=== PATIENT | female | born 1950 | race Caucasian/White ===

== ENCOUNTER → 2016-10-29 | Outpatient (CLI) | payer BC ==
[~2016-10-29] MED LIST: AGG PO; ASPI81TA28 PEG; ATOR-22 PEG; ATOR-24 PEG; ATRINS INH; CALCTAB5 PO; CHOL100010 PO; CHOL20007 PEG; DFLUDL100 PEG; FSM70 PO; Fibersource 1.2 Cal PEG; IPRA0.037 NAE; LACTCHW5 PO; LACTTAB13 PEG; LPT20 PO; LSN20 PO; MAGN250T8 PO; MULT1TAB22 PO; PEDICHW50 PEG; POTA10SO10 PEG; SULF1TAB92 PO; VITA400C15 PO; VNCS125 PEG; XPNINS1255 INH; [UNRECOGNIZED DRUG - CODE] PEG
--- NOTE | 2016-10-29 13:39 | DIAGNOSTIC IMAGING REPORT ---
CT OF THE CHEST WITHOUT IV CONTRAST CLINICAL HISTORY: Solitary pulmonary nodule. COMPARISON STUDY: Chest CTs November 21, 2013 and March 25, 2015 and chest radiograph February 13, 2016. CT DOSE: 214.63 mGy.cm TECHNIQUE: Axial images of the chest were obtained without IV contrast. Images were reviewed in the axial, sagittal, and coronal planes. IV contrast was not administered for this examination. FINDINGS: No enlarged axillary, mediastinal or hilar lymph nodes are present. The size of the heart is normal. There is no pericardial effusion. Bilateral breast implants are noted. No pneumothorax or pleural effusion is present. The central airways are patent. The previously described 5 mm left upper lobe nodule shown image 26 of 77 is unchanged. This is benign given stability. There has been interval development of numerous subcentimeter ill-defined groundglass nodules throughout the lungs since CT of March 25, 2015. No consolidation is present. The bony thorax is unremarkable. A left renal cyst is noted. There are multiple subcentimeter hypodense renal lesions which are suboptimally assessed on this unenhanced exam but were present on study of January 04, 2013 and are probably benign. IMPRESSION: 1. Interval development of numerous small ill-defined nodules throughout the lungs since CT of March 25, 2015. The findings favor a mild infectious process. A follow-up chest CT in 3 months to ensure resolution is recommended. 2. Stable 5 mm left upper lobe nodule which is benign given stability. 3. No thoracic lymphadenopathy. Electronically signed by: Eliud Ramirez M.D. 10/29/2016 1:37 PM Dictated Date/Time: 10/29/2016 1:26 PM
== END | disposition home or self-care (01) ==
LOC: C.CTS 12:47
PROVIDERS: ATTEND Internal Medicine
DX: R91.1 Solitary pulmonary nodule (principal)

== ENCOUNTER → 2016-12-17 | Outpatient (CLI) | payer BC ==
[2016-12-17 12:19] LABS: BASO % 0.4 %; BASO ABS # 0.03 K/uL (0-0.2); COMPLETE YES; EOS % 2.9 %; HEMATOCRIT 36.9 % (37-47); IG% 0.1 %; LYMPH % 30.3 %; LYMPH ABS # 2.38 K/uL (1.2-3.4); MEAN CELL VOLUME 91.6 fL (80-100); MEAN CORPUSCULAR HEMOGLOBIN 31.5 pg (25-34); MEAN CORPUSCULAR HGB CONC 34.4 g/dl (32-36); MEAN PLATELET VOLUME 10.4 fL (7.4-10.4); MONO % 5.1 %; NEUT % 61.2 %; PLATELET COUNT 286 K/uL (130-400); RED BLOOD COUNT 4.03 M/uL (4.2-5.4); WHITE BLOOD COUNT 7.85 K/uL (4.8-10.8)
[2016-12-17 12:28] LABS: URINE APPEARANCE CLEAR (CLEAR); URINE BILIRUBIN NEG (NEG); URINE COLOR YELLOW; URINE NITRITE NEG (NEG); URINE PH 8.5 (4.5-7.5); URINE SPECIFIC GRAVITY 1.015 (1.000-1.030); UROBILINOGEN NEG (NEG)
[2016-12-17 12:30] LABS: MANUAL MICROSCOPIC REQUIRED? NO; REVIEW REQ? NO
[2016-12-17 12:46] LABS: ALT/SGPT 24 U/L (12-78); AST/SGOT 17 U/L (15-37); BLOOD UREA NITROGEN 19 mg/dl (7-18); BUN/CREATININE RATIO 24.2 (10-20); CARBON DIOXIDE 28 mmol/L (21-32); CHLORIDE 106 mmol/L (98-107); CREATININE 0.78 mg/dl (0.60-1.20); GLUCOSE 81 mg/dl (70-99); POTASSIUM 3.9 mmol/L (3.5-5.1); SODIUM 142 mmol/L (136-145)
[2016-12-17 12:59] LABS: ALB/GLOB RATIO 1.1 (0.9-2); ALKALINE PHOSPHATASE 42 U/L (45-117); CHOLESTEROL 172 mg/dl (0-200); CHOLESTEROL/HDL RATIO 2.9; HDL CHOLESTEROL 60 mg/dl; LDL CHOLESTEROL CALCULATED 85 mg/dl; TRIGLYCERIDES 133 mg/dl (0-150); VERY LOW DENSITY LIPOPROT CALC 27 mg/dl
== END | disposition home or self-care (01) ==
LOC: C.LABBFT 09:50
PROVIDERS: ATTEND Internal Medicine
DX: Z00.00 Encounter for general adult medical examination without abnormal findings (principal); Z11.59 Encounter for screening for other viral diseases; E78.00 Pure hypercholesterolemia, unspecified; M81.0 Age-related osteoporosis without current pathological fracture; J30.0 Vasomotor rhinitis; I10 Essential (primary) hypertension; I63.9 Cerebral infarction, unspecified; R53.83 Other fatigue; R39.9 Unspecified symptoms and signs involving the genitourinary system

== ENCOUNTER → 2017-01-08 | Outpatient (CLI) | payer BC ==
[2017-01-08 16:40] LABS: URINE APPEARANCE CLEAR (CLEAR); URINE BILIRUBIN NEG (NEG); URINE COLOR YELLOW; URINE NITRITE NEG (NEG); URINE PH 8.5 (4.5-7.5); URINE SPECIFIC GRAVITY 1.017 (1.000-1.030); UROBILINOGEN NEG (NEG); ZZUR CULT IF INDIC CLEAN CATCH NO
[2017-01-08 16:45] LABS: MANUAL MICROSCOPIC REQUIRED? NO; REVIEW REQ? NO
== END | disposition home or self-care (01) ==
LOC: C.LABBFT 12:00
PROVIDERS: ATTEND Physician Assistant Medical
DX: R39.9 Unspecified symptoms and signs involving the genitourinary system (principal)

== ENCOUNTER → 2017-01-14 | Outpatient (CLI) | payer BC, OTHER | END | disposition home or self-care (01) | LOC: C.LABBFT 15:25 | PROVIDERS: ATTEND Physician Assistant Medical | DX: R39.9 Unspecified symptoms and signs involving the genitourinary system (principal) ==

== ENCOUNTER → 2017-02-03 | Outpatient (CLI) | payer BC, OTHER ==
--- NOTE | 2017-02-03 11:20 | DIAGNOSTIC IMAGING REPORT ---
CT OF THE CHEST WITHOUT IV CONTRAST CLINICAL HISTORY: MULTIPLE PULMONARY NODULES COMPARISON STUDY: 10/29/2016 CT DOSE: 189.38 mGycm TECHNIQUE: CT of the thorax was performed from the thoracic inlet to the lung bases. Images are reviewed in the axial, sagittal, and coronal planes. IV contrast was not administered for this examination. FINDINGS: Thyroid: Imaged portions of the thyroid gland are normal in appearance. Thoracic aorta: The thoracic aorta is normal in course and caliber, noting standard 3 vessel arch anatomy. Heart: There are mild cardiac artery calcifications present. Lungs and pleural spaces: No pleural effusions are visualized. There is no focal pulmonary consolidation. There is a stable 5 mm left upper lobe pulmonary nodule. There is been resolution of the previously identified multifocal groundglass pulmonary nodules. This indicates resolution of an inflammatory/infectious process. Mediastinum: There are several mediastinal lymph nodes which are the upper limits of normal in size. Aisha: There is no evidence of pathologic hilar adenopathy given the limitations of a noncontrast study Axilla: There is no pathologic adenopathy Upper abdomen: There are postsurgical changes of bilateral breast implants. There is an upper pole left renal cyst measuring 24 mm. Skeletal structures: There are no lytic or blastic osseous lesions. IMPRESSION: 1. Stable 5 mm left upper lobe pulmonary nodule. No further follow-up is indicated 2. Interval resolution of the previous described ill-defined bilateral groundglass nodules. 3. No acute intrathoracic findings. Electronically signed by: Julien Conrad M.D. 02/03/2017 11:18 AM Dictated Date/Time: 02/03/2017 11:12 AM
== END | disposition home or self-care (01) ==
LOC: C.CTS 10:40
PROVIDERS: ATTEND Internal Medicine
DX: R91.8 Other nonspecific abnormal finding of lung field (principal); R91.1 Solitary pulmonary nodule

== ENCOUNTER → 2017-02-23 | Outpatient (CLI) | payer BC, OTHER | END | disposition home or self-care (01) | LOC: C.LABSPEC 17:10 | PROVIDERS: ATTEND Nurse Practitioner Family | DX: R39.9 Unspecified symptoms and signs involving the genitourinary system (principal); A49.8 Other bacterial infections of unspecified site ==

== ENCOUNTER 2017-03-26 12:07 | Emergency (ER) | payer BC, OTHER ==
[~2017-03-26] VITALS: Ht 162.6 cm; Wt 52.7 kg
[~2017-03-26 12:07] MED LIST changes: -ASPI81TA28 PEG; -ATOR-22 PEG; -ATOR-24 PEG; -ATRINS INH; -CHOL20007 PEG; -DFLUDL100 PEG; -Fibersource 1.2 Cal PEG; -LACTTAB13 PEG; -PEDICHW50 PEG; -POTA10SO10 PEG; -VNCS125 PEG; -XPNINS1255 INH; -[UNRECOGNIZED DRUG - CODE] PEG
[2017-03-26 12:10] VITALS: Ht 162.6 cm; Wt 52.7 kg
--- NOTE | 2017-03-26 13:41 | DIAGNOSTIC IMAGING REPORT ---
CT SCAN OF THE BRAIN WITHOUT IV CONTRAST CLINICAL HISTORY: Trauma. Fall. Headache. COMPARISON STUDY: CT of the brain dated 02/13/2016. TECHNIQUE: Unenhanced axial CT scan of the brain is performed from the vertex to the skull base. CT DOSE: 537.48 mGy.cm FINDINGS: Brain parenchyma: There is extensive subdural hemorrhage identified. Subdural blood along both sides of the midline falx measures up to 10 mm in thickness. There is subdural hemorrhage along the left convexity which measures up to 0.9 cm in thickness. This causes mild effacement of the subjacent cortical sulci. Trace subdural blood is seen along the right frontal convexity. There is subdural hemorrhage along the left tentorium cerebelli. Subdural blood is also seen within the posterior fossa on the left, and extends to the skull base anterior to the brainstem. This likely extends into the cervical region. There are age-related involutional changes noting moderate patchy subcortical and periventricular microangiopathic change. There is no parenchymal hematoma, midline shift, or evidence of acute territorial ischemia by CT criteria. Chronic lacunar infarcts are identified in the left nasal ganglia. [place]-white matter is preserved. Ventricles, sulci, cisterns: Prominent secondary to involutional change. Cavum septum pellucidum is incidentally noted. No intraventricular blood is identified. Intracranial vasculature: There is atherosclerotic calcification of the cavernous carotid and vertebral arteries. Calvarium: The skeletal structures are osteopenic. No depressed femoral fracture is seen. Soft tissues: There is a posterior scalp contusion. Sinuses and mastoids: The visualized paranasal sinuses are clear. The mastoid air cells are well pneumatized. Orbits: The bony orbits are grossly intact. IMPRESSION: 1. There is extensive subdural hemorrhage identified. Subdural blood is present along both sides of the midline falx, the left convexity, the right frontal convexity, the left tentorium cerebelli, the posterior fossa, and extending into the upper cervical region. 2. There is mild mass effect on the left-sided cortical sulci. No midline shift is seen. 3. There is no evidence of acute territorial ischemia by CT criteria. 4. Left posterior scalp contusion. No depressed calvarial fracture is identified. Findings were called to physician Asst. Covarrubias in the emergency department at the time of interpretation. Electronically signed by: Jean Paul Arriaga M.D. 03/26/2017 1:40 PM Dictated Date/Time: 03/26/2017 1:27 PM
[2017-03-26] MEDS ORDERED: ONDANSETRON INJ 2 MG/ML 2 ML VIAL IV STA (13:43)
[2017-03-26] MEDS ORDERED: DESMOPRESSIN ACETATE IV STA (13:44)
[2017-03-26] MEDS ORDERED: SODIUM CHLORIDE 0.9% IV STA (13:44)
[2017-03-26 14:05] LABS: ISTAT CREATININE 0.7 mg/dl (0.6-1.3); ISTAT HEMOGLOBIN 10.9 g/dl (12.0-16.0); ISTAT IONIZED CALCIUM 1.1 mmol/l (1.12-1.32)
[2017-03-26 14:11] LABS: BASO % 0.3 %; BASO ABS # 0.03 K/uL (0-0.2); COMPLETE YES; EOS % 0.9 %; HEMATOCRIT 34.9 % (37-47); IG% 0.7 %; LYMPH % 23.1 %; LYMPH ABS # 2.48 K/uL (1.2-3.4); MEAN CELL VOLUME 92.6 fL (80-100); MEAN CORPUSCULAR HEMOGLOBIN 30.8 pg (25-34); MEAN CORPUSCULAR HGB CONC 33.2 g/dl (32-36); MEAN PLATELET VOLUME 9.9 fL (7.4-10.4); MONO % 4.3 %; NEUT % 70.7 %; PLATELET COUNT 309 K/uL (130-400); RED BLOOD COUNT 3.77 M/uL (4.2-5.4); WHITE BLOOD COUNT 10.73 K/uL (4.8-10.8)
[2017-03-26 14:16] LABS: INR 0.9 (0.9-1.1); PARTIAL THROMBOPLASTIN RATIO 0.8; PROTHROMBIN TIME (PATIENT) 10.1 SECONDS (9.0-12.0)
[2017-03-26 14:18] VITALS: BP 127/71; PULSE 80; TEMP 36.6; O2SAT 100
[2017-03-26 14:26] LABS: CREATININE 0.78 mg/dl (0.60-1.20); POTASSIUM 3.4 mmol/L (3.5-5.1)
[2017-03-26 14:33] VITALS: BP 136/95; PULSE 89; O2SAT 100
[2017-03-26 14:35] VITALS: BP 138/94; PULSE 92; TEMP 36.6; O2SAT 99
[2017-03-26] MEDS ORDERED: FENTANYL CITRATE INJ 50 MCG/1 ML 2 ML VIAL ONE (14:45)
--- NOTE | 2017-03-26 14:52 | EMERGENCY ROOM VISIT NOTE ---
ED Visit Note First contact with patient: 12:55 I have personally evaluated this patient examined her and reviewed the pertinent labs and data. I have discussed the case with Mildred Covarrubias, the physician assistant professor of physics and agree with the plan. Please refer to the PA note. I called by the nurses/PA to see this patient and she had been placed in our fast track area and CAT scan had been ordered after she had significant falling. She was found have a subdural hematoma and light of this, she was brought from CAT scan or to room A1 and I saw her immediately. Her neurologic exam is unchanged from baseline and intact and she does have some mild thick each which she says is baseline from previous strokes. Of concern also is that she is on Aggrenox. We did soft and a cervical collar. Based on her I discussed this is [facility]. The patient does request [facility] and she's been seen before. She does need to go to a trauma/neurosurgical center as we do not have the services available here. We did call the the helicopter and IV in the meantime we did discuss the case with Dr. Wilson, and she recommended getting DDAVP which was given as well as platelets. We gave her 2 units of platelets given that she is on Aggrenox. She remained stable the helicopter crew arrived she was having some increasing pain but unchanged neurologic exam and was given IV fentanyl and IV Zofran. She will be sent emergently to [facility] for neurosurgical traumatic evaluation. Diagnosis 1. Subdural hematoma 2. Aggrenox/antiplatelet use Due to the patient's subdural hematoma need for multiple consultations as well as IV platelets and IV medications and emergency transfer helicopter, I have personally spent greater than 30 minutes of critical care time in the direct management of this patient. This includes bedside care, interpretation of diagnostic studies, and testing, discussion with consultants, patient, and family members, and other required patient management activities. This 30 minutes is in excess of all separately billable procedures.
[2017-03-26 15:14] VITALS: BP 138/94; PULSE 92; TEMP 36.6; O2SAT 100
--- NOTE | 2017-03-26 15:24 | EMERGENCY ROOM VISIT NOTE ---
ED Visit Note First contact with patient: 12:55 CHIEF COMPLAINT: Head injury HISTORY OF PRESENT ILLNESS: This 66-year-old female patient presented to the emergency department 3 hours after receiving a head injury when she slipped in her kitchen, and fell backwards, hitting her head on the oven door, breaking the glass on the door. There was no loss of consciousness. There has been no vomiting. The patient complains of "the worst headache of my life". The patient does report some nausea, slower speech than normal. The patient denies vomiting, dizziness, blurry vision, chest pain, dyspnea, confusion, altered mental status. The headache has been steady. The patient complains of no neck pain. The patient has taken nothing for the pain. The patient rates the pain as 10/10. The patient denies bowel or bladder dysfunction. The patient denies any other injuries. The patient is on Aggrenox. She does report a history of stroke approximately one year ago. REVIEW OF SYSTEMS: A 10 system review of systems was performed with positives and pertinent negatives listed in the history of present illness. All other systems were reviewed and are negative. ALLERGIES: Penicillin, pollen MEDICATIONS: Aggrenox, atorvastatin, lisinopril, alendronate sodium, vitamin D, vitamin E, multivitamin, Atrovent nasal spray, magnesium oxide PMH: Stroke, hypertension, hyperlipidemia SOCIAL HISTORY: Patient lives locally. She denies alcohol, drug, tobacco use. PHYSICAL EXAM: Vital Signs: Reviewed Nurse's notes, vital signs stable. GENERAL : 66-year-old female, in no acute distress, well-developed, well-nourished. NEURO: The patient is alert, oriented to person place and time, and coherent. Patient does have slightly slurred speech. Normal mini mental status exam. Negative Romberg and pronator drift. Cerebellar function intact. HEAD: Hematoma, approximately the size of a baseball on posterior aspect of patient's head. Patient states this has decreased in size since initial injury. No active bleeding, laceration. EYES: Pupils are equal round and reactive to light and accommodation. EOMs are full and optic discs and fundi are normal. There is no swelling or discoloration of the tissue surrounding the eyes. EARS : External auditory canals clear without blood. NOSE: Patent without tenderness. No septal hematoma. FACE: No facial bone tenderness. NECK: Supple. There is no cervical spine tenderness. The patient does not have tenderness with movement of the neck, however she states this does worsen her headache.CARDIOVASCULAR: RRR, No murmur, No S3, S4 on auscultation. All distal pulses 2+. LUNGS: Equal expansion bilaterally. Equal breath sounds bilaterally. No adventitious lung sounds such as wheezes, rhonchi, rales on auscultation. ED COURSE: I examined the patient. Patient was sent for head CT. I received a phone call from the radiologist as soon as the CT was performed, who indicated subdural hematoma, no midline shift, he does believe the bleeding extends to the brainstem/cerebellum. He states he will continue to finish reading the CT as soon as possible. CT Results: FINDINGS: Brain parenchyma: There is extensive subdural hemorrhage identified. Subdural blood along both sides of the midline falx measures up to 10 mm in thickness. There is subdural hemorrhage along the left convexity which measures up to 0.9 cm in thickness. This causes mild effacement of the subjacent cortical sulci. Trace subdural blood is seen along the right frontal convexity. There is subdural hemorrhage along the left tentorium cerebelli. Subdural blood is also seen within the posterior fossa on the left, and extends to the skull base anterior to the brainstem. This likely extends into the cervical region. There are age-related involutional changes noting moderate patchy subcortical and periventricular microangiopathic change. There is no parenchymal hematoma, midline shift, or evidence of acute territorial ischemia by CT criteria. Chronic lacunar infarcts are identified in the left nasal ganglia. De [place]a-white matter is preserved. Ventricles, sulci, cisterns: Prominent secondary to involutional change. Cavum septum pellucidum is incidentally noted. No intraventricular blood is identified. Intracranial vasculature: There is atherosclerotic calcification of the cavernous carotid and vertebral arteries. Calvarium: The skeletal structures are osteopenic. No depressed femoral fracture is seen. Soft tissues: There is a posterior scalp contusion. Sinuses and mastoids: The visualized paranasal sinuses are clear. The mastoid air cells are well pneumatized. Orbits: The bony orbits are grossly intact. IMPRESSION: 1. There is extensive subdural hemorrhage identified. Subdural blood is present along both sides of the midline falx, the left convexity, the right frontal convexity, the left tentorium cerebelli, the posterior fossa, and extending into the upper cervical region. 2. There is mild mass effect on the left-sided cortical sulci. No midline shift is seen. 3. There is no evidence of acute territorial ischemia by CT criteria. 4. Left posterior scalp contusion. No depressed calvarial fracture is identified. Patient was transferred to room A1 at this time, and I consulted with Dr. Roper. 2 IVs inserted, labs drawn, EKG performed. See Dr. Roper's dictation regarding further assessment and orders at this time. Patient transferred via [employer] and helicopter to [facility] for further evaluation and care. DIAGNOSIS: Subdural hematoma DIFFERENTIAL DIAGNOSIS: Contusion of skull, concussion, subarachnoid hemorrhage , epidural hematoma, hemorrhagic shock Problem List Medical Problems: (1) Breast cancer Status: Resolved (2) Hypertension Status: Chronic (3) Leukemia Status: Resolved Surgical Problems: (1) History of breast reconstruction Status: Resolved Current/Historical Medications Scheduled Alendronate Sodium (Alendronate Sodium), 70 MG PO WK Atorvastatin (Atorvastatin Calcium), 20 MG PO QAM Cholecalciferol (Vitamin D), 2,000 INTER.UNIT PO DAILY Dipyridamole/Aspirin (Aggrenox 25-200 mg), 1 CAP PO BID Ipratropium [place] (Nasal) (Atrovent Nasal Lithia), 2 SPRAYS TONY BID Lisinopril (Lisinopril), 20 MG PO DAILY Magnesium Oxide (Mg Supplement (Magnesium), Unknown Dose PO DAILY Multiple Vitamins W/ Minerals (One Daily For Women), 1 TAB PO DAILY Tocopheryl Acet,Dl-Alpha (Vitamin E), 400 INTER.UNIT PO DAILY Allergies Coded Allergies: POLLEN (Verified Allergy, Unknown, RUNNY NOSE/SNEEZING, 03/26/17) Penicillins (Verified Allergy, Unknown, RASH, 03/26/17) Vital Signs Date Time Temp Pulse Resp B/P (MAP) Pulse Ox O2 Delivery O2 Flow Rate FiO2 03/26/17 15:14 36.6 92 18 138/94 100 03/26/17 14:37 92 100 03/26/17 14:35 138/94 03/26/17 14:35 36.6 92 18 138/94 99 03/26/17 14:33 89 18 136/95 100 03/26/17 14:32 88 136/95 100 03/26/17 14:27 89 100 03/26/17 14:22 89 131/92 98 03/26/17 14:19 127/71 03/26/17 14:18 36.6 80 16 127/71 100 2.0 03/26/17 14:17 80 100 03/26/17 14:12 75 115/81 100 03/26/17 14:07 80 100 03/26/17 14:02 78 156/87 100 03/26/17 13:57 76 97 03/26/17 13:52 76 149/86 97 03/26/17 13:51 127/94 03/26/17 13:47 74 98 03/26/17 13:43 75 03/26/17 13:42 70 03/26/17 13:39 151/89 03/26/17 12:10 88 18 118/82 97 Room Air Laboratory Results 03/26/17 13:45 Red Blood Count 3.77, Mean Corpuscular Volume 92.6, Mean Corpuscular Hemoglobin 30.8, Mean Corpuscular Hemoglobin Concent 33.2, Mean Platelet Volume 9.9, Neutrophils (%) (Auto) 70.7, Lymphocytes (%) (Auto) 23.1, Monocytes (%) (Auto) 4.3, Eosinophils (%) (Auto) 0.9, Basophils (%) (Auto) 0.3, Neutrophils # (Auto) 7.59, Lymphocytes # (Auto) 2.48, Monocytes # (Auto) 0.46, Eosinophils # (Auto) 0.10, Basophils # (Auto) 0.03 03/26/17 13:45 Test 03/26/17 13:45 03/26/17 13:52 White Blood Count 10.73 K/uL (4.8-10.8) Red Blood Count 3.77 M/uL (4.2-5.4) Hemoglobin 11.6 g/dL (12.0-16.0) Hematocrit 34.9 % (37-47) Mean Corpuscular Volume 92.6 fL (80-100) Mean Corpuscular Hemoglobin 30.8 pg (25-34) Mean Corpuscular Hemoglobin Concent 33.2 g/dl (32-36) Platelet Count 309 K/uL (130-400) Mean Platelet Volume 9.9 fL (7.4-10.4) Neutrophils (%) (Auto) 70.7 % Lymphocytes (%) (Auto) 23.1 % Monocytes (%) (Auto) 4.3 % Eosinophils (%) (Auto) 0.9 % Basophils (%) (Auto) 0.3 % Neutrophils # (Auto) 7.59 K/uL (1.4-6.5) Lymphocytes # (Auto) 2.48 K/uL (1.2-3.4) Monocytes # (Auto) 0.46 K/uL (0.11-0.59) Eosinophils # (Auto) 0.10 K/uL (0-0.5) Basophils # (Auto) 0.03 K/uL (0-0.2) RDW Standard Deviation 42.0 fL (36.4-46.3) RDW Coefficient of Variation 12.3 % (11.5-14.5) Immature Granulocyte % (Auto) 0.7 % Immature Granulocyte # (Auto) 0.07 K/uL (0.00-0.02) Prothrombin Time 10.1 SECONDS (9.0-12.0) Prothromb Time International Ratio 0.9 (0.9-1.1) Activated Partial Thromboplast Time 21.7 SECONDS (21.0-31.0) Partial Thromboplastin Ratio 0.8 Est Creatinine Clear Calc Drug Dose 60.6 ml/min Estimated GFR () 93.1 Estimated GFR (Non- 80.3 BUN/Creatinine Ratio 25.0 (10-20) Calcium Level 9.0 mg/dl (8.5-10.1) Bedside Hemoglobin 10.9 g/dl (12.0-16.0) Bedside Hematocrit 32 % (37-47) Bedside Sodium 142 mEq/L (135-144) Bedside Potassium 3.7 mEq/L (3.3-5.0) Bedside Chloride 104 mEq/L (101-112) Bedside Total CO2 27 mEq/l (24-31) Anion Gap 16.0 mmol/L (16-25) Bedside Blood Urea Nitrogen 22 mg/dl (7-18) Bedside Creatinine 0.7 mg/dl (0.6-1.3) Bedside Glucose (other) 100 mg/dl (70-99) Bedside Ionized Calcium (Mirian) 1.10 mmol/l (1.12-1.32) Medications Administered Medications (Trade) Dose Ordered Sig/Kimberlyn Route Start Time Stop Time Status Last Admin Dose Admin Desmopressin Acetate 16 mcg/ Sodium Chloride 54 ml @ 100 mls/hr NOW STAT IV 03/26/17 13:44 03/26/17 14:16 DC 03/26/17 13:53 100 MLS/HR Ondansetron HCl (Zofran Inj) 4 mg NOW STAT IV 03/26/17 13:43 03/26/17 13:44 DC 03/26/17 13:43 4 MG Fentanyl Citrate (Fentanyl Inj) 100 mcg STK-MED ONCE .ROUTE 03/26/17 14:45 03/26/17 14:46 DC 03/26/17 14:45 25 MCG Departure Information Impression Primary Impression: Subdural hematoma, acute Dispostion Transfer Acute Care Facility Condition [facility]IR Referrals Caro Ramirez M.D. (PCP) Patient Instructions My [facility]
[2017-06-01] MEDS ORDERED: DFLUDL100 PEG (11:35)
[2017-06-01] MEDS ORDERED: XPNINS1255 INH (11:35)
[2017-06-01] MEDS ORDERED: POTA10SO10 PEG (11:35)
[2017-06-01] MEDS ORDERED: Fibersource 1.2 Cal PEG (11:35)
[2017-06-01] MEDS ORDERED: ATRINS INH (11:35)
[2017-06-01] MEDS ORDERED: VNCS125 PEG (11:35)
[2017-06-01] MEDS ORDERED: PEDICHW50 PEG (11:35)
== END 2017-03-26 14:55 | disposition short-term general hospital (02) ==
LOC: C.EDB 12:08 → C.ED 14:55
DX: S06.5X0A Traumatic subdural hemorrhage without loss of consciousness, initial encounter (principal); W01.198A Fall on same level from slipping, tripping and stumbling with subsequent striking against other object, initial encounter; Y92.000 Kitchen of unspecified non-institutional (private) residence as the place of occurrence of the external cause; I10 Essential (primary) hypertension; E78.5 Hyperlipidemia, unspecified; Z79.01 Long term (current) use of anticoagulants; Z86.73 Personal history of transient ischemic attack (TIA), and cerebral infarction without residual deficits; Z85.3 Personal history of malignant neoplasm of breast; Z85.6 Personal history of leukemia

== ENCOUNTER 2017-05-24 08:12 | Inpatient (IN) | payer OTHER, BC ==
[~2017-05-24] VITALS: Ht 167.6 cm; Wt 55.5 kg
[~2017-05-24 08:12] MED LIST changes: -CALCTAB5 PO; -LACTCHW5 PO; -SULF1TAB92 PO
[2017-05-24] MEDS ORDERED: LEVAQUIN 750MG / 150ML D5W IV STA (08:24)
[2017-05-24] MEDS ORDERED: CEFEPIME IV 1,000 MG in DEXTROSE 5% 100ML 100 ML IV STA (08:24)
[2017-05-24] MEDS ORDERED: SODIUM CHLORIDE 0.9% 1000ML 2,000 ML IV STA (08:24)
--- NOTE | 2017-05-24 08:47 | DIAGNOSTIC IMAGING REPORT ---
CHEST ONE VIEW PORTABLE CLINICAL HISTORY: Fever. COMPARISON STUDY: Chest CT February 03, 2017. FINDINGS: A tracheostomy tube is in place. There are bilateral breast implants. No pneumothorax or pleural effusion is identified. There is no evidence of pulmonary edema. Cardiac size is normal. Mediastinal contours are normal. Note is made of airspace opacity within the medial right lung base. There is also left basilar opacity. IMPRESSION: Bibasilar airspace opacities which could reflect pneumonia or atelectasis. Electronically signed by: Eliud Ramirez M.D. 05/24/2017 8:46 AM Dictated Date/Time: 05/24/2017 8:44 AM
[2017-05-24] MEDS ORDERED: VANCOMYCIN INJ 1,200 MG in SODIUM CHLORIDE 0.9% 500ML 500 ML IV SCH (09:00)
[2017-05-24 09:08] LABS: URINE APPEARANCE TURBID (CLEAR); URINE BILIRUBIN NEG (NEG); URINE COLOR YELLOW; URINE EPITHELIAL CELL AUTO >30 /lpf (0-5); URINE NITRITE POS (NEG); URINE SPECIFIC GRAVITY 1.022 (1.000-1.030); UROBILINOGEN NEG (NEG)
[2017-05-24 09:11] LABS: MANUAL MICROSCOPIC REQUIRED? NO; REVIEW REQ? YES
[2017-05-24 09:22] LABS: ALKALINE PHOSPHATASE 113 U/L (45-117); ALT/SGPT 495 U/L (12-78); AST/SGOT 637 U/L (15-37); BLOOD UREA NITROGEN 20 mg/dl (7-18); BUN/CREATININE RATIO 29.9 (10-20); CALCIUM 8.3 mg/dl (8.5-10.1); CARBON DIOXIDE 26 mmol/L (21-32); CHLORIDE 106 mmol/L (98-107); CREATININE 0.68 mg/dl (0.60-1.20); GLUCOSE 153 mg/dl (70-99); MAGNESIUM 1.9 mg/dl (1.8-2.4); SODIUM 142 mmol/L (136-145)
[2017-05-24 09:29] LABS: PROTHROMBIN TIME (PATIENT) 11.1 SECONDS (9.0-12.0)
[2017-05-24 09:35] LABS: ARTERIAL BLOOD GAS BASE EXCESS -0.4 mEq/L (-9-1.8); ARTERIAL BLOOD GAS HCO3 23 mmol/L (19-24); ARTERIAL BLOOD GAS PO2 77 mm/Hg (80-95); ARTERIAL BLOOD GAS pH 7.47 (7.35-7.45)
[2017-05-24 09:38] LABS: ALLEN TEST POS (POS); O2 ADMINISTRATION 12 L
[2017-05-24] MEDS ORDERED: VANCOMYCIN INJ 1,200 MG in SODIUM CHLORIDE 0.9% 500ML 500 ML IV ONE (10:00)
[2017-05-24] MEDS ORDERED: VANCOMYCIN INJ 1,200 MG in SODIUM CHLORIDE 0.9% 250ML 250 ML IV ONE (10:00)
[2017-05-24] MEDS ORDERED: ATOR-24 PEG (11:14)
[2017-05-24] MEDS ORDERED: ATOR-22 PEG (11:14)
[2017-05-24] MEDS ORDERED: LACTTAB13 PEG (11:14)
[2017-05-24] MEDS ORDERED: ASPI81TA28 PEG (11:14)
[2017-05-24] MEDS ORDERED: CHOL20007 PEG (11:14)
[2017-05-24] MEDS ORDERED: [UNRECOGNIZED DRUG - CODE] PEG (11:14)
--- NOTE | 2017-05-24 13:32 | History and Physical ---
History & Physical Date & Time of Service: May 24, 2017 at 12:39 Chief Complaint: Sepsis Alert Primary Care Physician: Caro Ramirez M.D. History of Present Illness Source: family (daughter - Mayen (POA)) 67yo female with history of SDH requiring life flight to [facility] on March 26, 2017, presents from [facility] with fever for 2-3 days, worsening lethargy, and increased purulent trach secretions over the last few days. She also had a fever about 1 week ago. Daughter has noted an intermittent cough for the past few days. Her daughter was present at bedside during my assessment and provided all historical information. She was hospitalized in intensive care for 3 weeks at [facility] and ultimately discharged to [facility] in [place] after her stay at [place] for the SDH. She never required neurosurgical intervention. The SDH was due to a fall in her kitchen. She was released to [facility] about 2.5 weeks ago. She has a trach and PEG both placed at [facility]. Her stay there was complicated by pneumonia and c. diff colitis. She has not recovered any strength in her right arm or right leg. She has a limited amount of mobility in her left arm. Very little movement in left leg. Daughter reports she has been lethargic for "some time" and really only talked on the day of transfer from [facility] to [facility] Since then she has not spoken even with use of her passy danial valve. Her dilantin was increased about 1 week ago by the medical assisting program director at [facility]. No recent seizures, however, per the daughter. The dilantin was started at [place] as a precautionary measure not because of actual witnessed seizures. She typically requires about 28% FiO2 via trach collar. Never need a vent while in the [facility]. Has not had a leung at [facility]. Receives jevity via PEG tube at night for 12 hours, 85cc/hr. No recent diarrhea per daughter. lastly, the patient was going to be followed by Dr. Epps from neurology and was scheduled to receive a CT head THIS WEDNESDAY. Past Medical/Surgical History PMH: 1. history of multiple strokes - largest stroke was February 2016 causing mild hemiparesis on right; she was able to return to independent living following this stroke 2. SDH - March 2017 3. h/o multiple TIAs 4. h/o breast cancer - b/l, s/p mastectomy b/l 5. h/o leukemia - 1988 - received brain radiation for such PSH: 1. h/o breast reconstruction 2. tracheostomy 3. 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) Allergies Coded Allergies: POLLEN (Verified Allergy, Unknown, RUNNY NOSE/SNEEZING, 05/24/17) Penicillins (Verified Allergy, Unknown, RASH, 05/24/17) Home Medications Scheduled Aspirin (Aspirin Ec), 81 MG PEG DAILY Atorvastatin (Lipitor), 20 MG PEG DAILY Cholecalciferol (Vitamin D3), 1 TAB PEG DAILY Phenytoin (Dilantin), 250 MG PEG BID Probiotic Product (Bacid), 1 TAB PEG QAM Review of Systems unable to obtain ROS due to altered mental status and noncommunicative status Physical Exam Vital Signs Date Time Temp Pulse Resp B/P (MAP) Pulse Ox O2 Delivery O2 Flow Rate FiO2 05/24/17 10:50 126 30 92 05/24/17 10:45 121/83 Trach Collar 05/24/17 10:35 126 27 93 05/24/17 10:30 113/72 Trach Collar 05/24/17 10:20 127 27 95 05/24/17 10:07 38.0 128 28 127/80 94 Trach Collar 05/24/17 09:35 129 28 92 05/24/17 09:30 125/99 05/24/17 09:20 127 30 95 05/24/17 09:16 05/24/17 09:05 127 33 93 05/24/17 09:00 138/94 05/24/17 08:57 142 24 90 05/24/17 08:45 129/78 05/24/17 08:42 121 29 94 05/24/17 08:41 126/90 05/24/17 08:27 125 19 93 05/24/17 08:19 132/84 05/24/17 08:15 39.4 133 28 132/84 91 6.0 General Appearance: no apparent distress, + pertinent finding (appears ill, chronically malnourished, thin; but nontoxic; occasionally looks at daughter and at one point tried to vocalize something but otherwise didn't follow commands) Head: normocephalic, atraumatic Eyes: PERRL, sclerae normal, + pertinent finding (no obvious nystagmus) ENT: + pertinent finding (TMs not seen due to excess cerumen; MM are pasty in the mouth; suspected thrush on tongue; no other lesions) Neck: supple, no adenopathy, thyroid normal, no JVD, + pertinent finding ( tracheostomy present, purulent yellow secretions seen) Respiratory/Chest: no respiratory distress, no accessory muscle use, + decreased breath sounds (both bases), + crackles (right base) Cardiovascular: no gallop, no murmur, normal peripheral pulses, + tachycardia Abdomen/GI: normal bowel sounds, non tender, soft, no organomegaly, + pertinent finding (PEG tube in place, clean, no erythema at stoma site) Extremities/Musculoskelatal: no pedal edema Neurologic/Psych: alert (awake, but does not follow commands), + aphasia, + facial droop (right), + motor weakness (0/5 strength RUE, RLE, and LLE; she has at least 4/5 strength in the LUE (was gripping daughter's hand and keeping arm raised in air)), + pertinent finding (reflexes 1+ b/l; +babinski's b/l ) Skin: no rash, + pallor Diagnostics Laboratory Results Results Past 24 Hours Test 05/24/17 08:23 05/24/17 08:30 05/24/17 08:51 05/24/17 09:08 Range/Units Bedside Glucose 158 70-90 mg/dl Sodium Level 142 136-145 mmol/L Potassium Level 4.0 3.5-5.1 mmol/L Chloride Level 106 98-107 mmol/L Carbon Dioxide Level 26 21-32 mmol/L Anion Gap 10.0 3-11 mmol/L Blood Urea Nitrogen 20 7-18 mg/dl Creatinine 0.68 0.60-1.20 mg/dl Est Creatinine Clear Calc Drug Dose 77.2 ml/min Estimated GFR () 106.4 Estimated GFR (Non- 91.8 BUN/Creatinine Ratio 29.9 10-20 Random Glucose 153 70-99 mg/dl Calcium Level 8.3 8.5-10.1 mg/dl Magnesium Level 1.9 1.8-2.4 mg/dl Total Bilirubin 0.2 0.2-1 mg/dl Direct Bilirubin 0-0.2 mg/dl Aspartate Amino Transf (AST/SGOT) 637 15-37 U/L Alanine Aminotransferase (ALT/SGPT) 495 12-78 U/L Alkaline Phosphatase 113 45-117 U/L Total Creatine Kinase 41 26-192 U/L Creatine Kinase MB < 0.5 0.5-3.6 ng/ml Creatine Kinase MB Ratio 0-3.0 Troponin I 0.117 0-0.045 ng/ml Total Protein 5.9 6.4-8.2 gm/dl Albumin 2.1 3.4-5.0 gm/dl Urine Color YELLOW Urine Appearance TURBID CLEAR Urine pH 7.0 4.5-7.5 Urine Specific [place] 1.022 1.000-1.030 Urine Protein 1+ NEG Urine Glucose (UA) NEG NEG Urine Ketones NEG NEG Urine Occult Blood 2+ NEG Urine Nitrite POS NEG Urine Bilirubin NEG NEG Urine Urobilinogen NEG NEG Urine Leukocyte Esterase LARGE NEG Urine WBC (Auto) >30 0-5 /hpf Urine RBC (Auto) 5-10 0-4 /hpf Urine Hyaline Casts (Auto) 1-5 0-5 /lpf Urine Epithelial Cells (Auto) >30 0-5 /lpf Urine Bacteria (Auto) 2+ NEG Urine Pathogenic Casts 0 /lpf Urine Yeast (Auto) NONE PRSENT Prothrombin Time 11.1 9.0-12.0 SECONDS Prothromb Time International Ratio 1.0 0.9-1.1 Test 05/24/17 09:20 05/24/17 09:30 05/24/17 09:35 05/24/17 11:50 Range/Units Arterial Blood pH 7.47 7.35-7.45 Arterial Blood Partial Pressure CO2 32 35-46 mmHg Arterial Blood Partial Pressure O2 77 80-95 mm/Hg Arterial Blood HCO3 23 19-24 mmol/L Arterial Blood Oxygen Saturation 96.0 90-95 % Arterial Blood Base Excess -0.4 -9-1.8 mEq/L Arterial Blood Gas Delivery 12 L [place] Test POS POS Bedside Lactic Acid Venous 2.52 0.90-1.70 mmol/L Acetaminophen Level < 2 10-30 ug/ml Microbiology Results 05/24/17 Blood Culture, Received Pending 05/24/17 Blood Culture, Received Pending Diagnostic Radiology cxr - portable - IMPRESSION: Bibasilar airspace opacities which could reflect pneumonia or atelectasis. EKG ekg - my reading - sinus tach, left axis deviation, possible left atrial enlargement, q's inferior leads; no ST changes Impression Assessment and Plan Unfortunate 67yo female with history of multiple prior strokes and a large SDH in March 2017 requiring prolonged intensive care stay at [facility], s/p trach and PEG, followed by L-TACH stay and then transfer to [facility] - presenting with metabolic encephalopathy, acute hypoxic respiratory failure 2nd to b/l basilar pneumonia, sepsis 2nd to pneumonia/UTI, and abnormal LFTs. She has had a very poor recovery from her SDH by her daughter's history. 1. acute hypoxic respiratory failure 2nd to b/l basilar pneumonia - concerning for aspiration pneumonia. Certainly at risk of gram negative etiology or MRSA. Supportive care - O2 via trach collar, expectorants, nebs, antibiotics, keep head of bed at 30 degrees at all times. Send MRSA swab. 2. sepsis 2nd to pneumonia/UTI - send urine cx; follow blood cx's. PCN- allergic; thus, cefepime, flagyl, vanco, levaquin. If MRSA swab is negative could consider d/c of vanco. 3. metabolic encephalopathy - baseline mental status, per daughter, has been poor "for weeks." Check TSH, ammonia to be complete. Reasonable to check head CT to exclude any new process (was scheduled to get head CT this Wednesday as outpatient). Awaiting dilantin level as toxicity could cause over-sedation. 4. h/o multiple prior strokes - on aspirin for secondary prevention. 5. SDH 03/2017 - as above. PT, OT, speech when able. 6. tracheostomy status - was to establish care with [facility] soon. Consider consultation while hospitalized. 7. PEG tube status - gang pusher consult for tube feeding recommendations. 8. recent lethargy/altered mental status at SNF - see above. 9. abnormal LFTs - 2nd to statin agent? dilantin? other? recheck in am. Hold statin. No GI/abdominal symptoms to suggest acute biliary issue. Consider u/s if the Ast/Alt do not improve. 10. moderate-severe protein calorie malnutrition - add MVI. Energy Broker consultation. 11. DVT proph - heparin BID if head CT is stable. 12. Dilantin use for seizure prophylaxis - corrected dilantin level is 6.6 ( accounting for low albumin). Will give the dilantin IV for now. Consider neurology consultation while here for additional assistance. 13. +troponin - no prior h/o CAD. EKG w/o acute ST changes. Repeat in am. Suspect type 2 [place] / myocardial demand ischemia in setting of sepsis/acute resp failure. 14. h/o c. diff colitis in March at [place] - lactinex prophylaxis. Narrow her antibiotics when able. Daughter updated at bedside extensively. Advanced Directives Existing Advance Directive: Yes Existing Living Will: Yes Existing Power of Beadworker: Yes Existing Health Care Proxy: Yes Resuscitation Status FULL RESUSCITATION VTE Prophylaxis Risk Level: High Given or contraindicated: Unfractionated heparin SQ Social Service Consult Lives in Shelter Note total visit time 75 minutes Additional Copies To Caro Ramirez M.D.; Canelo Rios; Margie Epps M.D.
[2017-05-24 13:45] VITALS: O2SAT 96; Ht 167.6 cm; Wt 55.5 kg
--- NOTE | 2017-05-24 14:33 | EMERGENCY ROOM VISIT NOTE ---
History Report prepared by Connor: Joe Wharton Under the Supervision of: Dr. Kj Wolf D.O. First contact with patient: 08:13 Stated Complaint: SEPSIS ALERT History of Present Illness The patient is a 67 year old female who presents to the Emergency Room via Emergency Medical Services from [facility] after being found unresponsive this morning. Per [facility] nursing staff the patient has been exhibiting worsening lethargy since last Wednesday, three days ago. She had a fever of 102 degrees this morning and was given Tylenol at 0720, one hour prior to arrival. The patient remained unresponsive for EMS staff en route to hospital. Per custodial staff the patient will respond at her baseline and is normally awake, alert, and oriented to person, place, and time. They are unsure of why she received the tracheotomy tube. The patient was diagnosed with a large subdural hematoma secondary to a falling episode in March, two months ago. Source of History: patient Onset: three days ago Position: other (Global) Quality: other (Lethargy ) Timing: worsening Review of Systems ROS limited due to unresponsiveness. Past Medical & Surgical Medical Problems: (1) Acute respiratory failure with hypoxia (2) Basal pneumonia of both lungs (3) Breast cancer (4) CVA (cerebral vascular accident) (5) CVA, s/p TPA (6) Hypertension (7) Leukemia (8) possible tia Surgical Problems: (1) History of breast reconstruction Family History noncontributory secondary to case specifics/pt age. Social History Drug Use: none Housing Status: other ([facility]) Occupation Status: other (Lives at [facility]) Current/Historical Medications Scheduled Aspirin (Aspirin Ec), 81 MG PEG DAILY Atorvastatin (Lipitor), 20 MG PEG DAILY Cholecalciferol (Vitamin D3), 1 TAB PEG DAILY Phenytoin (Dilantin), 250 MG PEG BID Probiotic Product (Bacid), 1 TAB PEG QAM Allergies Coded Allergies: POLLEN (Verified Allergy, Unknown, RUNNY NOSE/SNEEZING, 05/24/17) Penicillins (Verified Allergy, Unknown, RASH, 05/24/17) Physical Exam Vital Signs Date Time Temp Pulse Resp B/P (MAP) Pulse Ox O2 Delivery O2 Flow Rate FiO2 05/24/17 13:56 37.7 124 20 127/71 96 Trach Collar 05/24/17 13:45 96 Trach Collar 6.0 05/24/17 12:40 122 19 90 05/24/17 12:30 111/69 05/24/17 12:25 117 25 91 05/24/17 12:15 112/72 05/24/17 12:10 118 25 92 05/24/17 12:00 118/74 05/24/17 11:55 120 24 92 05/24/17 11:45 115/69 05/24/17 11:40 116 26 92 05/24/17 11:30 114/73 05/24/17 11:25 120 26 91 05/24/17 11:15 124/74 05/24/17 11:10 124 26 91 05/24/17 11:00 119/80 05/24/17 10:55 126 26 92 05/24/17 10:50 126 30 92 05/24/17 10:45 121/83 Trach Collar 05/24/17 10:35 126 27 93 05/24/17 10:30 113/72 Trach Collar 05/24/17 10:20 127 27 95 05/24/17 10:07 38.0 128 28 127/80 94 Trach Collar 05/24/17 09:35 129 28 92 05/24/17 09:30 125/99 05/24/17 09:20 127 30 95 05/24/17 09:16 05/24/17 09:05 127 33 93 05/24/17 09:00 138/94 05/24/17 08:57 142 24 90 05/24/17 08:45 129/78 05/24/17 08:42 121 29 94 05/24/17 08:41 126/90 05/24/17 08:27 125 19 93 05/24/17 08:19 132/84 05/24/17 08:15 39.4 133 28 132/84 91 6.0 Physical Exam GENERAL: Laying on bed on 6 liters of oxygen via tracheotomy tube. Intermittently moving. EYE EXAM: normal conjunctiva OROPHARYNX: no exudate, no erythema, lips, buccal mucosa, and tongue normal and mucous membranes are dry. NECK: Tracheotomy tube with green secretions. LUNGS: Diminished breath sounds at the bases, with referred upper airway noises. Normal chest wall mechanics HEART: Tachycardic no murmurs, S1 normal and S2 normal ABDOMEN: G-tube in place, leaking yellow gastric contents. There are bruises present across the left lower quadrant of the abdomen. abdomen soft, non-tender , normo-active bowel sounds, no masses, no rebound or guarding. SKIN: no rashes and no bruising UPPER EXTREMITIES: upper extremities are grossly normal. LOWER EXTREMITIES: No pitting edema. NEURO EXAM: Patient is awake. Not responding to commands. She is moving her head , upper and lower extremities intermittently. Localizes to pain. She is non- verbal. Patient moves left side more than right. Medical Decision & Procedures ER Provider Diagnostic Interpretation: Radiology results as stated below per my review and the radiologist's interpretation: CHEST ONE VIEW PORTABLE CLINICAL HISTORY: Fever. COMPARISON STUDY: Chest CT February 03, 2017. FINDINGS: A tracheostomy tube is in place. There are bilateral breast implants. No pneumothorax or pleural effusion is identified. There is no evidence of pulmonary edema. Cardiac size is normal. Mediastinal contours are normal. Note is made of airspace opacity within the medial right lung base. There is also left basilar opacity. IMPRESSION: Bibasilar airspace opacities which could reflect pneumonia or atelectasis. Electronically signed by: Eliud Ramirez M.D. 05/24/2017 8:46 AM Dictated Date/Time: 05/24/2017 8:44 AM Laboratory Results 05/24/17 08:30 Test 05/24/17 08:23 05/24/17 08:30 05/24/17 08:51 05/24/17 09:08 Bedside Glucose 158 mg/dl (70-90) Anion Gap 10.0 mmol/L (3-11) Est Creatinine Clear Calc Drug Dose 77.2 ml/min Estimated GFR () 106.4 Estimated GFR (Non- 91.8 BUN/Creatinine Ratio 29.9 (10-20) Calcium Level 8.3 mg/dl (8.5-10.1) Magnesium Level 1.9 mg/dl (1.8-2.4) Total Bilirubin 0.2 mg/dl (0.2-1) Direct Bilirubin mg/dl (0-0.2) Aspartate Amino Transf (AST/SGOT) 637 U/L (15-37) Alanine Aminotransferase (ALT/SGPT) 495 U/L (12-78) Alkaline Phosphatase 113 U/L (45-117) Total Creatine Kinase 41 U/L (26-192) Creatine Kinase MB < 0.5 ng/ml (0.5-3.6) Creatine Kinase MB Ratio (0-3.0) Troponin I 0.117 ng/ml (0-0.045) Total Protein 5.9 gm/dl (6.4-8.2) Albumin 2.1 gm/dl (3.4-5.0) Urine Color YELLOW Urine Appearance TURBID (CLEAR) Urine pH 7.0 (4.5-7.5) Urine Specific [place] 1.022 (1.000-1.030) Urine Protein 1+ (NEG) Urine Glucose (UA) NEG (NEG) Urine Ketones NEG (NEG) Urine Occult Blood 2+ (NEG) Urine Nitrite POS (NEG) Urine Bilirubin NEG (NEG) Urine Urobilinogen NEG (NEG) Urine Leukocyte Esterase LARGE (NEG) Urine WBC (Auto) >30 /hpf (0-5) Urine RBC (Auto) 5-10 /hpf (0-4) Urine Hyaline Casts (Auto) 1-5 /lpf (0-5) Urine Epithelial Cells (Auto) >30 /lpf (0-5) Urine Bacteria (Auto) 2+ (NEG) Urine Pathogenic Casts /lpf (0) Urine Yeast (Auto) (NONE PRSENT) Prothrombin Time 11.1 SECONDS (9.0-12.0) Prothromb Time International Ratio 1.0 (0.9-1.1) Test 05/24/17 09:20 05/24/17 09:30 05/24/17 09:35 05/24/17 11:50 Arterial Blood pH 7.47 (7.35-7.45) Arterial Blood Partial Pressure CO2 32 mmHg (35-46) Arterial Blood Partial Pressure O2 77 mm/Hg (80-95) Arterial Blood HCO3 23 mmol/L (19-24) Arterial Blood Oxygen Saturation 96.0 % (90-95) Arterial Blood Base Excess -0.4 mEq/L (-9-1.8) Arterial Blood Gas Delivery 12 L [place] Test POS (POS) Bedside Lactic Acid Venous 2.52 mmol/L (0.90-1.70) Acetaminophen Level < 2 ug/ml (10-30) Test 05/24/17 13:21 Laboratory results per my review. Medications Administered Medications (Trade) Dose Ordered Sig/Kimberlyn Route Start Time Stop Time Status Last Admin Dose Admin Sodium Chloride 2,000 ml @ 999 mls/hr Q2H1M STAT IV 05/24/17 08:24 05/24/17 10:24 DC 05/24/17 08:24 999 MLS/HR Cefepime HCl 1000 mg/Dextrose 111.3 ml @ 200 mls/hr NOW STAT IV 05/24/17 08:24 05/24/17 08:57 DC 05/24/17 08:43 200 MLS/HR Levofloxacin (Levaquin / D5W) 750 mg NOW STAT IV 05/24/17 08:24 05/24/17 08:25 DC 05/24/17 08:59 750 MG Vancomycin HCl 1200 mg/Sodium Chloride 274 ml @ 125 mls/hr TODAY@1000 ONCE IV 05/24/17 10:00 05/24/17 12:11 DC 05/24/17 10:06 125 MLS/HR ECG Indication: altered mental status (Sepsis), other Rate (beats per minute): 127 Rhythm: sinus tachycardia Findings: Q waves (Inferior), other (LAD) Comparison ECG Date: 03/26/2017 Change: Q-waves are new. ED Course ED COURSE: Vital signs were reviewed and showed Hypoxic and Tachycardic vitals The patients medical record was reviewed The above diagnostic studies were performed and reviewed. ED treatments and interventions as stated above. 0816: The patient was evaluated in room B9. A complete history and physical examination was performed. 0824: Ordered Levofloxacin 750 mg IV, Cefepime HCl 111.3 mL @ 200 mL/hr IV, Sodium Chloride 2000 mL @ 999 mL/hr IV. 0826: I discussed the case with the [facility] staff at this time. They notes that she is normally awake, alert, and oriented x3. The nurse was unsure why she received the Tracheotomy tube. In March the patient had a large subdural hematoma secondary to a fall. 0900: Ordered Vancomycin HCl 524 mL @ 200 mL/hr IV. 0923: I reevaluated the patient at this time. She remains unchanged. 1100: I checked on the patient at this time. 1136: I discussed the case with Dr. Dorothea Moeller [facility] Hospitalist. He will evaluate the patient for further treatment. 1140: Upon reevaluation, the patient is in bed.I discussed my findings with the patient and she understands and agrees with the treatment plan. Based on the patients age, coexisting illnesses, exam and lab findings the decision to treat as an inpatient was made. The patient remained stable while under my care. The patient will be evaluated for further management. Medical Decision Differential diagnosis includes etiologies such as sepsis, UTI, pneumonia, metabolic, electrolyte abnormalities, cardiac sources, intracerebral event, toxicologic, neurologic, as well as others were entertained. Patient is a 67-year-old female who presents the ER unresponsive intermittently moving extremities. Patient was found to be febrile and tachycardic. She does have a tracheostomy tube in place with increased yellow secretions which are new. Upon presentation patient still requiring 6 L via tracheostomy. Labs were obtained and CBC had to be redrawn. Troponin was elevated 0.1. She had a large transaminitis. Chest x-ray shows a bilateral pneumonia. UA shows a likely UTI. Patient was covered with vancomycin, cefepime and Levaquin. On reevaluation patient was much more alert and at baseline per family. Patient was noted to internal medicine with sepsis secondary to pneumonia and UTI. Consults Time Called: 1125 Consulting Physician: Dr. Dorothea QUINTEROS Hospitalist Returned Call: [phone] I discussed the case with Dr. Dorothea QUINTEROS Hospitalist. He will evaluate the patient for further treatment. Impression Primary Impression: Acute respiratory failure with hypoxia Additional Impressions: Sepsis Pneumonia Scribe Attestation The scribe's documentation has been prepared under my direction and personally reviewed by me in its entirety. I confirm that the note above accurately reflects all work, treatment, procedures, and medical decision making performed by me. Departure Information Dispostion Being Evaluated By Hospitalist Problem Qualifiers Additional Impressions: Sepsis Sepsis type: sepsis due to unspecified organism Qualified Codes: A41.9 - Sepsis, unspecified organism Pneumonia Pneumonia type: due to unspecified organism Laterality: bilateral Lung location: lower lobe of lung Qualified Codes: J18.9 - Pneumonia, unspecified organism
[2017-05-24] MEDS ORDERED: FLUCONAZOLE SUSP 100 MG/10 ML UDP PEG ONE (15:30)
[2017-05-24 15:43] LABS: MEAN CELL VOLUME 94.3 fL (80-100); MEAN CORPUSCULAR HEMOGLOBIN 29.9 pg (25-34); MEAN CORPUSCULAR HGB CONC 31.7 g/dl (32-36); MEAN PLATELET VOLUME 9.1 fL (7.4-10.4); PLATELET COUNT 328 K/uL (130-400); RED BLOOD COUNT 3.71 M/uL (4.2-5.4); WHITE BLOOD COUNT 12.28 K/uL (4.8-10.8)
--- NOTE | 2017-05-24 15:49 | Pharmacy Progress Note ---
Pharmacy Abx Initial Consult Date of Service May 24, 2017. Pharmacy Dosing Scope Date of Consult: 05/24/17 Consultation requested by: Dr. Piedra Pharmacy is consulted to initiate Vancomycin IV dosing therapy, order appropriate labs and adjust drug dose/frequency. Subjective The patient is a 67 year old female admitted on May 24, 2017 at 13:20 with increase secretions/fever. Objective Height (Feet): 5 Height (Inches): 6.00 Weight (Kilograms): 60.500 Vital Signs (Past 12Hrs) Vital Signs Past 12 Hours Date Time Temp Pulse Resp B/P (MAP) Pulse Ox O2 Delivery O2 Flow Rate FiO2 05/24/17 13:56 37.7 124 20 127/71 96 Trach Collar 05/24/17 13:45 96 Trach Collar 6.0 05/24/17 12:40 122 19 90 05/24/17 12:30 111/69 05/24/17 12:25 117 25 91 05/24/17 12:15 112/72 05/24/17 12:10 118 25 92 05/24/17 12:00 118/74 05/24/17 11:55 120 24 92 05/24/17 11:45 115/69 05/24/17 11:40 116 26 92 05/24/17 11:30 114/73 05/24/17 11:25 120 26 91 05/24/17 11:15 124/74 05/24/17 11:10 124 26 91 05/24/17 11:00 119/80 05/24/17 10:55 126 26 92 05/24/17 10:50 126 30 92 05/24/17 10:45 121/83 Trach Collar 05/24/17 10:35 126 27 93 05/24/17 10:30 113/72 Trach Collar 05/24/17 10:20 127 27 95 05/24/17 10:07 38.0 128 28 127/80 94 Trach Collar 05/24/17 09:35 129 28 92 05/24/17 09:30 125/99 05/24/17 09:20 127 30 95 05/24/17 09:16 05/24/17 09:05 127 33 93 05/24/17 09:00 138/94 05/24/17 08:57 142 24 90 05/24/17 08:45 129/78 05/24/17 08:42 121 29 94 05/24/17 08:41 126/90 05/24/17 08:27 125 19 93 05/24/17 08:19 132/84 05/24/17 08:15 39.4 133 28 132/84 91 6.0 Lab Results (24Hrs) Laboratory Tests (24 Hours) Test 05/24/17 08:30 05/24/17 15:24 Total Creatine Kinase 41 U/L (26-192) White Blood Count 12.28 K/uL (4.8-10.8) H Red Blood Count 3.71 M/uL (4.2-5.4) L Hemoglobin 11.1 g/dL (12.0-16.0) L Hematocrit 35.0 % (37-47) L Mean Corpuscular Volume 94.3 fL (80-100) Mean Corpuscular Hemoglobin 29.9 pg (25-34) Mean Corpuscular Hemoglobin Concent 31.7 g/dl (32-36) L Platelet Count 328 K/uL (130-400) Mean Platelet Volume 9.1 fL (7.4-10.4) Micro Results Date/Time Source Procedure Growth Status 05/24/17 08:30 Blood Blood Culture Pending Received 05/24/17 08:25 Blood Blood Culture Pending Received Risk Factors for Resistance * Resident in a [place] [facility] facility or extended-care facility * Hospitalization for 48 hours or more within the past 90 days Assessment & Plan Assessment 67 year old female with sepsis secondary to pneumonia/UTI initiated on broad spectrum antibiotics: Vancomycin/Cefepime/Levaquin/Flagyl IV notes 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 She arrives via EMS from [facility]. Blood cultures/Urine/Nasal swab pending. Plan Vancomycin IV * Loading dose: 1200 mg (20 mg/kg)--- given in the ED * Maintenance dose: 1000 mg IV (16.5 mg/kg) every 12 hours * Goal trough level for sepsis: 15 to 20 mcg/mL * Trough level ordered for 05/26/17 prior to the 0600 dose. Cefepime/Levaquin/Flagyl IV are not pharmacy consults and are dosed appropriately. Pharmacy will continue to follow and will adjust dose/frequency as necessary. Thank you.
[2017-05-24] MEDS ORDERED: VANCOMYCIN CONSULT ACTIVE PRN (16:00)
[2017-05-24] MEDS: NSS + 20MEQ KCL 1000ML 1,000 ML IV SCH (16:09)
[2017-05-24] MEDS: VANCOMYCIN INJ 1,000 MG in SODIUM CHLORIDE 0.9% 250ML 250 ML IV SCH (16:09)
[2017-05-24] MEDS: LACTOBACILLUS ACIDOPHILUS (FLORANEX) TAB PEG SCH (16:09)
[2017-05-24] MEDS: METRONIDAZOLE / NSS 500 MG in PREMIXED NSS 100 ML IV SCH (16:10)
[2017-05-24 16:31] LABS: BASO % 0.2 %; BASO ABS # 0.02 K/uL (0-0.2); COMPLETE YES; EOS % 0.6 %; IG% 0.6 %; LYMPH % 10.4 %; LYMPH ABS # 1.28 K/uL (1.2-3.4); MONO % 5.5 %; NEUT % 82.7 %
[2017-05-24] MEDS: FAMOTIDINE IV INJ 20 MG in DEXTROSE 5% 100ML 100 ML IV SCH (20:24)
[2017-05-24 20:31] VITALS: BP 137/91; PULSE 108; TEMP 36.8; O2SAT 91
[2017-05-24] MEDS ORDERED: LEVALBUTEROL/IPRATROPIUM NEB INH SCH (21:00)
[2017-05-24] MEDS: SODIUM CHLOR 0.9% 10ML FLUSH 20 ML in SYRINGE 0 ML IV SCH (21:00)
--- NOTE | 2017-05-24 21:38 | DIAGNOSTIC IMAGING REPORT ---
HEAD WITHOUT CONTRAST (CT) CT DOSE: 614.27 mGy.cm HISTORY: Mental status change H/O SDH AND PRIOR STROKES; LETHARGY TECHNIQUE: Multiaxial CT images of the head were performed without the use of intravenous contrast. A dose lowering technique was utilized adhering to the principles of ALARA. Comparison: 03/26/2017 Findings: The paranasal sinuses and mastoid air cells are clear. Findings of considerable chronic small vessel change and cerebral atrophy are noted. The bulk of the subdural bleed has resolved. There is minimal residual high density of the interhemispheric fissure. There is no acute intracranial hemorrhage. There is no midline shift. Impression: Considerable chronic and age-related change. No acute process. The above report was generated using voice recognition software. It may contain grammatical, syntax or spelling errors. Electronically signed by: Jan Kapoor M.D. 05/24/2017 9:37 PM Dictated Date/Time: 05/24/2017 9:36 PM
[2017-05-24] MEDS: CEFEPIME IV 1,000 MG in DEXTROSE 5% 100ML 100 ML IV SCH (22:24)
[2017-05-24] MEDS: PHENYTOIN IV SCH (22:25)
[2017-05-25] VITALS (14 sets, daily range): BP systolic 120–143; BP diastolic 81–94; PULSE 101–110; TEMP 36.6–37.2; O2SAT 92–98
[2017-05-25] MEDS: GUAIFENESIN SUGAR FREE 100 MG/5 ML UDC GT SCH ×5 (00:06→20:42)
[2017-05-25] MEDS: FIBERSOURCE HN 1000ML BAG PEG PRN ×2 (00:06)
[2017-05-25] MEDS: NSS + 20MEQ KCL 1000ML 1,000 ML IV SCH ×3 (00:07→23:53)
[2017-05-25] MEDS: METRONIDAZOLE / NSS 500 MG in PREMIXED NSS 100 ML IV SCH ×4 (00:07→23:53)
[2017-05-25] MEDS: LEVALBUTEROL 1.25MG/0.5ML NEB INH SCH ×4 (02:23→20:54)
[2017-05-25] MEDS: IPRATROPIUM BROMIDE NEB SOLN 0.02% 2.5 ML VIAL INH SCH ×4 (02:23→20:54)
[2017-05-25] MEDS: VANCOMYCIN INJ 1,000 MG in SODIUM CHLORIDE 0.9% 250ML 250 ML IV SCH ×2 (05:50→17:37)
[2017-05-25] MEDS: FAMOTIDINE IV INJ 20 MG in DEXTROSE 5% 100ML 100 ML IV SCH ×2 (05:50→17:37)
[2017-05-25] MEDS: MULTIVITAMINS W/MINERALS 15ML UDP PEG SCH (07:37)
[2017-05-25] MEDS: CHOLECALCIFEROL 1000 INTER.UNIT TAB PEG SCH (07:37)
[2017-05-25] MEDS: ASPIRIN 81 MG CHEW PEG SCH (07:37)
[2017-05-25] MEDS: FLUCONAZOLE SUSP 100 MG/10 ML UDP PEG SCH (07:38)
[2017-05-25] MEDS: LACTOBACILLUS ACIDOPHILUS (FLORANEX) TAB PEG SCH ×3 (07:38→16:22)
[2017-05-25] MEDS: HEPARIN SOD 5000 UNIT/0.5 ML CARP SQ SCH ×2 (07:44→20:47)
[2017-05-25 08:16] LABS: BASO % 0.2 %; BASO ABS # 0.02 K/uL (0-0.2); COMPLETE YES; EOS % 2.6 %; HEMATOCRIT 32.5 % (37-47); IG% 0.7 %; LYMPH % 9.6 %; LYMPH ABS # 1.06 K/uL (1.2-3.4); MEAN CELL VOLUME 94.8 fL (80-100); MEAN CORPUSCULAR HEMOGLOBIN 29.7 pg (25-34); MEAN CORPUSCULAR HGB CONC 31.4 g/dl (32-36); MEAN PLATELET VOLUME 9.1 fL (7.4-10.4); MONO % 4.5 %; NEUT % 82.4 %; PLATELET COUNT 330 K/uL (130-400); RED BLOOD COUNT 3.43 M/uL (4.2-5.4); WHITE BLOOD COUNT 11.08 K/uL (4.8-10.8)
[2017-05-25] MEDS: CEFEPIME IV 1,000 MG in DEXTROSE 5% 100ML 100 ML IV SCH ×2 (08:39→20:40)
[2017-05-25] MEDS: LEVOFLOXACIN / D5W 750 MG in PREMIXED IN D5W 150 ML IV SCH (08:39)
[2017-05-25] MEDS: SODIUM CHLOR 0.9% 10ML FLUSH 20 ML in SYRINGE 0 ML IV SCH ×2 (08:40→20:47)
[2017-05-25] MEDS: PHENYTOIN IV SCH ×2 (08:40→20:41)
[2017-05-25 08:45] LABS: BUN/CREATININE RATIO 17.6 (10-20); CALCIUM 8.5 mg/dl (8.5-10.1); CREATININE 0.41 mg/dl (0.60-1.20); POTASSIUM 3.2 mmol/L (3.5-5.1)
[2017-05-25 08:50] LABS: ALB/GLOB RATIO 0.5 (0.9-2)
--- NOTE | 2017-05-25 17:05 | Progress Note ---
Subjective Date of Service: May 25, 2017. Subjective Pt evaluation today including: conversation w/ patient, conversation w/ family (daughter), physical exam, lab review, review of studies, conversation w/ entry level sales consultant, review of inpatient medication list Pain: no pain PO Intake: NPO, PEG tube feeds Voiding: leung catheter in place patient more alert, talking, breathing better today per daughter it is the best she has looked in weeks, most alert still with secretions from trach afebrile, WBC down slightly, HR in 100's consented for PICC discussed issue with Richy with Dr. Gonzalez, will get EEG and see patient tomorrow Problem List Medical Problems: (1) Acute CVA (cerebrovascular accident) Status: Acute (2) Pneumonia Status: Acute (3) Sepsis Status: Acute (4) Slurred speech Status: Acute (5) Stroke Status: Acute Review of Systems Constitutional: + weakness, + fatigue Respiratory: + cough, + sputum, + shortness of breath Neurologic: + paralysis, + weakness All Other Systems: Reviewed and Negative Medications Current Inpatient Medications Medications (Trade) Dose Ordered Sig/Kimberlyn Route Start Time Stop Time Status Last Admin Dose Admin Potassium Chloride/Sodium Chloride 1,000 ml @ 125 mls/hr Q8H IV 05/24/17 15:30 06/23/17 15:29 05/25/17 16:21 125 MLS/HR Ondansetron HCl (Zofran Inj) 4 mg Q6H PRN IV 05/24/17 13:30 06/23/17 13:29 Cholecalciferol (Vitamin D Tab) 2,000 inter.unit QAM PEG 05/25/17 09:00 06/24/17 08:59 05/25/17 07:37 2,000 INTER.UNIT Lactobacillus Acidophilus (Floranex Tab) 4 tab TIDM PEG 05/24/17 16:45 06/23/17 17:59 05/25/17 16:22 4 TAB Aspirin (Aspirin Chew) 81 mg DAILY PEG 05/25/17 09:00 06/24/17 08:59 05/25/17 07:37 81 MG Multivitamins Therapeutic (Cerovite Liquid) 1 ml QAM PEG 05/25/17 09:00 06/24/17 08:59 05/25/17 07:37 1 ML Levofloxacin 750 mg/Prmx 150 ml @ 100 mls/hr Q24H IV 05/25/17 09:00 06/01/17 08:59 05/25/17 08:39 100 MLS/HR Vancomycin HCl 1000 mg/Sodium Chloride 270 ml @ 125 mls/hr Q12H IV 05/24/17 18:00 05/31/17 17:59 05/25/17 05:50 125 MLS/HR Cefepime HCl 1000 mg/Dextrose 111.3 ml @ 200 mls/hr Q12H IV 05/24/17 21:00 05/31/17 20:59 05/25/17 08:39 200 MLS/HR Metronidazole 500 mg/Prmx 100 ml @ 100 mls/hr Q8H IV 05/24/17 16:00 05/31/17 15:59 05/25/17 16:21 100 MLS/HR Famotidine 20 mg/ Dextrose 102 ml @ 200 mls/hr Q12H IV 05/24/17 18:00 06/23/17 17:59 05/25/17 05:50 200 MLS/HR Fluconazole (Diflucan Susp) 100 mg QAM PEG 05/25/17 09:00 06/04/17 08:59 05/25/17 07:38 100 MG Vancomycin HCl (Consult) 1 ea UD PRN N/A 05/24/17 16:00 06/23/17 15:59 Enteral Nutritional Formula (Fibersource HN) 1,000 ml UD PRN PEG 05/24/17 17:00 06/23/17 16:59 05/25/17 00:06 1,000 ML Phenytoin Sodium 250 mg/Syringe 5 ml @ 1 mls/min BID IV 05/24/17 21:00 06/23/17 20:59 05/25/17 08:40 1 MLS/MIN Sodium Chloride 20 ml/Syringe 20 ml @ 0 mls/min BID IV 05/24/17 21:00 06/23/17 20:59 05/25/17 08:40 10 MLS/MIN Guaifenesin (Robitussin Sugar Free Syrup) 100 mg Q6H GT 05/24/17 21:00 06/23/17 20:59 05/25/17 16:22 100 MG Ipratropium [place] (Atrovent 0.02% 0.5MG/2.5ML Neb) 0.5 mg Q6R INH 05/25/17 03:00 06/24/17 02:59 05/25/17 14:51 0.5 MG Levalbuterol (Xopenex 1.25MG/ 0.5ML Neb) 1.25 mg Q6R INH 05/25/17 03:00 06/24/17 02:59 05/25/17 14:51 1.25 MG Heparin Sodium (Porcine) (Heparin Sq 5000 Unit/0.5ml) 5,000 unit Q12 SQ 05/25/17 09:00 06/24/17 08:59 05/25/17 07:44 5,000 UNIT Miscellaneous Information (Nursing Heparin Flush Order) 1 ea PRN PRN N/A 05/25/17 16:45 06/24/17 16:44 UNV Objective Vital Signs Date Time Temp Pulse Resp B/P (MAP) Pulse Ox O2 Delivery O2 Flow Rate FiO2 05/25/17 16:00 Trach Collar 6.0 05/25/17 15:14 36.9 103 18 128/84 (99) 97 Trach Collar 9.0 05/25/17 14:51 101 12 97 Trach Collar 30 05/25/17 12:00 Trach Collar 6.0 05/25/17 11:09 37.1 101 20 131/81 (98) 94 Trach Collar 05/25/17 08:00 Trach Collar 6.0 05/25/17 07:57 110 18 97 Trach Collar 30 05/25/17 07:25 36.9 103 20 142/94 (110) 96 Trach Collar 05/25/17 04:35 37.1 103 18 132/91 (105) 93 Trach Collar 05/25/17 04:00 97 Trach Collar 6.0 05/25/17 02:23 102 18 95 Trach Collar 30 05/25/17 00:20 36.6 101 18 120/88 (99) 96 Trach Collar 05/25/17 00:00 95 Trach Collar 6.0 05/24/17 20:31 36.8 108 24 137/91 (106) 91 Trach Collar 10.0 05/24/17 20:00 Trach Collar 6.0 Physical Exam General Appearance: no apparent distress, + thin ENT: normal ENT inspection, hearing grossly normal, pharynx normal Neck: supple, no adenopathy, no JVD, trachea midline, + pertinent finding ( tracheostomy with copious secretions) Respiratory/Chest: chest non-tender, no respiratory distress, no accessory muscle use, + decreased breath sounds, + crackles, + rhonchi (bilaterally) Cardiovascular: no edema, no gallop, no JVD, no murmur, + tachycardia (100s) Abdomen: normal bowel sounds, non tender, soft, no organomegaly, + pertinent finding (PEG in place) Extremities: non-tender, normal inspection, no pedal edema, no calf tenderness , normal capillary refill, pelvis stable Neurologic/Psychiatric: respiratory care assistant II-XII nml as tested, alert, normal mood/affect, oriented x 3, + motor weakness (right arm and leg paralysis, left arm and leg weak) Skin: normal color, warm/dry, no rash Laboratory Results Last 24 Hours Test 05/25/17 07:51 05/25/17 16:22 White Blood Count 11.08 K/uL Red Blood Count 3.43 M/uL Hemoglobin 10.2 g/dL Hematocrit 32.5 % Mean Corpuscular Volume 94.8 fL Mean Corpuscular Hemoglobin 29.7 pg Mean Corpuscular Hemoglobin Concent 31.4 g/dl Platelet Count 330 K/uL Mean Platelet Volume 9.1 fL Neutrophils (%) (Auto) 82.4 % Lymphocytes (%) (Auto) 9.6 % Monocytes (%) (Auto) 4.5 % Eosinophils (%) (Auto) 2.6 % Basophils (%) (Auto) 0.2 % Neutrophils # (Auto) 9.13 K/uL Lymphocytes # (Auto) 1.06 K/uL Monocytes # (Auto) 0.50 K/uL Eosinophils # (Auto) 0.29 K/uL Basophils # (Auto) 0.02 K/uL RDW Standard Deviation 49.6 fL RDW Coefficient of Variation 14.5 % Immature Granulocyte % (Auto) 0.7 % Immature Granulocyte # (Auto) 0.08 K/uL Sodium Level 140 mmol/L Potassium Level 3.2 mmol/L Chloride Level 109 mmol/L Carbon Dioxide Level 24 mmol/L Anion Gap 7.0 mmol/L Blood Urea Nitrogen 7 mg/dl Creatinine 0.41 mg/dl Est Creatinine Clear Calc Drug Dose 127.0 ml/min Estimated GFR () 125.7 Estimated GFR (Non- 108.4 BUN/Creatinine Ratio 17.6 Random Glucose 124 mg/dl Calcium Level 8.5 mg/dl Total Bilirubin 0.2 mg/dl Aspartate Amino Transf (AST/SGOT) 139 U/L Alanine Aminotransferase (ALT/SGPT) 269 U/L Alkaline Phosphatase 96 U/L Troponin I 0.043 ng/ml Total Protein 5.7 gm/dl Albumin 2.0 gm/dl Globulin 3.7 gm/dl Albumin/Globulin Ratio 0.5 Bedside Glucose 108 mg/dl Assessment and Plan Unfortunate 67yo female with history of multiple prior strokes and a large SDH in March 2017 requiring prolonged intensive care stay at [facility], s/p trach and PEG, followed by L-TACH stay and then transfer to [facility] - presenting with metabolic encephalopathy, acute hypoxic respiratory failure 2nd to b/l basilar pneumonia, sepsis 2nd to pneumonia/UTI, and abnormal LFTs. She has had a very poor recovery from her SDH by her daughter's history. 1. acute hypoxic respiratory failure 2nd to b/l basilar pneumonia - concerning for aspiration pneumonia. continue broad spectrum antibiotics, good response thus far, only on 30% FiO2 currently, no distress, no accessory muscle use keep HOB > 30 degrees 2. sepsis 2nd to pneumonia/UTI - no growth on cultures. cefepime, flagyl, vanco, levaquin day 2, continue for now, likely taper in next 1-2 days afebrile, WBC going down, less tachycardic continue fluids today, likely stop tomorrow 3. metabolic encephalopathy - baseline mental status, per daughter, has been poor "for weeks." much improved today, seems to respond to antibiotics and fluids neurology to see tomorrow to discuss role of Dilantin, could it be causing altered status 4. h/o multiple prior strokes - on aspirin for secondary prevention. 5. SDH 03/2017 - as above. PT, OT, speech when able. CT head stable 6. tracheostomy status - will consult pulmonology tomorrow, was to establish care in near future should have them evaluate since she is here with aspiration pneumonia 7. PEG tube status - past due accounts clerk consult for tube feeding recommendations. 8. recent lethargy/altered mental status at SNF - see above. 9. abnormal LFTs - 2nd to statin agent? dilantin? other? recheck in am. Hold statin. No GI/abdominal symptoms to suggest acute biliary issue. Consider u/s if the Ast/Alt do not improve. 10. moderate-severe protein calorie malnutrition - add MVI. Rental Agent consultation. 11. DVT proph - heparin BID if head CT is stable. 12. Dilantin use for seizure prophylaxis - corrected dilantin level is 6.6 ( accounting for low albumin). neurology to evaluate tomorrow and give recommendations EEG ordered 13. +troponin - no prior h/o CAD. EKG w/o acute ST changes. repeat trop this AM is 0.043. doubt MO, just mild demand ischemia 14. h/o c. diff colitis in March at [facility] - lactinex prophylaxis. Narrow her antibiotics when able
[2017-05-26] VITALS (13 sets, daily range): BP systolic 115–140; BP diastolic 70–91; PULSE 93–104; TEMP 36.6–37.5; O2SAT 94–100
[2017-05-26] MEDS: FIBERSOURCE HN 1000ML BAG PEG PRN ×4 (00:47→18:37)
[2017-05-26] MEDS: LEVALBUTEROL 1.25MG/0.5ML NEB INH SCH ×5 (02:00→19:00)
[2017-05-26] MEDS: IPRATROPIUM BROMIDE NEB SOLN 0.02% 2.5 ML VIAL INH SCH ×5 (02:00→19:00)
[2017-05-26] MEDS: GUAIFENESIN SUGAR FREE 100 MG/5 ML UDC GT SCH ×4 (03:58→20:46)
[2017-05-26] MEDS ORDERED: VANCOMYCIN TROUGH SCH (05:30)
[2017-05-26] MEDS: VANCOMYCIN INJ 1,000 MG in SODIUM CHLORIDE 0.9% 250ML 250 ML IV SCH ×3 (06:08→22:00)
[2017-05-26] MEDS: FAMOTIDINE IV INJ 20 MG in DEXTROSE 5% 100ML 100 ML IV SCH ×2 (06:08→18:36)
[2017-05-26] MEDS: LACTOBACILLUS ACIDOPHILUS (FLORANEX) TAB PEG SCH ×3 (07:56→16:15)
[2017-05-26] MEDS: PHENYTOIN IV SCH (07:58)
[2017-05-26] MEDS: METRONIDAZOLE / NSS 500 MG in PREMIXED NSS 100 ML IV SCH ×2 (07:58→16:14)
[2017-05-26] MEDS: SODIUM CHLOR 0.9% 10ML FLUSH 20 ML in SYRINGE 0 ML IV SCH ×2 (07:59→21:12)
[2017-05-26] MEDS: ASPIRIN 81 MG CHEW PEG SCH (08:00)
[2017-05-26] MEDS: FLUCONAZOLE SUSP 100 MG/10 ML UDP PEG SCH (08:01)
[2017-05-26] MEDS: MULTIVITAMINS W/MINERALS 15ML UDP PEG SCH ×2 (08:01→08:17)
[2017-05-26] MEDS: CHOLECALCIFEROL 1000 INTER.UNIT TAB PEG SCH (08:02)
[2017-05-26 08:04] LABS: BASO % 0.2 %; BASO ABS # 0.02 K/uL (0-0.2); COMPLETE YES; EOS % 5.3 %; HEMATOCRIT 30.4 % (37-47); IG% 0.8 %; LYMPH % 15.6 %; LYMPH ABS # 1.41 K/uL (1.2-3.4); MEAN CELL VOLUME 93.5 fL (80-100); MEAN CORPUSCULAR HEMOGLOBIN 30.2 pg (25-34); MEAN CORPUSCULAR HGB CONC 32.2 g/dl (32-36); MEAN PLATELET VOLUME 9.3 fL (7.4-10.4); MONO % 5.8 %; NEUT % 72.3 %; PLATELET COUNT 311 K/uL (130-400); RED BLOOD COUNT 3.25 M/uL (4.2-5.4); WHITE BLOOD COUNT 9.04 K/uL (4.8-10.8)
[2017-05-26] MEDS: HEPARIN SOD 5000 UNIT/0.5 ML CARP SQ SCH ×2 (08:05→20:50)
[2017-05-26] MEDS: CEFEPIME IV 1,000 MG in DEXTROSE 5% 100ML 100 ML IV SCH (08:17)
[2017-05-26 08:36] LABS: BUN/CREATININE RATIO 17.9 (10-20); CALCIUM 8.3 mg/dl (8.5-10.1); CREATININE 0.38 mg/dl (0.60-1.20)
[2017-05-26] MEDS: LEVOFLOXACIN / D5W 750 MG in PREMIXED IN D5W 150 ML IV SCH (09:13)
--- NOTE | 2017-05-26 09:34 | Neurology Consultation ---
Neurology Consultation Date of Consultation: May 26, 2017. Attending Physician: Terry Parra D.O. Primary Care Physician: Caro Ramirez M.D. Reason for Consultation: Encephalopathy and question on whether Dilantin is still needed since it could be contributing to encephalopathy History of Present Illness Source: patient, hospital records This is a 67-year-old female who presented with acute encephalopathy found to have sepsis secondary to pneumonia and UTI. In addition add rehabilitation patient had recently had her Dilantin recently increased based off of drug levels about a week ago. Question of whether Dilantin could also be contributing to encephalopathy. Patient's mental status reportedly is improved on antibiotics. Patient has a significant history for having a subdural hematoma March 2017. Patient was transferred to her [facility] for [facility] ICU management. She had a trach and pain at that time. I do not have any evidence or reports of the patient is ever had a clinical seizure. It sounds like she may been put on Dilantin for seizure prophylaxis in the setting of hematoma. History taking is somewhat limited secondary to patient's trach and mental status. Past Medical/Surgical History Medical Problems: (1) Acute CVA (cerebrovascular accident) Status: Acute (2) Pneumonia Status: Acute (3) Sepsis Status: Acute (4) Slurred speech Status: Acute (5) Stroke Status: Acute Past medical history significant for multiple strokes with mild right hemiplegia , subdural hematoma and March 2017, breast cancer, history of leukemia, trach and paid Family History Family history significant for mother with bladder cancer. Social History Patient currently inpatient rehabilitation. Smoking Status: Never smoker Smokeless Tobacco Use: No Alcohol Use: none Drug Use: none Marital Status: Housing Status: other ([facility]) Occupation Status: other (Lives at [facility]) Allergies Coded Allergies: POLLEN (Verified Allergy, Unknown, RUNNY NOSE/SNEEZING, 05/24/17) Penicillins (Verified Allergy, Unknown, RASH, 05/24/17) Current Inpatient Medications Current Inpatient Medications Medications (Trade) Dose Ordered Sig/Kimberlyn Route Start Time Stop Time Status Last Admin Dose Admin Potassium Chloride/Sodium Chloride 1,000 ml @ 125 mls/hr Q8H IV 05/24/17 15:30 06/23/17 15:29 05/25/17 23:53 125 MLS/HR Ondansetron HCl (Zofran Inj) 4 mg Q6H PRN IV 05/24/17 13:30 06/23/17 13:29 Cholecalciferol (Vitamin D Tab) 2,000 inter.unit QAM PEG 05/25/17 09:00 06/24/17 08:59 05/26/17 08:02 2,000 INTER.UNIT Lactobacillus Acidophilus (Floranex Tab) 4 tab TIDM PEG 05/24/17 16:45 06/23/17 17:59 05/26/17 07:56 4 TAB Aspirin (Aspirin Chew) 81 mg DAILY PEG 05/25/17 09:00 06/24/17 08:59 05/26/17 08:00 81 MG Levofloxacin 750 mg/Prmx 150 ml @ 100 mls/hr Q24H IV 05/25/17 09:00 06/01/17 08:59 05/26/17 09:13 100 MLS/HR Vancomycin HCl 1000 mg/Sodium Chloride 270 ml @ 125 mls/hr Q12H IV 05/24/17 18:00 05/31/17 17:59 05/26/17 06:08 125 MLS/HR Cefepime HCl 1000 mg/Dextrose 111.3 ml @ 200 mls/hr Q12H IV 05/24/17 21:00 05/31/17 20:59 05/26/17 08:17 200 MLS/HR Metronidazole 500 mg/Prmx 100 ml @ 100 mls/hr Q8H IV 05/24/17 16:00 05/31/17 15:59 05/26/17 07:58 100 MLS/HR Famotidine 20 mg/ Dextrose 102 ml @ 200 mls/hr Q12H IV 05/24/17 18:00 06/23/17 17:59 05/26/17 06:08 200 MLS/HR Fluconazole (Diflucan Susp) 100 mg QAM PEG 05/25/17 09:00 06/04/17 08:59 05/26/17 08:01 100 MG Vancomycin HCl (Consult) 1 ea UD PRN N/A 05/24/17 16:00 06/23/17 15:59 Enteral Nutritional Formula (Fibersource HN) 1,000 ml UD PRN PEG 05/24/17 17:00 06/23/17 16:59 05/26/17 00:47 1,000 ML Phenytoin Sodium 250 mg/Syringe 5 ml @ 1 mls/min BID IV 05/24/17 21:00 06/23/17 20:59 05/26/17 07:58 1 MLS/MIN Sodium Chloride 20 ml/Syringe 20 ml @ 0 mls/min BID IV 05/24/17 21:00 06/23/17 20:59 05/26/17 07:59 10 MLS/MIN Guaifenesin (Robitussin Sugar Free Syrup) 100 mg Q6H GT 05/24/17 21:00 06/23/17 20:59 05/26/17 07:58 100 MG Ipratropium [place] (Atrovent 0.02% 0.5MG/2.5ML Neb) 0.5 mg Q6R INH 05/25/17 03:00 06/24/17 02:59 05/26/17 07:43 0.5 MG Levalbuterol (Xopenex 1.25MG/ 0.5ML Neb) 1.25 mg Q6R INH 05/25/17 03:00 06/24/17 02:59 05/26/17 07:42 1.25 MG Heparin Sodium (Porcine) (Heparin Sq 5000 Unit/0.5ml) 5,000 unit Q12 SQ 05/25/17 09:00 06/24/17 08:59 05/26/17 08:05 5,000 UNIT Heparin Sodium (Porcine) (Heparin 10 Unit/ ml 5 ml Flush) 5 ml PRN PRN FLUSH 05/25/17 18:15 06/24/17 18:14 Multivitamins Therapeutic (Cerovite Liquid) 15 ml QAM PEG 05/26/17 09:00 06/25/17 08:59 05/26/17 08:17 15 ML Review of Systems Review of systems Limited secondary to mental status and trach. Physical Exam Vital Signs (Past 24 Hrs): Date Time Temp Pulse Resp B/P (MAP) Pulse Ox O2 Delivery O2 Flow Rate FiO2 05/26/17 08:39 37.5 95 20 126/81 (96) 94 Trach Collar 05/26/17 07:43 100 18 97 Trach Collar 30 05/26/17 04:29 37.1 93 22 116/70 (85) 94 Humidified Oxygen 12.0 30 Trach Collar 05/26/17 04:05 94 Trach Collar 30 05/26/17 02:00 100 18 97 Trach Collar 30 05/26/17 00:15 96 Trach Collar 30 05/25/17 23:48 36.8 105 24 136/90 (105) 92 Humidified Oxygen 9.0 30 Trach Collar 05/25/17 20:30 98 Trach Collar 30 05/25/17 19:45 104 18 97 Trach Collar 30 05/25/17 18:37 37.2 101 26 143/86 (105) 98 Trach Collar 9.0 05/25/17 16:00 Trach Collar 6.0 05/25/17 15:14 36.9 103 18 128/84 (99) 97 Trach Collar 9.0 05/25/17 14:51 101 12 97 Trach Collar 30 05/25/17 12:00 Trach Collar 6.0 05/25/17 11:09 37.1 101 20 131/81 (98) 94 Trach Collar Gen.: Patient is alert and sitting in bed, in no acute distress. HEENT: Normocephalic /atraumatic, no scleral icterus Heart: Regular rate and rhythm Extremities: No gross deformities or rashes noted Neurological examination: Mental status: Patient is alert and oriented. Attention and concentration normal for the situation. G Speech No dysarthria noted but speech is low volume Cranial nerve: Funduscopic examination was unremarkable. No papilledema. Pupils equally round and reactive to light. Extraocular muscles intact without nystagmus. No facial asymmetry noted. Facial sensation intact. Tongue is midline. Good palatal elevation. Good shoulder shrug bilaterally. Hearing grossly intact to voice. Strength: No movement of right upper extremity. Patient was able to squeeze her hand on the left and have some extremity movements but did not participate in antigravity testing. In addition leg on the left was not lift antigravity but she was able to move and wiggle her toes. No Leg movement on the right. Sensation: Grossly intact to light touch in all extremities. Deep tendon reflexes: +1 in bilateral biceps, brachioradialis and patellar. Toes were equivocal to plantar stimulation Patient is bedbound at this time Laboratory Results Past 24 Hours: 05/26/17 05:15 Red Blood Count 3.25, Mean Corpuscular Volume 93.5, Mean Corpuscular Hemoglobin 30.2, Mean Corpuscular Hemoglobin Concent 32.2, Mean Platelet Volume 9.3, Neutrophils (%) (Auto) 72.3, Lymphocytes (%) (Auto) 15.6, Monocytes (%) (Auto) 5.8, Eosinophils (%) (Auto) 5.3, Basophils (%) (Auto) 0.2, Neutrophils # (Auto) 6.54, Lymphocytes # (Auto) 1.41, Monocytes # (Auto) 0.52, Eosinophils # (Auto) 0.48, Basophils # (Auto) 0.02 05/26/17 05:15 Test 05/25/17 16:22 05/26/17 05:15 Bedside Glucose 108 mg/dl (70-90) White Blood Count 9.04 K/uL (4.8-10.8) Red Blood Count 3.25 M/uL (4.2-5.4) Hemoglobin 9.8 g/dL (12.0-16.0) Hematocrit 30.4 % (37-47) Mean Corpuscular Volume 93.5 fL (80-100) Mean Corpuscular Hemoglobin 30.2 pg (25-34) Mean Corpuscular Hemoglobin Concent 32.2 g/dl (32-36) Platelet Count 311 K/uL (130-400) Mean Platelet Volume 9.3 fL (7.4-10.4) Neutrophils (%) (Auto) 72.3 % Lymphocytes (%) (Auto) 15.6 % Monocytes (%) (Auto) 5.8 % Eosinophils (%) (Auto) 5.3 % Basophils (%) (Auto) 0.2 % Neutrophils # (Auto) 6.54 K/uL (1.4-6.5) Lymphocytes # (Auto) 1.41 K/uL (1.2-3.4) Monocytes # (Auto) 0.52 K/uL (0.11-0.59) Eosinophils # (Auto) 0.48 K/uL (0-0.5) Basophils # (Auto) 0.02 K/uL (0-0.2) RDW Standard Deviation 48.1 fL (36.4-46.3) RDW Coefficient of Variation 13.9 % (11.5-14.5) Immature Granulocyte % (Auto) 0.8 % Immature Granulocyte # (Auto) 0.07 K/uL (0.00-0.02) Anion Gap 7.0 mmol/L (3-11) Est Creatinine Clear Calc Drug Dose 137.5 ml/min Estimated GFR () 128.8 Estimated GFR (Non- 111.2 BUN/Creatinine Ratio 17.9 (10-20) Calcium Level 8.3 mg/dl (8.5-10.1) Vancomycin Level Trough 9.9 mcg/ml (SEE COMMENT) Imaging CT of the head reported images reviewed by myself. No signs of acute stroke or bleed. Residual hematoma appears to be resolved. Impression This is a 67-year-old female who presented with acute encephalopathy mostly likely due to sepsis from pneumonia and UTI. Potentially Dilantin could be contributing in some small way. It appears that Dilantin was started for seizure prophylaxis in the setting of subdural hematoma in March. Patient has not had no clinical seizure. Subdural hematoma appears to have resolved on most recent neuro imaging. Plan Recommend decreasing Dilantin to 100 mg twice a day for the next week. After that can stop Dilantin. EEG was performed this morning based on my recommendations. EEG was technically limited, but there was no signs of epileptiform discharges. As such I feel that it is reasonable to take the patient off of Dilantin. Thank you for allowing me to participate in this patient's care. If there is any questions or concerns, feel free to call/page me.
--- NOTE | 2017-05-26 09:37 | EEG Procedure Note ---
EEG Procedure Note Date of Service May 26, 2017. Start / End Times Start Time: 7:13 AM End Time: 7:33 AM Referring Physician Jaja Anand History This is a 67-year-old female with a history of subdural hematoma on Dilantin prophylaxis without history of any clinical seizures. EEG for further medical management. Home Medication List Scheduled Aspirin (Aspirin Ec), 81 MG PEG DAILY Atorvastatin (Lipitor), 20 MG PEG DAILY Cholecalciferol (Vitamin D3), 1 TAB PEG DAILY Phenytoin (Dilantin), 250 MG PEG BID Probiotic Product (Bacid), 1 TAB PEG QAM Inpatient Medication List Current Inpatient Medications Medications (Trade) Dose Ordered Sig/Kimberlyn Route Start Time Stop Time Status Last Admin Dose Admin Potassium Chloride/Sodium Chloride 1,000 ml @ 125 mls/hr Q8H IV 05/24/17 15:30 06/23/17 15:29 05/25/17 23:53 125 MLS/HR Ondansetron HCl (Zofran Inj) 4 mg Q6H PRN IV 05/24/17 13:30 06/23/17 13:29 Cholecalciferol (Vitamin D Tab) 2,000 inter.unit QAM PEG 05/25/17 09:00 06/24/17 08:59 05/26/17 08:02 2,000 INTER.UNIT Lactobacillus Acidophilus (Floranex Tab) 4 tab TIDM PEG 05/24/17 16:45 06/23/17 17:59 05/26/17 07:56 4 TAB Aspirin (Aspirin Chew) 81 mg DAILY PEG 05/25/17 09:00 06/24/17 08:59 05/26/17 08:00 81 MG Levofloxacin 750 mg/Prmx 150 ml @ 100 mls/hr Q24H IV 05/25/17 09:00 06/01/17 08:59 05/26/17 09:13 100 MLS/HR Vancomycin HCl 1000 mg/Sodium Chloride 270 ml @ 125 mls/hr Q12H IV 05/24/17 18:00 05/31/17 17:59 05/26/17 06:08 125 MLS/HR Cefepime HCl 1000 mg/Dextrose 111.3 ml @ 200 mls/hr Q12H IV 05/24/17 21:00 05/31/17 20:59 05/26/17 08:17 200 MLS/HR Metronidazole 500 mg/Prmx 100 ml @ 100 mls/hr Q8H IV 05/24/17 16:00 05/31/17 15:59 05/26/17 07:58 100 MLS/HR Famotidine 20 mg/ Dextrose 102 ml @ 200 mls/hr Q12H IV 05/24/17 18:00 06/23/17 17:59 05/26/17 06:08 200 MLS/HR Fluconazole (Diflucan Susp) 100 mg QAM PEG 05/25/17 09:00 06/04/17 08:59 05/26/17 08:01 100 MG Vancomycin HCl (Consult) 1 ea UD PRN N/A 05/24/17 16:00 06/23/17 15:59 Enteral Nutritional Formula (Fibersource HN) 1,000 ml UD PRN PEG 05/24/17 17:00 06/23/17 16:59 05/26/17 00:47 1,000 ML Phenytoin Sodium 250 mg/Syringe 5 ml @ 1 mls/min BID IV 05/24/17 21:00 06/23/17 20:59 05/26/17 07:58 1 MLS/MIN Sodium Chloride 20 ml/Syringe 20 ml @ 0 mls/min BID IV 05/24/17 21:00 06/23/17 20:59 05/26/17 07:59 10 MLS/MIN Guaifenesin (Robitussin Sugar Free Syrup) 100 mg Q6H GT 05/24/17 21:00 06/23/17 20:59 05/26/17 07:58 100 MG Ipratropium [place] (Atrovent 0.02% 0.5MG/2.5ML Neb) 0.5 mg Q6R INH 05/25/17 03:00 06/24/17 02:59 05/26/17 07:43 0.5 MG Levalbuterol (Xopenex 1.25MG/ 0.5ML Neb) 1.25 mg Q6R INH 05/25/17 03:00 06/24/17 02:59 05/26/17 07:42 1.25 MG Heparin Sodium (Porcine) (Heparin Sq 5000 Unit/0.5ml) 5,000 unit Q12 SQ 05/25/17 09:00 06/24/17 08:59 8/9/17 08:05 5,000 UNIT Heparin Sodium (Porcine) (Heparin 10 Unit/ ml 5 ml Flush) 5 ml PRN PRN FLUSH 05/25/17 18:15 06/24/17 18:14 Multivitamins Therapeutic (Cerovite Liquid) 15 ml QAM PEG 05/26/17 09:00 06/25/17 08:59 05/26/17 08:17 15 ML Description This is a 21 electrode EEG with a single channel dedicated to limited EKG. The electrodes were placed in accordance with the International 10-20 system. Patient had a hair piece that was glued to her head causing moderate technical limitations with this EEG. At the start of this recording the patient was in an awake state. There did not appear to be any well-organized background. Background was composed of predominantly 6-7 Hz theta frequencies with intermixed alpha and delta frequencies. Due to technical limitations and was difficult to tell whether there was any significant focal slowing. Hyperventilation was not done. Photic stimulation at various frequencies produced no abnormalities. There was no state changes or sleep transients. Interpretation This is an abnormal technically limited EEG secondary to mild to moderate diffuse background disorganization and slowing. There was no epileptiform discharges or electrographic seizures seen. Clinical Correlation This EEG indicates a mild to moderate encephalopathy of nonspecific etiology.
--- NOTE | 2017-05-26 10:14 | PULMONARY CONSULTATION ---
DATE OF CONSULTATION: 05/26/2017 TIME: 09:10 a.m. REPORT OF CONSULTATION: The patient was seen in room 202. She is a 67-year-old female who has a tracheostomy. She was admitted with sepsis and bibasilar pneumonia. The admission was on May 24. Her significant history is that she suffered a fall on March 26. She was found to have a subdural hematoma. She was life-flighted to [facility]. She was in [place] in the intensive care unit for about 3 weeks. She had a tracheostomy done and a PEG done. I do not know what certainty if she was on the ventilator or for how long or if it was done for secretion clearance and protecting the airway. Her course there was complicated by pneumonia and C. diff colitis. Subsequently, she went to an LTAC in [place]. Following that, she was transferred to [facility] approximately 2-1/2 weeks prior to this admission. The patient does have significant motor function loss with almost no strength in her right side. There is a limited amount of movement in the left arm and almost none in the left leg. She was admitted at this time with some increased lethargy. She had had fever for 2-3 days. She had had increased purulent tracheal secretions for a few days. She did have a maximum temperature of 39.4 at the time of admission. Her fever pattern has improved significantly. Her max temperature in the past 24 hours is 37.1. Nursing reports that she has had good oxygen saturations on just 30% trach collar. She does require suctioning about every 2 hours. The mucous reportedly is yellow to green. The patient did have some neurologic problems even before the subdural. She had a history of multiple strokes with the largest in February of 2016, which had caused a mild right hemiparesis. However, she had been able to return to independent living. She also had a history of TIAs in the past. The patient herself is unable to give hardly any history. She will try and answer somewhat to questions, but she has a trach in place without the valve on for her to verbalize. She has been treated for potential seizures with prophylactic therapy. I could not find from the patient whether she had had any vomiting or not. The thought was that she may have some aspiration. PAST SURGICAL HISTORY: 1. Bilateral mastectomy with a history of breast cancer. 2. Breast reconstruction surgery. 3. Tracheostomy. 4. PEG placement. 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 Other history as noted above. SOCIAL HISTORY: The patient has never smoked. She does not drink alcohol. FAMILY HISTORY: Positive history of bladder cancer in her mother. Father from old age. 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 ALLERGIES: PENICILLINS. MEDICATIONS AT HOME: 1. Aspirin 81 mg daily via PEG. 2. Lipitor 20 mg daily via PEG. 3. Vitamin D3 daily via the PEG. 4. Dilantin 250 b.i.d. 5. Probiotic daily. REVIEW OF SYSTEMS: Unobtainable as patient could not verbalize to any substantial degree. PHYSICAL EXAMINATION: GENERAL: The patient is a 67-year-old female, who was awake. She seemed reasonably alert. She would try to answer my questions, but she could not verbalize. She did nod her head somewhat. I am not certain that she is oriented. VITAL SIGNS: Temperature is 37.1. Heart rate is 93 per minute. The rhythm was regular. The blood pressure is 116/70. The respiratory rate was 18 breaths per minute. HEENT: Pupils were reactive to light. Nasal passages were clear. Mouth exam was unremarkable. She has a tracheostomy in place. She did have some secretions that she coughed through the trach when I was examining her. CHEST: Normal development. She has had breast surgery. LUNGS: Breath sounds were well heard bilaterally. Just a few diffuse scattered rhonchi were heard. The patient did take deep breaths at my request and this resulted in her coughing and bringing up some phlegm. Oxygen saturation is 97% on 30% trach collar. ABDOMEN: Soft. There is a PEG tube in place. Good bowel sounds were heard. There was no apparent tenderness to palpation or mass. EXTREMITIES: Showed no cyanosis, clubbing or edema. The patient had some movement of the left arm and she could move her toes on the left foot. Otherwise, she did not have any significant movement. The patient's chest x-ray on admission showed the tracheostomy tube to be in place. There were relatively small bilateral airspace opacities in the bases, likely representing pneumonic infiltrates. CAT scan of her head reported no acute intracranial hemorrhage and no midline shift. LABORATORY DATA: White blood cell count today is 9.04. On admission, it had been 12.28. Hemoglobin today is 9.8 and on admission, it was 11.1. Platelets today are 311,000. INR on admission was 1. Urinalysis showed +1 protein, +2 blood, greater than 30 WBCs, and +2 bacteria. Urine culture is reported as pending. Blood gas on admission showed a pH of 7.47 with a pCO2 of 32 and a pO2 of 77 done on what is believed to be the 30% trach collar. Electrolytes today show sodium 143, potassium 3.0, chloride 109 and bicarb 27. The BUN was 7 with a creatinine of 0.38. Calcium was 8.3. Liver functions were abnormal with an AST elevated at 139 and ALT elevated at 269. Albumin was 2 with total protein 5.7. TSH was 2.96. Troponin was 0.117. It is noted that the liver functions done on May 24 showed an AST of 637 and ALT of 495. Thus, there has been considerable improvement in the past 2 days. EKG showed what appears to be an old inferior wall KS. The rhythm at that time was sinus tachycardia with a rate of 127. There was a left axis deviation. Low voltage was seen. IMPRESSIONS: 1. Bibasilar pneumonia -- suspect secondary to aspiration. 2. Status post tracheostomy. 3. Sepsis secondary to #1 with a urinary infection also be ruled out. 4. Status post subdural hematoma and multiple prior strokes. 5. Elevated liver function tests, uncertain etiology. COMMENTS AND RECOMMENDATIONS: The patient seems overall to have made good progress since admission. Her fever pattern has significantly improved. She is on numerous antibiotics including Levaquin, cefepime, vancomycin, and metronidazole. She also was on Diflucan. Obviously, we need to be concerned about the possibility of recurrent C. diff. She is still having a modest amount of secretions, which she is typically able to cough according to nursing staff. It may be of value to culture the tracheal secretions at least to rule out MRSA. She is getting nebulizer treatments every 6 hours and I certainly would continue that. I would hope that we could obtain the records from [facility] regarding her course there. I would like to know the circumstances after the tracheostomy insertion. Case discussed with Dr. Parra. Thank you very much for asking me to assist in her care. TIEN
--- NOTE | 2017-05-26 10:59 | Pharmacy Progress Note ---
Pharmacy Abx Dose Short Note Date of Service May 26, 2017. Assessment & Plan Assessment * 67 year old female receiving Vancomycin/Cefepime/LVQ/Flagyl/Diflucan as empiric therapy. * MRSA nasal swab negative; vancomycin is to be continued until trach secretions are obtained/reviewed. * Day # 3 of antimicrobial therapy. Plan Vancomycin * Trough level of 9.9 mcg/mL is subtherapeutic * Increase to Vancomycin 1000 mg IV every 8 hours * Goal trough level for ?pulmonary infx : 15 to 20 mcg/mL * Trough level ordered for: 05/27/17 prior to the 4th maintenance dose of new regimen. Cefepime 1gm IV q12h Levaquin 750mg IV q24h Flagyl 500mg IV q8h Diflucan 100mg PO QAM Pharmacy will continue to follow and will adjust dose/frequency as necessary. Thank you.
[2017-05-26] MEDS: POTASSIUM CHLORIDE 20 MEQ/15 ML UDC PEG SCH ×2 (13:53→21:12)
--- NOTE | 2017-05-26 14:06 | Progress Note ---
Subjective Date of Service: May 26, 2017. Subjective Pt evaluation today including: conversation w/ patient, physical exam, lab review, conversation w/ aws consultant, review of inpatient medication list Pain: denies pain PO Intake: NPO Voiding: leung catheter in place patient alert, no distress, coughing up sputum reviewed labs, WBC normal, K low at 3.[address] Cary, would like to get records from [facility] and tracheal sputum culture discussed case with Dr. Gonzalez, decrease Dilantin to 100mg BID and then taper off after a week Problem List Medical Problems: (1) Acute CVA (cerebrovascular accident) Status: Acute (2) Pneumonia Status: Acute (3) Sepsis Status: Acute (4) Slurred speech Status: Acute (5) Stroke Status: Acute Review of Systems Constitutional: + weakness, + fatigue Respiratory: + cough, + sputum, + shortness of breath Neurologic: + paralysis (right sided), + weakness (left side) All Other Systems: Reviewed and Negative Medications Current Inpatient Medications Medications (Trade) Dose Ordered Sig/Kimberlyn Route Start Time Stop Time Status Last Admin Dose Admin Ondansetron HCl (Zofran Inj) 4 mg Q6H PRN IV 05/24/17 13:30 06/23/17 13:29 Cholecalciferol (Vitamin D Tab) 2,000 inter.unit QAM PEG 05/25/17 09:00 06/24/17 08:59 05/26/17 08:02 2,000 INTER.UNIT Lactobacillus Acidophilus (Floranex Tab) 4 tab TIDM PEG 05/24/17 16:45 06/23/17 17:59 05/26/17 12:37 4 TAB Aspirin (Aspirin Chew) 81 mg DAILY PEG 05/25/17 09:00 06/24/17 08:59 05/26/17 08:00 81 MG Levofloxacin 750 mg/Prmx 150 ml @ 100 mls/hr Q24H IV 05/25/17 09:00 06/01/17 08:59 05/26/17 09:13 100 MLS/HR Cefepime HCl 1000 mg/Dextrose 111.3 ml @ 200 mls/hr Q12H IV 05/24/17 21:00 05/31/17 20:59 05/26/17 08:17 200 MLS/HR Metronidazole 500 mg/Prmx 100 ml @ 100 mls/hr Q8H IV 05/24/17 16:00 05/31/17 15:59 05/26/17 07:58 100 MLS/HR Famotidine 20 mg/ Dextrose 102 ml @ 200 mls/hr Q12H IV 05/24/17 18:00 06/23/17 17:59 05/26/17 06:08 200 MLS/HR Fluconazole (Diflucan Susp) 100 mg QAM PEG 05/25/17 09:00 06/04/17 08:59 05/26/17 08:01 100 MG Vancomycin HCl (Consult) 1 ea UD PRN N/A 05/24/17 16:00 06/23/17 15:59 Enteral Nutritional Formula (Fibersource HN) 1,000 ml UD PRN PEG 05/24/17 17:00 06/23/17 16:59 05/26/17 00:47 1,000 ML Sodium Chloride 20 ml/Syringe 20 ml @ 0 mls/min BID IV 05/24/17 21:00 06/23/17 20:59 05/26/17 07:59 10 MLS/MIN Guaifenesin (Robitussin Sugar Free Syrup) 100 mg Q6H GT 05/24/17 21:00 06/23/17 20:59 05/26/17 07:58 100 MG Ipratropium [place] (Atrovent 0.02% 0.5MG/2.5ML Neb) 0.5 mg Q6R INH 05/25/17 03:00 06/24/17 02:59 05/26/17 07:43 0.5 MG Levalbuterol (Xopenex 1.25MG/ 0.5ML Neb) 1.25 mg Q6R INH 05/25/17 03:00 06/24/17 02:59 05/26/17 07:42 1.25 MG Heparin Sodium (Porcine) (Heparin Sq 5000 Unit/0.5ml) 5,000 unit Q12 SQ 05/25/17 09:00 06/24/17 08:59 05/26/17 08:05 5,000 UNIT Heparin Sodium (Porcine) (Heparin 10 Unit/ ml 5 ml Flush) 5 ml PRN PRN FLUSH 05/25/17 18:15 06/24/17 18:14 Multivitamins Therapeutic (Cerovite Liquid) 15 ml QAM PEG 05/26/17 09:00 06/25/17 08:59 05/26/17 08:17 15 ML Phenytoin Sodium 100 mg/Syringe 2 ml @ 1 mls/min BID IV 05/26/17 21:00 06/23/17 20:59 Potassium Chloride (Dulce Ciel Elix) 20 meq TID PEG 05/26/17 14:00 06/25/17 13:59 05/26/17 13:53 20 MEQ Vancomycin HCl 1000 mg/Sodium Chloride 270 ml @ 125 mls/hr Q8H IV 05/26/17 14:00 05/31/17 21:59 05/26/17 13:53 125 MLS/HR Objective Vital Signs Date Time Temp Pulse Resp B/P (MAP) Pulse Ox O2 Delivery O2 Flow Rate FiO2 05/26/17 12:45 36.8 97 20 115/72 (86) 94 Trach Collar 30 05/26/17 08:39 37.5 95 20 126/81 (96) 94 Trach Collar 05/26/17 08:00 97 Trach Collar 30 05/26/17 07:43 100 18 97 Trach Collar 30 05/26/17 04:29 37.1 93 22 116/70 (85) 94 Humidified Oxygen 12.0 30 Trach Collar 05/26/17 04:05 94 Trach Collar 30 05/26/17 02:00 100 18 97 Trach Collar 30 05/26/17 00:15 96 Trach Collar 30 05/25/17 23:48 36.8 105 24 136/90 (105) 92 Humidified Oxygen 9.0 30 Trach Collar 05/25/17 20:30 98 Trach Collar 30 05/25/17 19:45 104 18 97 Trach Collar 30 05/25/17 18:37 37.2 101 26 143/86 (105) 98 Trach Collar 9.0 05/25/17 16:00 Trach Collar 6.0 05/25/17 15:14 36.9 103 18 128/84 (99) 97 Trach Collar 9.0 05/25/17 14:51 101 12 97 Trach Collar 30 Physical Exam General Appearance: no apparent distress, + thin ENT: normal ENT inspection, hearing grossly normal, pharynx normal Neck: supple, no adenopathy, no JVD, trachea midline, + pertinent finding ( tracheostomy in place) Respiratory/Chest: chest non-tender, no respiratory distress, no accessory muscle use, + crackles, + rhonchi Cardiovascular: regular rate, rhythm, no edema, no gallop, no JVD, no murmur Abdomen: normal bowel sounds, non tender, soft, no organomegaly, + pertinent finding (PEG intact) Extremities: non-tender, normal inspection, no pedal edema, no calf tenderness , normal capillary refill, pelvis stable 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/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, alert, + motor weakness ( right sided paralysis, left weakness), + depressed affect Skin: normal color, warm/dry, no rash Laboratory Results Last 24 Hours Test 05/25/17 16:22 05/26/17 05:15 Bedside Glucose 108 mg/dl White Blood Count 9.04 K/uL Red Blood Count 3.25 M/uL Hemoglobin 9.8 g/dL Hematocrit 30.4 % Mean Corpuscular Volume 93.5 fL Mean Corpuscular Hemoglobin 30.2 pg Mean Corpuscular Hemoglobin Concent 32.2 g/dl Platelet Count 311 K/uL Mean Platelet Volume 9.3 fL Neutrophils (%) (Auto) 72.3 % Lymphocytes (%) (Auto) 15.6 % Monocytes (%) (Auto) 5.8 % Eosinophils (%) (Auto) 5.3 % Basophils (%) (Auto) 0.2 % Neutrophils # (Auto) 6.54 K/uL Lymphocytes # (Auto) 1.41 K/uL Monocytes # (Auto) 0.52 K/uL Eosinophils # (Auto) 0.48 K/uL Basophils # (Auto) 0.02 K/uL RDW Standard Deviation 48.1 fL RDW Coefficient of Variation 13.9 % Immature Granulocyte % (Auto) 0.8 % Immature Granulocyte # (Auto) 0.07 K/uL Sodium Level 143 mmol/L Potassium Level 3.0 mmol/L Chloride Level 109 mmol/L Carbon Dioxide Level 27 mmol/L Anion Gap 7.0 mmol/L Blood Urea Nitrogen 7 mg/dl Creatinine 0.38 mg/dl Est Creatinine Clear Calc Drug Dose 137.5 ml/min Estimated GFR () 128.8 Estimated GFR (Non- 111.2 BUN/Creatinine Ratio 17.9 Random Glucose 145 mg/dl Calcium Level 8.3 mg/dl Vancomycin Level Trough 9.9 mcg/ml Assessment and Plan Unfortunate 67yo female with history of multiple prior strokes and a large SDH in March 2017 requiring prolonged intensive care stay at [facility], s/p trach and PEG, followed by L-TACH stay and then transfer to [facility] - presenting with metabolic encephalopathy, acute hypoxic respiratory failure 2nd to b/l basilar pneumonia, sepsis 2nd to pneumonia/UTI, and abnormal LFTs. She has had a very poor recovery from her SDH by her daughter's history. 1. acute hypoxic respiratory failure 2nd to b/l basilar pneumonia - concerning for aspiration pneumonia. continue broad spectrum antibiotics, good response thus far, only on 30% FiO2 currently, no distress, no accessory muscle use keep HOB > 30 degrees 2. sepsis 2nd to pneumonia/UTI - no growth on cultures. cefepime, flagyl, vanco, levaquin day 3, d/c Cefepime, check for MRSA in sputum, if negative then stop Vanco afebrile, WBC now normal, tachycardia resolved stop fluids today, no hypotension 3. metabolic encephalopathy - baseline mental status, per daughter, has been poor "for weeks." multifactorial with infection but also on Dilantin mental status back to normal per daughter after antibiotics appreciate neurology input, will taper off of Dilantin 4. h/o multiple prior strokes - on aspirin for secondary prevention. 5. SDH 03/2017 - as above. PT, OT, speech when able. CT head stable 6. tracheostomy status - pulmonary consulted requesting records to determine why tracheostomy placed at [place] obtain sputum culture from tracheostomy tube 7. PEG tube status - elevator mechanic consult for tube feeding recommendations. 8. recent lethargy/altered mental status at [facility] - see above. 9. abnormal LFTs - AST and ALT improving yesterday will repeat tomorrow no RUQ pain on exam 10. moderate-severe protein calorie malnutrition - add MVI. Oil Well Cable Tool Operator consultation. 11. DVT proph - heparin BID if head CT is stable. 12. Dilantin use for seizure prophylaxis - plan to taper off of Dilantin 13. h/o c. diff colitis in March at [place] - lactinex prophylaxis. Narrow her antibiotics when able Plan: continue antibiotics, obtain sputum culture, obtain [facility] records, back to [facility] once medically stable anticipate several more days in hospital likely transfer to medical floor tomorrow
[2017-05-26] MEDS: PHENYTOIN IV 100 MG in SYRINGE 0 ML IV SCH (20:46)
[2017-05-27] VITALS (14 sets, daily range): BP systolic 127–151; BP diastolic 76–99; PULSE 100–116; TEMP 36.7–37.2; O2SAT 93–97
[2017-05-27] MEDS: METRONIDAZOLE / NSS 500 MG in PREMIXED NSS 100 ML IV SCH ×3 (00:22→18:19)
[2017-05-27] MEDS: LEVALBUTEROL 1.25MG/0.5ML NEB INH SCH ×4 (01:44→18:45)
[2017-05-27] MEDS: IPRATROPIUM BROMIDE NEB SOLN 0.02% 2.5 ML VIAL INH SCH ×4 (01:44→18:45)
[2017-05-27] MEDS: GUAIFENESIN SUGAR FREE 100 MG/5 ML UDC GT SCH ×4 (04:10→21:08)
[2017-05-27] MEDS: FAMOTIDINE IV INJ 20 MG in DEXTROSE 5% 100ML 100 ML IV SCH ×2 (05:05→18:19)
[2017-05-27 05:30] LABS: BASO % 0.2 %; BASO ABS # 0.02 K/uL (0-0.2); COMPLETE YES; EOS % 3.1 %; HEMATOCRIT 29.6 % (37-47); IG% 1.3 %; LYMPH % 13.7 %; LYMPH ABS # 1.22 K/uL (1.2-3.4); MEAN CELL VOLUME 93.7 fL (80-100); MEAN CORPUSCULAR HEMOGLOBIN 30.7 pg (25-34); MEAN CORPUSCULAR HGB CONC 32.8 g/dl (32-36); MONO % 7.2 %; NEUT % 74.5 %; PLATELET COUNT 351 K/uL (130-400); RED BLOOD COUNT 3.16 M/uL (4.2-5.4); WHITE BLOOD COUNT 8.89 K/uL (4.8-10.8)
[2017-05-27] MEDS ORDERED: VANCOMYCIN TROUGH ONE (05:30)
[2017-05-27 05:59] LABS: ALT/SGPT 125 U/L (12-78); AST/SGOT 30 U/L (15-37); BLOOD UREA NITROGEN 9 mg/dl (7-18); BUN/CREATININE RATIO 24.1 (10-20); CALCIUM 8.3 mg/dl (8.5-10.1); CARBON DIOXIDE 29 mmol/L (21-32); CHLORIDE 109 mmol/L (98-107); CREATININE 0.37 mg/dl (0.60-1.20); GLUCOSE 122 mg/dl (70-99); MAGNESIUM 1.9 mg/dl (1.8-2.4); POTASSIUM 3.2 mmol/L (3.5-5.1); SODIUM 143 mmol/L (136-145)
[2017-05-27 06:02] LABS: ALKALINE PHOSPHATASE 86 U/L (45-117)
[2017-05-27] MEDS: VANCOMYCIN INJ 1,000 MG in SODIUM CHLORIDE 0.9% 250ML 250 ML IV SCH ×3 (06:15→22:06)
--- NOTE | 2017-05-27 08:32 | Pharmacy Progress Note ---
Pharmacy Abx Dose Progress Nt Date of Service May 27, 2017. Pharmacy Dosing Scope The patient is currently receiving the following antimicrobial agents per Pharmacy consult: Vancomycin 1,000 mg IV every 8 hours Also reveiving Levaquin, Flagyl, Fluconazole, and vancomycin PO {not per pharmacy consult} Objective Height (Feet): 5 Height (Inches): 6.00 Weight (Kilograms): 59.100 Vital Signs (Past 12Hrs) Vital Signs Past 12 Hours Date Time Temp Pulse Resp B/P (MAP) Pulse Ox O2 Delivery O2 Flow Rate FiO2 05/27/17 07:27 36.8 106 18 149/86 (107) 93 Trach Collar 30 05/27/17 07:12 101 16 95 Trach Collar 30 05/27/17 04:05 96 Trach Collar 30 05/27/17 03:52 37.2 106 20 127/76 (93) 97 Humidified Oxygen 8.0 Trach Collar 05/27/17 01:44 102 18 96 Trach Collar 30 05/27/17 00:05 96 Trach Collar 30 05/27/17 00:02 36.9 100 20 129/92 (104) 96 Humidified Oxygen 8.0 30 Trach Collar Lab Results (24Hrs) Laboratory Tests (24 Hours) Test 05/27/17 04:58 White Blood Count 8.89 K/uL (4.8-10.8) Red Blood Count 3.16 M/uL (4.2-5.4) L Hemoglobin 9.7 g/dL (12.0-16.0) L Hematocrit 29.6 % (37-47) L Mean Corpuscular Volume 93.7 fL (80-100) Mean Corpuscular Hemoglobin 30.7 pg (25-34) Mean Corpuscular Hemoglobin Concent 32.8 g/dl (32-36) Platelet Count 351 K/uL (130-400) Mean Platelet Volume 9.0 fL (7.4-10.4) Neutrophils (%) (Auto) 74.5 % Lymphocytes (%) (Auto) 13.7 % Monocytes (%) (Auto) 7.2 % Eosinophils (%) (Auto) 3.1 % Basophils (%) (Auto) 0.2 % Neutrophils # (Auto) 6.61 K/uL (1.4-6.5) H Lymphocytes # (Auto) 1.22 K/uL (1.2-3.4) Monocytes # (Auto) 0.64 K/uL (0.11-0.59) H Eosinophils # (Auto) 0.28 K/uL (0-0.5) Basophils # (Auto) 0.02 K/uL (0-0.2) Micro Results Date/Time Source Procedure Growth Status 05/24/17 08:30 Blood Blood Culture - Preliminary NO GROWTH TO DATE. Resulted 05/24/17 08:25 Blood Blood Culture - Preliminary NO GROWTH TO DATE. Resulted 05/24/17 21:55 Nasal MRSA DNA Surveillance Screen - Final Specimen Negative for MRSA by DNA Probe Complete 05/26/17 18:15 Stool C.difficile Toxin B Gene (PCR) - Final Positive for C. difficile toxin B gene Complete 05/26/17 15:15 Sputum Trach. Tube Suction Gram Stain - Final Resulted 05/26/17 15:15 Sputum Trach. Tube Suction Sputum Culture Pending Resulted 05/25/17 00:00 Urine,Catheterized Urine Culture - Preliminary Resulted Risk Factors for Resistance * Resident in a fpc or extended-care facility * Hospitalization for 48 hours or more within the past 90 days * Current hospitalization > 5 days * Antimicrobial use within the last 90 days Assessment & Plan Assessment * 67 year old female receiving Vancomycin/LVQ/Flagyl/Diflucan for sepsis 2nd to pneumonia/UTI * Now c. diff positive --> initiated on vancomycin PO. De-escalation of abx crucial as c/s &/or pt condition allow * MRSA nasal swab negative; vancomycin is to be continued until trach secretions are obtained/reviewed. * Day # 4 of antimicrobial therapy. Plan Vancomycin * Trough level of 18.2 mcg/mL is therapeutic * Continue Vancomycin 1000 mg IV every 8 hours * Goal trough level for pulmonary infx/sepsis : 15 to 20 mcg/mL * Trough level ordered for: 05/28/17 prior to the 7th maintenance dose of new regimen. Levaquin 750mg IV q24h Flagyl 500mg IV q8h Diflucan 100mg PO QA Pharmacy will continue to follow and will adjust dose/frequency as necessary. Thank you.
[2017-05-27] MEDS: LACTOBACILLUS ACIDOPHILUS (FLORANEX) TAB PEG SCH ×3 (08:45→18:19)
[2017-05-27] MEDS: VANCOMYCIN HCL 125 MG/2.5ML SOLN PEG SCH ×3 (08:46→21:08)
[2017-05-27] MEDS: RASPBERRY SYRUP 5 ML UDP PO SCH ×3 (08:46→21:08)
[2017-05-27] MEDS: LEVOFLOXACIN / D5W 750 MG in PREMIXED IN D5W 150 ML IV SCH (08:48)
[2017-05-27] MEDS: SODIUM CHLOR 0.9% 10ML FLUSH 20 ML in SYRINGE 0 ML IV SCH ×2 (08:49→21:09)
[2017-05-27] MEDS: PHENYTOIN IV 100 MG in SYRINGE 0 ML IV SCH ×2 (08:49→21:09)
[2017-05-27] MEDS: FLUCONAZOLE SUSP 100 MG/10 ML UDP PEG SCH (08:50)
[2017-05-27] MEDS: POTASSIUM CHLORIDE 20 MEQ/15 ML UDC PEG SCH ×3 (08:50→21:08)
[2017-05-27] MEDS: CHOLECALCIFEROL 1000 INTER.UNIT TAB PEG SCH (08:50)
[2017-05-27] MEDS: MULTIVITAMINS W/MINERALS 15ML UDP PEG SCH (08:50)
[2017-05-27] MEDS: ASPIRIN 81 MG CHEW PEG SCH (08:51)
[2017-05-27] MEDS: HEPARIN SOD 5000 UNIT/0.5 ML CARP SQ SCH ×2 (08:52→21:14)
[2017-05-27] MEDS ORDERED: VANCOMYCIN HCL 125 MG/2.5ML SOLN PEG SCH (09:00)
[2017-05-27] MEDS: ONDANSETRON INJ 2 MG/ML 2 ML VIAL IV PRN (10:40)
--- NOTE | 2017-05-27 10:52 | PULMONARY PROGRESS NOTE ---
DATE: 05/27/2017 DATE: 05/27/2017 TIME: 10:20 a.m. SUBJECTIVE: The patient does not complain of anything. Nursing staff reports increased secretions today. They feel it is getting a little thicker. The patient denies shortness of breath. Apparently her secretions have been able to be aspirated readily. Her oxygen saturations were a little lower today on the 30% trach collar. Nursing staff noticed for a period of time it was in the low 90s. The patient does have loose bowel movements. She did have a stool for C. diff done that is positive. The patient herself does not give much history, although she is speaking more clearly today. OBJECTIVE: GENERAL: The patient appeared comfortable. She was able to talk modestly without having the valve on. VITAL SIGNS: Temperature is 36.8. Temperature during the night time was 37.2. She has not had any spiking fevers since the date of her admission on the . Tracheostomy is in place. I did not see any secretions coming through at present. It is unknown how long ago it was when nursing suctioned her. HEART: Heart rate is 110. The rhythm is regular. Blood pressure is 149/86. LUNGS: Auscultation of the lung tavares reveals rhonchi primarily in the upper areas. Her respiratory rate is 18. Her oxygen saturation is 93% on the trach collar at 30%. The patient is difficult to auscultate because she cannot move. She does complain of pain simply trying to move slightly to auscultate behind her shoulder areas. This was noticeable on the right side. ABDOMEN: Soft. PEG tube is in place. Curiously, the patient denied having a PEG tube. The bowel sounds are active. There was no tenderness to palpation. Mello catheter is in place. EXTREMITIES: Revealed movement only in the area of the left toes and in the left arm. Intake yesterday was 4948 and output was 5100. LABORATORY DATA: White count today is 8.89. Hemoglobin 9.7. Platelets 351,000. His electrolytes show sodium 143, potassium 3.2, chloride 109, bicarb 29. It is notable the CO2 has been climbing. Initial CO2 was 26 on 05/24/2017 and today is 29. The liver function tests continue to improve. Today, the AST is 30 and the ALT is 125. These had been significantly higher on admission at 637 and 495 respectively. Blood sugar this morning is 122. The BUN is 9 with a creatinine of 0.37. Urine culture is reporting 4,000 colonies of gram positive cocci. Blood cultures continue to show no growth. IMPRESSIONS: 1. Bibasilar pneumonia -- suspect secondary to aspiration. 2. Status post tracheostomy. 3. Sepsis secondary to #1. 4. C. diff colitis. 5. Status post subdural hematoma and multiple prior strokes. 6. Elevated liver function tests -- improved. COMMENTS AND RECOMMENDATIONS: The patient seems to have a few more secretions. We will check a chest x-ray tomorrow morning to further evaluate the status of her infiltrates. She has not developed significant dyspnea and she has not had significant hypoxia. The vancomycin is now being given through her PEG tube because of the C. diff. We are awaiting results of the sputum aspirate via the tracheostomy. She is still on the IV vancomycin, fluconazole, metronidazole. The cefepime was discontinued. Levofloxacin was started. Would continue with the nebulizer treatments in hopes that this improves her secretion status.
[2017-05-27] MEDS: FIBERSOURCE HN 1000ML BAG PEG PRN ×2 (13:48)
--- NOTE | 2017-05-27 16:56 | Progress Note ---
Subjective Date of Service: May 27, 2017. Subjective Pt evaluation today including: conversation w/ patient, conversation w/ family (daughter over the phone), physical exam, lab review, conversation w/ sap basis consultant , review of inpatient medication list Pain: no pain PO Intake: NPO with PEG Voiding: leung catheter in place patient reports breathing better, but more secretions, alert and conversive today updated her on C diff + status and starting Vanco via PEG appreciate note from pulmonology per CM, daughter would like to look at LTACH, I agree labs reviewed, WBC normal, K low at 3.2 Problem List Medical Problems: (1) Acute CVA (cerebrovascular accident) Status: Acute (2) Pneumonia Status: Acute (3) Sepsis Status: Acute (4) Slurred speech Status: Acute (5) Stroke Status: Acute Review of Systems Constitutional: + weakness, + fatigue Respiratory: + cough, + sputum, + shortness of breath Abdomen: + diarrhea Neurologic: + paralysis, + weakness All Other Systems: Reviewed and Negative Medications Current Inpatient Medications Medications (Trade) Dose Ordered Sig/Kimberlyn Route Start Time Stop Time Status Last Admin Dose Admin Ondansetron HCl (Zofran Inj) 4 mg Q6H PRN IV 05/24/17 13:30 06/23/17 13:29 05/27/17 10:40 4 MG Cholecalciferol (Vitamin D Tab) 2,000 inter.unit QAM PEG 05/25/17 09:00 06/24/17 08:59 05/27/17 08:50 2,000 INTER.UNIT Lactobacillus Acidophilus (Floranex Tab) 4 tab TIDM PEG 05/24/17 16:45 06/23/17 17:59 05/27/17 11:56 4 TAB Aspirin (Aspirin Chew) 81 mg DAILY PEG 05/25/17 09:00 06/24/17 08:59 05/27/17 08:51 81 MG Levofloxacin 750 mg/Prmx 150 ml @ 100 mls/hr Q24H IV 05/25/17 09:00 06/01/17 08:59 05/27/17 08:48 100 MLS/HR Metronidazole 500 mg/Prmx 100 ml @ 100 mls/hr Q8H IV 05/24/17 16:00 05/31/17 15:59 05/27/17 08:45 100 MLS/HR Famotidine 20 mg/ Dextrose 102 ml @ 200 mls/hr Q12H IV 05/24/17 18:00 06/23/17 17:59 05/27/17 05:05 200 MLS/HR Fluconazole (Diflucan Susp) 100 mg QAM PEG 05/25/17 09:00 06/04/17 08:59 05/27/17 08:50 100 MG Vancomycin HCl (Consult) 1 ea UD PRN N/A 05/24/17 16:00 06/23/17 15:59 Enteral Nutritional Formula (Fibersource HN) 1,000 ml UD PRN PEG 05/24/17 17:00 06/23/17 16:59 05/27/17 13:48 1,000 ML Sodium Chloride 20 ml/Syringe 20 ml @ 0 mls/min BID IV 05/24/17 21:00 06/23/17 20:59 05/27/17 08:49 10 MLS/MIN Guaifenesin (Robitussin Sugar Free Syrup) 100 mg Q6H GT 05/24/17 21:00 06/23/17 20:59 05/27/17 08:48 100 MG Ipratropium Willits (Atrovent 0.02% 0.5MG/2.5ML Neb) 0.5 mg Q6R INH 05/25/17 03:00 06/24/17 02:59 05/27/17 14:17 0.5 MG Levalbuterol (Xopenex 1.25MG/ 0.5ML Neb) 1.25 mg Q6R INH 05/25/17 03:00 06/24/17 02:59 05/27/17 14:17 1.25 MG Heparin Sodium (Porcine) (Heparin Sq 5000 Unit/0.5ml) 5,000 unit Q12 SQ 05/25/17 09:00 06/24/17 08:59 05/27/17 08:52 5,000 UNIT Heparin Sodium (Porcine) (Heparin 10 Unit/ ml 5 ml Flush) 5 ml PRN PRN FLUSH 05/25/17 18:15 06/24/17 18:14 Multivitamins Therapeutic (Cerovite Liquid) 15 ml QAM PEG 05/26/17 09:00 06/25/17 08:59 05/27/17 08:50 15 ML Phenytoin Sodium 100 mg/Syringe 2 ml @ 1 mls/min BID IV 05/26/17 21:00 06/23/17 20:59 05/27/17 08:49 1 MLS/MIN Potassium Chloride (Dulce Ciel Elix) 20 meq TID PEG 05/26/17 14:00 06/25/17 13:59 05/27/17 13:47 20 MEQ Vancomycin HCl 1000 mg/Sodium Chloride 270 ml @ 125 mls/hr Q8H IV 05/26/17 14:00 05/31/17 21:59 05/27/17 13:47 125 MLS/HR Vancomycin HCl (Vancomycin Oral Soln) 125 mg Q6H PEG 05/27/17 08:00 06/10/17 07:59 05/27/17 13:48 125 MG Raspberry (Raspberry Syrup 5ml Cup) 5 ml Q6H PO 05/27/17 08:00 06/06/17 07:59 05/27/17 13:48 5 ML Objective Vital Signs Date Time Temp Pulse Resp B/P (MAP) Pulse Ox O2 Delivery O2 Flow Rate FiO2 05/27/17 15:05 36.7 116 18 147/96 (113) 93 Trach Collar 8.0 05/27/17 14:17 107 16 94 Trach Collar 30 05/27/17 12:00 Trach Collar 30 05/27/17 11:03 36.7 108 20 129/86 (100) 94 Trach Collar 05/27/17 08:00 Trach Collar 30 05/27/17 07:27 36.8 106 18 149/86 (107) 93 Trach Collar 30 05/27/17 07:12 101 16 95 Trach Collar 30 05/27/17 04:05 96 Trach Collar 30 05/27/17 03:52 37.2 106 20 127/76 (93) 97 Humidified Oxygen 8.0 Trach Collar 05/27/17 01:44 102 18 96 Trach Collar 30 05/27/17 00:05 96 Trach Collar 30 05/27/17 00:02 36.9 100 20 129/92 (104) 96 Humidified Oxygen 8.0 30 Trach Collar 05/26/17 20:20 99 Trach Collar 30 05/26/17 19:28 99 12 100 Trach Collar 30 05/26/17 19:19 36.9 104 22 140/91 (107) 99 Trach Collar 8.0 Physical Exam General Appearance: no apparent distress, + thin Neck: supple, no adenopathy, no JVD, trachea midline, + pertinent finding ( tracheostomy in place, copious secretions) Respiratory/Chest: chest non-tender, no respiratory distress, no accessory muscle use, + decreased breath sounds, + rhonchi Cardiovascular: no edema, no gallop, no JVD, no murmur, + tachycardia Abdomen: normal bowel sounds, non tender, soft, no organomegaly Extremities: no pedal edema, no calf tenderness, pelvis stable Neurologic/Psychiatric: engineering drafter II-XII nml as tested, alert, normal mood/affect, oriented x 3, + motor weakness (right paralysis, left profound weakness) Skin: normal color, warm/dry, no rash Laboratory Results Last 24 Hours Test 05/27/17 04:58 White Blood Count 8.89 K/uL Red Blood Count 3.16 M/uL Hemoglobin 9.7 g/dL Hematocrit 29.6 % Mean Corpuscular Volume 93.7 fL Mean Corpuscular Hemoglobin 30.7 pg Mean Corpuscular Hemoglobin Concent 32.8 g/dl Platelet Count 351 K/uL Mean Platelet Volume 9.0 fL Neutrophils (%) (Auto) 74.5 % Lymphocytes (%) (Auto) 13.7 % Monocytes (%) (Auto) 7.2 % Eosinophils (%) (Auto) 3.1 % Basophils (%) (Auto) 0.2 % Neutrophils # (Auto) 6.61 K/uL Lymphocytes # (Auto) 1.22 K/uL Monocytes # (Auto) 0.64 K/uL Eosinophils # (Auto) 0.28 K/uL Basophils # (Auto) 0.02 K/uL RDW Standard Deviation 48.1 fL RDW Coefficient of Variation 14.0 % Immature Granulocyte % (Auto) 1.3 % Immature Granulocyte # (Auto) 0.12 K/uL Sodium Level 143 mmol/L Potassium Level 3.2 mmol/L Chloride Level 109 mmol/L Carbon Dioxide Level 29 mmol/L Anion Gap 5.0 mmol/L Blood Urea Nitrogen 9 mg/dl Creatinine 0.37 mg/dl Est Creatinine Clear Calc Drug Dose 141.2 ml/min Estimated GFR () 130.0 Estimated GFR (Non- 112.1 BUN/Creatinine Ratio 24.1 Random Glucose 122 mg/dl Calcium Level 8.3 mg/dl Magnesium Level 1.9 mg/dl Total Bilirubin 0.2 mg/dl Direct Bilirubin < 0.1 mg/dl Aspartate Amino Transf (AST/SGOT) 30 U/L Alanine Aminotransferase (ALT/SGPT) 125 U/L Alkaline Phosphatase 86 U/L Total Protein 5.7 gm/dl Albumin 2.0 gm/dl Vancomycin Level Trough 18.2 mcg/ml Assessment and Plan Unfortunate 67yo female with history of multiple prior strokes and a large SDH in March 2017 requiring prolonged intensive care stay at [facility], s/p trach and PEG, followed by L-TACH stay and then transfer to [facility] - presenting with metabolic encephalopathy, acute hypoxic respiratory failure 2nd to b/l basilar pneumonia, sepsis 2nd to pneumonia/UTI, and abnormal LFTs. She has had a very poor recovery from her SDH by her daughter's history. 1. acute hypoxic respiratory failure 2nd to b/l basilar pneumonia - concerning for aspiration pneumonia. less distress, no accessory muscles, able to talk today, still only on 30% FiO2 keep HOB > 30 degrees 2. sepsis 2nd to pneumonia/UTI - no growth on cultures. flagyl, vanco, levaquin day 4 diflucan started for Melanie in sputum from trach afebrile, WBC normal again today, tachycardia continues today check CXR tomorrow appreciate pulmonary note 3. metabolic encephalopathy - baseline mental status, per daughter, has been poor "for weeks." multifactorial with infection but also on Dilantin mental status back to normal per daughter after antibiotics appreciate neurology input, will taper off of Dilantin 4. C diff colitis: Vanco QID via PEG, watch for improvement in diarrhea 5. SDH 03/2017 - as above. PT, OT, speech when able. CT head stable 6. tracheostomy status - pulmonary consulted requesting records to determine why tracheostomy placed at [facility] 7. PEG tube status - fast food crew member consult for tube feeding recommendations. 8. Hypokalemia: start 20mEq elixir TID 9. abnormal LFTs - AST and ALT improving yesterday will repeat tomorrow no RUQ pain on exam 10. moderate-severe protein calorie malnutrition - add MVI. Radial Arm Saw Operator consultation. 11. DVT proph - heparin BID if head CT is stable. 12. Dilantin use for seizure prophylaxis - plan to taper off of Dilantin 13. h/o c. diff colitis in March at [facility] - lactinex prophylaxis. Narrow her antibiotics when able Plan: continue antibiotics, supportive care daughter interested in going back to LTACH, agree with this plan likely here over the weekend
--- NOTE | 2017-05-27 21:14 | DIAGNOSTIC IMAGING REPORT ---
CHEST ONE VIEW PORTABLE CLINICAL HISTORY: trach replaced tube position COMPARISON STUDY: 05/24/2017 FINDINGS: Tracheostomy tube in good position. Basilar infiltrative and/or atelectatic changes stable to slightly improved. Upper lungs are clear. No evidence pneumothorax. Central catheter place in the superior vena cava. IMPRESSION: 1. Tracheostomy tube in good position. 2. Central catheter positioned in the superior vena cava. 3. No evidence pneumothorax. 4. Improving basilar atelectatic and/or infiltrative changes The above report was generated using voice recognition software. It may contain grammatical, syntax or spelling errors. Electronically signed by: Jan Kapoor M.D. 05/27/2017 9:12 PM Dictated Date/Time: 05/27/2017 9:11 PM
[2017-05-28] VITALS (12 sets, daily range): BP systolic 119–149; BP diastolic 88–100; PULSE 101–112; TEMP 36.7–37.2; O2SAT 92–98
[2017-05-28] MEDS: METRONIDAZOLE / NSS 500 MG in PREMIXED NSS 100 ML IV SCH ×4 (00:31→23:41)
[2017-05-28] MEDS: IPRATROPIUM BROMIDE NEB SOLN 0.02% 2.5 ML VIAL INH SCH ×4 (01:45→18:57)
[2017-05-28] MEDS: LEVALBUTEROL 1.25MG/0.5ML NEB INH SCH ×4 (01:45→18:57)
[2017-05-28] MEDS: VANCOMYCIN HCL 125 MG/2.5ML SOLN PEG SCH ×4 (02:15→20:40)
[2017-05-28] MEDS: RASPBERRY SYRUP 5 ML UDP PO SCH ×2 (02:16→08:50)
[2017-05-28] MEDS: GUAIFENESIN SUGAR FREE 100 MG/5 ML UDC GT SCH ×4 (03:20→20:40)
[2017-05-28] MEDS: FAMOTIDINE IV INJ 20 MG in DEXTROSE 5% 100ML 100 ML IV SCH ×2 (06:16→17:47)
[2017-05-28] MEDS: VANCOMYCIN INJ 1,000 MG in SODIUM CHLORIDE 0.9% 250ML 250 ML IV SCH (06:16)
--- NOTE | 2017-05-28 07:11 | DIAGNOSTIC IMAGING REPORT ---
CHEST ONE VIEW PORTABLE CLINICAL HISTORY: f/u infiltrates pneumonia COMPARISON STUDY: 05/27/2017 FINDINGS: Tracheostomy tube remains in good position. Unchanging left basilar infiltrate. Right lung is considered clear. Diaphragms are smooth. IMPRESSION: Stable parenchymal infiltrate left base. The right lung is now considered clear. Tracheostomy tube in good position. The above report was generated using voice recognition software. It may contain grammatical, syntax or spelling errors. Electronically signed by: Jan Kapoor M.D. 05/28/2017 7:10 AM Dictated Date/Time: 05/28/2017 7:09 AM
[2017-05-28] MEDS: FIBERSOURCE HN 1000ML BAG PEG PRN ×2 (08:48)
[2017-05-28] MEDS: ASPIRIN 81 MG CHEW PEG SCH (08:49)
[2017-05-28] MEDS: LACTOBACILLUS ACIDOPHILUS (FLORANEX) TAB PEG SCH ×3 (08:50→15:54)
[2017-05-28] MEDS: PHENYTOIN IV 100 MG in SYRINGE 0 ML IV SCH ×2 (08:51→20:40)
[2017-05-28] MEDS: SODIUM CHLOR 0.9% 10ML FLUSH 20 ML in SYRINGE 0 ML IV SCH ×2 (08:52→20:41)
[2017-05-28] MEDS: LEVOFLOXACIN / D5W 750 MG in PREMIXED IN D5W 150 ML IV SCH (08:52)
[2017-05-28] MEDS: FLUCONAZOLE SUSP 100 MG/10 ML UDP PEG SCH (08:53)
[2017-05-28] MEDS: MULTIVITAMINS W/MINERALS 15ML UDP PEG SCH (08:53)
[2017-05-28] MEDS: CHOLECALCIFEROL 1000 INTER.UNIT TAB PEG SCH (08:54)
[2017-05-28] MEDS: POTASSIUM CHLORIDE 20 MEQ/15 ML UDC PEG SCH ×3 (08:54→20:40)
[2017-05-28] MEDS: HEPARIN SOD 5000 UNIT/0.5 ML CARP SQ SCH ×2 (08:56→20:39)
[2017-05-28 08:58] LABS: BUN/CREATININE RATIO 20.7 (10-20); CALCIUM 8.7 mg/dl (8.5-10.1); CREATININE 0.42 mg/dl (0.60-1.20); POTASSIUM 3.5 mmol/L (3.5-5.1)
--- NOTE | 2017-05-28 11:19 | PROGRESS NOTE ---
DATE: 05/28/2017 DATE: 05/28/2017 The patient was seen 05/28/2017 in room 202. PROBLEM LIST: Includes: 1. Bibasilar pneumonia, most likely secondary to aspiration. 2. Status post tracheostomy. 3. Sepsis secondary to #1. 4. Clostridium difficile colitis. 5. Status post subdural hematoma and multiple prior strokes. SUBJECTIVE: The patient is a 67-year-old female with the above-mentioned problems since we have been following her. She reports today that she is not really having any complaints. Unfortunately, apparently the patient got agitated overnight last evening and overnight and did pull her tracheostomy out. Respiratory therapy was called. Her SpO2 was 92% with tracheostomy out. She does have uncuffed cortex size 6 with no inner cannula. Respiratory was called and did get the trach reinserted through the stoma. Per the nursing notes, the patient then subsequently pulled her trach out again later on in the evening and it was reinserted. Unfortunately did have a little bit of blood around the trachea after the second reinsertion and a sponge was placed. The patient was then placed on 1:1 and had no further difficulties overnight. This morning when questioned the patient does not indicate that she recalls pulling the trachea out or having difficulty. The patient really gives no indication or response that she is having any difficulties today. She denies any significant cough. She denies any difficulty breathing. She denies any shortness of breath. She denied any abdominal pain. She denies any diarrhea although she does have loose stools and did test positive for C. diff. The patient is actually not conversing as much today as she did yesterday. OBJECTIVE: GENERAL: The patient is a 67-year-old female lying in bed. Trach in place. No acute distress. No acute respiratory distress. She is mildly interactive today. VITAL SIGNS: Temp 37, pulse is 102, respirations 19, blood pressure 144/100, O2 is 95% with a trach collar on at approximately 8 liters. HEAD, EYES, EARS, NOSE, AND THROAT: Normocephalic, atraumatic. Pupils equal, round and reactive. NECK: Tracheostomy is in place. The patient does have a gauze pad around a scant amount of blood noted. Very very small amount of some clear to white secretions from the trach site. CHEST: Lungs are improved today. The patient has few scattered rhonchi, but nothing significant. CARDIOVASCULAR: Slightly tachycardic, but she has regular rate and rhythm. There are no appreciated murmurs, gallops or rubs. ABDOMEN: PEG tube is in place, soft. No apparent tenderness to palpation. The patient does have a Mello catheter in place as well. EXTREMITIES: No erythema, no edema, no cyanosis noted. The patient has very little movement, just in the toe region. I&O intake 4118, out 3,000. LABORATORY DATA: Sputum culture is coming back showing a little bit of mercy. The patient is on fluconazole. The patient is showing just scant normal joanne in the mucus. A chest x-ray showing improvement in the right lung. IMPRESSION: 1. This is a 67-year-old female with history of a subdural hematoma and multiple prior strokes having had a tracheostomy placed who came in with a bilateral pneumonia which is suspected to be secondary to aspiration and also became septic. At this time the patient actually is looking well. Lung sounds are improved. Sputum culture is showing scant normal joanne. No other agents at this time. The case was discussed with Dr. Cary. It is our recommendation to eventually discontinue the IV vancomycin and IV Flagyl in light of the patient having C. diff and if she continues to do well recommend to discontinue the Levaquin in the next 24-48 hours as well. 2. Status post tracheostomy. The patient did pull it out last night. Denies any recollection of doing this. We did advise her that she needed to leave it in. 3. Clostridium difficile colitis. The patient is being treated for this. In light of the fact that her clinical picture is significantly improved recommendations were made above as far as stopping antibiotics. At this point, will continue to follow the patient through hospitalization.
[2017-05-28] MEDS ORDERED: VANCOMYCIN TROUGH SCH (13:30)
--- NOTE | 2017-05-28 13:54 | Progress Note ---
Subjective Date of Service: May 28, 2017. Subjective Pt evaluation today including: conversation w/ patient, conversation w/ family (daughter), physical exam, lab review, review of studies, conversation w/ government operations consultant, review of inpatient medication list Pain: back and buttocks from being in bed PO Intake: NPO, PEG Voiding: leung catheter in place patient pulled out tracheostomy twice last night by accident, easily placed back patient says it was by accident now with one on one still with a lot of diarrhea, talked with daughter, she asked about low fiber TF 's and I passed message along to nutrition will add patrick talked with daughter about LTACH, she feels this is best daughter tearful, patient keeps saying she wants to go home patient appears comfortable, cannot really answer questions Problem List Medical Problems: (1) Acute CVA (cerebrovascular accident) Status: Acute (2) Pneumonia Status: Acute (3) Sepsis Status: Acute (4) Slurred speech Status: Acute (5) Stroke Status: Acute Review of Systems Constitutional: + weakness Respiratory: + cough, + sputum, + shortness of breath Abdomen: + diarrhea Neurologic: + paralysis (right side), + weakness (left side) All Other Systems: Reviewed and Negative Medications Current Inpatient Medications Medications (Trade) Dose Ordered Sig/Kimberlyn Route Start Time Stop Time Status Last Admin Dose Admin Ondansetron HCl (Zofran Inj) 4 mg Q6H PRN IV 05/24/17 13:30 06/23/17 13:29 05/27/17 10:40 4 MG Cholecalciferol (Vitamin D Tab) 2,000 inter.unit QAM PEG 05/25/17 09:00 06/24/17 08:59 05/28/17 08:54 2,000 INTER.UNIT Lactobacillus Acidophilus (Floranex Tab) 4 tab TIDM PEG 05/24/17 16:45 06/23/17 17:59 05/28/17 11:30 4 TAB Aspirin (Aspirin Chew) 81 mg DAILY PEG 05/25/17 09:00 06/24/17 08:59 05/28/17 08:49 81 MG Levofloxacin 750 mg/Prmx 150 ml @ 100 mls/hr Q24H IV 05/25/17 09:00 06/01/17 08:59 05/28/17 08:52 100 MLS/HR Metronidazole 500 mg/Prmx 100 ml @ 100 mls/hr Q8H IV 05/24/17 16:00 05/31/17 15:59 05/28/17 08:50 100 MLS/HR Famotidine 20 mg/ Dextrose 102 ml @ 200 mls/hr Q12H IV 05/24/17 18:00 06/23/17 17:59 05/28/17 06:16 200 MLS/HR Fluconazole (Diflucan Susp) 100 mg QAM PEG 05/25/17 09:00 06/04/17 08:59 05/28/17 08:53 100 MG Enteral Nutritional Formula (Fibersource HN) 1,000 ml UD PRN PEG 05/24/17 17:00 06/23/17 16:59 05/28/17 08:48 1,000 ML Sodium Chloride 20 ml/Syringe 20 ml @ 0 mls/min BID IV 05/24/17 21:00 06/23/17 20:59 05/28/17 08:52 20 MLS/MIN Guaifenesin (Robitussin Sugar Free Syrup) 100 mg Q6H GT 05/24/17 21:00 06/23/17 20:59 05/28/17 08:51 100 MG Ipratropium [place] (Atrovent 0.02% 0.5MG/2.5ML Neb) 0.5 mg Q6R INH 05/25/17 03:00 06/24/17 02:59 05/28/17 07:00 0.5 MG Levalbuterol (Xopenex 1.25MG/ 0.5ML Neb) 1.25 mg Q6R INH 05/25/17 03:00 06/24/17 02:59 05/28/17 07:00 1.25 MG Heparin Sodium (Porcine) (Heparin Sq 5000 Unit/0.5ml) 5,000 unit Q12 SQ 05/25/17 09:00 06/24/17 08:59 05/28/17 08:56 5,000 UNIT Heparin Sodium (Porcine) (Heparin 10 Unit/ ml 5 ml Flush) 5 ml PRN PRN FLUSH 05/25/17 18:15 06/24/17 18:14 Multivitamins Therapeutic (Cerovite Liquid) 15 ml QAM PEG 05/26/17 09:00 06/25/17 08:59 05/28/17 08:53 15 ML Phenytoin Sodium 100 mg/Syringe 2 ml @ 1 mls/min BID IV 05/26/17 21:00 06/23/17 20:59 05/28/17 08:51 1 MLS/MIN Potassium Chloride (Dulce Ciel Elix) 20 meq TID PEG 05/26/17 14:00 06/25/17 13:59 05/28/17 08:54 20 MEQ Vancomycin HCl (Vancomycin Oral Soln) 125 mg Q6H PEG 05/27/17 08:00 06/10/17 07:59 05/28/17 08:50 125 MG Objective Vital Signs Date Time Temp Pulse Resp B/P (MAP) Pulse Ox O2 Delivery O2 Flow Rate FiO2 05/28/17 12:00 94 Trach Collar 8.0 30 05/28/17 11:01 36.7 105 20 134/88 (103) 95 Room Air 8.0 05/28/17 08:00 94 Trach Collar 8.0 30 05/28/17 07:01 37.0 105 19 144/100 (115) 94 Trach Collar 8.0 05/28/17 07:00 104 14 96 Trach Collar 30 05/28/17 04:00 93 Humidified Oxygen 8.0 30 Trach Collar 05/28/17 03:59 37.2 105 16 149/96 (113) 92 Nasal Cannula 8.0 Humidified Oxygen Trach Collar 05/28/17 01:45 103 14 96 Trach Collar 30 05/27/17 23:59 93 Humidified Oxygen 8.0 30 Trach Collar 05/27/17 22:54 36.9 108 16 147/99 (115) 94 Humidified Oxygen 8.0 Trach Collar 05/27/17 20:14 Trach Collar 30 05/27/17 18:46 36.9 105 20 151/96 (114) 95 Trach Collar 9.0 05/27/17 18:45 105 16 95 Trach Collar 30 05/27/17 16:00 Trach Collar 30 05/27/17 15:05 36.7 116 18 147/96 (113) 93 Trach Collar 8.0 05/27/17 14:17 107 16 94 Trach Collar 30 Physical Exam General Appearance: no apparent distress, + thin Neck: supple, no adenopathy, no JVD, trachea midline Respiratory/Chest: chest non-tender, no respiratory distress, no accessory muscle use, + decreased breath sounds, + rhonchi (clear with cough) Cardiovascular: no edema, no gallop, no JVD, no murmur, + tachycardia Abdomen: normal bowel sounds, non tender, soft, no organomegaly Extremities: normal inspection, no pedal edema, no calf tenderness, normal capillary refill, pelvis stable Neurologic/Psychiatric: 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 nml as tested, alert, oriented x 3, + motor weakness (right paralysis, left weakness), + depressed affect Skin: normal color, warm/dry, no rash Laboratory Results Last 24 Hours Test 05/28/17 08:13 Sodium Level 140 mmol/L Potassium Level 3.5 mmol/L Chloride Level 105 mmol/L Carbon Dioxide Level 27 mmol/L Anion Gap 8.0 mmol/L Blood Urea Nitrogen 9 mg/dl Creatinine 0.42 mg/dl Est Creatinine Clear Calc Drug Dose 124.8 ml/min Estimated GFR () 124.7 Estimated GFR (Non- 107.6 BUN/Creatinine Ratio 20.7 Random Glucose 123 mg/dl Calcium Level 8.7 mg/dl Assessment and Plan Unfortunate 67yo female with history of multiple prior strokes and a large SDH in March 2017 requiring prolonged intensive care stay at [facility], s/p trach and PEG, followed by L-TACH stay and then transfer to [facility] - presenting with metabolic encephalopathy, acute hypoxic respiratory failure 2nd to b/l basilar pneumonia, sepsis 2nd to pneumonia/UTI, and abnormal LFTs. She has had a very poor recovery from her SDH by her daughter's history. 1. acute hypoxic respiratory failure 2nd to b/l basilar pneumonia - concerning for aspiration pneumonia. less distress, no accessory muscles, able to talk today, still only on 30% FiO2 keep HOB > 30 degrees 2. sepsis 2nd to pneumonia/UTI - no growth on cultures. flagyl, vanco, levaquin day 4 diflucan started for Melanie in sputum from trach afebrile, WBC normal, tachycardia continues today, will give some IV fluids since she is losing fluid with diarrhea CXR today shows left basilar infiltrate, right lung has cleared appreciate pulmonary note 3. metabolic encephalopathy - resolved multifactorial with infection but also on Dilantin mental status back to normal per daughter after antibiotics appreciate neurology input, will taper off of Dilantin after one week 4. C diff colitis: Vanco QID via PEG, still with copious diarrhea will give NSS to cover volume loss add Questran to slow down stools 5. SDH 03/2017 - as above. PT, OT, speech when able. CT head stable 6. tracheostomy status - pulmonary consulted requesting records to determine why tracheostomy placed at [place] 7. 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 8. Hypokalemia: 3.5 today, continue 20mEq elixir TID 9. abnormal LFTs - AST and ALT improving yesterday will repeat tomorrow no RUQ pain on exam 10. moderate-severe protein calorie malnutrition - vitamin off for now due to recall 11. DVT proph - heparin BID 12. Dilantin use for seizure prophylaxis - plan to taper off of Dilantin Plan: continue antibiotics, supportive care, add fluids daughter interested in going back to LTACH, agree with this plan likely here over the weekend
[2017-05-28] MEDS ORDERED: SODIUM CHLORIDE 0.9% 1000ML 1,000 ML IV SCH (14:00)
[2017-05-28] MEDS: SODIUM CHLORIDE 0.9% 1000ML 1,000 ML IV SCH ×2 (16:31→22:09)
[2017-05-28] MEDS ORDERED: NURSING VERBAL MED ORDER ONE (16:45)
[2017-05-28] MEDS ORDERED: ALTEPLASE, RECOMBINANT 1 MG/ML 2 ML VIAL IV ONE (17:00)
[2017-05-28] MEDS: CHOLESTYRAMINE LIGHT 4 GM PKT PEG SCH (20:41)
[2017-05-29] VITALS (10 sets, daily range): BP systolic 106–159; BP diastolic 46–109; PULSE 58–112; TEMP 36.5–36.9; O2SAT 96–100
[2017-05-29] MEDS: LEVALBUTEROL 1.25MG/0.5ML NEB INH SCH ×4 (01:45→19:01)
[2017-05-29] MEDS: IPRATROPIUM BROMIDE NEB SOLN 0.02% 2.5 ML VIAL INH SCH ×4 (01:45→19:01)
[2017-05-29] MEDS: VANCOMYCIN HCL 125 MG/2.5ML SOLN PEG SCH ×4 (02:27→19:48)
[2017-05-29] MEDS: GUAIFENESIN SUGAR FREE 100 MG/5 ML UDC GT SCH ×4 (03:10→21:07)
[2017-05-29 04:58] LABS: BASO % 0.4 %; BASO ABS # 0.05 K/uL (0-0.2); COMPLETE YES; EOS % 1.2 %; HEMATOCRIT 32.5 % (37-47); IG% 3.1 %; LYMPH % 14.2 %; LYMPH ABS # 1.76 K/uL (1.2-3.4); MEAN CELL VOLUME 94.2 fL (80-100); MEAN CORPUSCULAR HGB CONC 32.9 g/dl (32-36); MEAN PLATELET VOLUME 9.1 fL (7.4-10.4); MONO % 5.6 %; NEUT % 75.5 %; PLATELET COUNT 381 K/uL (130-400); RED BLOOD COUNT 3.45 M/uL (4.2-5.4); WHITE BLOOD COUNT 12.43 K/uL (4.8-10.8)
[2017-05-29 05:27] LABS: BUN/CREATININE RATIO 29.1 (10-20); CALCIUM 8.8 mg/dl (8.5-10.1); CREATININE 0.32 mg/dl (0.60-1.20); POTASSIUM 3.6 mmol/L (3.5-5.1)
[2017-05-29] MEDS: FAMOTIDINE IV INJ 20 MG in DEXTROSE 5% 100ML 100 ML IV SCH ×2 (05:55→17:51)
[2017-05-29] MEDS: METRONIDAZOLE / NSS 500 MG in PREMIXED NSS 100 ML IV SCH ×3 (07:52→23:58)
[2017-05-29] MEDS: LACTOBACILLUS ACIDOPHILUS (FLORANEX) TAB PEG SCH ×3 (07:52→16:25)
[2017-05-29] MEDS: PHENYTOIN IV 100 MG in SYRINGE 0 ML IV SCH ×2 (07:54→21:08)
[2017-05-29] MEDS: LEVOFLOXACIN / D5W 750 MG in PREMIXED IN D5W 150 ML IV SCH (07:54)
[2017-05-29] MEDS: SODIUM CHLOR 0.9% 10ML FLUSH 20 ML in SYRINGE 0 ML IV SCH ×2 (07:54→21:08)
[2017-05-29] MEDS: ASPIRIN 81 MG CHEW PEG SCH (07:55)
[2017-05-29] MEDS: POTASSIUM CHLORIDE 20 MEQ/15 ML UDC PEG SCH ×3 (07:55→21:07)
[2017-05-29] MEDS: FLUCONAZOLE SUSP 100 MG/10 ML UDP PEG SCH (07:55)
[2017-05-29] MEDS: CHOLECALCIFEROL 1000 INTER.UNIT TAB PEG SCH (07:56)
[2017-05-29] MEDS: HEPARIN SOD 5000 UNIT/0.5 ML CARP SQ SCH ×2 (07:58→21:13)
--- NOTE | 2017-05-29 08:09 | PULMONARY PROGRESS NOTE ---
DATE: 05/29/2017 TIME: 7:35 a.m. SUBJECTIVE: The patient reportedly had a fairly good night. She only had 1 bowel movement during the night. Nursing reports there may be an increase in her secretions somewhat. The patient indicates she is a little bit short of breath, although she is not always the best historian. She has not had any more episodes of pulling her trach tube out. She is still on an 1 and 1 situation with an aide. OBJECTIVE: GENERAL: The patient looked comfortable. She was smiling. VITAL SIGNS: Temperature is 36.9. ENT: Unremarkable. HEART: Heart rate is 98 beats per minute. The rhythm is regular and is normal sinus. The blood pressure is 159/99. CHEST: The respiratory rate is 16 breaths per minute. There are minimal rhonchi today. The breath sounds at the left base are slightly diminished. Her oxygen saturation on 30% trach collar is 99%. ABDOMEN: Inspection of the abdomen reveals the presence of a PEG tube. The abdomen is not distended. Bowel sounds sounded fairly normal. There was no tenderness to palpation. Mello catheter is in place. EXTREMITIES: Showed no cyanosis, clubbing or edema. The patient's only significant mobility is in the left upper extremity. LABORATORY DATA: White blood cell count today is 12.43. Two days ago, it had been 8.89. Hemoglobin today is 10.7. Electrolytes show sodium 141, potassium 3.6, chloride 106, bicarbonate 28. The BUN is 9 with a creatinine of 0.32. IMPRESSION: 1. Bibasilar pneumonia -- cleared on the right with residual infiltrate on the left as per x-ray findings from 05/28/2017. 2. Sepsis secondary to #1. 3. Status post tracheostomy. 4. Clostridium difficile colitis. 5. Status post subdural hematoma and multiple prior strokes. COMMENTS AND RECOMMENDATIONS: The patient has had an increase in her white count. This needs watching. Clinically, she does not seem worse to me. She actually seems a little better. Her x-ray as of the showed some persistence of the left lower lobe opacification. It is unknown if it had been clear prior to coming to the hospital. She had been treated for aspiration pneumonia when she was at [place]. I could not find a definite chest x-ray report in the records. She remains on vancomycin suspension for the C. diff. The IV vancomycin was discontinued. She remains on levofloxacin and fluconazole and metronidazole. Would probably not make any adjustment today in light of the increase in white count until we see what direction that is going.
[2017-05-29] MEDS: FLINTSTONES COMPLETE CHEWABLE TAB PEG SCH (09:22)
[2017-05-29] MEDS: CHOLESTYRAMINE LIGHT 4 GM PKT PEG SCH ×2 (09:23→21:07)
[2017-05-29] MEDS: ONDANSETRON INJ 2 MG/ML 2 ML VIAL IV PRN (10:54)
--- NOTE | 2017-05-29 14:36 | Progress Note ---
Subjective Date of Service: May 29, 2017. Subjective Pt evaluation today including: conversation w/ patient, physical exam, lab review, conversation w/ procurement consultant, review of inpatient medication list Pain: no pain PO Intake: NPO Voiding: leung catheter in place patient had a good night, no pulling at tracheostomy tube, breathing stable, slept well vitals improving, HR low 100's, no fever reviewed labs, stable appreciate note from Dr. Cary, continue current treatment, follow leukocytosis this AM when being turned the patient vomited 100-150cc, no aspiration event noted instructed to decrease TF rate to 30cc/hr for 4 hours then resume 60cc/hr, there have not been residuals with tube feeds Problem List Medical Problems: (1) Acute CVA (cerebrovascular accident) Status: Acute (2) Pneumonia Status: Acute (3) Sepsis Status: Acute (4) Slurred speech Status: Acute (5) Stroke Status: Acute Review of Systems Constitutional: + weakness, + fatigue Respiratory: + cough, + sputum Abdomen: + vomiting (once this AM), + diarrhea (none this AM, certainly less frequent) All Other Systems: Reviewed and Negative Medications Current Inpatient Medications Medications (Trade) Dose Ordered Sig/Kimberlyn Route Start Time Stop Time Status Last Admin Dose Admin Ondansetron HCl (Zofran Inj) 4 mg Q6H PRN IV 05/24/17 13:30 06/23/17 13:29 05/29/17 10:54 4 MG Cholecalciferol (Vitamin D Tab) 2,000 inter.unit QAM PEG 05/25/17 09:00 06/24/17 08:59 05/29/17 07:56 2,000 INTER.UNIT Lactobacillus Acidophilus (Floranex Tab) 4 tab TIDM PEG 05/24/17 16:45 06/23/17 17:59 05/29/17 07:52 4 TAB Aspirin (Aspirin Chew) 81 mg DAILY PEG 05/25/17 09:00 06/24/17 08:59 05/29/17 07:55 81 MG Levofloxacin 750 mg/Prmx 150 ml @ 100 mls/hr Q24H IV 05/25/17 09:00 06/01/17 08:59 05/29/17 07:54 100 MLS/HR Metronidazole 500 mg/Prmx 100 ml @ 100 mls/hr Q8H IV 05/24/17 16:00 05/31/17 15:59 05/29/17 07:52 100 MLS/HR Famotidine 20 mg/ Dextrose 102 ml @ 200 mls/hr Q12H IV 05/24/17 18:00 06/23/17 17:59 05/29/17 05:55 200 MLS/HR Fluconazole (Diflucan Susp) 100 mg QAM PEG 05/25/17 09:00 06/04/17 08:59 05/29/17 07:55 100 MG Enteral Nutritional Formula (Fibersource HN) 1,000 ml UD PRN PEG 05/24/17 17:00 06/23/17 16:59 05/28/17 08:48 1,000 ML Sodium Chloride 20 ml/Syringe 20 ml @ 0 mls/min BID IV 05/24/17 21:00 06/23/17 20:59 05/29/17 07:54 20 MLS/MIN Guaifenesin (Robitussin Sugar Free Syrup) 100 mg Q6H GT 05/24/17 21:00 06/23/17 20:59 05/29/17 07:53 100 MG Ipratropium [place] (Atrovent 0.02% 0.5MG/2.5ML Neb) 0.5 mg Q6R INH 05/25/17 03:00 06/24/17 02:59 05/29/17 14:00 0.5 MG Levalbuterol (Xopenex 1.25MG/ 0.5ML Neb) 1.25 mg Q6R INH 05/25/17 03:00 06/24/17 02:59 05/29/17 14:00 1.25 MG Heparin Sodium (Porcine) (Heparin Sq 5000 Unit/0.5ml) 5,000 unit Q12 SQ 05/25/17 09:00 06/24/17 08:59 05/29/17 07:58 5,000 UNIT Heparin Sodium (Porcine) (Heparin 10 Unit/ ml 5 ml Flush) 5 ml PRN PRN FLUSH 05/25/17 18:15 06/24/17 18:14 Phenytoin Sodium 100 mg/Syringe 2 ml @ 1 mls/min BID IV 05/26/17 21:00 06/23/17 20:59 05/29/17 07:54 1 MLS/MIN Potassium Chloride (Dulce Ciel Elix) 20 meq TID PEG 05/26/17 14:00 06/25/17 13:59 05/29/17 13:51 20 MEQ Vancomycin HCl (Vancomycin Oral Soln) 125 mg Q6H PEG 05/27/17 08:00 06/10/17 07:59 05/29/17 13:53 125 MG Cholestyramine Resin (Questran Powder Light) 4 gm BID@10,22 PEG 05/28/17 22:00 06/27/17 21:59 05/29/17 09:23 4 GM Sodium Chloride 1,000 ml @ 100 mls/hr Q10H IV 05/28/17 16:00 06/27/17 15:59 05/28/17 22:09 100 MLS/HR Heparin Sodium (Porcine) (Heparin 10 Unit/ ml 5 ml Flush) 5 ml PRN PRN FLUSH 05/28/17 20:00 06/27/17 19:59 Multivitamins (Flintstones Complete Tab) 1 tab QAM PEG 05/29/17 09:00 06/28/17 08:59 05/29/17 09:22 1 TAB Objective Vital Signs Date Time Temp Pulse Resp B/P (MAP) Pulse Ox O2 Delivery O2 Flow Rate FiO2 05/29/17 14:03 102 16 99 Trach Collar 30 05/29/17 12:00 Trach Collar 8.0 30 05/29/17 11:07 36.7 97 20 139/98 (112) 99 Trach Collar 05/29/17 08:00 Trach Collar 8.0 30 05/29/17 07:13 112 16 99 Trach Collar 30 05/29/17 06:49 36.9 96 18 159/99 (119) 100 Trach Collar 05/29/17 04:00 Trach Collar 30 05/29/17 01:45 105 16 97 Trach Collar 30 05/29/17 00:00 Trach Collar 30 05/28/17 20:00 Trach Collar 30 05/28/17 18:57 112 16 98 Trach Collar 30 05/28/17 16:00 94 Trach Collar 8.0 30 05/28/17 14:53 37.0 104 20 119/95 (103) 95 Room Air Physical Exam General Appearance: no apparent distress, + thin Eyes: normal inspection, EOMI, sclerae normal ENT: normal ENT inspection, hearing grossly normal, pharynx normal Neck: + pertinent finding (tracheostomy in place, copious secretions) Respiratory/Chest: chest non-tender, no respiratory distress, no accessory muscle use, + decreased breath sounds, + rhonchi (clear with cough) Cardiovascular: no edema, no gallop, no JVD, no murmur, + tachycardia Abdomen: normal bowel sounds, non tender, soft, no organomegaly Extremities: normal inspection, no pedal edema, no calf tenderness, normal capillary refill, pelvis stable Neurologic/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: 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 tested, alert, normal mood/affect, oriented x 3, + motor weakness (paralysis right side, weak left side, chronic) Skin: normal color, warm/dry, no rash Laboratory Results Last 24 Hours Test 05/29/17 04:20 White Blood Count 12.43 K/uL Red Blood Count 3.45 M/uL Hemoglobin 10.7 g/dL Hematocrit 32.5 % Mean Corpuscular Volume 94.2 fL Mean Corpuscular Hemoglobin 31.0 pg Mean Corpuscular Hemoglobin Concent 32.9 g/dl Platelet Count 381 K/uL Mean Platelet Volume 9.1 fL Neutrophils (%) (Auto) 75.5 % Lymphocytes (%) (Auto) 14.2 % Monocytes (%) (Auto) 5.6 % Eosinophils (%) (Auto) 1.2 % Basophils (%) (Auto) 0.4 % Neutrophils # (Auto) 9.39 K/uL Lymphocytes # (Auto) 1.76 K/uL Monocytes # (Auto) 0.69 K/uL Eosinophils # (Auto) 0.15 K/uL Basophils # (Auto) 0.05 K/uL RDW Standard Deviation 49.0 fL RDW Coefficient of Variation 14.4 % Immature Granulocyte % (Auto) 3.1 % Immature Granulocyte # (Auto) 0.39 K/uL Nucleated RBC Absolute Count (auto) 0.02 K/uL Nucleated Red Blood Cells % 0.1 % Sodium Level 141 mmol/L Potassium Level 3.6 mmol/L Chloride Level 106 mmol/L Carbon Dioxide Level 28 mmol/L Anion Gap 7.0 mmol/L Blood Urea Nitrogen 9 mg/dl Creatinine 0.32 mg/dl Est Creatinine Clear Calc Drug Dose 163.8 ml/min Estimated GFR () 136.3 Estimated GFR (Non- 117.6 BUN/Creatinine Ratio 29.1 Random Glucose 126 mg/dl Calcium Level 8.8 mg/dl Magnesium Level 2.0 mg/dl Assessment and Plan Unfortunate 67yo female with history of multiple prior strokes and a large SDH in March 2017 requiring prolonged intensive care stay at [facility], s/p trach and PEG, followed by L-TACH stay and then transfer to [facility] - presenting with metabolic encephalopathy, acute hypoxic respiratory failure 2nd to b/l basilar pneumonia, sepsis 2nd to pneumonia/UTI, and abnormal LFTs. She has had a very poor recovery from her SDH by her daughter's history. 1. acute hypoxic respiratory failure 2nd to b/l basilar pneumonia - concerning for aspiration pneumonia. less distress, no accessory muscles, able to talk today, still only on 30% FiO2 keep HOB > 30 degrees 2. sepsis 2nd to pneumonia/UTI - no growth on cultures. flagyl, levaquin day 5 diflucan started for Melanie in sputum from trach, day 3 afebrile, WBC normal, tachycardia improved with IV fluids, HR below 100 at times CXR 05/28 showed left basilar infiltrate, right lung has cleared appreciate pulmonary note, keep on current treatment and follow WBC tomorrow 3. metabolic encephalopathy - resolved multifactorial with infection but also on Dilantin mental status back to normal per daughter after antibiotics appreciate neurology input, will taper off of Dilantin after one week 4. C diff colitis: Vanco QID via PEG, still with copious diarrhea will give NSS to cover volume loss, cut rates to 75cc/hr, less diarrhea today , stop fluids tomorrow add Questran to slow down stools, working thus far 5. SDH 03/2017 - as above. PT, OT, speech when able. CT head stable 6. tracheostomy status - pulmonary consulted 7. PEG tube status - acute dialysis nurse consult for tube feeding recommendations. 8. Hypokalemia: 3.6 today, continue 20mEq elixir TID 9. Dilantin use for seizure prophylaxis - plan to taper off of Dilantin 10. moderate-severe protein calorie malnutrition - vitamin off for now due to recall 11. DVT proph - heparin BID Plan: continue antibiotics, supportive care, add fluids daughter interested in going back to LTACH, agree with this plan likely not going to happen until Wednesday or Wednesday at the earliest
[2017-05-29] MEDS: SODIUM CHLORIDE 0.9% 1000ML 1,000 ML IV SCH (21:25)
[2017-05-30] VITALS (10 sets, daily range): BP systolic 113–143; BP diastolic 88–98; PULSE 96–117; TEMP 36.5–37; O2SAT 93–98
[2017-05-30] MEDS: LEVALBUTEROL 1.25MG/0.5ML NEB INH SCH ×4 (01:30→19:04)
[2017-05-30] MEDS: IPRATROPIUM BROMIDE NEB SOLN 0.02% 2.5 ML VIAL INH SCH ×4 (01:30→19:04)
[2017-05-30] MEDS: VANCOMYCIN HCL 125 MG/2.5ML SOLN PEG SCH ×4 (02:22→20:53)
[2017-05-30] MEDS: GUAIFENESIN SUGAR FREE 100 MG/5 ML UDC GT SCH ×4 (03:15→20:53)
[2017-05-30] MEDS: FAMOTIDINE IV INJ 20 MG in DEXTROSE 5% 100ML 100 ML IV SCH ×2 (05:35→18:16)
[2017-05-30 06:37] LABS: BASO % 0.4 %; BASO ABS # 0.05 K/uL (0-0.2); COMPLETE YES; EOS % 1.5 %; HEMATOCRIT 33.9 % (37-47); IG% 4.8 %; LYMPH % 16.9 %; LYMPH ABS # 2.02 K/uL (1.2-3.4); MEAN CELL VOLUME 94.2 fL (80-100); MEAN CORPUSCULAR HEMOGLOBIN 30.6 pg (25-34); MEAN CORPUSCULAR HGB CONC 32.4 g/dl (32-36); MEAN PLATELET VOLUME 8.7 fL (7.4-10.4); MONO % 6.7 %; NEUT % 69.7 %; PLATELET COUNT 398 K/uL (130-400); WHITE BLOOD COUNT 11.97 K/uL (4.8-10.8)
[2017-05-30 07:05] LABS: BUN/CREATININE RATIO 25.2 (10-20); CALCIUM 9.4 mg/dl (8.5-10.1); CREATININE 0.4 mg/dl (0.60-1.20); PHOSPHORUS 4.7 mg/dl (2.5-4.9); POTASSIUM 3.8 mmol/L (3.5-5.1)
[2017-05-30] MEDS: METRONIDAZOLE / NSS 500 MG in PREMIXED NSS 100 ML IV SCH ×3 (07:42→23:53)
[2017-05-30] MEDS: LACTOBACILLUS ACIDOPHILUS (FLORANEX) TAB PEG SCH ×3 (07:42→17:00)
[2017-05-30] MEDS: PHENYTOIN IV 100 MG in SYRINGE 0 ML IV SCH (07:43)
[2017-05-30] MEDS: SODIUM CHLOR 0.9% 10ML FLUSH 20 ML in SYRINGE 0 ML IV SCH (07:43)
[2017-05-30] MEDS: LEVOFLOXACIN / D5W 750 MG in PREMIXED IN D5W 150 ML IV SCH (07:43)
[2017-05-30] MEDS: FLINTSTONES COMPLETE CHEWABLE TAB PEG SCH (07:44)
[2017-05-30] MEDS: ASPIRIN 81 MG CHEW PEG SCH (07:44)
[2017-05-30] MEDS: FLUCONAZOLE SUSP 100 MG/10 ML UDP PEG SCH (07:44)
[2017-05-30] MEDS: CHOLECALCIFEROL 1000 INTER.UNIT TAB PEG SCH (07:45)
[2017-05-30] MEDS: POTASSIUM CHLORIDE 20 MEQ/15 ML UDC PEG SCH (07:45)
[2017-05-30] MEDS: HEPARIN SOD 5000 UNIT/0.5 ML CARP SQ SCH ×2 (07:47→20:54)
[2017-05-30] MEDS: CHOLESTYRAMINE LIGHT 4 GM PKT PEG SCH ×2 (10:26→22:17)
--- NOTE | 2017-05-30 10:42 | PULMONARY PROGRESS NOTE ---
DATE: 05/30/2017 TIME: 9:50 a.m. SUBJECTIVE: The patient has been very restless overnight. According to nursing staff, she was very confused. She was demanding to leave. She is frequently pulling at either her PEG tube or the trach. She is requiring significant amount of nursing care. She continues to have modest amount of secretions. OBJECTIVE: GENERAL: The patient is confused. When I ask her where she was, she told me [place]. VITAL SIGNS: Temperature is 36.7. She has not had any fevers. ENT: Unremarkable. She does have a trach tube in place with modest amount of whitish secretions. Typically, she does cough when taking deep breaths and the mucus seems to come out readily. HEART: Heart rate is 98 per minute. The rhythm is regular. Blood pressure 133/88. LUNGS: The breath sounds on the left are diminished compared with the right. She does have mild rhonchi bilaterally. Her respiratory rate is 22 breaths per minute. Saturation is 94% on a 30% trach collar. ABDOMEN: Inspection of the abdomen reveals PEG to be in place. Bowel sounds are normal. There is no apparent tenderness to palpation. EXTREMITIES: Show no cyanosis, clubbing or edema. She has minimal movement except for the left upper extremity. LABORATORY DATA: White count today was 11.97 which is slightly less than yesterday at 12.43. Hemoglobin is 11. Platelets are 398,000. Electrolytes show sodium 140, potassium 3.8, chloride 104, bicarb 30. BUN is 10 with a creatinine of 0.40. IMPRESSIONS: 1. Bibasilar pneumonia -- cleared on the right with residual infiltrate on the left as per x-ray 05/28/2017. 2. Sepsis secondary to #1. 3. Status post tracheostomy. 4. Clostridium difficile colitis. 5. Status post subdural hematoma and multiple prior strokes. COMMENTS AND RECOMMENDATIONS: The patient's tracheal aspirates have only shown Melanie. In light of the C. diff colitis, would at this time consider discontinuing the levofloxacin and metronidazole. Would repeat a chest x-ray tomorrow which I will order. Dr. Mello will be seeing the patient as of tomorrow from the pulmonary division.
[2017-05-30] MEDS: SODIUM CHLORIDE 0.9% 1000ML 1,000 ML IV SCH (12:47)
--- NOTE | 2017-05-30 12:59 | Progress Note ---
Subjective Date of Service: May 30, 2017. Subjective Pt evaluation today including: conversation w/ patient, physical exam, lab review, review of inpatient medication list Pain: denies pain PO Intake: PEG feedings Voiding: leung catheter in place patient much more alert today, the most alert and conversive she has been during admission breathing comfortably, productive cough she had another episode of emesis this AM, d/w RN, said that it was after morning medications we have been checking residuals, always normal going to try to hold tube feeds for an hour prior to meds to see if it helps discussed plan of going to LTACH, she agreed daughter will visit later today, will talk with her at that time Problem List Medical Problems: (1) Acute CVA (cerebrovascular accident) Status: Acute (2) Pneumonia Status: Acute (3) Sepsis Status: Acute (4) Slurred speech Status: Acute (5) Stroke Status: Acute Review of Systems Constitutional: + weakness, + fatigue Respiratory: + cough, + sputum Abdomen: + vomiting (one episode, 100cc) Neurologic: + paralysis, + weakness All Other Systems: Reviewed and Negative Medications Current Inpatient Medications Medications (Trade) Dose Ordered Sig/Kimberlyn Route Start Time Stop Time Status Last Admin Dose Admin Ondansetron HCl (Zofran Inj) 4 mg Q6H PRN IV 05/24/17 13:30 06/23/17 13:29 05/29/17 10:54 4 MG Cholecalciferol (Vitamin D Tab) 2,000 inter.unit QAM PEG 05/25/17 09:00 06/24/17 08:59 05/30/17 07:45 2,000 INTER.UNIT Lactobacillus Acidophilus (Floranex Tab) 4 tab TIDM PEG 05/24/17 16:45 06/23/17 17:59 05/30/17 12:20 4 TAB Aspirin (Aspirin Chew) 81 mg DAILY PEG 05/25/17 09:00 06/24/17 08:59 05/30/17 07:44 81 MG Levofloxacin 750 mg/Prmx 150 ml @ 100 mls/hr Q24H IV 05/25/17 09:00 06/01/17 08:59 05/30/17 07:43 100 MLS/HR Metronidazole 500 mg/Prmx 100 ml @ 100 mls/hr Q8H IV 05/24/17 16:00 05/31/17 15:59 05/30/17 07:42 100 MLS/HR Famotidine 20 mg/ Dextrose 102 ml @ 200 mls/hr Q12H IV 05/24/17 18:00 06/23/17 17:59 05/30/17 05:35 200 MLS/HR Fluconazole (Diflucan Susp) 100 mg QAM PEG 05/25/17 09:00 06/04/17 08:59 05/30/17 07:44 100 MG Enteral Nutritional Formula (Fibersource HN) 1,000 ml UD PRN PEG 05/24/17 17:00 06/23/17 16:59 05/28/17 08:48 1,000 ML Sodium Chloride 20 ml/Syringe 20 ml @ 0 mls/min BID IV 05/24/17 21:00 06/23/17 20:59 05/30/17 07:43 20 MLS/MIN Guaifenesin (Robitussin Sugar Free Syrup) 100 mg Q6H GT 05/24/17 21:00 06/23/17 20:59 05/30/17 07:42 100 MG Ipratropium [place] (Atrovent 0.02% 0.5MG/2.5ML Neb) 0.5 mg Q6R INH 05/25/17 03:00 06/24/17 02:59 05/30/17 07:02 0.5 MG Levalbuterol (Xopenex 1.25MG/ 0.5ML Neb) 1.25 mg Q6R INH 05/25/17 03:00 06/24/17 02:59 05/30/17 07:02 1.25 MG Heparin Sodium (Porcine) (Heparin Sq 5000 Unit/0.5ml) 5,000 unit Q12 SQ 05/25/17 09:00 06/24/17 08:59 05/30/17 07:47 5,000 UNIT Heparin Sodium (Porcine) (Heparin 10 Unit/ ml 5 ml Flush) 5 ml PRN PRN FLUSH 05/25/17 18:15 06/24/17 18:14 Phenytoin Sodium 100 mg/Syringe 2 ml @ 1 mls/min BID IV 05/26/17 21:00 06/23/17 20:59 05/30/17 07:43 1 MLS/MIN Potassium Chloride (Dulce Ciel Elix) 20 meq TID PEG 05/26/17 14:00 06/25/17 13:59 05/30/17 07:45 20 MEQ Vancomycin HCl (Vancomycin Oral Soln) 125 mg Q6H PEG 05/27/17 08:00 06/10/17 07:59 05/30/17 07:42 125 MG Cholestyramine Resin (Questran Powder Light) 4 gm BID@10,22 PEG 05/28/17 22:00 06/27/17 21:59 05/30/17 10:26 4 GM Heparin Sodium (Porcine) (Heparin 10 Unit/ ml 5 ml Flush) 5 ml PRN PRN FLUSH 05/28/17 20:00 06/27/17 19:59 Multivitamins (Flintstones Complete Tab) 1 tab QAM PEG 05/29/17 09:00 06/28/17 08:59 05/30/17 07:44 1 TAB Objective Vital Signs Date Time Temp Pulse Resp B/P (MAP) Pulse Ox O2 Delivery O2 Flow Rate FiO2 05/30/17 11:38 36.5 99 20 113/94 (100) 93 Trach Collar 8.0 05/30/17 08:00 Trach Collar 8.0 30 05/30/17 07:05 36.7 98 22 137/88 (104) 94 Trach Collar 05/30/17 07:02 96 20 95 Trach Collar 30 05/30/17 04:00 Trach Collar 30 05/30/17 03:58 36.7 98 22 142/98 (113) 97 Trach Collar 05/30/17 01:30 102 16 98 Trach Collar 30 05/30/17 00:00 Trach Collar 30 05/29/17 22:57 36.8 100 22 148/99 (115) 99 Trach Collar 05/29/17 20:04 Trach Collar 30 05/29/17 19:04 106 16 96 Trach Collar 30 05/29/17 18:50 36.9 110 18 141/109 (120) 97 Trach Collar 05/29/17 16:00 Trach Collar 8.0 30 05/29/17 15:00 36.6 104 20 136/97 (110) 100 Trach Collar 05/29/17 14:03 102 16 99 Trach Collar 30 Physical Exam General Appearance: WD/WN, no apparent distress Eyes: normal inspection, EOMI, sclerae normal ENT: normal ENT inspection, hearing grossly normal, pharynx normal Neck: supple, no adenopathy, no JVD, trachea midline, + pertinent finding ( trachestomy in place, copious secretions) Respiratory/Chest: chest non-tender, no respiratory distress, no accessory muscle use, + rhonchi (improve with cough) Cardiovascular: no edema, no gallop, no JVD, no murmur, + tachycardia (90-100's ) Abdomen: normal bowel sounds, non tender, soft, no organomegaly, + pertinent finding (PEG intact) Extremities: non-tender, normal inspection, no pedal edema, no calf tenderness , normal capillary refill, pelvis stable Neurologic/Psychiatric: 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 nml as tested, alert, normal mood/affect, oriented x 3, + motor weakness (right paralysis, left weak, bedbound) Skin: normal color, warm/dry, no rash Lymphatic: no adenopathy Laboratory Results Last 24 Hours Test 05/29/17 18:37 05/29/17 23:55 05/30/17 06:14 05/30/17 11:57 Bedside Glucose 103 mg/dl 83 mg/dl 101 mg/dl White Blood Count 11.97 K/uL Red Blood Count 3.60 M/uL Hemoglobin 11.0 g/dL Hematocrit 33.9 % Mean Corpuscular Volume 94.2 fL Mean Corpuscular Hemoglobin 30.6 pg Mean Corpuscular Hemoglobin Concent 32.4 g/dl Platelet Count 398 K/uL Mean Platelet Volume 8.7 fL Neutrophils (%) (Auto) 69.7 % Lymphocytes (%) (Auto) 16.9 % Monocytes (%) (Auto) 6.7 % Eosinophils (%) (Auto) 1.5 % Basophils (%) (Auto) 0.4 % Neutrophils # (Auto) 8.35 K/uL Lymphocytes # (Auto) 2.02 K/uL Monocytes # (Auto) 0.80 K/uL Eosinophils # (Auto) 0.18 K/uL Basophils # (Auto) 0.05 K/uL RDW Standard Deviation 49.4 fL RDW Coefficient of Variation 14.4 % Immature Granulocyte % (Auto) 4.8 % Immature Granulocyte # (Auto) 0.57 K/uL Sodium Level 140 mmol/L Potassium Level 3.8 mmol/L Chloride Level 104 mmol/L Carbon Dioxide Level 30 mmol/L Anion Gap 6.0 mmol/L Blood Urea Nitrogen 10 mg/dl Creatinine 0.40 mg/dl Est Creatinine Clear Calc Drug Dose 126.6 ml/min Estimated GFR () 126.7 Estimated GFR (Non- 109.3 BUN/Creatinine Ratio 25.2 Random Glucose 118 mg/dl Calcium Level 9.4 mg/dl Phosphorus Level 4.7 mg/dl Magnesium Level 2.0 mg/dl Assessment and Plan Unfortunate 67yo female with history of multiple prior strokes and a large SDH in March 2017 requiring prolonged intensive care stay at [facility], s/p trach and PEG, followed by L-TACH stay and then transfer to [facility] - presenting with metabolic encephalopathy, acute hypoxic respiratory failure 2nd to b/l basilar pneumonia, sepsis 2nd to pneumonia/UTI, and abnormal LFTs. She has had a very poor recovery from her SDH by her daughter's history. 1. acute hypoxic respiratory failure 2nd to b/l basilar pneumonia - concerning for aspiration pneumonia. no signs of failure for a few days, breathing comfortably on blow by oxygen, 30% keep HOB > 30 degrees 2. sepsis 2nd to pneumonia/UTI - no growth on cultures. flagyl, levaquin day 6 diflucan started for Melanie in sputum from trach, day 4 afebrile, WBC 11 today from 12 yesterday CXR 05/28 showed left basilar infiltrate, right lung has cleared pulmonary following would complete 7 days of antibiotics, complete tomorrow 7 days of diflucan, 3 more days needed 3. metabolic encephalopathy - resolved multifactorial with infection but also on Dilantin mental status back to normal per daughter after antibiotics appreciate neurology input, will taper off of Dilantin after one week last dose on 06/02 4. C diff colitis: Vanco QID via PEG, still with copious diarrhea no diarrhea today, stop IV fluids add Questran to slow down stools, working thus far 5. SDH 03/2017 - as above. PT, OT, speech when able. CT head stable 6. Vomiting: in the morning, after large quantity of medications given, perhaps too much volume? abdomen soft, NT, ND, and good bowel sounds so doubt obstruction or ileus check KUB today will hold TF an hour prior to medications to allow stomach to empty 7. 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 8. Hypokalemia: 3.8 today, reduce KCl from TID to daily starting tomorrow 9. Dilantin use for seizure prophylaxis - plan to taper off of Dilantin, last dose 06/02 10. moderate-severe protein calorie malnutrition - vitamin off for now due to recall continue tube feeds at 60cc/hr normal residuals, vomiting episodes after medications in the AM 11. DVT proph - heparin BID Plan: continue antibiotics, supportive care, check KUB daughter interested in going back to LTACH, agree with this plan CM aware of plan, will make referral to [facility] in [place]
--- NOTE | 2017-05-30 14:54 | DIAGNOSTIC IMAGING REPORT ---
KUB HISTORY: Vomiting COMPARISON: Abdomen and pelvis CT 01/04/2013. FINDINGS: A gastrostomy tube is identified within the left upper quadrant. No renal or ureteral calculi. No dilated loops of bowel to suggest an obstruction. No definite pneumoperitoneum or pneumatosis. Of note, the entire hemidiaphragm was not included on this study. IMPRESSION: No evidence for bowel obstruction. Electronically signed by: Eyad Preston M.D. 05/30/2017 2:53 PM Dictated Date/Time: 05/30/2017 2:51 PM
[2017-05-30] MEDS ORDERED: METOCLOPRAMIDE HCL INJ 5 MG/ML 2 ML VIAL ONE (18:10)
[2017-05-30] MEDS ORDERED: NURSING VERBAL MED ORDER ONE (18:15)
[2017-05-30] MEDS: ONDANSETRON INJ 2 MG/ML 2 ML VIAL IV PRN (18:15)
[2017-05-30] MEDS: PHENYTOIN SUSP 125 MG/5 ML PO SCH (20:53)
[2017-05-31] VITALS (8 sets, daily range): BP systolic 96–128; BP diastolic 59–86; PULSE 90–112; TEMP 36.5–36.9; O2SAT 93–99
[2017-05-31] MEDS: IPRATROPIUM BROMIDE NEB SOLN 0.02% 2.5 ML VIAL INH SCH ×4 (01:32→19:23)
[2017-05-31] MEDS: LEVALBUTEROL 1.25MG/0.5ML NEB INH SCH ×4 (01:32→19:23)
[2017-05-31] MEDS: VANCOMYCIN HCL 125 MG/2.5ML SOLN PEG SCH ×4 (01:35→20:00)
[2017-05-31] MEDS: GUAIFENESIN SUGAR FREE 100 MG/5 ML UDC GT SCH ×4 (02:52→21:16)
[2017-05-31] MEDS: FAMOTIDINE IV INJ 20 MG in DEXTROSE 5% 100ML 100 ML IV SCH ×2 (05:41→17:46)
[2017-05-31 05:59] LABS: BASO % 0.4 %; BASO ABS # 0.04 K/uL (0-0.2); COMPLETE YES; EOS % 1.3 %; HEMATOCRIT 32.9 % (37-47); IG% 3.7 %; LYMPH % 20.2 %; LYMPH ABS # 2.05 K/uL (1.2-3.4); MEAN CELL VOLUME 92.4 fL (80-100); MEAN CORPUSCULAR HEMOGLOBIN 30.3 pg (25-34); MEAN CORPUSCULAR HGB CONC 32.8 g/dl (32-36); MEAN PLATELET VOLUME 8.9 fL (7.4-10.4); MONO % 7.2 %; NEUT % 67.2 %; PLATELET COUNT 410 K/uL (130-400); RED BLOOD COUNT 3.56 M/uL (4.2-5.4); WHITE BLOOD COUNT 10.13 K/uL (4.8-10.8)
[2017-05-31 06:33] LABS: BUN/CREATININE RATIO 26.6 (10-20); CALCIUM 9.1 mg/dl (8.5-10.1); CREATININE 0.4 mg/dl (0.60-1.20); PHOSPHORUS 4.6 mg/dl (2.5-4.9); POTASSIUM 3.6 mmol/L (3.5-5.1)
--- NOTE | 2017-05-31 07:22 | DIAGNOSTIC IMAGING REPORT ---
CHEST ONE VIEW PORTABLE CLINICAL HISTORY: f/u on infiltrates pneumonia COMPARISON STUDY: 2016 FINDINGS: Tracheostomy tube in good position. Improved aeration left base. Mild residual atelectatic change. Right lung remains clear. IMPRESSION: Improving parenchymal infiltrate left base with minimal residual. Lungs otherwise are clear. The above report was generated using voice recognition software. It may contain grammatical, syntax or spelling errors. Electronically signed by: Jan Kapoor M.D. 05/31/2017 7:21 AM Dictated Date/Time: 05/31/2017 7:20 AM
[2017-05-31] MEDS: METRONIDAZOLE / NSS 500 MG in PREMIXED NSS 100 ML IV SCH (08:34)
[2017-05-31] MEDS: FIBERSOURCE HN 1000ML BAG PEG PRN ×4 (08:44→22:19)
[2017-05-31] MEDS: POTASSIUM CHLORIDE 20 MEQ/15 ML UDC PEG SCH (08:46)
[2017-05-31] MEDS: FLUCONAZOLE SUSP 100 MG/10 ML UDP PEG SCH (08:47)
[2017-05-31] MEDS: LACTOBACILLUS ACIDOPHILUS (FLORANEX) TAB PEG SCH ×3 (08:48→17:46)
[2017-05-31] MEDS: ASPIRIN 81 MG CHEW PEG SCH (08:49)
[2017-05-31] MEDS: FLINTSTONES COMPLETE CHEWABLE TAB PEG SCH (08:49)
[2017-05-31] MEDS: CHOLECALCIFEROL 1000 INTER.UNIT TAB PEG SCH (08:49)
[2017-05-31] MEDS: PHENYTOIN SUSP 125 MG/5 ML PO SCH ×2 (08:59→21:16)
[2017-05-31] MEDS: LEVOFLOXACIN / D5W 750 MG in PREMIXED IN D5W 150 ML IV SCH (09:44)
[2017-05-31] MEDS: HEPARIN SOD 5000 UNIT/0.5 ML CARP SQ SCH ×2 (09:46→21:16)
--- NOTE | 2017-05-31 10:34 | Pulmonology Progress Note ---
Pulmonary Progress Note Date of Service May 31, 2017. Attending Dr. Mello Subjective Patient seen and examined. She states that she feeling better. She is still having productive cough coming from trach collar. She denies any chest pain, palpitations or shortness of breath. Continues to have diarrhea. Objective O/E: Vitals signs reviewed. She is currently on 30% tent on trach collar. Saturating well. 93-96% Gen: AAOx3, NAD, speaking in full sentences, no respiratory distress or use of accessory muscles of respiration. HEENT: AT/NC, PERRL, EOMI, Ear--normal, nose--normal nasal turbinates, throat-- no exudates Neck: Trach collar in place with oxygen in tent in place CVS: S1, S2, RRR Lungs: Decreased breath sounds b/l, intermittent rhonchi, no wheezes appreciated Abd: soft/NT, ND, BS+ peg+ Ext: no edema bilaterally, no cyanosis, no clubbing. Labs: reviewed Imaging: CXR from 05/31/2017--shows improving parenchymal infiltrates in left base. Medications from a respiratory standpoint include: guaifenesin, ipratropium and levalbuterol nebulizer q6h. Assessment & Plan 1. Bibasilar pneumonia -- cleared on the right with residual infiltrate on the left as per x-ray 05/28/2017. Improving on left as per CXR done 05/31/2017 2. Sepsis secondary to #1. 3. Status post tracheostomy. 4. Clostridium difficile colitis. 5. Status post subdural hematoma and multiple prior strokes Patient appears to be improving clinically. From a respiratory standpoint I would keep her on 30% FIO2 for trach collar. She is saturating well. She still continue to have secretions from trach collar. Will continue levoquin to complete total of 7 days. Will add chest PT today. Cultures from trach growing only Melanie at this time. WBC is improving, patient still having diarrhea--on flagyl for C.diff. At this time, I will sign off case a patient appears to be back at baseline. Continue care per medicine team. Please feel free to reconsult me if you have any other questions or concerns. Data Medications: Current Inpatient Medications Medications (Trade) Dose Ordered Sig/Kimberlyn Route Start Time Stop Time Status Last Admin Dose Admin Ondansetron HCl (Zofran Inj) 4 mg Q6H PRN IV 05/24/17 13:30 06/23/17 13:29 05/30/17 18:15 4 MG Cholecalciferol (Vitamin D Tab) 2,000 inter.unit QAM PEG 05/25/17 09:00 06/24/17 08:59 05/31/17 08:49 2,000 INTER.UNIT Lactobacillus Acidophilus (Floranex Tab) 4 tab TIDM PEG 05/24/17 16:45 06/23/17 17:59 05/31/17 08:48 4 TAB Aspirin (Aspirin Chew) 81 mg DAILY PEG 05/25/17 09:00 06/24/17 08:59 05/31/17 08:49 81 MG Levofloxacin 750 mg/Prmx 150 ml @ 100 mls/hr Q24H IV 05/25/17 09:00 06/01/17 08:59 05/31/17 09:44 100 MLS/HR Metronidazole 500 mg/Prmx 100 ml @ 100 mls/hr Q8H IV 05/24/17 16:00 05/31/17 15:59 05/31/17 08:34 100 MLS/HR Famotidine 20 mg/ Dextrose 102 ml @ 200 mls/hr Q12H IV 05/24/17 18:00 06/23/17 17:59 05/31/17 05:41 200 MLS/HR Fluconazole (Diflucan Susp) 100 mg QAM PEG 05/25/17 09:00 06/04/17 08:59 05/31/17 08:47 100 MG Enteral Nutritional Formula (Fibersource HN) 1,000 ml UD PRN PEG 05/24/17 17:00 06/23/17 16:59 Future hold 05/31/17 08:44 1,000 ML Guaifenesin (Robitussin Sugar Free Syrup) 100 mg Q6H GT 05/24/17 21:00 06/23/17 20:59 05/31/17 09:00 100 MG Ipratropium [place] (Atrovent 0.02% 0.5MG/2.5ML Neb) 0.5 mg Q6R INH 05/25/17 03:00 06/24/17 02:59 05/31/17 07:25 0.5 MG Levalbuterol (Xopenex 1.25MG/ 0.5ML Neb) 1.25 mg Q6R INH 05/25/17 03:00 06/24/17 02:59 05/31/17 07:25 1.25 MG Heparin Sodium (Porcine) (Heparin Sq 5000 Unit/0.5ml) 5,000 unit Q12 SQ 05/25/17 09:00 06/24/17 08:59 05/31/17 09:46 5,000 UNIT Heparin Sodium (Porcine) (Heparin 10 Unit/ ml 5 ml Flush) 5 ml PRN PRN FLUSH 05/25/17 18:15 06/24/17 18:14 Vancomycin HCl (Vancomycin Oral Soln) 125 mg Q6H PEG 05/27/17 08:00 06/10/17 07:59 05/31/17 09:31 125 MG Cholestyramine Resin (Questran Powder Light) 4 gm BID@10,22 PEG 05/28/17 22:00 06/27/17 21:59 05/30/17 22:17 4 GM Heparin Sodium (Porcine) (Heparin 10 Unit/ ml 5 ml Flush) 5 ml PRN PRN FLUSH 05/28/17 20:00 06/27/17 19:59 05/31/17 05:15 5 ML Multivitamins (Flintstones Complete Tab) 1 tab QAM PEG 05/29/17 09:00 06/28/17 08:59 05/31/17 08:49 1 TAB Phenytoin (Dilantin Susp) 100 mg BID PO 05/30/17 21:00 06/29/17 20:59 05/31/17 08:59 100 MG Potassium Chloride (Dulce Ciel Elix) 20 meq DAILY PEG 05/31/17 09:00 06/25/17 13:59 05/31/17 08:46 20 MEQ Vital Signs: Date Time Temp Pulse Resp B/P (MAP) Pulse Ox O2 Delivery O2 Flow Rate FiO2 05/31/17 07:25 90 20 93 Trach Collar 30 05/31/17 07:17 36.8 96 18 104/59 (74) 93 Trach Collar 05/31/17 01:32 95 20 96 Trach Collar 30 05/31/17 00:00 Trach Collar 8.0 30 05/30/17 22:11 37.0 117 16 138/97 (111) 96 Trach Collar 05/30/17 19:04 99 20 96 Trach Collar 30 05/30/17 16:00 Trach Collar 8.0 30 05/30/17 14:52 36.7 108 20 143/91 (108) 94 Trach Collar 05/30/17 14:34 36.5 99 20 93 8.0 05/30/17 14:15 109 20 96 Trach Collar 30 05/30/17 12:00 Trach Collar 8.0 30 05/30/17 11:38 36.5 99 20 113/94 (100) 93 Trach Collar 8.0 Laboratory Results: Last 24 Hours Test 05/30/17 11:57 05/30/17 17:54 05/31/17 00:01 05/31/17 05:14 Bedside Glucose 101 mg/dl 107 mg/dl 86 mg/dl White Blood Count 10.13 K/uL Red Blood Count 3.56 M/uL Hemoglobin 10.8 g/dL Hematocrit 32.9 % Mean Corpuscular Volume 92.4 fL Mean Corpuscular Hemoglobin 30.3 pg Mean Corpuscular Hemoglobin Concent 32.8 g/dl Platelet Count 410 K/uL Mean Platelet Volume 8.9 fL Neutrophils (%) (Auto) 67.2 % Lymphocytes (%) (Auto) 20.2 % Monocytes (%) (Auto) 7.2 % Eosinophils (%) (Auto) 1.3 % Basophils (%) (Auto) 0.4 % Neutrophils # (Auto) 6.81 K/uL Lymphocytes # (Auto) 2.05 K/uL Monocytes # (Auto) 0.73 K/uL Eosinophils # (Auto) 0.13 K/uL Basophils # (Auto) 0.04 K/uL RDW Standard Deviation 49.2 fL RDW Coefficient of Variation 14.5 % Immature Granulocyte % (Auto) 3.7 % Immature Granulocyte # (Auto) 0.37 K/uL Sodium Level 140 mmol/L Potassium Level 3.6 mmol/L Chloride Level 105 mmol/L Carbon Dioxide Level 28 mmol/L Anion Gap 7.0 mmol/L Blood Urea Nitrogen 11 mg/dl Creatinine 0.40 mg/dl Est Creatinine Clear Calc Drug Dose 126.6 ml/min Estimated GFR () 126.7 Estimated GFR (Non- 109.3 BUN/Creatinine Ratio 26.6 Random Glucose 83 mg/dl Calcium Level 9.1 mg/dl Phosphorus Level 4.6 mg/dl Magnesium Level 2.0 mg/dl
[2017-05-31] MEDS: CHOLESTYRAMINE LIGHT 4 GM PKT PEG SCH ×2 (13:45→16:47)
--- NOTE | 2017-05-31 16:10 | Progress Note ---
Subjective Date of Service: May 31, 2017. Subjective Pt evaluation today including: conversation w/ patient When I saw pt this AM, she was doing quite well. She had been tolerating her TF without issue. No abd pain, n/v. She had loose stools, but frequency was improving. No chest pain or SOB. Nursing called later this afternoon and said pt had had a large emesis around 230p. No new concerns and pt was feeling improved s/p emesis. Pt denies fever, LE pain or swelling. Problem List Medical Problems: (1) Acute CVA (cerebrovascular accident) Status: Acute (2) Pneumonia Status: Acute (3) Sepsis Status: Acute (4) Slurred speech Status: Acute (5) Stroke Status: Acute Review of Systems All Other Systems: Reviewed and Negative Objective Vital Signs Date Time Temp Pulse Resp B/P (MAP) Pulse Ox O2 Delivery O2 Flow Rate FiO2 05/31/17 14:15 102 20 93 Trach Collar 30 05/31/17 10:35 Trach Collar 8.0 30 05/31/17 07:25 90 20 93 Trach Collar 30 05/31/17 07:17 36.8 96 18 104/59 (74) 93 Trach Collar 05/31/17 01:32 95 20 96 Trach Collar 30 05/31/17 00:00 Trach Collar 8.0 30 05/30/17 22:11 37.0 117 16 138/97 (111) 96 Trach Collar 05/30/17 19:04 99 20 96 Trach Collar 30 Physical Exam General Appearance: WD/WN, no apparent distress Eyes: normal inspection, EOMI ENT: hearing grossly normal Neck: supple Respiratory/Chest: no respiratory distress, + pertinent finding (coarse lung sounds on vent) Cardiovascular: regular rate, rhythm, no edema Abdomen: non tender, soft Extremities: non-tender, no pedal edema Neurologic/Psychiatric: alert, oriented x 3, + pertinent finding (R UE with minimal movement, R LE with minimal movement) Skin: normal color, warm/dry Laboratory Results Last 24 Hours Test 05/30/17 17:54 05/31/17 00:01 05/31/17 05:14 05/31/17 11:58 Bedside Glucose 107 mg/dl 86 mg/dl 98 mg/dl White Blood Count 10.13 K/uL Red Blood Count 3.56 M/uL Hemoglobin 10.8 g/dL Hematocrit 32.9 % Mean Corpuscular Volume 92.4 fL Mean Corpuscular Hemoglobin 30.3 pg Mean Corpuscular Hemoglobin Concent 32.8 g/dl Platelet Count 410 K/uL Mean Platelet Volume 8.9 fL Neutrophils (%) (Auto) 67.2 % Lymphocytes (%) (Auto) 20.2 % Monocytes (%) (Auto) 7.2 % Eosinophils (%) (Auto) 1.3 % Basophils (%) (Auto) 0.4 % Neutrophils # (Auto) 6.81 K/uL Lymphocytes # (Auto) 2.05 K/uL Monocytes # (Auto) 0.73 K/uL Eosinophils # (Auto) 0.13 K/uL Basophils # (Auto) 0.04 K/uL RDW Standard Deviation 49.2 fL RDW Coefficient of Variation 14.5 % Immature Granulocyte % (Auto) 3.7 % Immature Granulocyte # (Auto) 0.37 K/uL Sodium Level 140 mmol/L Potassium Level 3.6 mmol/L Chloride Level 105 mmol/L Carbon Dioxide Level 28 mmol/L Anion Gap 7.0 mmol/L Blood Urea Nitrogen 11 mg/dl Creatinine 0.40 mg/dl Est Creatinine Clear Calc Drug Dose 126.6 ml/min Estimated GFR () 126.7 Estimated GFR (Non- 109.3 BUN/Creatinine Ratio 26.6 Random Glucose 83 mg/dl Calcium Level 9.1 mg/dl Phosphorus Level 4.6 mg/dl Magnesium Level 2.0 mg/dl Assessment and Plan Unfortunate 67yo female with history of multiple prior strokes and a large SDH in March 2017 requiring prolonged intensive care stay at [facility], s/p trach and PEG, followed by L-TACH stay and then transfer to [facility] - presenting with metabolic encephalopathy, acute hypoxic respiratory failure 2nd to b/l basilar pneumonia, sepsis 2nd to pneumonia/UTI, and abnormal LFTs. She has had a very poor recovery from her SDH by her daughter's history. 1. acute hypoxic respiratory failure 2nd to b/l basilar pneumonia - concerning for aspiration pneumonia. no signs of failure for the last few days keep HOB > 30 degrees 2. sepsis 2nd to pneumonia/UTI - no growth on cultures. flagyl stopped, levaquin day 7 and will be the last dose diflucan started for Melanie in sputum from [facility], will need 2 more days afebrile, WBC WNL now CXR 8/11 showed left basilar infiltrate, right lung has cleared pulmonary following 3. metabolic encephalopathy - resolved multifactorial with infection but also on Dilantin mental status back to normal per daughter after antibiotics appreciate neurology input, will taper off of Dilantin after one week last dose on 06/02 4. C diff colitis: Vanco QID via PEG, still with copious diarrhea no diarrhea today, stop IV fluids Questran added to slow down stools, ?? slowed too much and now with emesis?? Will hold HS dose and monitor 5. SDH 03/2017 - as above. PT, OT, speech when able. CT head stable 6. Vomiting: in the morning, after large quantity of medications given, perhaps too much volume? abdomen soft, NT, ND, and good bowel sounds so doubt obstruction or ileus check KUB today will hold TF an hour prior to medications to allow stomach to empty Holding TF this afternoon given large emesis today 7. 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 8. Hypokalemia: 3.8 today, reduce KCl from TID to daily starting tomorrow 9. Dilantin use for seizure prophylaxis - plan to taper off of Dilantin, last dose 06/02 10. moderate-severe protein calorie malnutrition - vitamin off for now due to recall continue tube feeds at 60cc/hr normal residuals, vomiting episodes after medications in the AM 11. DVT proph - heparin BID Plan: continue antibiotics, supportive care, check KUB daughter interested in going back to LTACH, agree with this plan CM aware of plan, will make referral to [facility] in [place]
[2017-06-01 02:07] VITALS: PULSE 107; O2SAT 97
[2017-06-01] MEDS: LEVALBUTEROL 1.25MG/0.5ML NEB INH SCH ×2 (02:07→07:04)
[2017-06-01] MEDS: IPRATROPIUM BROMIDE NEB SOLN 0.02% 2.5 ML VIAL INH SCH ×2 (02:07→07:04)
[2017-06-01] MEDS: VANCOMYCIN HCL 125 MG/2.5ML SOLN PEG SCH ×3 (03:07→14:00)
[2017-06-01] MEDS: GUAIFENESIN SUGAR FREE 100 MG/5 ML UDC GT SCH ×2 (03:08→08:29)
[2017-06-01] MEDS: FAMOTIDINE IV INJ 20 MG in DEXTROSE 5% 100ML 100 ML IV SCH (06:17)
[2017-06-01 07:20] VITALS: BP 135/84; PULSE 96; TEMP 37; O2SAT 95
[2017-06-01 08:00] VITALS: O2SAT 95
[2017-06-01] MEDS: LACTOBACILLUS ACIDOPHILUS (FLORANEX) TAB PEG SCH ×2 (08:28→14:03)
[2017-06-01] MEDS: CHOLECALCIFEROL 1000 INTER.UNIT TAB PEG SCH (08:29)
[2017-06-01] MEDS: PHENYTOIN SUSP 125 MG/5 ML PO SCH (08:30)
[2017-06-01] MEDS: POTASSIUM CHLORIDE 20 MEQ/15 ML UDC PEG SCH (08:30)
[2017-06-01] MEDS: FLUCONAZOLE SUSP 100 MG/10 ML UDP PEG SCH (08:31)
[2017-06-01] MEDS: FLINTSTONES COMPLETE CHEWABLE TAB PEG SCH (08:32)
[2017-06-01] MEDS: HEPARIN SOD 5000 UNIT/0.5 ML CARP SQ SCH (08:33)
[2017-06-01] MEDS: CHOLESTYRAMINE LIGHT 4 GM PKT PEG SCH (08:43)
[2017-06-01] MEDS ORDERED: NURSING VERBAL MED ORDER ONE (08:45)
[2017-06-01] MEDS ORDERED: VNCS125 PEG (11:35)
[2017-06-01] MEDS ORDERED: Fibersource 1.2 Cal PEG (11:35)
[2017-06-01] MEDS ORDERED: DFLUDL100 PEG (11:35)
[2017-06-01] MEDS ORDERED: XPNINS1255 INH (11:35)
[2017-06-01] MEDS ORDERED: PEDICHW50 PEG (11:35)
[2017-06-01] MEDS ORDERED: POTA10SO10 PEG (11:35)
[2017-06-01] MEDS ORDERED: ATRINS INH (11:35)
--- NOTE | 2017-06-01 11:38 | Discharge Instructions ---
Discharge Instructions Date of Service Jun 01, 2017. Admission Reason for Admission: Acute Respiratory Failure With Hypoxia,Basal Pneum Discharge Discharge Diagnosis / Problem: Acute Respiratory Failure With Hypoxia,Basal Pneum Discharge Goals Goal(s): Decrease discomfort, Improve function, Increase independence Activity Recommendations Activity Level: Assistance Required Therapies: Physical Therapy, Occupational Therapy . Additional Information Patient informed of condition: Yes Advance Directives: No DNR: No Level of Care: Other Communicable Disease: Yes Prognosis: Improving Mello Catheter: Yes Current Hospital Diet Patient's current hospital diet: Discharge Diet Recommended Diet: N/A (Tube feeds, titrate as needed) Pending Studies Studies pending at discharge: no Physician Orders On Transfer Additional Orders: If pt has worsening diarrhea that is problematic, can discuss restarting questran. This may have also lead to intolerance of tube feeds and should only be resumed if diarrhea is problematic. Medical Emergencies . Who to Call and When: Medical Emergencies: If at any time you feel your situation is an emergency, please call 911 immediately. . Non-Emergent Contact Non-Emergency issues call your: Primary Care Provider . . "Provider Documentation" section prepared by Radha Vargas. . Core Measure Problem Core Measures: None
[2017-06-01 12:15] VITALS: BP 135/84; PULSE 96; TEMP 37; O2SAT 95
[2017-06-01] MEDS: ASPIRIN 81 MG CHEW PEG SCH (14:03)
--- NOTE | 2017-06-01 14:16 | Discharge Summary ---
Discharge Summary Date of Service Jun 01, 2017. Discharge Summary Admission Date: May 24, 2017 at 13:20 Discharge Date: Jun 01, 2017 Discharge Disposition: Acute care facility Principal Diagnosis: Sepsis Problems/Secondary Diagnoses: Recent CVA--SDH in March 2017 with L sided UE/LE deficits s/p trach and PEG Cdiff Melanie--pulmonary source Consultations: Pulmonology Neurology Medication Reconciliation New Medications: Fluconazole (Fluconazole) 100 Mg/10 Ml Susp 100 MG PEG QAM for 3 Days Ipratropium Wentworth (Ipratropium Wentworth) 0.5 Mg/2.5 Ml Nebu 0.5 MG INH Q6R for 30 Days Levalbuterol (Levalbuterol) 1.25 Mg/0.5 Ml Nebu 1.25 MG INH Q6R for 30 Days Pediatric Multiple Vitamin W/ (Flintstones Chewable) 1 Chw Chw 1 TAB PEG QAM for 30 Days Potassium Chloride (Potassium Chloride) 10 % Liq 20 MEQ PEG DAILY for 30 Days Vancomycin HCl (Vancomycin HCl) 125 Mg/2.5 Ml Susp 125 MG PEG Q6H for 10 Days [Fibersource 1.2 Fadi] () 1000 ML LIQD 1000 ML PEG UD PRN for Tube Feeding for 30 Days Continued Medications: Aspirin (Aspirin Ec) 81 Mg Tab 81 MG PEG DAILY Atorvastatin (Lipitor) 20 Mg Tab 20 MG PEG DAILY, TAB Cholecalciferol (Vitamin D3) 2,000 Unit Tab 1 TAB PEG DAILY for 90 Days, #90 TAB 3 Refills Phenytoin (Dilantin) 125 Mg/5 Ml Susp 250 MG PEG BID Probiotic Product (Bacid) 1 Tab Tab 1 TAB PEG QAM Discharge Exam Pt has been tolerating TF at 10ml/hr since restarting last night. No further emesis. Pt denies fever, SOB, chest pain, abd pain, n/v/c/d, LE pain or swelling. She had not had a bowel movement as of this morning despite being off of questran. Physical Exam: General Appearance: WD/WN, no apparent distress Respiratory/Chest: normal breath sounds, no respiratory distress Cardiovascular: regular rate, rhythm, no edema Abdomen / GI: non tender, soft Extremities: no calf tenderness, no pedal edema Neurologic/Psychiatric: alert, + pertinent finding (answers all questions appropriately, unable to use R UE and minimal use of R LE) Skin: normal color, warm/dry Hospital Course Unfortunate 67yo female with history of multiple prior strokes and a large SDH in March 2017 requiring prolonged intensive care stay at [facility], s/p trach and PEG, followed by L-TACH stay and then transfer to [facility] - presenting with metabolic encephalopathy, acute hypoxic respiratory failure 2nd to b/l basilar pneumonia, sepsis 2nd to pneumonia/UTI, and abnormal LFTs. She has had a very poor recovery from her SDH by her daughter's history. Acute hypoxic respiratory failure 2nd to b/l basilar pneumonia - concerning for aspiration pneumonia. no signs of failure for the last few days keep HOB > 30 degrees Sepsis 2nd to pneumonia/UTI - no growth on cultures. Pt was on flagyl initially , but this was stopped due to no growth Pulm did request pt finish 7 day course of levaquin, last dose was 05/31 diflucan started for Melanie in sputum from trach, and will finish course as outpt afebrile, WBC WNL now CXR 05/28 showed left basilar infiltrate, right lung has cleared Metabolic encephalopathy - resolved multifactorial with infection but also on Dilantin mental status back to normal per daughter after antibiotics appreciate neurology input, Pt to complete 1 week taper off of Dilantin last dose of dilantin will be on 06/02 C diff colitis: Vanco QID via PEG, diarrhea is much improved Questran added to slow down stools however this may have slowed too much and caused emesis yesterday. HS dose on 05/31 held and still without recurrence of problematic diarrhea. Can readd if needed, buy may need to adjust TF rate to accommodate SDH 03/2017 - as above. PT, OT, speech CT head stable Tube feeds: will hold TF an hour prior to medications to allow stomach to empty Nutrition recs: - Continue with Fibersource HN with a goal rate of 60 mL/hr - Fibersource HN @ 60 mL/hr will be providing Pt with ~ 1725 Kcals, ~ 75-80 g protein, ~ 115% RDI, and ~ 1175 mL of free water, each day - Without IVFs, Pt will need ~ 225 mL each shift to meet remainder of fluid needs, however Pt's intakes over the past few days have averaged ~ 4900 mL each day PEG tube status - stockfeed miller consult for tube feeding recommendations. Hypokalemia: WNL, monitor on supplementation Dilantin use for seizure prophylaxis - plan to taper off of Dilantin, last dose 06/02 Moderate-severe protein calorie malnutrition - vitamin off for now due to recall continue tube feeds with goal of 60cc/hr and as above DVT proph - heparin BID Total Time Spent: Greater than 30 minutes This includes examination of the patient, discharge planning, medication reconciliation, and communication with other providers. Discharge Instructions Please refer to the electronic Patient Visit Report (Discharge Instructions) for additional information. Follow-Up as per LTAC recs
--- NOTE | 2017-06-01 18:28 | Progress Note ---
Progress Note Date of Service Jun 01, 2017. Progress Note Discussed case with Dr. Fried, physician at [facility]. He will call if further questions. D/C summary faxed to [facility] per my request
== END 2017-06-01 13:50 | DRG 871 ==
LOC: EDBD 08:12 → C.EDB 08:13 → C.2E 13:20 → ENRESERV 13:37 → EDBEDREQ 13:37 → C.MS2W 05-30 13:00 → EDBEDREQ 05-30 13:15 → ENRESERV 05-30 13:26
PROVIDERS: ADMIT Internal Medicine; ATTEND Family Medicine
DX: A41.9 Sepsis, unspecified organism (principal); J18.9 Pneumonia, unspecified organism; G93.40 Encephalopathy, unspecified; J96.01 Acute respiratory failure with hypoxia; E44.0 Moderate protein-calorie malnutrition; N39.0 Urinary tract infection, site not specified; A04.7 Enterocolitis due to Clostridium difficile; B96.89 Other specified bacterial agents as the cause of diseases classified elsewhere; E87.6 Hypokalemia; I10 Essential (primary) hypertension; Z85.3 Personal history of malignant neoplasm of breast; Z86.73 Personal history of transient ischemic attack (TIA), and cerebral infarction without residual deficits; Z85.6 Personal history of leukemia; Z87.01 Personal history of pneumonia (recurrent); Z79.82 Long term (current) use of aspirin; Z93.0 Tracheostomy status

== ENCOUNTER 2017-10-31 14:53 | Emergency (ER) | payer OTHER, BC, MEDICARE ==
[~2017-10-31] VITALS: Ht 170.2 cm; Wt 53.5 kg
[~2017-10-31 14:53] MED LIST changes: -AGG PO; +ASPI81TA28 PEG; +ATOR-22 PEG; +ATRINS INH; -CHOL100010 PO; +CHOL20007 PEG; +DFLUDL100 PEG; -FSM70 PO; +Fibersource 1.2 Cal PEG; -IPRA0.037 NAE; +LACTTAB13 PEG; -LPT20 PO; -LSN20 PO; -MAGN250T8 PO; -MULT1TAB22 PO; +PEDICHW50 PEG; +POTA10SO10 PEG; -VITA400C15 PO; +VNCS125 PEG; +XPNINS1255 INH; +[UNRECOGNIZED DRUG - CODE] PEG
[2017-10-31 15:00] VITALS: TEMP 37; Ht 170.2 cm; Wt 53.5 kg
[2017-10-31] MEDS ORDERED: CHOL100010 PO (15:11)
[2017-10-31] MEDS ORDERED: SACC250C PO (15:11)
[2017-10-31] MEDS ORDERED: POTA20TA16 PO (15:11)
[2017-10-31] MEDS ORDERED: ASPCH81X PO (15:11)
[2017-10-31] MEDS ORDERED: ATOR-22 PO (15:11)
[2017-10-31] MEDS ORDERED: MOMLX PO (15:11)
[2017-10-31] MEDS ORDERED: MULT-1019 PO (15:11)
[2017-10-31] MEDS ORDERED: BISA10SU3 PR (15:11)
[2017-10-31] MEDS ORDERED: METO25TA56 PO (15:11)
[2017-10-31] MEDS ORDERED: ACET325T96 PO (15:11)
[2017-10-31] MEDS ORDERED: OXGN (15:13)
--- NOTE | 2017-10-31 16:41 | DIAGNOSTIC IMAGING REPORT ---
R WRIST MIN 3 VIEWS ROUTINE, R FOREARM 2 VIEWS ROUTINE CLINICAL HISTORY: fall COMPARISON STUDY: Right arm and right wrist pain. FINDINGS: Soft tissue swelling within the right wrist and distal forearm. The bones are osteopenic. No fracture or dislocation. IMPRESSION: No fracture or dislocation within the right forearm or right wrist. Electronically signed by: Eyad Preston M.D. 10/31/2017 4:40 PM Dictated Date/Time: 10/31/2017 4:38 PM
--- NOTE | 2017-10-31 16:42 | DIAGNOSTIC IMAGING REPORT ---
CHEST 2 VIEWS ROUTINE HISTORY: fall COMPARISON: Chest 05/31/2017. FINDINGS: The lungs are clear. Cardiac silhouette is normal in size. No pleural effusions. No pneumothorax. A gastrostomy tube is noted. IMPRESSION: No acute process. Electronically signed by: Eyad Preston M.D. 10/31/2017 4:41 PM Dictated Date/Time: 10/31/2017 4:40 PM
--- NOTE | 2017-10-31 16:44 | DIAGNOSTIC IMAGING REPORT ---
PELVIS ONE VIEW HISTORY: fall COMPARISON: None. FINDINGS: No definite fracture or dislocation. Questionable lucency at the left greater trochanter is likely due to overlapping soft tissue. Soft tissues are unremarkable. No radiopaque foreign bodies. IMPRESSION: No fracture or dislocation within the pelvis or hips. Questionable lucency within the left greater trochanter is likely due to overlapping soft tissue. However, this the patient is complaining of left hip pain then dedicated left hip views are recommended for further evaluation. Electronically signed by: Eyad Preston M.D. 10/31/2017 4:43 PM Dictated Date/Time: 10/31/2017 4:41 PM
--- NOTE | 2017-10-31 17:05 | DIAGNOSTIC IMAGING REPORT ---
HEAD CT NONCONTRAST CT DOSE: HISTORY: fall hx of ICH and CVA TECHNIQUE: Multiaxial CT images of the head were performed without the use of intravenous contrast. Automated exposure control was utilized for this study. A dose lowering technique was utilized adhering to the principles of ALARA. Comparison: Head CT 05/24/2017. Findings: Mild mucosal thickening within the sphenoid sinuses. The mastoid air cells are clear. Right frontal scalp swelling. The calvarium and skull base are intact. There is no mass, hematoma, midline shift, acute infarct. White matter hypodensity is nonspecific but suggestive of microvascular ischemic change. The ventricles and sulci demonstrate mild age-related involutional changes. Old lacunar infarct seen within the bilateral basal ganglia. Impression: Chronic changes as described above. No acute intracranial abnormality. Mild right frontal scalp swelling. Electronically signed by: Eyad Preston M.D. 10/31/2017 5:04 PM Dictated Date/Time: 10/31/2017 4:58 PM
--- NOTE | 2017-10-31 17:21 | DIAGNOSTIC IMAGING REPORT ---
CERVICAL SPINE CT CT DOSE: 877.03 mGy.cm HISTORY: fall TECHNIQUE: Multiaxial CT images of the cervical spine were performed and reformatted in the sagittal and coronal plane without the use of contrast. A dose lowering technique was utilized adhering to the principles of ALARA. COMPARISON: None. FINDINGS: No fractures. No subluxation. Prevertebral soft tissues and the C1-C2 interval are intact. No pneumothorax. Moderate disc space narrowing at C5-C6 and mild disc space narrowing at C6-C7. IMPRESSION: No fractures within the cervical spine. Electronically signed by: Eyad Preston M.D. 10/31/2017 5:20 PM Dictated Date/Time: 10/31/2017 5:17 PM
--- NOTE | 2017-10-31 17:54 | DIAGNOSTIC IMAGING REPORT ---
LEFT HIP 2 VIEWS HISTORY: Left hip pain. fall COMPARISON: Pelvis 10/31/2018. FINDINGS: There is no fracture or dislocation. Soft tissues are unremarkable. No radiopaque foreign bodies. IMPRESSION: No fracture or dislocation within the left hip. Electronically signed by: Eyad Preston M.D. 10/31/2017 5:53 PM Dictated Date/Time: 10/31/2017 5:51 PM
--- NOTE | 2017-10-31 19:37 | EMERGENCY ROOM VISIT NOTE ---
History Report prepared by Connor: Americo Aleman Under the Supervision of: Dr. Angel Ragland M.D. First contact with patient: 15:13 Chief Complaint: FALL Stated Complaint: FALL, HEAD INJURY History of Present Illness The patient is a 67 year old female who presents to the Emergency Room with complaints of a sudden fall occurring around 4 hours ago. The patient's daughter states that the patient was trying to put on her boots and fell out of her wheel chair and hit her head. The patient currently has some back pain. The patient is not currently on any blood thinners except an aspirin daily. The patient had a stroke in 2016, and she additionally had a fall and a brain bleed last year and was in a coma. The daughter additionally states that she has some right sided weakness at her baseline after the stroke. Source of History: family Onset: four hours ago Position: other (global) Quality: other (fall) Timing: other (sudden) Associated Symptoms: + back pain Review of Systems See HPI for pertinent positives and negatives. A total of ten systems were reviewed and were otherwise negative. Past Medical & Surgical Medical Problems: (1) Acute respiratory failure with hypoxia (2) Basal pneumonia of both lungs (3) Breast cancer (4) CVA (cerebral vascular accident) (5) CVA, s/p TPA (6) Hypertension (7) Leukemia (8) possible tia Surgical Problems: (1) History of breast reconstruction Family History Cancer Social History Smoking Status: Never Smoker Alcohol Use: none Drug Use: none Marital Status: Housing Status: other Occupation Status: other Current/Historical Medications Scheduled Aspirin (Aspirin Chewable), 81 MG PO DAILY Atorvastatin (Lipitor), 20 MG PO HS Cholecalciferol (Vitamin D), 2,000 UNITS PO DAILY Home O2 Therapy (Oxygen), 2 LITERS NA PRN Metoprolol Tartrate (Lopressor) (Lopressor), 12.5 MG PO Q12 Multiple Vitamins W/ Minerals (Multivitamin Women), 1 TAB PO QD Potassium Ext Rel (Klor-Con), 20 MEQ PO DAILY Saccharomyces Boulardii (Florastor), 250 MG PO AMHS Scheduled PRN Acetaminophen Tab (Tylenol), 650 MG PO Q6 PRN for Pain or Fever Bisacodyl (Dulcolax), 1 SUPP CO QAM PRN for Constipation Magnesium Hydroxide (Milk of Magnesia), 30 ML PO QAM PRN for Constipation Allergies Coded Allergies: POLLEN (Verified Allergy, Unknown, RUNNY NOSE/SNEEZING, 05/24/17) Penicillins (Verified Allergy, Unknown, RASH, 10/31/17) Physical Exam Vital Signs Date Time Temp Pulse Resp B/P (MAP) Pulse Ox O2 Delivery O2 Flow Rate FiO2 10/31/17 20:21 76 18 160/96 97 10/31/17 18:53 76 18 160/96 97 Room Air 10/31/17 16:48 72 18 119/80 97 Room Air 10/31/17 15:00 37.0 77 18 133/97 98 Room Air Physical Exam GENERAL: Awake, alert, well-appearing, in no distress HENT: There is an abrasion over the forehead. Normocephalic. no hemotympanum bilaterally, archer sign negative bilaterally. Oropharynx unremarkable. EYES: Normal conjunctiva. Sclera non-icteric. PERRL bilaterally. EOMI bilaterally. NECK: Supple. No nuchal rigidity. FROM. No JVD. No C-spine tenderness. RESPIRATORY: Clear to auscultation. No wheezes, rhonchi or rales bilaterally. CARDIAC: Regular rate, normal rhythm. Extremities warm and well perfused. Equal palpable radial pulses to the bilateral upper extremities. Equal palpable DP pulses to the bilateral lower extremities. ABDOMEN: There is a PEG tube in place. The abdomen is soft. RECTAL: Deferred. MUSCULOSKELETAL: There is no C or T spine tenderness on palpation. There is some lumbar pain on palpation. Chest examination reveals no tenderness. The back is symmetrical on inspection without obvious abnormality. There is no CVA tenderness to palpation. No joint edema. LOWER EXTREMITIES: Calves are equal size bilaterally and non-tender. No edema. No discoloration. NEURO: There is weakness on the right at baseline. Sensation intact bilateral lower and upper extremities GCS 15 SKIN: No rash or jaundice noted. Medical Decision & Procedures ER Provider Diagnostic Interpretation: Radiology results as stated below per my review and radiologist interpretation: R WRIST MIN 3 VIEWS ROUTINE, R FOREARM 2 VIEWS ROUTINE CLINICAL HISTORY: fall COMPARISON STUDY: Right arm and right wrist pain. FINDINGS: Soft tissue swelling within the right wrist and distal forearm. The bones are osteopenic. No fracture or dislocation. IMPRESSION: No fracture or dislocation within the right forearm or right wrist. Electronically signed by: Eyad Preston M.D. 10/31/2017 4:40 PM Dictated Date/Time: 10/31/2017 4:38 PM PELVIS ONE VIEW HISTORY: fall COMPARISON: None. FINDINGS: No definite fracture or dislocation. Questionable lucency at the left greater trochanter is likely due to overlapping soft tissue. Soft tissues are unremarkable. No radiopaque foreign bodies. IMPRESSION: No fracture or dislocation within the pelvis or hips. Questionable lucency within the left greater trochanter is likely due to overlapping soft tissue. However, this the patient is complaining of left hip pain then dedicated left hip views are recommended for further evaluation. Electronically signed by: Eyad Preston M.D. 10/31/2017 4:43 PM Dictated Date/Time: 10/31/2017 4:[address] DOSE: HISTORY: fall hx of ICH and CVA TECHNIQUE: Multiaxial CT images of the head were performed without the use of intravenous contrast. Automated exposure control was utilized for this study. A dose lowering technique was utilized adhering to the principles of ALARA. Comparison: Head CT 05/24/2017. Findings: Mild mucosal thickening within the sphenoid sinuses. The mastoid air cells are clear. Right frontal scalp swelling. The calvarium and skull base are intact. There is no mass, hematoma, midline shift, acute infarct. White matter hypodensity is nonspecific but suggestive of microvascular ischemic change. The ventricles and sulci demonstrate mild age-related involutional changes. Old lacunar infarct seen within the bilateral basal ganglia. Impression: Chronic changes as described above. No acute intracranial abnormality. Mild right frontal scalp swelling. Electronically signed by: Eyad Preston M.D. 10/31/2017 5:04 PM Dictated Date/Time: 10/31/2017 4:58 PM R WRIST MIN 3 VIEWS ROUTINE, R FOREARM 2 VIEWS ROUTINE CLINICAL HISTORY: fall COMPARISON STUDY: Right arm and right wrist pain. FINDINGS: Soft tissue swelling within the right wrist and distal forearm. The bones are osteopenic. No fracture or dislocation. IMPRESSION: No fracture or dislocation within the right forearm or right wrist. Electronically signed by: Eyad Preston M.D. 10/31/2017 4:40 PM Dictated Date/Time: 10/31/2017 4:38 PM CHEST 2 VIEWS ROUTINE HISTORY: fall COMPARISON: Chest 05/31/2017. FINDINGS: The lungs are clear. Cardiac silhouette is normal in size. No pleural effusions. No pneumothorax. A gastrostomy tube is noted. IMPRESSION: No acute process. Electronically signed by: Eyad Preston M.D. 10/31/2017 4:41 PM Dictated Date/Time: 10/31/2017 4:[address] DOSE: 877.03 mGy.cm HISTORY: fall TECHNIQUE: Multiaxial CT images of the cervical spine were performed and reformatted in the sagittal and coronal plane without the use of contrast. A dose lowering technique was utilized adhering to the principles of ALARA. COMPARISON: None. FINDINGS: No fractures. No subluxation. Prevertebral soft tissues and the C1-C2 interval are intact. No pneumothorax. Moderate disc space narrowing at C5-C6 and mild disc space narrowing at C6-C7. IMPRESSION: No fractures within the cervical spine. Electronically signed by: Eyad Preston M.D. 10/31/2017 5:20 PM Dictated Date/Time: 10/31/2017 5:17 PM LEFT HIP 2 VIEWS HISTORY: Left hip pain. fall COMPARISON: Pelvis 10/31/2018. FINDINGS: There is no fracture or dislocation. Soft tissues are unremarkable. No radiopaque foreign bodies. IMPRESSION: No fracture or dislocation within the left hip. Electronically signed by: Eyda Preston M.D. 10/31/2017 5:53 PM Dictated Date/Time: 10/31/2017 5:51 PM ED Course 1513: The patient was evaluated in room A12. A complete history and physical exam was performed 1841: Vital signs are stable. The patient is up to date with her tetanus shot. FAST exam was completed and revealed no free fluid in Cabrera's Pouch, splenorenal area, or suprapubic view. In subxyphoid view No pericardial effusion. The patient will be discharged back to her long-term. Return precautions were discussed with the patient and family and they were agreeable. All questions were answered, and written and verbal discharge instructions were given to the patient. Medical Decision Vital signs are stable. The patient is up to date with her tetanus shot. FAST exam was completed and revealed no free fluid in Cabrera's Pouch, splenorenal area, or suprapubic view. In subxyphoid view No pericardial effusion. The patient will be discharged back to her long-term. Return precautions were discussed with the patient and family and they were agreeable. All questions were answered, and written and verbal discharge instructions were given to the patient. Medication Reconcilliation Current Medication List: was personally reviewed by me Blood Pressure Screening Patient's blood pressure: Normal blood pressure Impression Primary Impression: Fall Scribe Attestation The scribe's documentation has been prepared under my direction and personally reviewed by me in its entirety. I confirm that the note above accurately reflects all work, treatment, procedures, and medical decision making performed by me. The chart was completed utilizing [employer] Speech voice recognition software. Grammatical errors, random word insertions, pronoun errors, and incomplete sentences are an occasional consequence of this system due to software limitations, ambient noise, and hardware issues. Any formal questions or concerns about the content, text, or information contained within the body of this dictation should be directly addressed to the physician for clarification. Departure Information Dispostion Home / Self-Care Referrals Caro Ramirez M.D. (PCP) Forms HOME CARE DOCUMENTATION FORM, IMPORTANT VISIT INFORMATION Patient Instructions ED Prevention Fall, My [facility] Problem Qualifiers Primary Impression: Fall Encounter type: initial encounter Qualified Codes: W19.XXXA - Unspecified fall, initial encounter
[2017-10-31 20:21] VITALS: BP 160/96; PULSE 76; O2SAT 97
== END 2017-10-31 20:21 | disposition home or self-care (01) ==
LOC: EDBD 14:53 → C.EDA 14:54
DX: S09.90XA Unspecified injury of head, initial encounter (principal); M54.9 Dorsalgia, unspecified; W05.0XXA Fall from non-moving wheelchair, initial encounter; Y92.129 Unspecified place in nursing home as the place of occurrence of the external cause; Z86.73 Personal history of transient ischemic attack (TIA), and cerebral infarction without residual deficits; Z85.3 Personal history of malignant neoplasm of breast; I10 Essential (primary) hypertension; Z85.6 Personal history of leukemia; Z87.01 Personal history of pneumonia (recurrent); Z80.9 Family history of malignant neoplasm, unspecified; Z79.82 Long term (current) use of aspirin; Z79.899 Other long term (current) drug therapy

== ENCOUNTER 2017-12-06 10:56 | Emergency (ER) | payer OTHER, MEDICARE, BC ==
[~2017-12-06 10:56] MED LIST changes: +ACET-1693 PO; +ASPCH81X PO; -ASPI81TA28 PEG; -ATOR-22 PEG; +ATOR-22 PO; -ATRINS INH; +BISA10SU3 PR; +CHOL100010 PO; -CHOL20007 PEG; -DFLUDL100 PEG; -Fibersource 1.2 Cal PEG; -LACTTAB13 PEG; +METO25TA56 PO; +MOMLX PO; +MULT-1019 PO; +OXGN; -PEDICHW50 PEG; -POTA10SO10 PEG; +POTA20TA16 PO; +SACC250C PO; -VNCS125 PEG; -XPNINS1255 INH; -[UNRECOGNIZED DRUG - CODE] PEG
[2017-12-06 11:02] VITALS: TEMP 36.4
[2017-12-06 11:28] LABS: BASO % 0.3 %; BASO ABS # 0.03 K/uL (0-0.2); EOS % 2.1 %; EOS ABS # 0.19 K/uL (0-0.5); HEMATOCRIT 37.2 % (37-47); HEMOGLOBIN 12.9 g/dL (12.0-16.0); IG# 0.03 K/uL (0.00-0.02); LYMPH % 22.3 %; LYMPH ABS # 1.98 K/uL (1.2-3.4); MEAN CELL VOLUME 87.9 fL (80-100); MEAN CORPUSCULAR HEMOGLOBIN 30.5 pg (25-34); MEAN CORPUSCULAR HGB CONC 34.7 g/dl (32-36); MEAN PLATELET VOLUME 9.8 fL (7.4-10.4); MONO % 8.1 %; MONO ABS # 0.72 K/uL (0.11-0.59); NEUT % 66.9 %; NEUT ABS # 5.94 K/uL (1.4-6.5); PLATELET COUNT 308 K/uL (130-400); RED CELL DISTRIBUTION WIDTH CV 13.8 % (11.5-14.5); RED CELL DISTRIBUTION WIDTH SD 44.3 fL (36.4-46.3); WHITE BLOOD COUNT 8.89 K/uL (4.8-10.8)
[2017-12-06 11:39] LABS: PTT PATIENT 25.3 SECONDS (21.0-31.0)
[2017-12-06 11:47] LABS: ALBUMIN 3.2 gm/dl (3.4-5.0); ALT/SGPT 16 U/L (12-78); BLOOD UREA NITROGEN 15 mg/dl (7-18); CALCIUM 9.3 mg/dl (8.5-10.1); CARBON DIOXIDE 26 mmol/L (21-32); CREATININE 0.74 mg/dl (0.60-1.20); GLUCOSE 85 mg/dl (70-99); POTASSIUM 4.3 mmol/L (3.5-5.1); SODIUM 137 mmol/L (136-145)
--- NOTE | 2017-12-06 11:50 | DIAGNOSTIC IMAGING REPORT ---
CT HEAD WITHOUT CONTRAST (CT) CLINICAL HISTORY: Acute change in mental status. Lethargy. COMPARISON STUDY: October 2017 TECHNIQUE: Axial CT of the brain is performed from the vertex to the skull base. IV contrast was not administered for this examination. A dose lowering technique was utilized adhering to the principles of ALARA. CT DOSE: 1842.80 mGy.cm FINDINGS: No intra or extra-axial mass lesions are visualized. There is no CT evidence of acute cortical infarction. There is no evidence of midline shift. There is no acute hemorrhage. No calvarial fractures are visualized. There are extensive white matter hypodensities likely on a small vessel basis. Bilateral lacunar infarcts remain stable There is no evidence of pathologic ventricular dilatation. There is no evidence of acute sinusitis IMPRESSION: No acute intracranial findings Electronically signed by: Julien Conrad M.D. 12/06/2017 11:49 AM Dictated Date/Time: 12/06/2017 11:48 AM
[2017-12-06 11:52] LABS: ALKALINE PHOSPHATASE 61 U/L (45-117); AST/SGOT 16 U/L (15-37); TOTAL PROTEIN 7.2 gm/dl (6.4-8.2)
[2017-12-06] MEDS ORDERED: METO-157 PO (12:04)
--- NOTE | 2017-12-06 12:06 | DIAGNOSTIC IMAGING REPORT ---
CHEST ONE VIEW PORTABLE CLINICAL HISTORY: Acute change in mental status. Lethargy. COMPARISON STUDY: 10/31/2017 FINDINGS: The cardiac and mediastinal contours are normal. There is no evidence of focal pulmonary consolidation. There is no evidence of failure. No pleural effusions are visualized.[ IMPRESSION: No active disease in the chest. Electronically signed by: Julien Conrad M.D. 12/06/2017 12:04 PM Dictated Date/Time: 12/06/2017 12:04 PM
[2017-12-06] MEDS ORDERED: CEFTRIAXONE SOD INJ 1 GM ADDVIAL IV STA (13:12)
[2017-12-06] MEDS ORDERED: SULF800T23 PO (13:47)
--- NOTE | 2017-12-06 15:13 | EMERGENCY ROOM VISIT NOTE ---
History Report prepared by Connor: Michael Fitzgerald Under the Supervision of: Dr. Kj Wolf D.O. First contact with patient: 10:58 Stated Complaint: LETHARGIC History of Present Illness The patient is a 67 year old female who presents to the Emergency Room with complaints of moderate lethargy that began today. This HPI is also provided by the patient's detention and EMS. 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 Earlier today, the patient became more lethargic that usual. Her detention called her doctor who referred the patient to the ER for further work up. Per detention and family patient became very weak this past Wednesday. This has been stable since then. Patient was evaluated by Dr. Pressley and was referred in for a further evaluation. Daughter notes that she is normally able to sit up in a wheelchair and move herself with her left side. She also is normally able to talk more. The patient was able to answer yes/no questions denied headache, change in vision, fevers, chest pain, shortness of breath, nausea, vomiting, diarrhea, and pain with urination. Source of History: patient, detention notes, EMS Onset: this morning Position: other (global) Symptom Intensity: moderate Quality: other (Lethargy) Timing: constant Note: She denies any abnormal symptoms. Review of Systems See HPI for pertinent positives & negatives. A total of 10 systems reviewed and were otherwise negative. Past Medical & Surgical Medical Problems: (1) Acute respiratory failure with hypoxia (2) Basal pneumonia of both lungs (3) Breast cancer (4) CVA (cerebral vascular accident) (5) CVA, s/p TPA (6) Hypertension (7) Leukemia (8) possible tia Surgical Problems: (1) History of breast reconstruction Family History Cancer Social History Smoking Status: Never Smoker Alcohol Use: none Drug Use: none Marital Status: Housing Status: other Occupation Status: other Current/Historical Medications Scheduled Aspirin (Aspirin Chewable), 81 MG PO DAILY Atorvastatin (Lipitor), 20 MG PO HS Cholecalciferol (Vitamin D), 2,000 UNITS PO DAILY Home O2 Therapy (Oxygen), 2 LITERS NA PRN Metoclopramide (Reglan), 25 MG PO TID Metoprolol Tartrate (Lopressor) (Lopressor), 12.5 MG PO Q12 Multiple Vitamins W/ Minerals (Multivitamin Women), 1 TAB PO QD Potassium Ext Rel (Klor-Con), 20 MEQ PO DAILY Saccharomyces Boulardii (Florastor), 250 MG PO AMHS Sulfamethoxazole-Trimethoprim (Bactrim Ds 800MG/160MG), 1 TAB PO BID Scheduled PRN Acetaminophen Tab (Tylenol), 650 MG PO Q6 PRN for Pain or Fever Allergies Coded Allergies: POLLEN (Verified Allergy, Unknown, RUNNY NOSE/SNEEZING, 12/06/17) Penicillins (Verified Allergy, Unknown, RASH, 12/06/17) Physical Exam Vital Signs Date Time Temp Pulse Resp B/P (MAP) Pulse Ox O2 Delivery O2 Flow Rate FiO2 12/06/17 13:30 75 15 116/76 96 Room Air 12/06/17 13:09 78 12/06/17 12:52 83 19 126/88 94 Room Air 12/06/17 11:05 87 12/06/17 11:02 36.4 88 121/85 94 Room Air Physical Exam GENERAL: Sitting up in bed, nonverbal, alert, disheveled appearing, well nourished, no distress, non-toxic EYE EXAM: normal conjunctiva. PERRL and EOM's grossly intact. OROPHARYNX: no exudate, no erythema, lips, buccal mucosa, and tongue normal and mucous membranes are moist NECK: supple, no nuchal rigidity, no adenopathy, non-tender LUNGS: Clear to auscultation. Normal chest wall mechanics HEART: no murmurs, S1 normal and S2 normal ABDOMEN: abdomen soft, non-tender, normo-active bowel sounds, no masses, no rebound or guarding. PEG tube in place without surrounding erythema. BACK: Back is symmetrical on inspection and there is no deformity, no midline tenderness, no CVA tenderness. SKIN: no rashes and no bruising UPPER EXTREMITIES: upper extremities are grossly normal. LOWER EXTREMITIES: No pitting edema. NEURO EXAM: Awake, follows commands. Slurred speech, able to say no and her daughter's name. Contracture with minimal movement to the right upper extremity. Minimal movement to the right lower extremity. Other extremities are neurologically intact. Medical Decision & Procedures ER Provider Diagnostic Interpretation: Radiology results as stated below per my review and the radiologist's interpretation: CHEST ONE VIEW PORTABLE CLINICAL HISTORY: Acute change in mental status. Lethargy. COMPARISON STUDY: 10/31/2017 FINDINGS: The cardiac and mediastinal contours are normal. There is no evidence of focal pulmonary consolidation. There is no evidence of failure. No pleural effusions are visualized.[ IMPRESSION: No active disease in the chest. Electronically signed by: Julien Conrad M.D. 12/06/2017 12:04 PM Dictated Date/Time: 12/06/2017 12:[address] HEAD WITHOUT CONTRAST (CT) CLINICAL HISTORY: Acute change in mental status. Lethargy. COMPARISON STUDY: October 2017 TECHNIQUE: Axial CT of the brain is performed from the vertex to the skull base. IV contrast was not administered for this examination. A dose lowering technique was utilized adhering to the principles of ALARA. CT DOSE: 1842.80 mGy.cm FINDINGS: No intra or extra-axial mass lesions are visualized. There is no CT evidence of acute cortical infarction. There is no evidence of midline shift. There is no acute hemorrhage. No calvarial fractures are visualized. There are extensive white matter hypodensities likely on a small vessel basis. Bilateral lacunar infarcts remain stable There is no evidence of pathologic ventricular dilatation. There is no evidence of acute sinusitis IMPRESSION: No acute intracranial findings Electronically signed by: Julien Conrad M.D. 12/06/2017 11:49 AM Dictated Date/Time: 12/06/2017 11:48 AM Laboratory Results 12/06/17 10:10 Red Blood Count 4.23, Mean Corpuscular Volume 87.9, Mean Corpuscular Hemoglobin 30.5, Mean Corpuscular Hemoglobin Concent 34.7, Mean Platelet Volume 9.8, Neutrophils (%) (Auto) 66.9, Lymphocytes (%) (Auto) 22.3, Monocytes (%) (Auto) 8.1, Eosinophils (%) (Auto) 2.1, Basophils (%) (Auto) 0.3, Neutrophils # (Auto) 5.94, Lymphocytes # (Auto) 1.98, Monocytes # (Auto) 0.72, Eosinophils # (Auto) 0.19, Basophils # (Auto) 0.03 12/06/17 10:10 Test 12/06/17 10:10 12/06/17 12:13 White Blood Count 8.89 K/uL (4.8-10.8) Red Blood Count 4.23 M/uL (4.2-5.4) Hemoglobin 12.9 g/dL (12.0-16.0) Hematocrit 37.2 % (37-47) Mean Corpuscular Volume 87.9 fL (80-100) Mean Corpuscular Hemoglobin 30.5 pg (25-34) Mean Corpuscular Hemoglobin Concent 34.7 g/dl (32-36) Platelet Count 308 K/uL (130-400) Mean Platelet Volume 9.8 fL (7.4-10.4) Neutrophils (%) (Auto) 66.9 % Lymphocytes (%) (Auto) 22.3 % Monocytes (%) (Auto) 8.1 % Eosinophils (%) (Auto) 2.1 % Basophils (%) (Auto) 0.3 % Neutrophils # (Auto) 5.94 K/uL (1.4-6.5) Lymphocytes # (Auto) 1.98 K/uL (1.2-3.4) Monocytes # (Auto) 0.72 K/uL (0.11-0.59) Eosinophils # (Auto) 0.19 K/uL (0-0.5) Basophils # (Auto) 0.03 K/uL (0-0.2) RDW Standard Deviation 44.3 fL (36.4-46.3) RDW Coefficient of Variation 13.8 % (11.5-14.5) Immature Granulocyte % (Auto) 0.3 % Immature Granulocyte # (Auto) 0.03 K/uL (0.00-0.02) Prothrombin Time 10.5 SECONDS (9.0-12.0) Prothromb Time International Ratio 1.0 (0.9-1.1) Activated Partial Thromboplast Time 25.3 SECONDS (21.0-31.0) Partial Thromboplastin Ratio 1.0 Anion Gap 11.0 mmol/L (3-11) Estimated GFR () 98.5 Estimated GFR (Non- 85.0 BUN/Creatinine Ratio 19.8 (10-20) Calcium Level 9.3 mg/dl (8.5-10.1) Total Bilirubin 1.3 mg/dl (0.2-1) Direct Bilirubin 0.2 mg/dl (0-0.2) Aspartate Amino Transf (AST/SGOT) 16 U/L (15-37) Alanine Aminotransferase (ALT/SGPT) 16 U/L (12-78) Alkaline Phosphatase 61 U/L (45-117) Troponin I < 0.015 ng/ml (0-0.045) Total Protein 7.2 gm/dl (6.4-8.2) Albumin 3.2 gm/dl (3.4-5.0) Urine Color YELLOW Urine Appearance CLEAR (CLEAR) Urine pH 7.0 (4.5-7.5) Urine Specific Ken[place] 1.010 (1.000-1.030) Urine Protein NEG (NEG) Urine Glucose (UA) NEG (NEG) Urine Ketones NEG (NEG) Urine Occult Blood 1+ (NEG) Urine Nitrite NEG (NEG) Urine Bilirubin NEG (NEG) Urine Urobilinogen NEG (NEG) Urine Leukocyte Esterase LARGE (NEG) Urine WBC (Auto) 10-30 /hpf (0-5) Urine RBC (Auto) 5-10 /hpf (0-4) Urine Hyaline Casts (Auto) 0 /lpf (0-5) Urine Epithelial Cells (Auto) 10-20 /lpf (0-5) Urine Bacteria (Auto) 2+ (NEG) Laboratory results per my review. Medications Administered Medications (Trade) Dose Ordered Sig/Kimberlyn Route Start Time Stop Time Status Last Admin Dose Admin Ceftriaxone Sodium (Rocephin Inj) 1 gm NOW STAT IV 12/06/17 13:12 12/06/17 13:13 DC 12/06/17 13:12 1 GM ECG Per My Interpretation Indication: altered mental status Rate (beats per minute): 84 Rhythm: sinus rhythm Findings: left axis deviation, other (Poor baseline) Comparison ECG Date: 24 May 2017 Change: no significant change ED Course ED COURSE: Vital signs were reviewed and showed normal vitals The patients medical record was reviewed The above diagnostic studies were performed and reviewed. ED treatments and interventions as stated above. 1059: The patient was evaluated in room C3. A complete history and physical examination was performed. 1310: I updated the patient's family at bedside. They note that the patient is currently at her baseline, but does seem tired. 1312: Ordered Rocephin Inj 1 gm IV 1339: I discussed the patient's case with Dr. Pressley of [facility]. They are agreeable and will take her back to the facility to treat her UTI. 1355: Upon reevaluation, the patient is resting.I discussed my findings with the patient and she understands and agrees with the treatment plan. Based on the patients age, coexisting illnesses, exam and lab findings the decision to treat as an outpatient was made. The patient remained stable while under my care. The patient appeared well at the time of discharge. Medical Decision Differential diagnoses includes but is not limited to toxic, metabolic, infectious, traumatic, cardiac, neurologic, hematologic, psychiatric and inflammatory etiologies. Patient is a 67-year-old female who presents to ER for confusion and lethargy which has been present since this past Wednesday. Patient is a resident at [facility]. History of a previous stroke. CBC along with BMP, LFTs, bilirubin and troponin was negative. UA suggests UTI. 1 g of IV Rocephin was given. She had no complaints of my evaluation. She was lethargic but was able to follow commands and move her extremities appropriately. CT head was negative. Discussed the patient with her provider Mabel Lemos and she was agreeable to having the patient come back and treat her for UTI there. Discussed with family and they would prefer to have her go back at this time. Anything worsens they will return her to the ER. Did discuss the limitations of CT to rule out stroke. Discussed the risks and benefits with family and patient was discharged follow-up with her provider at the detention. Discharge with Bactrim. Medication Reconcilliation Current Medication List: was personally reviewed by me Blood Pressure Screening Patient's blood pressure: Normal blood pressure Blood pressure disposition: Did not require urgent referral Consults Time Called: 1335 Consulting Physician: [facility]. [facility] - [facility] Returned Call: [phone] We discussed the patient's case. They are agreeable with treatment of her UTI at their facility. Impression Primary Impression: UTI (urinary tract infection) Additional Impression: Altered mental state Scribe Attestation The scribe's documentation has been prepared under my direction and personally reviewed by me in its entirety. I confirm that the note above accurately reflects all work, treatment, procedures, and medical decision making performed by me. Departure Information Dispostion Home / Self-Care Prescriptions Sulfamethoxazole-Trimethoprim (Bactrim Ds 800MG/160MG) 1 Tab Tab 1 TAB PO BID, #20 TAB Prov: Kj Wolf, 12/06/17 Referrals Caro Ramirez M.D. (PCP) Forms HOME CARE DOCUMENTATION FORM, IMPORTANT VISIT INFORMATION, WORK / SCHOOL INSTRUCTIONS Patient Instructions ED Confusion, ED UTI Cystitis Female, My [facility] Additional Instructions Please follow up with your primary care doctor with in the next 24 hours. Any worsening of your symptoms, please return to the ED immediately. This includes any fevers greater than 100.4, worsening pain, chest pain, shortness breath, persistent nausea, vomiting, unable to eat or drink, or any other concerning signs or symptoms from your standpoint. Please take antibiotics as prescribed. Please return to the ER if any worsening of her symptoms. Problem Qualifiers Primary Impression: UTI (urinary tract infection) Urinary tract infection type: acute cystitis Hematuria presence: with hematuria Qualified Codes: N30.01 - Acute cystitis with hematuria Additional Impression: Altered mental state Altered mental status type: unspecified Qualified Codes: R41.82 - Altered mental status, unspecified
[2017-12-06 15:22] VITALS: BP 109/78; PULSE 82; O2SAT 95
== END 2017-12-06 15:24 ==
LOC: EDBD 10:56 → C.EDC 10:57
DX: N30.01 Acute cystitis with hematuria (principal); R41.82 Altered mental status, unspecified; I69.320 Aphasia following cerebral infarction; I69.359 Hemiplegia and hemiparesis following cerebral infarction affecting unspecified side; Z85.3 Personal history of malignant neoplasm of breast; I10 Essential (primary) hypertension; Z85.6 Personal history of leukemia; Z88.0 Allergy status to penicillin; Z79.82 Long term (current) use of aspirin; Z93.1 Gastrostomy status

== ENCOUNTER 2017-12-12 01:00 | Inpatient (IN) | payer OTHER, MEDICARE, BC ==
[~2017-12-12] VITALS: Ht 170.2 cm; Wt 52.0 kg
[~2017-12-12 01:00] MED LIST changes: -BISA10SU3 PR; +METO-157 PO; -MOMLX PO; +OSEL75CA23 PO; +SULF800T23 PO
--- NOTE | 2017-12-12 01:43 | EMERGENCY ROOM VISIT NOTE ---
History Report prepared by Connor: Jinny Mustafa Under the Supervision of: Dr. Melanie Hammond D.O. 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 She is accompanied by her daughter. She states her mother was at the ED 5 days ago for a UTI and she was "doing ok. " Was originally started on Bactrim, however then when the urine culture came back she was changed to Macrobid. 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 She also states she has had increased lethargy, decreased appetite and has been sleeping more. States that at [facility] they were starting her on IV fluids to keep her hydrated. Her daughter notes that 1 day ago, she tested positive for the flu. She was started on oxygen and Tamiflu. States she was told that the patient began to have lower oxygen levels this evening which attributed to her being sent to the emergency room. She notes her mother had a stroke in 2015 that affected her mobility on the right side. In 2017, she fell and hit her head and had a bleed that affected her mentally. She has had UTIs in the past and has had pneumonia and sepsis. HPI limited due to AMS. Her daughter also notes her mother has incontinence. 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 ROS limited due to AMS. Past Medical & Surgical Medical Problems: (1) Acute respiratory failure with hypoxia (2) Basal pneumonia of both lungs (3) Breast cancer (4) CVA (cerebral vascular accident) (5) CVA, s/p TPA (6) Hypertension (7) Leukemia (8) possible tia Surgical Problems: (1) History of breast reconstruction Family History Cancer Social History Smoking Status: Unknown if Ever Smoked Alcohol Use: none Drug Use: none Marital Status: Housing Status: other Occupation Status: other Current/Historical Medications Scheduled Aspirin (Aspirin EC Low Dose), 1 TABS PO DAILY Atorvastatin (Lipitor), 20 MG PO DAILY Cholecalciferol (Vitamin D), 2,000 UNITS PO DAILY Cholestyramine (Questran), 4 GM PO BID Dextrose 5%/0.45% Ns (Dextrose 5%/0.45% Ns), IV CONTINOUS Home O2 Therapy (Oxygen), 2 LITERS NA PRN Metoclopramide (Reglan), 2.5 MG PO TID Metoprolol Tartrate (Lopressor), 12.5 MG PO BID Multiple Vitamins W/ Minerals (Multivitamin Women), 1 TAB PO QD Oseltamivir Phosphate (Tamiflu), 75 MG PO AMHS Potassium Ext Rel (Klor-Con), 20 MEQ PO DAILY Allergies Coded Allergies: POLLEN (Verified Allergy, Unknown, RUNNY NOSE/SNEEZING, 12/12/17) Penicillins (Verified Allergy, Unknown, RASH, 12/12/17) Physical Exam Vital Signs Date Time Temp Pulse Resp B/P (MAP) Pulse Ox O2 Delivery O2 Flow Rate FiO2 12/12/17 04:42 88 20 127/85 92 Nasal Cannula 2.0 12/12/17 03:34 87 18 113/76 95 12/12/17 03:00 85 18 117/78 96 Nasal Cannula 2.0 12/12/17 02:31 91/66 12/12/17 02:30 100 21 94 Nasal Cannula 5.0 12/12/17 02:20 136/86 12/12/17 02:01 152/91 12/12/17 02:00 102 20 97 Nasal Cannula 4.0 12/12/17 01:31 126/85 12/12/17 01:31 38.1 109 18 126/85 93 Room Air 12/12/17 01:30 105 21 93 Nasal Cannula 4.0 12/12/17 01:12 112 Physical Exam GENERAL: lethargic, ill appearing, no distress, non-toxic EYE EXAM: normal conjunctiva, PERRL and EOM's grossly intact OROPHARYNX: no exudate, no erythema, lips, buccal mucosa, and tongue normal and mucous membranes are moist NECK: supple, no nuchal rigidity, no adenopathy, non-tender LUNGS: decreased breath sounds, coarse bilateral bases HEART: no murmurs, S1 normal and S2 normal ABDOMEN: abdomen soft, non-tender, normo-active bowel sounds, no masses, no rebound or guarding. BACK: Back is symmetrical on inspection and there is no deformity, no midline tenderness, no CVA tenderness. SKIN: no rashes and no bruising UPPER EXTREMITIES: atrophy in both upper extremities, slight contractures in bilateral lower extremities, LOWER EXTREMITIES: No pitting edema. Atrophy in both lower extremities. NEURO EXAM: Normal sensorium, cranial nerves II-XII grossly intact, normal speech, no gross weakness of arms, no gross weakness of legs. No drift. Finger to nose intact. Gross sensation intact. Medical Decision & Procedures ER Provider Diagnostic Interpretation: Radiology results have been interpreted by the radiologist and reviewed by me. CT HEAD Chronic microvascular ischemic changes. Moderate cerebral volume loss. No hemorrhage or hydrocephalus. Radiologist: Karoline Meade MD Study ready at 0225 and initial results transmitted at 0228. SINGLE VIEW CHEST Poor patient positioning, rotated No cardiomegaly, no effusions, no wide mediastinum, possible bilateral infiltrates Laboratory Results 12/12/17 01:18 Red Blood Count 4.47, Mean Corpuscular Volume 88.6, Mean Corpuscular Hemoglobin 30.4, Mean Corpuscular Hemoglobin Concent 34.3, Mean Platelet Volume 9.6, Neutrophils (%) (Auto) 90.5, Lymphocytes (%) (Auto) 6.2, Monocytes (%) (Auto) 3.0, Eosinophils (%) (Auto) 0.0, Basophils (%) (Auto) 0.1, Neutrophils # (Auto) 15.90, Lymphocytes # (Auto) 1.09, Monocytes # (Auto) 0.52, Eosinophils # (Auto) 0.00, Basophils # (Auto) 0.01 Test 12/12/17 01:10 12/12/17 01:18 12/12/17 01:21 Urine Color YELLOW Urine Appearance CLEAR (CLEAR) Urine pH 5.5 (4.5-7.5) Urine Specific [place] 1.022 (1.000-1.030) Urine Protein 2+ (NEG) Urine Glucose (UA) NEG (NEG) Urine Ketones 1+ (NEG) Urine Occult Blood 3+ (NEG) Urine Nitrite NEG (NEG) Urine Bilirubin NEG (NEG) Urine Urobilinogen NEG (NEG) Urine Leukocyte Esterase TRACE (NEG) Urine WBC (Auto) 5-10 /hpf (0-5) Urine RBC (Auto) 10-30 /hpf (0-4) Urine Hyaline Casts (Auto) 1-5 /lpf (0-5) Urine Epithelial Cells (Auto) 20-30 /lpf (0-5) Urine Bacteria (Auto) 1+ (NEG) White Blood Count 17.56 K/uL (4.8-10.8) Red Blood Count 4.47 M/uL (4.2-5.4) Hemoglobin 13.6 g/dL (12.0-16.0) Hematocrit 39.6 % (37-47) Mean Corpuscular Volume 88.6 fL (80-100) Mean Corpuscular Hemoglobin 30.4 pg (25-34) Mean Corpuscular Hemoglobin Concent 34.3 g/dl (32-36) Platelet Count 330 K/uL (130-400) Mean Platelet Volume 9.6 fL (7.4-10.4) Neutrophils (%) (Auto) 90.5 % Lymphocytes (%) (Auto) 6.2 % Monocytes (%) (Auto) 3.0 % Eosinophils (%) (Auto) 0.0 % Basophils (%) (Auto) 0.1 % Neutrophils # (Auto) 15.90 K/uL (1.4-6.5) Lymphocytes # (Auto) 1.09 K/uL (1.2-3.4) Monocytes # (Auto) 0.52 K/uL (0.11-0.59) Eosinophils # (Auto) 0.00 K/uL (0-0.5) Basophils # (Auto) 0.01 K/uL (0-0.2) RDW Standard Deviation 44.9 fL (36.4-46.3) RDW Coefficient of Variation 13.8 % (11.5-14.5) Immature Granulocyte % (Auto) 0.2 % Immature Granulocyte # (Auto) 0.04 K/uL (0.00-0.02) Prothrombin Time 10.5 SECONDS (9.0-12.0) Prothromb Time International Ratio 1.0 (0.9-1.1) Magnesium Level 2.3 mg/dl (1.8-2.4) Total Bilirubin 1.0 mg/dl (0.2-1) Aspartate Amino Transf (AST/SGOT) 66 U/L (15-37) Alanine Aminotransferase (ALT/SGPT) 34 U/L (12-78) Alkaline Phosphatase 87 U/L (45-117) Troponin I < 0.015 ng/ml (0-0.045) Pro-B-Type Natriuretic Peptide 294 pg/ml (0-900) Total Protein 8.5 gm/dl (6.4-8.2) Albumin 3.4 gm/dl (3.4-5.0) Globulin 5.1 gm/dl (2.5-4.0) Albumin/Globulin Ratio 0.7 (0.9-2) Lipase 153 U/L (73-393) Bedside Lactic Acid Venous 1.89 mmol/L (0.90-1.70) Laboratory results per my review. Medications Administered Medications (Trade) Dose Ordered Sig/Kimberlyn Route Start Time Stop Time Status Last Admin Dose Admin Sodium Chloride 1,000 ml @ 999 mls/hr Q1H1M STAT IV 12/12/17 01:45 12/12/17 02:45 DC 12/12/17 01:45 999 MLS/HR Acetaminophen (Tylenol Supp) 975 mg NOW STAT WA 12/12/17 01:45 12/12/17 01:47 DC 12/12/17 01:45 975 MG Vancomycin HCl (Vancomycin 1gm/ 270ml Nss) 1 gm NOW STAT IV 12/12/17 02:31 12/12/17 02:32 DC 12/12/17 02:31 1 GM Cefepime HCl 1000 mg/Dextrose 111 ml @ 200 mls/hr NOW STAT IV 12/12/17 02:31 12/12/17 03:04 DC 12/12/17 03:46 200 MLS/HR Sodium Chloride 1,000 ml @ 999 mls/hr Q1H1M STAT IV 12/12/17 03:15 12/12/17 04:15 DC 12/12/17 03:15 999 MLS/HR ECG Per My Interpretation Indication: SOB/dyspnea Rate (beats per minute): 105 Rhythm: sinus tachycardia Findings: no acute ischemic change, left axis deviation, other (normal intervals; Q waves in 2, 3, and AVF; baseline artifact noted) Comparison ECG Date: Did not have to compare to prior EKG ED Course 0135: The patient was evaluated in room C3. A complete history and physical exam was performed. 0145: Tylenol Supp 975 mg WA Sodium Chloride 0231: Cefepime HCl 1,000 mg/Dextrose 111 ml @ 200 mls/hr IV 0231: Vancomycin 1 gm IV 0233: Review of EMR, urine culture grew out enterococcus, this was resistant to fluoroquinolones. 0315: Sodium Chloride 1,000 ml @ 999 mls/hr IV 0319: Does not feel any better but seems more alert .Her daughter was updated on all results. 0326: I reviewed the patient's [facility] He will evaluate the patient for further management. Medical Decision Differential diagnosis: Etiologies such as viral syndrome, otitis, pharyngitis, pneumonia, influenza, meningitis, urinary tract infection, sepsis, bacteremia, as well as others were entertained. Patient well-appearing here lethargic on arrival. Tachycardic with fever, however blood pressure normal. IV fluids started and labs drawn. No abnormalities noted on head CT given decreased mental status. Leukocytosis noted on labs, however lactic acid reassuring. Patient responded well to IV fluids, was not hypotensive, cultures were sent and patient started on IV antibiotics. Urine culture reviewed from the beginning of the week, and this was taken into account when choosing antibiotics. Patient given broad-spectrum coverage initially due to known urinary tract infection, as well as what appeared to be pneumonia on chest x-ray. The patient initially diagnosed with influenza this week and possible viral pneumonia, given usp status, and comorbidities, broad-spectrum antibiotic coverage was initiated. Heart rate improved here with additional temperature control and IV fluids. Patient improved on repeat clinical exam. Patient not hypoxic here but maintained on 1- 2 L via nasal cannula. Concern for evolving sepsis, case discussed with hospitalist for additional evaluation and treatment. Medication Reconcilliation Current Medication List: was personally reviewed by me Blood Pressure Screening Patient's blood pressure: Normal blood pressure Blood pressure disposition: Did not require urgent referral Consults Time Called: 032 Consulting Physician: [facility] Returned Call: 0330 I discussed the patient's case with him. He will further evaluate the patient. Impression Primary Impression: Sepsis Additional Impressions: Pneumonia UTI (urinary tract infection) Influenza Critical Care I have personally spent 35 minutes of critical care time in the direct management of this patient. This includes bedside care, interpretation of diagnostic studies, and testing, discussion with consultants, patient, and family members, and other required patient management activities. This 35 minutes is in excess of all separately billable procedures. Scribe Attestation The scribe's documentation has been prepared under my direction and personally reviewed by me in its entirety. I confirm that the note above accurately reflects all work, treatment, procedures, and medical decision making performed by me. Departure Information Dispostion Being Evaluated By Hospitalist (Dr. Armstrong, [facility] Hospitalist) Referrals Caro Ramirez M.D. (PCP) Patient Instructions My [facility] Problem Qualifiers Primary Impression: Sepsis Sepsis type: sepsis due to unspecified organism Qualified Codes: A41.9 - Sepsis, unspecified organism Additional Impressions: Pneumonia Pneumonia type: due to unspecified organism Laterality: bilateral Lung location: lower lobe of lung Qualified Codes: J18.9 - Pneumonia, unspecified organism UTI (urinary tract infection) Urinary tract infection type: acute cystitis Hematuria presence: with hematuria Qualified Codes: N30.01 - Acute cystitis with hematuria
[2017-12-12] MEDS ORDERED: SODIUM CHLORIDE 0.9% 1000ML 1,000 ML IV STA ×2 (01:45→03:15)
[2017-12-12] MEDS ORDERED: ACETAMINOPHEN 325 MG SUPP PR STA (01:45)
[2017-12-12 01:58] LABS: BASO % 0.1 %; BASO ABS # 0.01 K/uL (0-0.2); HEMATOCRIT 39.6 % (37-47); HEMOGLOBIN 13.6 g/dL (12.0-16.0); IG# 0.04 K/uL (0.00-0.02); LYMPH % 6.2 %; LYMPH ABS # 1.09 K/uL (1.2-3.4); MEAN CELL VOLUME 88.6 fL (80-100); MEAN CORPUSCULAR HEMOGLOBIN 30.4 pg (25-34); MEAN CORPUSCULAR HGB CONC 34.3 g/dl (32-36); MEAN PLATELET VOLUME 9.6 fL (7.4-10.4); MONO ABS # 0.52 K/uL (0.11-0.59); NEUT % 90.5 %; PLATELET COUNT 330 K/uL (130-400); RED CELL DISTRIBUTION WIDTH CV 13.8 % (11.5-14.5); RED CELL DISTRIBUTION WIDTH SD 44.9 fL (36.4-46.3); WHITE BLOOD COUNT 17.56 K/uL (4.8-10.8)
[2017-12-12 02:15] LABS: ALBUMIN 3.4 gm/dl (3.4-5.0); ALT/SGPT 34 U/L (12-78); AST/SGOT 66 U/L (15-37); BLOOD UREA NITROGEN 13 mg/dl (7-18); CALCIUM 9.3 mg/dl (8.5-10.1); CARBON DIOXIDE 25 mmol/L (21-32); CREATININE 0.88 mg/dl (0.60-1.20); GLUCOSE 115 mg/dl (70-99); LIPASE 153 U/L (73-393); POTASSIUM 3.9 mmol/L (3.5-5.1); SODIUM 132 mmol/L (136-145)
[2017-12-12 02:20] LABS: ALKALINE PHOSPHATASE 87 U/L (45-117); TOTAL PROTEIN 8.5 gm/dl (6.4-8.2)
[2017-12-12] MEDS ORDERED: CEFEPIME IV 1,000 MG in DEXTROSE 5% 100ML 100 ML IV STA (02:31)
[2017-12-12] MEDS ORDERED: VANCOMYCIN 1GM/270ML NSS IV STA (02:31)
[2017-12-12] MEDS ORDERED: [UNRECOGNIZED DRUG - CODE] IV (03:26)
[2017-12-12] MEDS ORDERED: VANCOMYCIN INJ 1,000 MG in SODIUM CHLORIDE 0.9% 250ML 250 ML IV STA (04:40)
[2017-12-12] MEDS ORDERED: VANCOMYCIN CONSULT ACTIVE PRN (04:45)
[2017-12-12] MEDS ORDERED: ONDANSETRON INJ 2 MG/ML 2 ML VIAL IV PRN (04:45)
[2017-12-12] MEDS ORDERED: POLYETHYLENE (MIRALAX) 17 GM PACK PO PRN (04:45)
[2017-12-12] MEDS ORDERED: ACETAMINOPHEN 325 MG TAB PO PRN (04:45)
[2017-12-12] MEDS ORDERED: AZTREONAM CONSULT ACTIVE PRN (04:57)
[2017-12-12] MEDS ORDERED: LPR25 PO (05:10)
[2017-12-12] MEDS ORDERED: ASPEC81 PO (05:10)
[2017-12-12] MEDS ORDERED: LPT40 PO (05:10)
[2017-12-12] MEDS ORDERED: CHOL4POW11 PO (05:10)
[2017-12-12] MEDS ORDERED: PATIENT'S HEIGHT AND/OR WEIGHT NEEDED SCH (05:15)
[2017-12-12 05:30] VITALS: BP 108/68; PULSE 84; TEMP 36.9; O2SAT 93; BMI 18.7
[2017-12-12 05:31] LABS: BLOOD UREA NITROGEN 11 mg/dl (7-18); CARBON DIOXIDE 20 mmol/L (21-32); CREATININE 0.59 mg/dl (0.60-1.20); GLUCOSE 122 mg/dl (70-99); POTASSIUM 3.1 mmol/L (3.5-5.1); SODIUM 138 mmol/L (136-145)
--- NOTE | 2017-12-12 06:14 | DIAGNOSTIC IMAGING REPORT ---
CT HEAD WITHOUT CONTRAST (CT) CLINICAL HISTORY: Altered mental status. Flulike symptoms. COMPARISON STUDY: December 06, 2007 TECHNIQUE: Axial CT of the brain is performed from the vertex to the skull base. IV contrast was not administered for this examination. A dose lowering technique was utilized adhering to the principles of ALARA. CT DOSE: 614.27 mGy.cm FINDINGS: No intra or extra-axial mass lesions are visualized. There is no CT evidence of acute cortical infarction. There is no evidence of midline shift. There is no acute hemorrhage. No calvarial fractures are visualized. There are extensive white matter hypodensities likely on a small vessel basis. There are old basal ganglia lacunar infarcts. There is no evidence of pathologic ventricular dilatation. There is a right maxillary sinus air-fluid level. IMPRESSION: 1. Right maxillary sinus air-fluid level 2. No acute intracranial findings. Extensive white matter disease, likely on a small vessel basis. Old lacunar infarcts. Electronically signed by: Julien Conrad M.D. 12/12/2017 6:13 AM Dictated Date/Time: 12/12/2017 6:12 AM
[2017-12-12] MEDS ORDERED: INFLUENZA ADMINISTRATION CHARGE ONE (06:30)
[2017-12-12] MEDS ORDERED: INFLUENZA VACCINE HIGH DOSE 65+ 0.5 ML SYR IM. ONE (06:30)
[2017-12-12 06:46] LABS: CALCIUM 7.6 mg/dl (8.5-10.1)
--- NOTE | 2017-12-12 06:57 | History and Physical ---
History & Physical Date & Time of Service: Dec 12, 2017 at 06:34 Chief Complaint: Pneumonia, Sepsis, Uti Primary Care Physician: Caro Ramirez M.D. History of Present Illness Source: clinic records, hospital records Patient is a 67 yo female resident of [facility] who was brought to the hospital today for complaints of fever, dehydration, and AMS. The patient was being treated for a UTI diagnosed 5 days ago, and is also on tamiflu for influenza A which was diagnosed on 12/10. The patient was initially on bactrim but this was switched to macrobid due to C&S. Patient was also said to have 2 episodes of vomiting, and reportedly coughed some after swallowing some food at some point in the past 2 days. She has a known history of aspiration pneumonia per records. 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 She does require assistance with ADLs. She has had a few instances of lethargy over the past few days as well which has been concerning to the patient's daughter. All information was obtained from the medical records as the daughter was not at the bedside at time of admission and the patient is unable to provide any meaningful history. Past Medical/Surgical History Medical Problems: (1) Subdural Hematoma (2) Breast cancer (3) CVA (cerebral vascular accident) (4) CVA, s/p TPA (5) Hypertension (6) Leukemia Surgical Problems: (1) History of breast reconstruction Family History Cancer Social History Smoking Status: Never Smoker Alcohol Use: none Drug Use: none Marital Status: Housing status: fpc Occupational Status: other Allergies Coded Allergies: POLLEN (Verified Allergy, Unknown, RUNNY NOSE/SNEEZING, 12/12/17) Penicillins (Verified Allergy, Unknown, RASH, 12/12/17) Home Medications Scheduled Aspirin (Aspirin EC Low Dose), 1 TABS PO DAILY Atorvastatin (Lipitor), 20 MG PO DAILY Cholecalciferol (Vitamin D), 2,000 UNITS PO DAILY Cholestyramine (Questran), 4 GM PO BID Dextrose 5%/0.45% Ns (Dextrose 5%/0.45% Ns), IV CONTINOUS Home O2 Therapy (Oxygen), 2 LITERS NA PRN Metoclopramide (Reglan), 2.5 MG PO TID Metoprolol Tartrate (Lopressor), 12.5 MG PO BID Multiple Vitamins W/ Minerals (Multivitamin Women), 1 TAB PO QD Oseltamivir Phosphate (Tamiflu), 75 MG PO AMHS Potassium Ext Rel (Klor-Con), 20 MEQ PO DAILY Review of Systems Patient is unable to provide an accurate ROS due to mentation. Physical Exam Vital Signs Date Time Temp Pulse Resp B/P (MAP) Pulse Ox O2 Delivery O2 Flow Rate FiO2 12/12/17 05:30 36.9 84 20 108/68 93 Nasal Cannula 4.0 12/12/17 05:07 84 12/12/17 05:00 36.8 12/12/17 04:42 88 20 127/85 92 Nasal Cannula 2.0 12/12/17 03:34 87 18 113/76 95 12/12/17 03:00 85 18 117/78 96 Nasal Cannula 2.0 12/12/17 02:31 91/66 12/12/17 02:30 100 21 94 Nasal Cannula 5.0 12/12/17 02:20 136/86 12/12/17 02:01 152/91 12/12/17 02:00 102 20 97 Nasal Cannula 4.0 12/12/17 01:31 126/85 12/12/17 01:31 38.1 109 18 126/85 93 Room Air 12/12/17 01:30 105 21 93 Nasal Cannula 4.0 12/12/17 01:12 112 General Appearance: WD/WN, no apparent distress, + thin Head: normocephalic, atraumatic Eyes: PERRL, EOMI, sclerae normal ENT: hearing grossly normal Neck: supple, no adenopathy, no JVD, no carotid bruits, trachea midline Respiratory/Chest: chest non-tender, no respiratory distress, no accessory muscle use, + rhonchi, + pertinent finding (frequent non-productive cough noted) Cardiovascular: regular rate, rhythm, no edema, no gallop, no JVD, no murmur Abdomen/GI: normal bowel sounds, non tender, soft, no organomegaly Extremities/Musculoskelatal: no calf tenderness, normal capillary refill, no pedal edema Neurologic/Psych: alert, + aphasia, + motor weakness (chronic hemiparesis RUE and RLE), + pertinent finding (sluggish to respond to verbal, has difficulty with communicating) Skin: normal color, warm/dry, no rash Diagnostics Laboratory Results Results Past 24 Hours Test 12/12/17 01:10 12/12/17 01:18 12/12/17 01:21 12/12/17 05:02 Range/Units Urine Color YELLOW Urine Appearance CLEAR CLEAR Urine pH 5.5 4.5-7.5 Urine Specific [place] 1.022 1.000-1.030 Urine Protein 2+ NEG Urine Glucose (UA) NEG NEG Urine Ketones 1+ NEG Urine Occult Blood 3+ NEG Urine Nitrite NEG NEG Urine Bilirubin NEG NEG Urine Urobilinogen NEG NEG Urine Leukocyte Esterase TRACE NEG Urine WBC (Auto) 5-10 0-5 /hpf Urine RBC (Auto) 10-30 0-4 /hpf Urine Hyaline Casts (Auto) 1-5 0-5 /lpf Urine Epithelial Cells (Auto) 20-30 0-5 /lpf Urine Bacteria (Auto) 1+ NEG White Blood Count 17.56 4.8-10.8 K/uL Red Blood Count 4.47 4.2-5.4 M/uL Hemoglobin 13.6 12.0-16.0 g/dL Hematocrit 39.6 37-47 % Mean Corpuscular Volume 88.6 80-100 fL Mean Corpuscular Hemoglobin 30.4 25-34 pg Mean Corpuscular Hemoglobin Concent 34.3 32-36 g/dl Platelet Count 330 130-400 K/uL Mean Platelet Volume 9.6 7.4-10.4 fL Neutrophils (%) (Auto) 90.5 % Lymphocytes (%) (Auto) 6.2 % Monocytes (%) (Auto) 3.0 % Eosinophils (%) (Auto) 0.0 % Basophils (%) (Auto) 0.1 % Neutrophils # (Auto) 15.90 1.4-6.5 K/uL Lymphocytes # (Auto) 1.09 1.2-3.4 K/uL Monocytes # (Auto) 0.52 0.11-0.59 K/uL Eosinophils # (Auto) 0.00 0-0.5 K/uL Basophils # (Auto) 0.01 0-0.2 K/uL RDW Standard Deviation 44.9 36.4-46.3 fL RDW Coefficient of Variation 13.8 11.5-14.5 % Immature Granulocyte % (Auto) 0.2 % Immature Granulocyte # (Auto) 0.04 0.00-0.02 K/uL Prothrombin Time 10.5 9.0-12.0 SECONDS Prothromb Time International Ratio 1.0 0.9-1.1 Sodium Level 132 138 136-145 mmol/L Potassium Level 3.9 3.1 3.5-5.1 mmol/L Chloride Level 96 109 98-107 mmol/L Carbon Dioxide Level 25 20 21-32 mmol/L Anion Gap 11.0 9.0 3-11 mmol/L Blood Urea Nitrogen 13 11 7-18 mg/dl Creatinine 0.88 0.59 0.60-1.20 mg/dl Estimated GFR () 79.9 111.5 Estimated GFR (Non- 68.9 96.2 BUN/Creatinine Ratio 14.7 18.9 10-20 Random Glucose 115 122 70-99 mg/dl Calcium Level 9.3 8.5-10.1 mg/dl Magnesium Level 2.3 1.8-2.4 mg/dl Total Bilirubin 1.0 0.2-1 mg/dl Aspartate Amino Transf (AST/SGOT) 66 15-37 U/L Alanine Aminotransferase (ALT/SGPT) 34 12-78 U/L Alkaline Phosphatase 87 45-117 U/L Troponin I < 0.015 0-0.045 ng/ml Pro-B-Type Natriuretic Peptide 294 0-900 pg/ml Total Protein 8.5 6.4-8.2 gm/dl Albumin 3.4 3.4-5.0 gm/dl Globulin 5.1 2.5-4.0 gm/dl Albumin/Globulin Ratio 0.7 0.9-2 Lipase 153 73-393 U/L Bedside Lactic Acid Venous 1.89 0.90-1.70 mmol/L Lactic Acid Level 0.9 0.4-2.0 mmol/L Microbiology Results 12/12/17 Blood Culture, Received Pending 12/12/17 Blood Culture, Received Pending 12/12/17 Urine Culture, Received Pending Impression Assessment and Plan PROBABLE SEPSIS: -secondary to influenza A, possible UTI, and pneumonia which might be aspiration pneumonia vs HCAP -on vanco and aztreonam, may need cefepime instead of aztreonam, and possibly clinda if aspiration -continued on tamiflu (started 12/10) -was tachycardic, with leukocytosis, and low grade temp -lactic acid 0.9 -continue IV fluids -urine, sputum, blood cultures ordered -was recently on bactrim for UTI, then switched to macrobid -follow up cultures -Speech eval regarding possibility of aspiration PREVIOUS HX OF SDH AND MULTIPLE TIA/CVAs: -no recent change in neuro status except with acute illness -CT head negative for any acute changes, note old lacunar infarcts -stable right hemiparesis and dysarthria -PT/OT -continue ASA, statin, and BB as per outpatient med list PREVIOUS HX OF BREAST CANCER AND LEUKEMIA: -s/p B/L mastectomy previously -leukemia was in 1988 - and treated with brain radiation -no related symptoms noted at this time Advanced Directives Existing Living Will: Yes Existing Power of Educational Paraprofessional: Yes VTE Prophylaxis VTE Risk Assessment Done? Y/N: Yes Risk Level: Moderate
[2017-12-12] MEDS ORDERED: AZTREONAM IV 2,000 MG in DEXTROSE 5% 100ML 100 ML IV SCH (07:00)
--- NOTE | 2017-12-12 07:00 | DIAGNOSTIC IMAGING REPORT ---
CHEST ONE VIEW PORTABLE CLINICAL HISTORY: fever, hypoxia COMPARISON STUDY: December 06, 2017 FINDINGS: The patient is rotated. The heart is normal in size. There are bilateral infrahilar airspace opacities. There are no pleural effusions.[ IMPRESSION: Technically limited study. Bilateral infrahilar airspace opacities which could represent a pneumonia given the clinical history. A PA and lateral study is recommended when the patient is clinically able. Electronically signed by: Julien Conrad M.D. 12/12/2017 6:58 AM Dictated Date/Time: 12/12/2017 6:57 AM
[2017-12-12] MEDS: SODIUM CHLORIDE 0.9% 1000ML 1,000 ML IV SCH ×2 (07:09→20:13)
[2017-12-12] MEDS: POTASSIUM CHLR 10 MEQ / WTR 10 MEQ in PREMIXED WATER 100 ML IV SCH ×4 (07:10→10:11)
[2017-12-12 07:42] VITALS: BP 123/76; PULSE 75; TEMP 37; O2SAT 99
[2017-12-12] MEDS: ATORVASTATIN 20 MG TAB PO SCH (08:34)
[2017-12-12] MEDS: ASPIRIN 81 MG ECTAB PO SCH (08:34)
[2017-12-12] MEDS: METOPROLOL TARTRATE 25 MG TAB PO SCH ×2 (08:35→20:16)
[2017-12-12] MEDS: OSELTAMIVIR PHOSPHATE 75 MG CAP PO SCH ×2 (08:36→20:15)
[2017-12-12] MEDS: METOCLOPRAMIDE HCL 10 MG TAB PO SCH ×3 (08:36→20:15)
[2017-12-12] MEDS: CHOLECALCIFEROL 1000 INTER.UNIT TAB PO SCH (08:37)
[2017-12-12] MEDS: CEROVITE ADV FORMULA TAB PO SCH (08:45)
[2017-12-12] MEDS ORDERED: HEPARIN SOD 5000 UNIT/0.5 ML CARP SQ SCH (09:00)
[2017-12-12] MEDS: CHOLESTYRAMINE LIGHT 4 GM PKT PO SCH ×2 (09:13→20:15)
--- NOTE | 2017-12-12 10:09 | Progress Note ---
Medicine Progress Note Date & Time of Visit: Dec 12, 2017 at 10:09. Subjective seen resting in bed, sitting up, appears comfortable pleasantly confused, does answer a few questions appropriately states she feels improved denies shortness of breath, cough, chest pain, dizziness, palpitations no other symptoms Objective Last 8 Hrs Date Time Temp Pulse Resp B/P (MAP) Pulse Ox O2 Delivery O2 Flow Rate FiO2 12/12/17 07:42 37.0 75 18 123/76 (92) 99 12/12/17 05:30 36.9 84 20 108/68 93 Nasal Cannula 4.0 12/12/17 05:07 84 12/12/17 05:00 36.8 12/12/17 04:42 88 20 127/85 92 Nasal Cannula 2.0 12/12/17 03:34 87 18 113/76 95 12/12/17 03:00 85 18 117/78 96 Nasal Cannula 2.0 12/12/17 02:31 91/66 12/12/17 02:30 100 21 94 Nasal Cannula 5.0 12/12/17 02:20 136/86 Physical Exam: General- oriented x 3, not in distress, speaks in sentences with no effort Head- atraumatic Eyes- anicteric ENT- oropharynx clear Neck- supple, no JVD, no adenopathy, no thyromegaly; carotids +2/2 Lungs- clear breath sounds bilaterally, no rales/wheezes Heart- regular rhythm; no murmur, normal rate Abdomen- normal bowel sounds, soft, nontender Extremities- no pretibial edema, no calf tenderness; peripheral pulses intact Neuro- alert, oriented x 1; right sided weakness, no other gross focal deficits Skin- warm & dry Laboratory Results: Last 24 Hours Test 12/12/17 01:10 12/12/17 01:18 12/12/17 01:21 12/12/17 05:02 Urine Color YELLOW Urine Appearance CLEAR Urine pH 5.5 Urine Specific [place] 1.022 Urine Protein 2+ Urine Glucose (UA) NEG Urine Ketones 1+ Urine Occult Blood 3+ Urine Nitrite NEG Urine Bilirubin NEG Urine Urobilinogen NEG Urine Leukocyte Esterase TRACE Urine WBC (Auto) 5-10 /hpf Urine RBC (Auto) 10-30 /hpf Urine Hyaline Casts (Auto) 1-5 /lpf Urine Epithelial Cells (Auto) 20-30 /lpf Urine Bacteria (Auto) 1+ White Blood Count 17.56 K/uL Red Blood Count 4.47 M/uL Hemoglobin 13.6 g/dL Hematocrit 39.6 % Mean Corpuscular Volume 88.6 fL Mean Corpuscular Hemoglobin 30.4 pg Mean Corpuscular Hemoglobin Concent 34.3 g/dl Platelet Count 330 K/uL Mean Platelet Volume 9.6 fL Neutrophils (%) (Auto) 90.5 % Lymphocytes (%) (Auto) 6.2 % Monocytes (%) (Auto) 3.0 % Eosinophils (%) (Auto) 0.0 % Basophils (%) (Auto) 0.1 % Neutrophils # (Auto) 15.90 K/uL Lymphocytes # (Auto) 1.09 K/uL Monocytes # (Auto) 0.52 K/uL Eosinophils # (Auto) 0.00 K/uL Basophils # (Auto) 0.01 K/uL RDW Standard Deviation 44.9 fL RDW Coefficient of Variation 13.8 % Immature Granulocyte % (Auto) 0.2 % Immature Granulocyte # (Auto) 0.04 K/uL Prothrombin Time 10.5 SECONDS Prothromb Time International Ratio 1.0 Sodium Level 132 mmol/L 138 mmol/L Potassium Level 3.9 mmol/L 3.1 mmol/L Chloride Level 96 mmol/L 109 mmol/L Carbon Dioxide Level 25 mmol/L 20 mmol/L Anion Gap 11.0 mmol/L 9.0 mmol/L Blood Urea Nitrogen 13 mg/dl 11 mg/dl Creatinine 0.88 mg/dl 0.59 mg/dl Estimated GFR () 79.9 111.5 Estimated GFR (Non- 68.9 96.2 BUN/Creatinine Ratio 14.7 18.9 Random Glucose 115 mg/dl 122 mg/dl Calcium Level 9.3 mg/dl 7.6 mg/dl Magnesium Level 2.3 mg/dl Total Bilirubin 1.0 mg/dl Aspartate Amino Transf (AST/SGOT) 66 U/L Alanine Aminotransferase (ALT/SGPT) 34 U/L Alkaline Phosphatase 87 U/L Troponin I < 0.015 ng/ml Pro-B-Type Natriuretic Peptide 294 pg/ml Total Protein 8.5 gm/dl Albumin 3.4 gm/dl Globulin 5.1 gm/dl Albumin/Globulin Ratio 0.7 Lipase 153 U/L Bedside Lactic Acid Venous 1.89 mmol/L Lactic Acid Level 0.9 mmol/L Date/Time Source Procedure Growth Status 12/12/17 02:04 Blood Blood Culture Pending Received 12/12/17 01:18 Blood Blood Culture Pending Received 12/12/17 01:10 Urine,Catheterized Urine Culture Pending Received Assessment & Plan 67 year old female with history of Subdural Hematoma, CVA, Hypertension, Leukemia presenting with fever, altered mental status. SEPSIS SECONDARY TO: Possible Staph bacteremia positive 1/2 bottles UTI, Enterococcus Flu Possible Aspiration Pneumonia -- last fever this AM leukocytosis improving clinically improving -- ff up final C & S -- empiric Vanco and Aztreonam IV -- continue Tamiflu Dr. Renner consulted HYPOKALEMIA - replace and monitor HISTORY OF SUBDURAL HEMATOMA CVA - avoid heparin - already on ASA HYPERTENSION - monitor DVT prophylaxis avoid heparin, has history of subdural hematoma Full Code Disposition pending resides in a [facility] Current Inpatient Medications: Current Inpatient Medications Medications (Trade) Dose Ordered Sig/Kimberlyn Route Start Time Stop Time Status Last Admin Dose Admin Aztreonam (Consult) 1 ea DAILY PRN N/A 12/12/17 04:57 01/11/18 04:56 Acetaminophen (Tylenol Tab) 650 mg Q4H PRN PO 12/12/17 04:45 01/11/18 04:44 Ondansetron HCl (Zofran Inj) 4 mg Q6H PRN IV 12/12/17 04:45 01/11/18 04:44 Polyethylene (Miralax Powder Packet) 17 gm DAILY PRN PO 12/12/17 04:45 01/11/18 04:44 Miscellaneous Information (Consult) 1 ea UD PRN N/A 12/12/17 04:45 01/11/18 04:44 Aspirin (Ecotrin Tab) 81 mg DAILY PO 12/12/17 09:00 01/11/18 08:59 12/12/17 08:34 81 MG Atorvastatin Calcium (Lipitor Tab) 20 mg DAILY PO 12/12/17 09:00 01/11/18 08:59 12/12/17 08:34 20 MG Cholecalciferol (Vitamin D Tab) 2,000 inter.unit DAILY PO 12/12/17 09:00 01/11/18 08:59 12/12/17 08:37 2,000 INTER.UNIT Metoclopramide HCl (Reglan Tab) 2.5 mg TID PO 12/12/17 09:00 01/11/18 08:59 12/12/17 08:36 2.5 MG Metoprolol Tartrate (Lopressor Tab) 12.5 mg BID PO 12/12/17 09:00 01/11/18 08:59 12/12/17 08:35 12.5 MG Multivitamins/ Minerals (Multivitamin W/ Minerals Tab) 1 tab QD PO 12/12/17 05:15 01/11/18 05:14 12/12/17 08:45 1 TAB Oseltamivir Phosphate (Tamiflu Cap) 75 mg AMHS PO 12/12/17 09:00 12/17/17 08:59 12/12/17 08:36 75 MG Cholestyramine Resin (Questran Powder Light) 4 gm BID@1000,2200 PO 12/12/17 10:00 01/11/18 09:59 12/12/17 09:13 4 GM Sodium Chloride 1,000 ml @ 80 mls/hr [id number] IV 12/12/17 06:30 12/13/17 06:29 12/12/17 07:09 80 MLS/HR Potassium Chloride 10 meq/ Prmx 100 ml @ 100 mls/hr Q1H IV 12/12/17 06:45 12/12/17 10:44 12/12/17 09:13 100 MLS/HR
[2017-12-12 11:36] VITALS: BP 118/76; PULSE 72; TEMP 36.4; O2SAT 94
[2017-12-12] MEDS: VANCOMYCIN INJ 1,000 MG in SODIUM CHLORIDE 0.9% 250ML 250 ML IV SCH ×2 (11:50→23:39)
--- NOTE | 2017-12-12 15:26 | Pharmacy Progress Note ---
Pharmacy Antibiotic Consult Date of Service: Dec 12, 2017. Pharmacy Dosing Scope Pharmacy is consulted to initiate Vancomycin and Azactam IV dosing therapy, order appropriate labs and adjust drug dose/frequency. Subjective The patient is a 67 year old female admitted on Dec 12, 2017 at 04:47. Objective Height (Feet): 5 Height (Inches): 7.00 Weight (Kilograms): 63.200 Lab Results (24hrs): Test 12/12/17 01:10 12/12/17 01:18 12/12/17 01:21 12/12/17 05:02 Urine Color YELLOW Urine Appearance CLEAR (CLEAR) Urine pH 5.5 (4.5-7.5) Urine Specific [place] 1.022 (1.000-1.030) Urine Protein 2+ (NEG) Urine Glucose (UA) NEG (NEG) Urine Ketones 1+ (NEG) Urine Occult Blood 3+ (NEG) Urine Nitrite NEG (NEG) Urine Bilirubin NEG (NEG) Urine Urobilinogen NEG (NEG) Urine Leukocyte Esterase TRACE (NEG) Urine WBC (Auto) 5-10 /hpf (0-5) Urine RBC (Auto) 10-30 /hpf (0-4) Urine Hyaline Casts (Auto) 1-5 /lpf (0-5) Urine Epithelial Cells (Auto) 20-30 /lpf (0-5) Urine Bacteria (Auto) 1+ (NEG) White Blood Count 17.56 K/uL (4.8-10.8) Red Blood Count 4.47 M/uL (4.2-5.4) Hemoglobin 13.6 g/dL (12.0-16.0) Hematocrit 39.6 % (37-47) Mean Corpuscular Volume 88.6 fL (80-100) Mean Corpuscular Hemoglobin 30.4 pg (25-34) Mean Corpuscular Hemoglobin Concent 34.3 g/dl (32-36) Platelet Count 330 K/uL (130-400) Mean Platelet Volume 9.6 fL (7.4-10.4) Neutrophils (%) (Auto) 90.5 % Lymphocytes (%) (Auto) 6.2 % Monocytes (%) (Auto) 3.0 % Eosinophils (%) (Auto) 0.0 % Basophils (%) (Auto) 0.1 % Neutrophils # (Auto) 15.90 K/uL (1.4-6.5) Lymphocytes # (Auto) 1.09 K/uL (1.2-3.4) Monocytes # (Auto) 0.52 K/uL (0.11-0.59) Eosinophils # (Auto) 0.00 K/uL (0-0.5) Basophils # (Auto) 0.01 K/uL (0-0.2) RDW Standard Deviation 44.9 fL (36.4-46.3) RDW Coefficient of Variation 13.8 % (11.5-14.5) Immature Granulocyte % (Auto) 0.2 % Immature Granulocyte # (Auto) 0.04 K/uL (0.00-0.02) Prothrombin Time 10.5 SECONDS (9.0-12.0) Prothromb Time International Ratio 1.0 (0.9-1.1) Sodium Level 132 mmol/L (136-145) 138 mmol/L (136-145) Chloride Level 96 mmol/L (98-107) 109 mmol/L (98-107) Carbon Dioxide Level 25 mmol/L (21-32) 20 mmol/L (21-32) Anion Gap 11.0 mmol/L (3-11) 9.0 mmol/L (3-11) Blood Urea Nitrogen 13 mg/dl (7-18) 11 mg/dl (7-18) Creatinine 0.88 mg/dl (0.60-1.20) 0.59 mg/dl (0.60-1.20) Estimated GFR () 79.9 111.5 Estimated GFR (Non- 68.9 96.2 BUN/Creatinine Ratio 14.7 (10-20) 18.9 (10-20) Random Glucose 115 mg/dl (70-99) 122 mg/dl (70-99) Calcium Level 9.3 mg/dl (8.5-10.1) 7.6 mg/dl (8.5-10.1) Magnesium Level 2.3 mg/dl (1.8-2.4) Total Bilirubin 1.0 mg/dl (0.2-1) Aspartate Amino Transf (AST/SGOT) 66 U/L (15-37) Alanine Aminotransferase (ALT/SGPT) 34 U/L (12-78) Alkaline Phosphatase 87 U/L (45-117) Troponin I < 0.015 ng/ml (0-0.045) Pro-B-Type Natriuretic Peptide 294 pg/ml (0-900) Total Protein 8.5 gm/dl (6.4-8.2) Albumin 3.4 gm/dl (3.4-5.0) Globulin 5.1 gm/dl (2.5-4.0) Albumin/Globulin Ratio 0.7 (0.9-2) Lipase 153 U/L (73-393) Bedside Lactic Acid Venous 1.89 mmol/L (0.90-1.70) Potassium Level 3.1 mmol/L (3.5-5.1) Lactic Acid Level 0.9 mmol/L (0.4-2.0) Test 12/12/17 12:53 12/12/17 13:10 Lactic Acid Level 1.4 mmol/L (0.4-2.0) Potassium Level 3.6 mmol/L (3.5-5.1) Assessment & Plan Assessment 67 year old female with recent UTI, cultures from 12/06 positive for E faecalis. Pt has PCN allergy and was treated with Nitrofurantoin. Vancomycin and Aztreonam initiated today for UTI/ possible pneumonia. * Blood and urine cultures pending. * MRSA nasal swab ordered * Renal function at baseline. Plan Vancomycin * Loading dose: 1000 mg (18mg/kg) in ER * Maintenance dose of 1000mg IV q 12 hours * Trough level ordered 12/13 @1130. * This is prior to steady state. * Goal trough for pneumonia/UTI: 15-20 mcg/mL Aztreonam * 2 gm x 1 * then 1 gm q 12 hours. Pharmacy will continue to follow and will adjust dose/frequency as necessary. Thank you
[2017-12-12 16:00] VITALS: BP 138/88; PULSE 86; TEMP 36.9; O2SAT 92
--- NOTE | 2017-12-12 16:30 | Medical Consult ---
Consultation Date of Consultation: Dec 12, 2017. Attending Physician: Douglas Duran MD Reason for Consultation: Sepsis, urinary tract infection, pneumonia History of Present Illness History obtained from medical records and medical staff as patient unable to provide adequate medical history. 67-year-old female with history of hypertension, prior CVA, resident of a assisted facility, who was in usual state of health until approximately 1 week prior to admission when she developed fever, cough, and weakness, diagnosed with acute influenza a, treated with Tamiflu. Patient apparently was found to have evidence of urinary tract infection with positive urine culture for Enterococcus. Initially treated with Bactrim, recently changed to Macrodantin. Over the last 1-2 days, patient has had worsening mental status with confusion and increasing weakness, no report of fever. Symptoms worsened and patient was brought to the hospital where found to have evidence of possible sepsis with abnormal urinalysis, chest x-ray showing possibility of pneumonia. Patient has been started on IV vancomycin and aztreonam. Cultures are pending so far. Has been afebrile in the hospital. Past Medical/Surgical History Medical Problems: (1) Acute CVA (cerebrovascular accident) Status: Acute (2) Altered mental state Status: Acute (3) Fall Status: Acute (4) Pneumonia Status: Acute (5) Pneumonia Status: Acute (6) Sepsis Status: Acute (7) Sepsis Status: Acute (8) Slurred speech Status: Acute (9) Stroke Status: Acute (10) UTI (urinary tract infection) Status: Acute (11) UTI (urinary tract infection) Status: Acute Medical Problems: (1) Acute respiratory failure with hypoxia (2) Basal pneumonia of both lungs (3) Breast cancer (4) CVA (cerebral vascular accident) (5) CVA, s/p TPA (6) Hypertension (7) Leukemia (8) possible tia Surgical Problems: (1) History of breast reconstruction Family History Cancer Social History Smoking Status: Never Smoker Alcohol Use: none Drug Use: none Marital Status: Housing Status: other Occupation Status: other Allergies Coded Allergies: POLLEN (Verified Allergy, Unknown, RUNNY NOSE/SNEEZING, 12/12/17) Penicillins (Verified Allergy, Unknown, RASH, 12/12/17) Current Inpatient Medications Current Inpatient Medications Medications (Trade) Dose Ordered Sig/Kimberlyn Route Start Time Stop Time Status Last Admin Dose Admin Aztreonam (Consult) 1 ea DAILY PRN N/A 12/12/17 04:57 01/11/18 04:56 Acetaminophen (Tylenol Tab) 650 mg Q4H PRN PO 12/12/17 04:45 01/11/18 04:44 Ondansetron HCl (Zofran Inj) 4 mg Q6H PRN IV 12/12/17 04:45 01/11/18 04:44 Polyethylene (Miralax Powder Packet) 17 gm DAILY PRN PO 12/12/17 04:45 01/11/18 04:44 Miscellaneous Information (Consult) 1 ea UD PRN N/A 12/12/17 04:45 01/11/18 04:44 Aspirin (Ecotrin Tab) 81 mg DAILY PO 12/12/17 09:00 01/11/18 08:59 12/12/17 08:34 81 MG Atorvastatin Calcium (Lipitor Tab) 20 mg DAILY PO 12/12/17 09:00 01/11/18 08:59 12/12/17 08:34 20 MG Cholecalciferol (Vitamin D Tab) 2,000 inter.unit DAILY PO 12/12/17 09:00 01/11/18 08:59 12/12/17 08:37 2,000 INTER.UNIT Metoclopramide HCl (Reglan Tab) 2.5 mg TID PO 12/12/17 09:00 01/11/18 08:59 12/12/17 15:18 2.5 MG Metoprolol Tartrate (Lopressor Tab) 12.5 mg BID PO 12/12/17 09:00 01/11/18 08:59 12/12/17 08:35 12.5 MG Multivitamins/ Minerals (Multivitamin W/ Minerals Tab) 1 tab QD PO 12/12/17 05:15 01/11/18 05:14 12/12/17 08:45 1 TAB Oseltamivir Phosphate (Tamiflu Cap) 75 mg AMHS PO 12/12/17 09:00 12/17/17 08:59 12/12/17 08:36 75 MG Cholestyramine Resin (Questran Powder Light) 4 gm BID@1000,2200 PO 12/12/17 10:00 01/11/18 09:59 12/12/17 09:13 4 GM Sodium Chloride 1,000 ml @ 80 mls/hr [id number] IV 12/12/17 06:30 12/13/17 06:29 12/12/17 07:09 80 MLS/HR Vancomycin HCl 1000 mg/Sodium Chloride 270 ml @ 125 mls/hr Q12H IV 12/12/17 12:00 12/22/17 11:59 12/12/17 11:50 125 MLS/HR Aztreonam 1000 mg/ Dextrose 110 ml @ 110 mls/hr Q12H IV 12/12/17 18:00 12/26/17 06:59 Review of Systems Not obtainable because of patient's mental status Physical Exam Date Time Temp Pulse Resp B/P (MAP) Pulse Ox O2 Delivery O2 Flow Rate FiO2 12/12/17 16:00 36.9 86 16 138/88 (105) 92 Room Air 12/12/17 12:00 Room Air 12/12/17 11:36 36.4 72 18 118/76 (90) 94 12/12/17 08:00 Room Air 12/12/17 07:42 37.0 75 18 123/76 (92) 99 12/12/17 05:30 36.9 84 20 108/68 93 Nasal Cannula 4.0 12/12/17 05:07 84 12/12/17 05:00 36.8 12/12/17 04:42 88 20 127/85 92 Nasal Cannula 2.0 12/12/17 03:34 87 18 113/76 95 12/12/17 03:00 85 18 117/78 96 Nasal Cannula 2.0 12/12/17 02:31 91/66 12/12/17 02:30 100 21 94 Nasal Cannula 5.0 12/12/17 02:20 136/86 12/12/17 02:01 152/91 12/12/17 02:00 102 20 97 Nasal Cannula 4.0 12/12/17 01:31 126/85 12/12/17 01:31 38.1 109 18 126/85 93 Room Air 12/12/17 01:30 105 21 93 Nasal Cannula 4.0 12/12/17 01:12 112 General Appearance: WD/WN, no apparent distress, + thin Head: normocephalic, atraumatic Eyes: normal inspection, EOMI, sclerae normal ENT: normal ENT inspection, pharynx normal Neck: supple, no adenopathy, thyroid normal, trachea midline Respiratory/Chest: chest non-tender, no respiratory distress, no accessory muscle use, + rhonchi Cardiovascular: regular rate, rhythm, no gallop, no murmur Abdomen/GI: normal bowel sounds, non tender, soft, no organomegaly Back: normal inspection, no CVA tenderness Extremities/Musculoskelatal: no calf tenderness, no pedal edema, non-tender Neurologic/Psych: alert, + aphasia, + disoriented, + pertinent finding (Right luiz paresis) Skin: normal color, warm/dry, no rash Lymphatic: no adenopathy Laboratory Results Date/Time Source Procedure Growth Status 12/12/17 02:04 Blood Blood Culture Pending Received 12/12/17 01:18 Blood Blood Culture Pending Received 12/12/17 01:10 Urine,Catheterized Urine Culture Pending Received Last 24 Hours Test 12/12/17 01:10 12/12/17 01:18 12/12/17 01:21 12/12/17 05:02 Urine Color YELLOW Urine Appearance CLEAR Urine pH 5.5 Urine Specific [place] 1.022 Urine Protein 2+ Urine Glucose (UA) NEG Urine Ketones 1+ Urine Occult Blood 3+ Urine Nitrite NEG Urine Bilirubin NEG Urine Urobilinogen NEG Urine Leukocyte Esterase TRACE Urine WBC (Auto) 5-10 /hpf Urine RBC (Auto) 10-30 /hpf Urine Hyaline Casts (Auto) 1-5 /lpf Urine Epithelial Cells (Auto) 20-30 /lpf Urine Bacteria (Auto) 1+ White Blood Count 17.56 K/uL Red Blood Count 4.47 M/uL Hemoglobin 13.6 g/dL Hematocrit 39.6 % Mean Corpuscular Volume 88.6 fL Mean Corpuscular Hemoglobin 30.4 pg Mean Corpuscular Hemoglobin Concent 34.3 g/dl Platelet Count 330 K/uL Mean Platelet Volume 9.6 fL Neutrophils (%) (Auto) 90.5 % Lymphocytes (%) (Auto) 6.2 % Monocytes (%) (Auto) 3.0 % Eosinophils (%) (Auto) 0.0 % Basophils (%) (Auto) 0.1 % Neutrophils # (Auto) 15.90 K/uL Lymphocytes # (Auto) 1.09 K/uL Monocytes # (Auto) 0.52 K/uL Eosinophils # (Auto) 0.00 K/uL Basophils # (Auto) 0.01 K/uL RDW Standard Deviation 44.9 fL RDW Coefficient of Variation 13.8 % Immature Granulocyte % (Auto) 0.2 % Immature Granulocyte # (Auto) 0.04 K/uL Prothrombin Time 10.5 SECONDS Prothromb Time International Ratio 1.0 Sodium Level 132 mmol/L 138 mmol/L Potassium Level 3.9 mmol/L 3.1 mmol/L Chloride Level 96 mmol/L 109 mmol/L Carbon Dioxide Level 25 mmol/L 20 mmol/L Anion Gap 11.0 mmol/L 9.0 mmol/L Blood Urea Nitrogen 13 mg/dl 11 mg/dl Creatinine 0.88 mg/dl 0.59 mg/dl Estimated GFR () 79.9 111.5 Estimated GFR (Non- 68.9 96.2 BUN/Creatinine Ratio 14.7 18.9 Random Glucose 115 mg/dl 122 mg/dl Calcium Level 9.3 mg/dl 7.6 mg/dl Magnesium Level 2.3 mg/dl Total Bilirubin 1.0 mg/dl Aspartate Amino Transf (AST/SGOT) 66 U/L Alanine Aminotransferase (ALT/SGPT) 34 U/L Alkaline Phosphatase 87 U/L Troponin I < 0.015 ng/ml Pro-B-Type Natriuretic Peptide 294 pg/ml Total Protein 8.5 gm/dl Albumin 3.4 gm/dl Globulin 5.1 gm/dl Albumin/Globulin Ratio 0.7 Lipase 153 U/L Bedside Lactic Acid Venous 1.89 mmol/L Lactic Acid Level 0.9 mmol/L Test 12/12/17 12:53 12/12/17 13:10 Lactic Acid Level 1.4 mmol/L Potassium Level 3.6 mmol/L Patient Name: MANI RINALDI Unit Number: [id number] Dictated: 12/12/17656 Transcribed: 12/12/17656 ARG Printed Date/Time: [~ rep prt dt]/[~ rep prt tm] [~ rep ct labl] - [~ rep ct ivnm] [facility] [place] [address] Dictated: 12/12/17656 Transcribed: 12/12/17656 ARG Printed Date/Time: [~ rep prt dt]/[~ rep prt tm] [~ rep ct labl] - [~ rep ct ivnm] [facility] PORT[facility] CLINICAL HISTORY: fever, hypoxia COMPARISON STUDY: December 06, 2017 FINDINGS: The patient is rotated. The heart is normal in size. There are bilateral infrahilar airspace opacities. There are no pleural effusions.[ IMPRESSION: Technically limited study. Bilateral infrahilar airspace opacities which could represent a pneumonia given the clinical history. A PA and lateral study is recommended when the patient is clinically able. Electronically signed by: Julien Conrad M.D. 12/12/2017 6:58 AM Dictated Date/Time: 12/12/2017 6:57 AM The status of this report is Signed. Draft = Not yet reviewed or approved by Radiologist. Signed = Reviewed and approved by Radiologist. <AttendingPhy>Douglas Duran MD</AttendingPhy> <FamilyPhy>Chanel Pressley D.O.</FamilyPhy> <PrimaryPhy>Caro Ramirez M.D.</PrimaryPhy> < UnitNumber>[id number]</UnitNumber> <VisitNumber>[id number]</VisitNumber> < PatientName>GABRIELE RINALDIJAVID Burkett</PatientName> <DateOfBirth>1950</DateOfBirth > <Location>C[facility]</Location> <ServiceDate>12/12/17</ServiceDate> <MNE>ESINDI</MNE > <OrderingPhy>Melanie Hammond DO</OrderingPhy> <OrderingPhyMNE>f rep ord dr guillaume</OrderingPhyMNE> <DictatingPhyMNE>f rep dict dr guillaume</DictatingPhyMNE> < CCListMNE>f rep ct mne</CCListMNE> <AdmittingPhyMNE>f pt admit dr guillaume</ AdmittingPhyMNE> <AttendingPhyMNE>f pt attend dr guillaume</AttendingPhyMNE> <ConsultingPhyMNE>f pt consult dr guillaume</ConsultingPhyMNE> <FamilyPhyMNE>f pt fam dr guillaume</FamilyPhyMNE> <OtherPhyMNE>f pt other dr guillaume</OtherPhyMNE> < PrimaryPhyMNE>f pt prim care dr guillaume</PrimaryPhyMNE> <ReferringPhyMNE>f pt referring dr guillaume</ReferringPhyMNE> Assessment & Plan 67-year-old skilled nursing resident with evidence of clinical sepsis, with recently diagnosed influenza a infection treated with Tamiflu, with Enterococcus urinary tract infection as well as possible pneumonia. Current antibiotic regimen of vancomycin and aztreonam should provide adequate coverage pending further culture results. Will check procalcitonin level to help with diagnosis of pneumonia. Will follow.
[2017-12-12 16:52] VITALS: Ht 170.2 cm; Wt 52.0 kg
[2017-12-12] MEDS: AZTREONAM IV 1,000 MG in DEXTROSE 5% 100ML IV SCH (16:55)
[2017-12-12 19:36] VITALS: BP 121/78; PULSE 86; TEMP 37.3; O2SAT 91
[2017-12-12 23:32] VITALS: BP 149/92; PULSE 84; TEMP 37.5; O2SAT 91
[2017-12-13 03:51] VITALS: BP 135/83; PULSE 81; TEMP 37.8; O2SAT 92
[2017-12-13] MEDS: CEROVITE ADV FORMULA TAB PO SCH (05:28)
[2017-12-13] MEDS: AZTREONAM IV 1,000 MG in DEXTROSE 5% 100ML IV SCH ×2 (05:59→18:10)
[2017-12-13 07:02] LABS: HEMATOCRIT 33.6 % (37-47); MEAN CELL VOLUME 88.9 fL (80-100); MEAN CORPUSCULAR HEMOGLOBIN 29.1 pg (25-34); MEAN CORPUSCULAR HGB CONC 32.7 g/dl (32-36); MEAN PLATELET VOLUME 9.7 fL (7.4-10.4); PLATELET COUNT 325 K/uL (130-400); RED CELL DISTRIBUTION WIDTH CV 13.5 % (11.5-14.5); RED CELL DISTRIBUTION WIDTH SD 43.9 fL (36.4-46.3); WHITE BLOOD COUNT 12.35 K/uL (4.8-10.8)
[2017-12-13 07:38] LABS: ALBUMIN 2.6 gm/dl (3.4-5.0); CALCIUM 8.4 mg/dl (8.5-10.1); CREATININE 0.57 mg/dl (0.60-1.20); POTASSIUM 2.9 mmol/L (3.5-5.1)
[2017-12-13 07:42] LABS: TOTAL PROTEIN 6.9 gm/dl (6.4-8.2)
[2017-12-13 07:47] VITALS: BP 135/85; PULSE 101; TEMP 38.5; O2SAT 94
[2017-12-13] MEDS: OSELTAMIVIR PHOSPHATE 75 MG CAP PO SCH ×2 (08:01→21:40)
[2017-12-13] MEDS: ASPIRIN 81 MG ECTAB PO SCH (08:01)
[2017-12-13] MEDS: ATORVASTATIN 20 MG TAB PO SCH (08:01)
[2017-12-13] MEDS: METOCLOPRAMIDE HCL 10 MG TAB PO SCH ×3 (08:01→21:39)
[2017-12-13] MEDS: CHOLECALCIFEROL 1000 INTER.UNIT TAB PO SCH (08:01)
[2017-12-13] MEDS: METOPROLOL TARTRATE 25 MG TAB PO SCH ×2 (08:01→21:40)
[2017-12-13] MEDS: CHOLESTYRAMINE LIGHT 4 GM PKT PO SCH ×2 (09:26→21:40)
[2017-12-13] MEDS ORDERED: VANCOMYCIN TROUGH ONE (11:30)
[2017-12-13] MEDS ORDERED: POTASSIUM CHLORIDE 10 MEQ TABCR PO ONE (12:00)
[2017-12-13 12:02] VITALS: BP 117/77; PULSE 76; TEMP 36.5; O2SAT 95
[2017-12-13] MEDS: VANCOMYCIN INJ 1,000 MG in SODIUM CHLORIDE 0.9% 250ML 250 ML IV SCH ×2 (12:19→21:40)
--- NOTE | 2017-12-13 14:18 | Pharmacy Progress Note ---
Pharmacy Abx Dose Short Note Date of Service Dec 13, 2017. Assessment & Plan Assessment 67 year old female receiving vancomycin for treatment of sepsis/aspiration pnx/ UTI. Day # 11/27 of antimicrobial therapy. Plan Vancomycin * Trough level of 14.3 mcg/mL is subtherapeutic for lung penetration. * Change to 1000 mg IV every 10 hours * Goal trough level for pnx: 15 to 20 mcg/mL * Trough or random level ordered for: 12/14 prior to 1800 dose. Pharmacy will continue to follow and will adjust dose/frequency as necessary. Thank you.
[2017-12-13 20:00] VITALS: BP 150/84; PULSE 78; TEMP 37.2; O2SAT 93
--- NOTE | 2017-12-13 20:22 | Progress Note ---
Progress Note Date of Service Dec 13, 2017. Progress Note delayed entry date of service 12/12/17 seen at bedside, awake, alert but not oriented unable to do complete ROS as patient somewhat confused states breathing is not ok, but was not in distress at all denies chest pain, abdominal pain, nausea vomiting VS noted and reviewed oriented x 1, not in distress, speaks in sentences with no effort nor accessory muscle use normal rate, regular rhythm, no murmurs clear breath sounds bilaterally non distended, soft, nontender no bipedal edema, erythema, warmth (+) right sided weakness labs noted ASSESSMENT/PLAN> SEPSIS, FROM INFLUENZA, ASPIRATION PNA, UTI - ff up cultures - Flagyl ordered - ID consulted called patient's daughter, given her an update she is agreeable and comfortable with plan of care Douglas Duran MD
--- NOTE | 2017-12-13 20:53 | Infectious Disease Progress Nt ---
Progress Note Date of Service Dec 13, 2017. Subjective Pt evaluation today including: conversation w/ patient, physical exam, chart review, lab review, review of studies, conversation w/ networks software consultant, review of inpatient medication list Patient appears comfortable, had fever earlier this morning common currently afebrile. Hemodynamically stable. Blood culture growing Staph species, urine with Enterococcus. All Other Systems: Reviewed and Negative Medications Current Inpatient Medications Medications (Trade) Dose Ordered Sig/Kimberlyn Route Start Time Stop Time Status Last Admin Dose Admin Aztreonam (Consult) 1 ea DAILY PRN N/A 12/12/17 04:57 01/11/18 04:56 Acetaminophen (Tylenol Tab) 650 mg Q4H PRN PO 12/12/17 04:45 01/11/18 04:44 Ondansetron HCl (Zofran Inj) 4 mg Q6H PRN IV 12/12/17 04:45 01/11/18 04:44 Polyethylene (Miralax Powder Packet) 17 gm DAILY PRN PO 12/12/17 04:45 01/11/18 04:44 Miscellaneous Information (Consult) 1 ea UD PRN N/A 12/12/17 04:45 01/11/18 04:44 Aspirin (Ecotrin Tab) 81 mg DAILY PO 12/12/17 09:00 01/11/18 08:59 12/13/17 08:01 81 MG Atorvastatin Calcium (Lipitor Tab) 20 mg DAILY PO 12/12/17 09:00 01/11/18 08:59 12/13/17 08:01 20 MG Cholecalciferol (Vitamin D Tab) 2,000 inter.unit DAILY PO 12/12/17 09:00 01/11/18 08:59 12/13/17 08:01 2,000 INTER.UNIT Metoclopramide HCl (Reglan Tab) 2.5 mg TID PO 12/12/17 09:00 01/11/18 08:59 12/13/17 14:00 2.5 MG Metoprolol Tartrate (Lopressor Tab) 12.5 mg BID PO 12/12/17 09:00 01/11/18 08:59 12/13/17 08:01 12.5 MG Multivitamins/ Minerals (Multivitamin W/ Minerals Tab) 1 tab QD PO 12/12/17 05:15 01/11/18 05:14 12/13/17 05:28 1 TAB Oseltamivir Phosphate (Tamiflu Cap) 75 mg AMHS PO 12/12/17 09:00 12/17/17 08:59 12/13/17 08:01 75 MG Cholestyramine Resin (Questran Powder Light) 4 gm BID@1000,2200 PO 12/12/17 10:00 01/11/18 09:59 12/13/17 09:26 4 GM Aztreonam 1000 mg/ Dextrose 110 ml @ 110 mls/hr Q12H IV 12/12/17 18:00 12/26/17 06:59 12/13/17 18:10 110 MLS/HR Vancomycin HCl 1000 mg/Sodium Chloride 270 ml @ 125 mls/hr Q10H IV 12/13/17 22:00 12/22/17 11:59 Objective Vital Signs Date Time Temp Pulse Resp B/P (MAP) Pulse Ox O2 Delivery O2 Flow Rate FiO2 12/13/17 20:00 37.2 78 16 150/84 (106) 93 Room Air 12/13/17 16:00 Room Air 12/13/17 12:02 36.5 76 16 117/77 (90) 95 Nasal Cannula 2.0 12/13/17 12:00 Room Air 12/13/17 08:00 Room Air 12/13/17 07:47 38.5 101 16 135/85 (102) 94 Nasal Cannula 2.0 12/13/17 04:00 Room Air 12/13/17 03:51 37.8 81 16 135/83 (100) 92 Nasal Cannula 2.0 12/13/17 00:00 Room Air 12/12/17 23:32 37.5 84 14 149/92 (111) 91 Nasal Cannula 2.0 Physical Exam General Appearance: WD/WN, no apparent distress Eyes: normal inspection, EOMI, sclerae normal ENT: normal ENT inspection, pharynx normal Neck: supple, no adenopathy, thyroid normal, trachea midline Respiratory/Chest: chest non-tender, no respiratory distress, no accessory muscle use, + rhonchi Cardiovascular: regular rate, rhythm, no gallop, no murmur Abdomen: normal bowel sounds, non tender, soft, no organomegaly Extremities: non-tender, no calf tenderness Neurologic/Psychiatric: alert, + disoriented Skin: normal color, warm/dry, no rash Lymphatic: no adenopathy Laboratory Results RUN DATE: 12/13/17 [facility] LAB PAGE 1 RUN TIME: 1551 Specimen Inquiry PATIENT: MANI RINALDI Madelaine LOC: Bob U # : [id number] AGE/SX: 67/F ROOM: [place] REG : 12/12/[address]: Douglas Duran MD : 1950 BED: 1 DIS : STATUS: ADM IN TLOC: SPEC #: [id number] ANDI: 12/12/17 STATUS: RES REQ #: [id number] RECD: 12/12/17-[address]: Melanie Hammond DO SOURCE: BLOOD ENTR: 12/12/17-[address] [facility] DR: Caro Ramirez M.D. [facility]: ORDERED: BLOOD CULTURE Procedure Result Verified Site BLD CULT Preliminary 12/13/17-1558 Organism 1 STAPH SPECIES SENS SENSITIVITIES DEPENDENT ON FURTHER IDENTIFICATION Phoned Positive Blood Culture Gram Stain Report to MAREN POLLACK on 12/12/17 At 2239 By VANDANA. Results were verbalized back to VANDANA. Last 24 Hours Test 12/13/17 06:16 12/13/17 11:47 12/13/17 20:34 White Blood Count 12.35 K/uL Red Blood Count 3.78 M/uL Hemoglobin 11.0 g/dL Hematocrit 33.6 % Mean Corpuscular Volume 88.9 fL Mean Corpuscular Hemoglobin 29.1 pg Mean Corpuscular Hemoglobin Concent 32.7 g/dl RDW Standard Deviation 43.9 fL RDW Coefficient of Variation 13.5 % Platelet Count 325 K/uL Mean Platelet Volume 9.7 fL Sodium Level 137 mmol/L Potassium Level 2.9 mmol/L Chloride Level 103 mmol/L Carbon Dioxide Level 24 mmol/L Anion Gap 10.0 mmol/L Blood Urea Nitrogen 7 mg/dl Creatinine 0.57 mg/dl Est Creatinine Clear Calc Drug Dose 82.0 ml/min Estimated GFR () 112.7 Estimated GFR (Non- 97.3 BUN/Creatinine Ratio 11.8 Random Glucose 81 mg/dl Calcium Level 8.4 mg/dl Magnesium Level 1.8 mg/dl Total Bilirubin 0.8 mg/dl Aspartate Amino Transf (AST/SGOT) 40 U/L Alanine Aminotransferase (ALT/SGPT) 24 U/L Alkaline Phosphatase 69 U/L Total Protein 6.9 gm/dl Albumin 2.6 gm/dl Globulin 4.3 gm/dl Albumin/Globulin Ratio 0.6 Vancomycin Level Trough 14.3 mcg/ml Assessment and Plan 67-year-old [facility] resident with evidence of clinical sepsis, with recently diagnosed influenza a infection treated with Tamiflu, with Enterococcus urinary tract infection as well as possible pneumonia. Now with positive blood culture for Staph, significance unclear. Would continue on current treatment with vancomycin for now, and would suggest obtaining additional blood cultures to ensure clearance of potential bacteremia. Will follow.
[2017-12-13] MEDS ORDERED: POTASSIUM CHLORIDE 10 MEQ TABCR PO STA (23:26)
[2017-12-13] MEDS ORDERED: POTASSIUM CHLORIDE 20MEQ/15ML 473ML PO STA (23:51)
[2017-12-13 23:52] VITALS: BP 139/83; PULSE 81; TEMP 36.9; O2SAT 93
[2017-12-14 03:19] VITALS: BP 150/90; PULSE 92; TEMP 37.1; O2SAT 92
[2017-12-14] MEDS: CEROVITE ADV FORMULA TAB PO SCH ×2 (05:30→08:06)
[2017-12-14] MEDS: AZTREONAM IV 1,000 MG in DEXTROSE 5% 100ML IV SCH (05:30)
[2017-12-14 06:43] LABS: HEMATOCRIT 29.3 % (37-47); HEMOGLOBIN 10.2 g/dL (12.0-16.0); MEAN CELL VOLUME 86.4 fL (80-100); MEAN CORPUSCULAR HEMOGLOBIN 30.1 pg (25-34); MEAN CORPUSCULAR HGB CONC 34.8 g/dl (32-36); MEAN PLATELET VOLUME 9.2 fL (7.4-10.4); PLATELET COUNT 297 K/uL (130-400); RED CELL DISTRIBUTION WIDTH CV 13.3 % (11.5-14.5); RED CELL DISTRIBUTION WIDTH SD 42.5 fL (36.4-46.3); WHITE BLOOD COUNT 8.84 K/uL (4.8-10.8)
[2017-12-14 07:20] LABS: ALBUMIN 2.3 gm/dl (3.4-5.0); CALCIUM 8.4 mg/dl (8.5-10.1); CREATININE 0.49 mg/dl (0.60-1.20); POTASSIUM 3.2 mmol/L (3.5-5.1)
[2017-12-14 07:23] LABS: TOTAL PROTEIN 6.4 gm/dl (6.4-8.2)
[2017-12-14 07:38] VITALS: BP 155/92; PULSE 75; TEMP 37; O2SAT 91
[2017-12-14] MEDS: VANCOMYCIN INJ 1,000 MG in SODIUM CHLORIDE 0.9% 250ML 250 ML IV SCH ×2 (07:58→18:07)
[2017-12-14] MEDS: ASPIRIN 81 MG ECTAB PO SCH (08:06)
[2017-12-14] MEDS: CHOLECALCIFEROL 1000 INTER.UNIT TAB PO SCH (08:06)
[2017-12-14] MEDS: METOCLOPRAMIDE HCL 10 MG TAB PO SCH ×3 (08:06→20:56)
[2017-12-14] MEDS: ATORVASTATIN 20 MG TAB PO SCH (08:06)
[2017-12-14] MEDS: OSELTAMIVIR PHOSPHATE 75 MG CAP PO SCH ×2 (08:06→20:54)
[2017-12-14] MEDS: METOPROLOL TARTRATE 25 MG TAB PO SCH ×2 (08:07→20:57)
[2017-12-14] MEDS: CHOLESTYRAMINE LIGHT 4 GM PKT PO SCH ×2 (10:26→20:59)
[2017-12-14 11:37] VITALS: BP 148/69; PULSE 76; TEMP 36.8; O2SAT 96
[2017-12-14] MEDS ORDERED: MAGNESIUM SULFATE 1GM / D5W 1 GM in PREMIXED IN D5W 100 ML IV ONE (12:30)
--- NOTE | 2017-12-14 12:30 | Progress Note ---
Subjective Date of Service: Dec 14, 2017. Subjective Pt evaluation today including: conversation w/ patient, physical exam, lab review, review of studies, review of inpatient medication list Saw/examined the patient in room 234 Denies any symptoms Somewhat altered, unsure if this is a chronic issue; hx. of CVA and subdural hematoma noted only eating a portion of her food Problem List Medical Problems: (1) Acute CVA (cerebrovascular accident) Status: Acute (2) Altered mental state Status: Acute (3) Fall Status: Acute (4) Pneumonia Status: Acute (5) Pneumonia Status: Acute (6) Sepsis Status: Acute (7) Sepsis Status: Acute (8) Slurred speech Status: Acute (9) Stroke Status: Acute (10) UTI (urinary tract infection) Status: Acute (11) UTI (urinary tract infection) Status: Acute Medications Current Inpatient Medications Medications (Trade) Dose Ordered Sig/Kimberlyn Route Start Time Stop Time Status Last Admin Dose Admin Aztreonam (Consult) 1 ea DAILY PRN N/A 12/12/17 04:57 01/11/18 04:56 Acetaminophen (Tylenol Tab) 650 mg Q4H PRN PO 12/12/17 04:45 01/11/18 04:44 Ondansetron HCl (Zofran Inj) 4 mg Q6H PRN IV 12/12/17 04:45 01/11/18 04:44 Polyethylene (Miralax Powder Packet) 17 gm DAILY PRN PO 12/12/17 04:45 01/11/18 04:44 Miscellaneous Information (Consult) 1 ea UD PRN N/A 12/12/17 04:45 01/11/18 04:44 Aspirin (Ecotrin Tab) 81 mg DAILY PO 12/12/17 09:00 01/11/18 08:59 12/14/17 08:06 81 MG Atorvastatin Calcium (Lipitor Tab) 20 mg DAILY PO 12/12/17 09:00 01/11/18 08:59 12/14/17 08:06 20 MG Cholecalciferol (Vitamin D Tab) 2,000 inter.unit DAILY PO 12/12/17 09:00 01/11/18 08:59 12/14/17 08:06 2,000 INTER.UNIT Metoclopramide HCl (Reglan Tab) 2.5 mg TID PO 12/12/17 09:00 01/11/18 08:59 12/14/17 08:06 2.5 MG Metoprolol Tartrate (Lopressor Tab) 12.5 mg BID PO 12/12/17 09:00 01/11/18 08:59 12/14/17 08:07 12.5 MG Multivitamins/ Minerals (Multivitamin W/ Minerals Tab) 1 tab QD PO 12/12/17 05:15 01/11/18 05:14 12/14/17 08:06 1 TAB Oseltamivir Phosphate (Tamiflu Cap) 75 mg AMHS PO 12/12/17 09:00 12/17/17 08:59 12/14/17 08:06 75 MG Cholestyramine Resin (Questran Powder Light) 4 gm BID@1000,2200 PO 12/12/17 10:00 01/11/18 09:59 12/14/17 10:26 4 GM Aztreonam 1000 mg/ Dextrose 110 ml @ 110 mls/hr Q12H IV 12/12/17 18:00 12/26/17 06:59 12/14/17 05:30 110 MLS/HR Vancomycin HCl 1000 mg/Sodium Chloride 270 ml @ 125 mls/hr Q10H IV 12/13/17 22:00 12/22/17 11:59 12/14/17 07:58 125 MLS/HR Potassium Chloride (Klor-Con Tab) 20 meq NOW ONCE PO 12/14/17 12:45 12/14/17 12:46 Magnesium Sulfate 1 gm/Prmx 100 ml @ 100 mls/hr NOW STAT IV 12/14/17 11:53 12/14/17 12:52 UNV Objective Vital Signs Date Time Temp Pulse Resp B/P (MAP) Pulse Ox O2 Delivery O2 Flow Rate FiO2 12/14/17 11:37 36.8 76 18 148/69 (95) 96 12/14/17 08:00 Room Air 12/14/17 07:38 37.0 75 18 155/92 (113) 91 12/14/17 04:00 Room Air 12/14/17 03:19 37.1 92 16 150/90 (110) 92 Room Air 12/14/17 00:00 Room Air 12/13/17 23:52 36.9 81 17 139/83 (101) 93 Room Air 12/13/17 20:00 37.2 78 16 150/84 (106) 93 Room Air 12/13/17 20:00 Room Air 12/13/17 16:00 Room Air Physical Exam General Appearance: + cachetic, + thin, + pertinent finding (confused, only answers "yes" or "no" at times) Respiratory/Chest: no respiratory distress, no accessory muscle use Cardiovascular: regular rate, rhythm, no edema, no murmur Extremities: non-tender, normal inspection, no pedal edema Laboratory Results Last 24 Hours Test 12/13/17 20:34 12/14/17 06:08 Potassium Level 2.9 mmol/L 3.2 mmol/L White Blood Count 8.84 K/uL Red Blood Count 3.39 M/uL Hemoglobin 10.2 g/dL Hematocrit 29.3 % Mean Corpuscular Volume 86.4 fL Mean Corpuscular Hemoglobin 30.1 pg Mean Corpuscular Hemoglobin Concent 34.8 g/dl RDW Standard Deviation 42.5 fL RDW Coefficient of Variation 13.3 % Platelet Count 297 K/uL Mean Platelet Volume 9.2 fL Sodium Level 139 mmol/L Chloride Level 106 mmol/L Carbon Dioxide Level 26 mmol/L Anion Gap 7.0 mmol/L Blood Urea Nitrogen 7 mg/dl Creatinine 0.49 mg/dl Est Creatinine Clear Calc Drug Dose 94.9 ml/min Estimated GFR () 118.5 Estimated GFR (Non- 102.2 BUN/Creatinine Ratio 14.8 Random Glucose 80 mg/dl Calcium Level 8.4 mg/dl Magnesium Level 1.7 mg/dl Total Bilirubin 0.7 mg/dl Aspartate Amino Transf (AST/SGOT) 28 U/L Alanine Aminotransferase (ALT/SGPT) 21 U/L Alkaline Phosphatase 59 U/L Total Protein 6.4 gm/dl Albumin 2.3 gm/dl Globulin 4.1 gm/dl Albumin/Globulin Ratio 0.6 Assessment and Plan This is a 67 year old female resident of [facility] with a PMH of subdural hematoma and multiple CVAs, hx. of ALL s/p radiation - presents with +influenza A, leukocytosis Influenza A patient is appropriately being treated for the flu will complete a five day course of Tamiflu d/c back to [facility] when feeling better Sepsis secondary to possible Aspiration Pneumonia patient with a history of dysphagia and problems swallowing post-CVA possibly related to aspiration CXR - Bilateral infrahilar airspace opacities which could represent a pneumonia given the clinical history currently on a combination of Vancomycin and Aztreonam; will continue for now as per ID, appreciate input Enterococcal UTI continue vancomycin as per ID urine culture growing enterococcal organism, sensitive to Vanc; resistant to quinolones Bacteremia not likely to be significant blood culture x1, possible contamination second blood culture negative await ID input regarding repeat blood cultures Hypokalemia continue potassium supplementation monitor K and Mg in AM DVT ppx SCDs FULL CODE plan to d/c back to [facility] when stable
[2017-12-14] MEDS ORDERED: POTASSIUM CHLORIDE 20 MEQ TABCR PO ONE (12:45)
[2017-12-14 15:16] VITALS: BP 134/84; PULSE 75; TEMP 36.8; O2SAT 91
[2017-12-14] MEDS ORDERED: VANCOMYCIN TROUGH ONE (17:30)
[2017-12-14 19:50] VITALS: BP 132/82; PULSE 81; TEMP 37.1; O2SAT 93
--- NOTE | 2017-12-14 21:06 | Infectious Disease Progress Nt ---
Progress Note Date of Service Dec 14, 2017. Subjective Pt evaluation today including: conversation w/ patient, physical exam, chart review, lab review, review of studies, conversation w/ interventional sale consultant, review of inpatient medication list Patient offers no new complaints today. Remains afebrile. Hemodynamically stable. Blood cultures growing coagulase negative Staph. All Other Systems: Reviewed and Negative Medications Current Inpatient Medications Medications (Trade) Dose Ordered Sig/Kimberlyn Route Start Time Stop Time Status Last Admin Dose Admin Acetaminophen (Tylenol Tab) 650 mg Q4H PRN PO 12/12/17 04:45 01/11/18 04:44 Ondansetron HCl (Zofran Inj) 4 mg Q6H PRN IV 12/12/17 04:45 01/11/18 04:44 Polyethylene (Miralax Powder Packet) 17 gm DAILY PRN PO 12/12/17 04:45 01/11/18 04:44 Miscellaneous Information (Consult) 1 ea UD PRN N/A 12/12/17 04:45 01/11/18 04:44 Aspirin (Ecotrin Tab) 81 mg DAILY PO 12/12/17 09:00 01/11/18 08:59 12/14/17 08:06 81 MG Atorvastatin Calcium (Lipitor Tab) 20 mg DAILY PO 12/12/17 09:00 01/11/18 08:59 12/14/17 08:06 20 MG Cholecalciferol (Vitamin D Tab) 2,000 inter.unit DAILY PO 12/12/17 09:00 01/11/18 08:59 12/14/17 08:06 2,000 INTER.UNIT Metoclopramide HCl (Reglan Tab) 2.5 mg TID PO 12/12/17 09:00 01/11/18 08:59 12/14/17 13:24 2.5 MG Metoprolol Tartrate (Lopressor Tab) 12.5 mg BID PO 12/12/17 09:00 01/11/18 08:59 12/14/17 08:07 12.5 MG Multivitamins/ Minerals (Multivitamin W/ Minerals Tab) 1 tab QD PO 12/12/17 05:15 01/11/18 05:14 12/14/17 08:06 1 TAB Oseltamivir Phosphate (Tamiflu Cap) 75 mg AMHS PO 12/12/17 09:00 12/17/17 08:59 12/14/17 08:06 75 MG Cholestyramine Resin (Questran Powder Light) 4 gm BID@1000,2200 PO 12/12/17 10:00 01/11/18 09:59 12/14/17 10:26 4 GM Vancomycin HCl 1000 mg/Sodium Chloride 270 ml @ 125 mls/hr Q10H IV 12/13/17 22:00 12/22/17 11:59 12/14/17 18:07 125 MLS/HR Objective Vital Signs Date Time Temp Pulse Resp B/P (MAP) Pulse Ox O2 Delivery O2 Flow Rate FiO2 12/14/17 19:50 37.1 81 22 132/82 (99) 93 Room Air 12/14/17 16:00 Room Air 12/14/17 15:16 36.8 75 19 134/84 (101) 91 Room Air 12/14/17 12:00 Room Air 12/14/17 11:37 36.8 76 18 148/69 (95) 96 12/14/17 08:00 Room Air 12/14/17 07:38 37.0 75 18 155/92 (113) 91 12/14/17 04:00 Room Air 12/14/17 03:19 37.1 92 16 150/90 (110) 92 Room Air 12/14/17 00:00 Room Air 12/13/17 23:52 36.9 81 17 139/83 (101) 93 Room Air Physical Exam General Appearance: WD/WN, no apparent distress, + thin Eyes: normal inspection, sclerae normal ENT: normal ENT inspection, pharynx normal Neck: supple, no adenopathy, thyroid normal, trachea midline Respiratory/Chest: chest non-tender, lungs clear, normal breath sounds, no respiratory distress Cardiovascular: regular rate, rhythm, no gallop, no murmur Abdomen: normal bowel sounds, non tender, soft, no organomegaly Extremities: non-tender, + inflammation, + swelling Neurologic/Psychiatric: alert, + disoriented Skin: normal color, no rash, + pertinent finding (Slightly improved lower extremity erythema) Lymphatic: no adenopathy Laboratory Results RUN DATE: 12/14/17 [facility] LAB PAGE 1 RUN TIME: 1106 Specimen Inquiry PATIENT: MANI RINALDI LOC: Bob U # : [id number] AGE/SX: 67/F ROOM: [facility] REG : 12/12/[address]: Douglas Duran MD : 1950 BED: 1 DIS : STATUS: ADM IN TLOC: SPEC #: [id number] ANDI: 12/12/17 STATUS: RES REQ #: [id number] RECD: 12/12/[address]: Melanie Hammond DO SOURCE: BLOOD ENTR: 12/12/17-[address] [facility] [address]: Caro Ramirez M.D. [facility]: ORDERED: BLOOD CULTURE Procedure Result Verified Site BLD CULT Preliminary 12/14/17-1106 Organism 1 COAG NEG STAPH NOT LUGDUNENSIS SENS NO SENSITIVITY TO FOLLOW One set of two positive. Isolation does not necessarily mean infection. No susceptibility tests performed. Contact microbiology laboratory [phone]) if further studies are indicated. Phoned Positive Blood Culture Gram Stain Report to MAREN POLLACK on 12/12/17 At 0219 By VANDANA. Results were verbalized back to VANDANA. Last 24 Hours Test 12/14/17 06:08 12/14/17 17:39 White Blood Count 8.84 K/uL Red Blood Count 3.39 M/uL Hemoglobin 10.2 g/dL Hematocrit 29.3 % Mean Corpuscular Volume 86.4 fL Mean Corpuscular Hemoglobin 30.1 pg Mean Corpuscular Hemoglobin Concent 34.8 g/dl RDW Standard Deviation 42.5 fL RDW Coefficient of Variation 13.3 % Platelet Count 297 K/uL Mean Platelet Volume 9.2 fL Sodium Level 139 mmol/L Potassium Level 3.2 mmol/L Chloride Level 106 mmol/L Carbon Dioxide Level 26 mmol/L Anion Gap 7.0 mmol/L Blood Urea Nitrogen 7 mg/dl Creatinine 0.49 mg/dl Est Creatinine Clear Calc Drug Dose 94.9 ml/min Estimated GFR () 118.5 Estimated GFR (Non- 102.2 BUN/Creatinine Ratio 14.8 Random Glucose 80 mg/dl Calcium Level 8.4 mg/dl Magnesium Level 1.7 mg/dl Total Bilirubin 0.7 mg/dl Aspartate Amino Transf (AST/SGOT) 28 U/L Alanine Aminotransferase (ALT/SGPT) 21 U/L Alkaline Phosphatase 59 U/L Total Protein 6.4 gm/dl Albumin 2.3 gm/dl Globulin 4.1 gm/dl Albumin/Globulin Ratio 0.6 Vancomycin Level Trough 20.2 mcg/ml Assessment and Plan 67-year-old [facility] resident with evidence of clinical sepsis, with recently diagnosed influenza a infection treated with Tamiflu, with Enterococcus urinary tract infection as well as possible pneumonia. Suspect blood cultures represent contaminant, would repeat to ensure no persistent Staph bacteremia. Will continue present antibiotics for now, await repeat cultures. Will follow.
[2017-12-14 23:31] VITALS: BP 151/94; PULSE 75; TEMP 37.1; O2SAT 91
[2017-12-15] VITALS (9 sets, daily range): BP systolic 127–148; BP diastolic 74–92; PULSE 66–86; TEMP 36.6–36.9; O2SAT 90–96
[2017-12-15] MEDS: VANCOMYCIN INJ 1,000 MG in SODIUM CHLORIDE 0.9% 250ML 250 ML IV SCH ×2 (04:19→13:30)
[2017-12-15 06:22] LABS: HEMATOCRIT 29.8 % (37-47); HEMOGLOBIN 10.3 g/dL (12.0-16.0); MEAN CELL VOLUME 86.4 fL (80-100); MEAN CORPUSCULAR HEMOGLOBIN 29.9 pg (25-34); MEAN CORPUSCULAR HGB CONC 34.6 g/dl (32-36); MEAN PLATELET VOLUME 8.8 fL (7.4-10.4); PLATELET COUNT 303 K/uL (130-400); RED CELL DISTRIBUTION WIDTH CV 13.3 % (11.5-14.5); RED CELL DISTRIBUTION WIDTH SD 42.3 fL (36.4-46.3); WHITE BLOOD COUNT 8.06 K/uL (4.8-10.8)
[2017-12-15 06:56] LABS: ALBUMIN 2.2 gm/dl (3.4-5.0); CALCIUM 8.2 mg/dl (8.5-10.1); CREATININE 0.4 mg/dl (0.60-1.20); POTASSIUM 2.9 mmol/L (3.5-5.1)
[2017-12-15 06:58] LABS: TOTAL PROTEIN 6.3 gm/dl (6.4-8.2)
[2017-12-15] MEDS: OSELTAMIVIR PHOSPHATE 75 MG CAP PO SCH ×2 (07:37→21:36)
[2017-12-15] MEDS: CHOLECALCIFEROL 1000 INTER.UNIT TAB PO SCH (07:37)
[2017-12-15] MEDS: METOCLOPRAMIDE HCL 10 MG TAB PO SCH ×3 (07:37→21:37)
[2017-12-15] MEDS: CEROVITE ADV FORMULA TAB PO SCH (07:37)
[2017-12-15] MEDS: ASPIRIN 81 MG ECTAB PO SCH (07:38)
[2017-12-15] MEDS: ATORVASTATIN 20 MG TAB PO SCH (07:38)
[2017-12-15] MEDS: METOPROLOL TARTRATE 25 MG TAB PO SCH ×2 (07:38→21:38)
[2017-12-15] MEDS ORDERED: POTASSIUM CHLORIDE 20 MEQ TABCR PO STA (09:22)
[2017-12-15] MEDS: POTASSIUM CHLR 10 MEQ / WTR 10 MEQ in PREMIXED WATER 100 ML IV SCH ×2 (09:45→12:39)
[2017-12-15] MEDS: CHOLESTYRAMINE LIGHT 4 GM PKT PO SCH ×2 (09:46→21:36)
--- NOTE | 2017-12-15 10:32 | Progress Note ---
Subjective Date of Service: Dec 15, 2017. Subjective Pt evaluation today including: conversation w/ patient, physical exam, lab review, review of studies, review of inpatient medication list Saw/examined the patient in room 234 She is doing well, no problems/issues to note at this time underlying dementia noted, but denying any symptoms Problem List Medical Problems: (1) Acute CVA (cerebrovascular accident) Status: Acute (2) Altered mental state Status: Acute (3) Fall Status: Acute (4) Pneumonia Status: Acute (5) Pneumonia Status: Acute (6) Sepsis Status: Acute (7) Sepsis Status: Acute (8) Slurred speech Status: Acute (9) Stroke Status: Acute (10) UTI (urinary tract infection) Status: Acute (11) UTI (urinary tract infection) Status: Acute Review of Systems Difficult to obtain due to patient's mental status Medications Current Inpatient Medications Medications (Trade) Dose Ordered Sig/Kimberlyn Route Start Time Stop Time Status Last Admin Dose Admin Acetaminophen (Tylenol Tab) 650 mg Q4H PRN PO 12/12/17 04:45 01/11/18 04:44 Ondansetron HCl (Zofran Inj) 4 mg Q6H PRN IV 12/12/17 04:45 01/11/18 04:44 Polyethylene (Miralax Powder Packet) 17 gm DAILY PRN PO 12/12/17 04:45 01/11/18 04:44 Miscellaneous Information (Consult) 1 ea UD PRN N/A 12/12/17 04:45 01/11/18 04:44 Aspirin (Ecotrin Tab) 81 mg DAILY PO 12/12/17 09:00 01/11/18 08:59 12/15/17 07:38 81 MG Atorvastatin Calcium (Lipitor Tab) 20 mg DAILY PO 12/12/17 09:00 01/11/18 08:59 12/15/17 07:38 20 MG Cholecalciferol (Vitamin D Tab) 2,000 inter.unit DAILY PO 12/12/17 09:00 01/11/18 08:59 12/15/17 07:37 2,000 INTER.UNIT Metoclopramide HCl (Reglan Tab) 2.5 mg TID PO 12/12/17 09:00 01/11/18 08:59 12/15/17 07:37 2.5 MG Metoprolol Tartrate (Lopressor Tab) 12.5 mg BID PO 12/12/17 09:00 01/11/18 08:59 12/15/17 07:38 12.5 MG Multivitamins/ Minerals (Multivitamin W/ Minerals Tab) 1 tab QD PO 12/12/17 05:15 01/11/18 05:14 12/15/17 07:37 1 TAB Oseltamivir Phosphate (Tamiflu Cap) 75 mg AMHS PO 12/12/17 09:00 12/17/17 08:59 12/15/17 07:37 75 MG Cholestyramine Resin (Questran Powder Light) 4 gm BID@1000,2200 PO 12/12/17 10:00 01/11/18 09:59 12/15/17 09:46 4 GM Vancomycin HCl 1000 mg/Sodium Chloride 270 ml @ 125 mls/hr Q10H IV 12/13/17 22:00 12/22/17 11:59 12/15/17 04:19 125 MLS/HR Potassium Chloride 10 meq/ Prmx 100 ml @ 100 mls/hr Q1H IV 12/15/17 09:30 12/15/17 11:29 12/15/17 09:45 100 MLS/HR Potassium Chloride (Klor-Con Tab) 20 meq QAM PO 12/16/17 09:00 01/15/18 08:59 Objective Vital Signs Date Time Temp Pulse Resp B/P (MAP) Pulse Ox O2 Delivery O2 Flow Rate FiO2 12/15/17 08:00 Room Air 12/15/17 07:39 36.8 66 18 139/84 (102) 91 12/15/17 04:00 Room Air 2.0 12/15/17 03:55 36.9 68 16 134/82 (99) 90 Room Air 12/15/17 00:01 91 Room Air 2.0 12/14/17 23:31 37.1 75 16 151/94 (113) 91 Room Air 12/14/17 20:00 Room Air 12/14/17 19:50 37.1 81 22 132/82 (99) 93 Room Air 12/14/17 16:00 Room Air 12/14/17 15:16 36.8 75 19 134/84 (101) 91 Room Air 12/14/17 12:00 Room Air 12/14/17 11:37 36.8 76 18 148/69 (95) 96 Physical Exam General Appearance: no apparent distress Respiratory/Chest: no respiratory distress, no accessory muscle use Cardiovascular: regular rate, rhythm, no edema, no murmur Extremities: normal inspection, no pedal edema Neurologic/Psychiatric: alert, + pertinent finding (chronic confusion/ disorientation;dementia) Laboratory Results Last 24 Hours Test 12/14/17 17:39 12/15/17 06:02 Vancomycin Level Trough 20.2 mcg/ml White Blood Count 8.06 K/uL Red Blood Count 3.45 M/uL Hemoglobin 10.3 g/dL Hematocrit 29.8 % Mean Corpuscular Volume 86.4 fL Mean Corpuscular Hemoglobin 29.9 pg Mean Corpuscular Hemoglobin Concent 34.6 g/dl RDW Standard Deviation 42.3 fL RDW Coefficient of Variation 13.3 % Platelet Count 303 K/uL Mean Platelet Volume 8.8 fL Sodium Level 138 mmol/L Potassium Level 2.9 mmol/L Chloride Level 106 mmol/L Carbon Dioxide Level 23 mmol/L Anion Gap 9.0 mmol/L Blood Urea Nitrogen 7 mg/dl Creatinine 0.40 mg/dl Est Creatinine Clear Calc Drug Dose 120.6 ml/min Estimated GFR () 126.7 Estimated GFR (Non- 109.3 BUN/Creatinine Ratio 18.3 Random Glucose 76 mg/dl Calcium Level 8.2 mg/dl Magnesium Level 2.0 mg/dl Total Bilirubin 0.8 mg/dl Aspartate Amino Transf (AST/SGOT) 21 U/L Alanine Aminotransferase (ALT/SGPT) 18 U/L Alkaline Phosphatase 53 U/L Total Protein 6.3 gm/dl Albumin 2.2 gm/dl Globulin 4.1 gm/dl Albumin/Globulin Ratio 0.5 Assessment and Plan This is a 67 year old female resident of [facility] with a PMH of subdural hematoma and multiple CVAs, hx. of ALL s/p radiation - presents with +influenza A, leukocytosis Influenza A patient is appropriately being treated for the flu will complete a five day course of Tamiflu d/c back to [facility] when feeling better Sepsis secondary to possible Aspiration Pneumonia 12/15 repeat blood cultures pending, if negative, can d/c back to [facility] for now, continue Vancomycin 12/14 patient with a history of dysphagia and problems swallowing post-CVA possibly related to aspiration CXR - Bilateral infrahilar airspace opacities which could represent a pneumonia given the clinical history currently on a combination of Vancomycin and Aztreonam; will continue for now as per ID, appreciate input Enterococcal UTI 12/15 continue Vancomycin for now switch to Amoxicillin once repeat blood cultures return 12/14 continue vancomycin as per ID urine culture growing enterococcal organism, sensitive to Vanc; resistant to quinolones Bacteremia not likely to be significant blood culture x1, possible contamination second blood culture negative repeating blood cultures Hypokalemia continue potassium supplementation monitor K and Mg in AM DVT ppx SCDs FULL CODE plan to d/c back to [facility] when stable
--- NOTE | 2017-12-15 12:38 | Pharmacy Progress Note ---
Pharmacy Abx Dose Short Note Date of Service Dec 15, 2017. Assessment & Plan Assessment 67 year old female receiving Vancomycin for treatment of E. faecalis UTI (Vanc GM= 2) Day # 4 of antimicrobial therapy. Plan Vancomycin * Trough level of 20.2 mcg/mL is on the higher end therapeutic since target serum concentrations should be closer to 20mcg/mL for Vanc GM of 2. * Continue dose of 1000 mg IV every 10 hours * Goal trough level for UTI : 15 to 20 mcg/mL (closer to 20mcg/mL for GM of 2) * Trough level ordered for: 12/16/17 ~30 minutes before the 2000 dose to ensure therapeutic concentrations without causing Vancomycin accumulation and toxicity. Pharmacy will continue to follow and will adjust dose/frequency as necessary. Thank you.
[2017-12-16] VITALS (8 sets, daily range): BP systolic 114–160; BP diastolic 78–110; PULSE 65–84; TEMP 36.7–37.1; O2SAT 91–94
[2017-12-16] MEDS: VANCOMYCIN INJ 1,000 MG in SODIUM CHLORIDE 0.9% 250ML 250 ML IV SCH ×3 (00:31→21:59)
[2017-12-16] MEDS ORDERED: METOPROLOL TARTRATE 25 MG TAB PO ONE (05:16)
[2017-12-16 06:50] LABS: HEMATOCRIT 30.8 % (37-47); HEMOGLOBIN 10.7 g/dL (12.0-16.0); MEAN CORPUSCULAR HEMOGLOBIN 29.9 pg (25-34); MEAN CORPUSCULAR HGB CONC 34.7 g/dl (32-36); MEAN PLATELET VOLUME 9.2 fL (7.4-10.4); PLATELET COUNT 372 K/uL (130-400); RED CELL DISTRIBUTION WIDTH CV 13.2 % (11.5-14.5); RED CELL DISTRIBUTION WIDTH SD 42.2 fL (36.4-46.3); WHITE BLOOD COUNT 8.48 K/uL (4.8-10.8)
[2017-12-16 07:24] LABS: CALCIUM 8.7 mg/dl (8.5-10.1); CREATININE 0.49 mg/dl (0.60-1.20); POTASSIUM 3.4 mmol/L (3.5-5.1)
[2017-12-16] MEDS: ASPIRIN 81 MG ECTAB PO SCH (08:12)
[2017-12-16] MEDS: ATORVASTATIN 20 MG TAB PO SCH (08:12)
[2017-12-16] MEDS: METOCLOPRAMIDE HCL 10 MG TAB PO SCH ×3 (08:12→21:44)
[2017-12-16] MEDS: CHOLECALCIFEROL 1000 INTER.UNIT TAB PO SCH (08:12)
[2017-12-16] MEDS: OSELTAMIVIR PHOSPHATE 75 MG CAP PO SCH ×2 (08:12→21:43)
[2017-12-16] MEDS ORDERED: POTASSIUM CHLORIDE 20 MEQ TABCR PO SCH (09:00)
[2017-12-16] MEDS: CHOLESTYRAMINE LIGHT 4 GM PKT PO SCH ×2 (10:04→21:42)
--- NOTE | 2017-12-16 10:30 | Progress Note ---
Subjective Date of Service: Dec 16, 2017. Subjective Pt evaluation today including: conversation w/ patient, physical exam, chart review, lab review The patient seen secondary to persistent positive blood cultures. Her initial blood cultures on the are growing coagulase-negative Staph in 1/2 sets. She has been on empiric Vanco pending repeat blood cultures. These were obtained yesterday and O2 of 2 sets are also growing gram-positive cocci. She is tolerating vancomycin well. She denies any fevers or chills this morning. She states that she is fatigued. She denies any chest pain cough shortness of breath nausea vomiting or diarrhea. Her remaining review of systems is unremarkable. Her leukocytosis has resolved. She has remains afebrile Problem List Medical Problems: (1) Acute CVA (cerebrovascular accident) Status: Acute (2) Altered mental state Status: Acute (3) Fall Status: Acute (4) Pneumonia Status: Acute (5) Pneumonia Status: Acute (6) Sepsis Status: Acute (7) Sepsis Status: Acute (8) Slurred speech Status: Acute (9) Stroke Status: Acute (10) UTI (urinary tract infection) Status: Acute (11) UTI (urinary tract infection) Status: Acute Objective Vital Signs Date Time Temp Pulse Resp B/P (MAP) Pulse Ox O2 Delivery O2 Flow Rate FiO2 12/16/17 08:00 Room Air 12/16/17 07:17 37.0 66 16 126/80 (95) 94 Room Air 12/16/17 05:00 37.0 76 20 160/110 (127) 93 Room Air 12/16/17 04:00 93 Room Air 12/16/17 00:01 93 Room Air 12/15/17 23:39 36.9 75 20 148/92 (110) 93 Room Air 12/15/17 20:00 90 Room Air 12/15/17 19:12 36.6 86 20 127/85 (99) 90 Room Air 12/15/17 16:00 92 Room Air 12/15/17 15:37 36.7 75 20 144/86 (105) 92 Room Air 12/15/17 12:00 Room Air 12/15/17 11:41 36.6 69 16 142/74 (96) 96 Physical Exam General Appearance: WD/WN, no apparent distress, + pertinent finding Neck: supple Respiratory/Chest: lungs clear, + decreased breath sounds Cardiovascular: regular rate, rhythm, no edema Abdomen: non tender, soft Extremities: non-tender, no pedal edema Neurologic/Psychiatric: alert, oriented x 3 Skin: normal color Laboratory Results Item Value Date Time Blood Culture - Preliminary Resulted 12/15/17 0834 Blood Gram Positive Cocci Blood Culture - Preliminary Resulted 12/15/17 0812 Blood Gram Positive Cocci Blood Culture - Preliminary Resulted 12/12/17 0118 Blood Coag Neg Staph Not Lugdunensis Last 24 Hours Test 12/16/17 05:59 White Blood Count 8.48 K/uL Red Blood Count 3.58 M/uL Hemoglobin 10.7 g/dL Hematocrit 30.8 % Mean Corpuscular Volume 86.0 fL Mean Corpuscular Hemoglobin 29.9 pg Mean Corpuscular Hemoglobin Concent 34.7 g/dl RDW Standard Deviation 42.2 fL RDW Coefficient of Variation 13.2 % Platelet Count 372 K/uL Mean Platelet Volume 9.2 fL Sodium Level 138 mmol/L Potassium Level 3.4 mmol/L Chloride Level 108 mmol/L Carbon Dioxide Level 23 mmol/L Anion Gap 7.0 mmol/L Blood Urea Nitrogen 9 mg/dl Creatinine 0.49 mg/dl Est Creatinine Clear Calc Drug Dose 95.8 ml/min Estimated GFR () 118.5 Estimated GFR (Non- 102.2 BUN/Creatinine Ratio 19.0 Random Glucose 75 mg/dl Calcium Level 8.7 mg/dl Assessment and Plan (1) Gram positive septicemia Assessment & Plan: She will remain on vancomycin. Repeat blood cultures will be obtained today. Echocardiogram should be obtained to out endocarditis. I will await identification of gram-positive diplococci she will need a minimum of 14 days of intravenous antibiotics. (2) UTI (urinary tract infection)
--- NOTE | 2017-12-16 10:46 | Progress Note ---
Subjective Date of Service: Dec 16, 2017. Subjective Pt evaluation today including: conversation w/ patient, physical exam, lab review, review of studies, review of inpatient medication list Saw/examined the patient in room 234 Seems to be doing fine, clinically improving nods yes or no, but is not talking much - baseline blood cultures repeated and positive x2 for gram positive cocci Problem List Medical Problems: (1) Acute CVA (cerebrovascular accident) Status: Acute (2) Altered mental state Status: Acute (3) Fall Status: Acute (4) Pneumonia Status: Acute (5) Pneumonia Status: Acute (6) Sepsis Status: Acute (7) Sepsis Status: Acute (8) Slurred speech Status: Acute (9) Stroke Status: Acute (10) UTI (urinary tract infection) Status: Acute (11) UTI (urinary tract infection) Status: Acute Medications Current Inpatient Medications Medications (Trade) Dose Ordered Sig/Kimberlyn Route Start Time Stop Time Status Last Admin Dose Admin Acetaminophen (Tylenol Tab) 650 mg Q4H PRN PO 12/12/17 04:45 01/11/18 04:44 Ondansetron HCl (Zofran Inj) 4 mg Q6H PRN IV 12/12/17 04:45 01/11/18 04:44 Polyethylene (Miralax Powder Packet) 17 gm DAILY PRN PO 12/12/17 04:45 01/11/18 04:44 Miscellaneous Information (Consult) 1 ea UD PRN N/A 12/12/17 04:45 01/11/18 04:44 Aspirin (Ecotrin Tab) 81 mg DAILY PO 12/12/17 09:00 01/11/18 08:59 12/16/17 08:12 81 MG Atorvastatin Calcium (Lipitor Tab) 20 mg DAILY PO 12/12/17 09:00 01/11/18 08:59 12/16/17 08:12 20 MG Cholecalciferol (Vitamin D Tab) 2,000 inter.unit DAILY PO 12/12/17 09:00 01/11/18 08:59 12/16/17 08:12 2,000 INTER.UNIT Metoclopramide HCl (Reglan Tab) 2.5 mg TID PO 12/12/17 09:00 01/11/18 08:59 12/16/17 08:12 2.5 MG Multivitamins/ Minerals (Multivitamin W/ Minerals Tab) 1 tab QD PO 12/12/17 05:15 01/11/18 05:14 12/15/17 07:37 1 TAB Oseltamivir Phosphate (Tamiflu Cap) 75 mg AMHS PO 12/12/17 09:00 12/17/17 08:59 12/16/17 08:12 75 MG Cholestyramine Resin (Questran Powder Light) 4 gm BID@1000,2200 PO 12/12/17 10:00 01/11/18 09:59 12/16/17 10:04 4 GM Vancomycin HCl 1000 mg/Sodium Chloride 270 ml @ 125 mls/hr Q10H IV 12/13/17 22:00 12/22/17 11:59 12/16/17 10:04 125 MLS/HR Metoprolol Tartrate (Lopressor Tab) 12.5 mg BID PO 12/16/17 21:00 01/11/18 08:59 Potassium Chloride (Klor-Con Tab) 20 meq BID PO 12/16/17 21:00 01/15/18 08:59 UNV Potassium Chloride (Klor-Con Tab) 20 meq NOW STAT PO 12/16/17 10:29 12/16/17 10:30 UNV Objective Vital Signs Date Time Temp Pulse Resp B/P (MAP) Pulse Ox O2 Delivery O2 Flow Rate FiO2 12/16/17 08:00 Room Air 12/16/17 07:17 37.0 66 16 126/80 (95) 94 Room Air 12/16/17 05:00 37.0 76 20 160/110 (127) 93 Room Air 12/16/17 04:00 93 Room Air 12/16/17 00:01 93 Room Air 12/15/17 23:39 36.9 75 20 148/92 (110) 93 Room Air 12/15/17 20:00 90 Room Air 12/15/17 19:12 36.6 86 20 127/85 (99) 90 Room Air 12/15/17 16:00 92 Room Air 12/15/17 15:37 36.7 75 20 144/86 (105) 92 Room Air 12/15/17 12:00 Room Air 12/15/17 11:41 36.6 69 16 142/74 (96) 96 Physical Exam General Appearance: no apparent distress Respiratory/Chest: no respiratory distress, no accessory muscle use Cardiovascular: regular rate, rhythm Neurologic/Psychiatric: + pertinent finding (difficulty with expression, aphasia) Laboratory Results Last 24 Hours Test 12/16/17 05:59 White Blood Count 8.48 K/uL Red Blood Count 3.58 M/uL Hemoglobin 10.7 g/dL Hematocrit 30.8 % Mean Corpuscular Volume 86.0 fL Mean Corpuscular Hemoglobin 29.9 pg Mean Corpuscular Hemoglobin Concent 34.7 g/dl RDW Standard Deviation 42.2 fL RDW Coefficient of Variation 13.2 % Platelet Count 372 K/uL Mean Platelet Volume 9.2 fL Sodium Level 138 mmol/L Potassium Level 3.4 mmol/L Chloride Level 108 mmol/L Carbon Dioxide Level 23 mmol/L Anion Gap 7.0 mmol/L Blood Urea Nitrogen 9 mg/dl Creatinine 0.49 mg/dl Est Creatinine Clear Calc Drug Dose 95.8 ml/min Estimated GFR () 118.5 Estimated GFR (Non- 102.2 BUN/Creatinine Ratio 19.0 Random Glucose 75 mg/dl Calcium Level 8.7 mg/dl Assessment and Plan This is a 67 year old female resident of [facility] with a PMH of subdural hematoma and multiple CVAs, hx. of ALL s/p radiation - presents with +influenza A, leukocytosis Septicemia repeat blood cultures are positive x2 for gram positive cocci another set ordered by ID, appreciate input will check an echo to rule out endocarditis will continue Vancomycin for now continue for 14 days total Influenza A patient is appropriately being treated for the flu will complete a five day course of Tamiflu d/c back to [facility] when feeling better Sepsis secondary to possible Aspiration Pneumonia 12/16 14 total days of IV Vanco repeat blood cultures positive will check another set 12/15 repeat blood cultures pending, if negative, can d/c back to [facility] for now, continue Vancomycin 12/14 patient with a history of dysphagia and problems swallowing post-CVA possibly related to aspiration CXR - Bilateral infrahilar airspace opacities which could represent a pneumonia given the clinical history currently on a combination of Vancomycin and Aztreonam; will continue for now as per ID, appreciate input Enterococcal UTI 12/16 continue Vancomycin 12/15 continue Vancomycin for now switch to Amoxicillin once repeat blood cultures return 12/14 continue vancomycin as per ID urine culture growing enterococcal organism, sensitive to Vanc; resistant to quinolones Hypokalemia continue potassium supplementation monitor K and Mg in AM DVT ppx SCDs FULL CODE plan to d/c back to [facility] when stable
[2017-12-16] MEDS ORDERED: POTASSIUM CHLORIDE 20 MEQ TABCR PO ONE (11:15)
--- NOTE | 2017-12-16 15:36 | ECHOCARDIOGRAM REPORT ---
*NOTICE TO RECEIVING REPUBLICAN AGENCY This information is strictly Confidential and protected under [place] law. [place] law prohibits you from making any further disclosure of this information unless further disclosure is expressly permitted by the written consent of the person to whom it pertains or is authorized by law. A general authorization for the release of medical or other information is not sufficient for this purpose. Hospital accepts no responsibility if the information is made available to any other person, INCLUDING THE PATIENT. Interpretation Summary * Name: MANI RINALDI Study Date: 12/16/2017 01:26 PM BP: 114/78 mmHg * Patient Location: C.2T\S\S234\S\1 HR: 76 * : 1950 (M/d/yyyy) Gender: Female Height: 67 in * Age: 67 yrs Ethnicity: [place] Weight: 116 lb * Ordering Physician: Royce Kaur * Referring Physician: Self, Referred * Performed By: Cyndy Amado RDCS * * Reason For Study: ENDOCARDITIS * BSA: 1.6 m2 * -- Conclusions -- * Normal LV chamber size with mild concentric LVH. * Normal LV systolic function, EF 55-60%. * No segmental left ventricular wall motion abnormalities are noted. * Grade I diastolic dysfunction. * Poorly visualized valvular structures with no significant stenosis or regurgitation by Doppler. * Study insufficient to definitely exclude endocarditis. Procedure Details * A contrast injection of Definity was performed to improve assessment of LV function. * Contrast was injected into an intravenous site in the left arm. * One vial of Definity ultrasound contrast was diluted in normal saline to a total volume of 10 ml. A total of '2' ml of solution was administered during imaging. * Lot # [id number] of Definity utilized for procedure. * Expiration date 1 DEC 06. * The attending nurse who injected the contrast agent was JOVAN LANDRUM. Left Ventricle * The left ventricle is normal in size. * There is mild concentric left ventricular hypertrophy. * Ejection Fraction = 55-60%. * Left ventricular systolic function is normal. * No segmental left ventricular wall motion abnormalities are noted. * The left ventricular wall motion is normal. Right Ventricle * The right ventricular cavity size is normal (basal dimension <4.2 cm in right ventricular apical 4-chamber view). * The right ventricular systolic function is normal as assessed by tricuspid annular plane systolic excursion (TAPSE) (normal >1.5 cm). Atria * The left atrium is not well visualized. * Right atrium not well visualized. Mitral Valve * The mitral valve is grossly normal. * There is no mitral valve stenosis. * There is no mitral regurgitation noted. Tricuspid Valve * The tricuspid valve is not well visualized, but is grossly normal. * There is no tricuspid stenosis. * No tricuspid regurgitation. Aortic Valve * The aortic valve is not well visualized. * No hemodynamically significant valvular aortic stenosis. * There is no significant aortic regurgitation. Pulmonic Valve * The pulmonary valve is inadequately visualized, but the Doppler data is adequate for interpretation. MMode 2D Measurements and Calculations IVSd 1.1 cm IVSs 1.5 cm LVIDd 3.4 cm LVIDs 2.5 cm LVPWd 1.1 cm LVPWs 1.4 cm IVS/LVPW 1.1 FS 28.2 % EDV(Teich) 48.9 ml ESV(Teich) 21.7 ml EF(Teich) 55.7 % EDV(cubed) 40.9 ml ESV(cubed) 15.1 ml EF(cubed) 63.0 % % IVS thick 30.6 % % LVPW thick 29.1 % LV mass(C)d 114.7 grams LV mass(C)dI 71.5 grams/m\S\2 LV mass(C)s 112.2 grams LV mass(C)sI 70.0 grams/m\S\2 SV(Teich) 27.2 ml SI(Teich) 17.0 ml/m\S\2 SV(cubed) 25.8 ml SI(cubed) 16.1 ml/m\S\2 Ao root diam 3.1 cm Ao root area 7.4 cm\S\2 LVAd ap4 25.2 cm\S\2 LVLd ap4 8.0 cm EDV(MOD-sp4) 63.4 ml EDV(sp4-el) 67.3 ml LVAs ap4 15.2 cm\S\2 LVLs ap4 6.4 cm ESV(MOD-sp4) 29.6 ml ESV(sp4-el) 30.6 ml EF(MOD-sp4) 53.3 % EF(sp4-el) 54.5 % LVAd ap2 18.6 cm\S\2 LVLd ap2 6.5 cm EDV(MOD-sp2) 42.9 ml EDV(sp2-el) 45.1 ml LVAs ap2 12.6 cm\S\2 LVLs ap2 6.1 cm ESV(MOD-sp2) 21.7 ml ESV(sp2-el) 22.3 ml EF(MOD-sp2) 49.3 % EF(sp2-el) 50.6 % LVLd %diff -23.09 % EDV(MOD-bp) 57.6 ml LVLs %diff -6.18 % ESV(MOD-bp) 26.3 ml EF(MOD-bp) 54.3 % SV(MOD-sp4) 33.8 ml SI(MOD-sp4) 21.1 ml/m\S\2 SV(MOD-sp2) 21.2 ml SI(MOD-sp2) 13.2 ml/m\S\2 SV(MOD-bp) 31.3 ml SI(MOD-bp) 19.5 ml/m\S\2 SV(sp4-el) 36.7 ml SI(sp4-el) 22.9 ml/m\S\2 SV(sp2-el) 22.8 ml SI(sp2-el) 14.2 ml/m\S\2 Doppler Measurements and Calculations MV E max karen 54.8 cm/sec MV A max karen 99.0 cm/sec MV E/A 0.55 MV dec time 0.28 sec Ao V2 max 92.3 cm/sec Ao max PG 3.4 mmHg Ao max PG (full) 1.3 mmHg LV V1 max PG 2.1 mmHg LV V1 max 71.8 cm/sec TR max karen 200.7 cm/sec
[2017-12-16] MEDS ORDERED: VANCOMYCIN TROUGH ONE (19:30)
--- NOTE | 2017-12-16 21:30 | Pharmacy Progress Note ---
Pharmacy Abx Dose Short Note Date of Service Dec 16, 2017. Assessment & Plan Assessment 67 year old female receiving vancomycin for treatment of urosepsis Day # 5 of antimicrobial therapy. Repeat blood cultures still positive Aiming for vanc trough levels ~20 Plan Vancomycin * Trough level of 23.5 mcg/mL is supratherapeutic * Change to 1000 mg IV every 12 hours * Goal trough level for bacteremia (vanc GM = 2) : 20 mcg/mL * Trough level ordered for: 12/18/17 prior to the 10 am dose Pharmacy will continue to follow and will adjust dose/frequency as necessary. Thank you.
[2017-12-16] MEDS: METOPROLOL TARTRATE 25 MG TAB PO SCH (21:37)
[2017-12-16] MEDS: POTASSIUM CHLORIDE 20 MEQ TABCR PO SCH (21:43)
[2017-12-17] VITALS (10 sets, daily range): BP systolic 129–160; BP diastolic 60–108; PULSE 65–81; TEMP 36.6–37.7; O2SAT 91–98
[2017-12-17] MEDS: CEROVITE ADV FORMULA TAB PO SCH (05:15)
[2017-12-17 07:14] LABS: CREATININE 0.55 mg/dl (0.60-1.20)
[2017-12-17] MEDS: ASPIRIN 81 MG ECTAB PO SCH (08:29)
[2017-12-17] MEDS: METOPROLOL TARTRATE 25 MG TAB PO SCH ×2 (08:30→21:49)
[2017-12-17] MEDS: METOCLOPRAMIDE HCL 10 MG TAB PO SCH ×3 (08:32→21:50)
[2017-12-17] MEDS: POTASSIUM CHLORIDE 20 MEQ TABCR PO SCH ×2 (08:32→21:48)
[2017-12-17] MEDS: CHOLECALCIFEROL 1000 INTER.UNIT TAB PO SCH (08:35)
[2017-12-17] MEDS: ATORVASTATIN 20 MG TAB PO SCH (08:35)
--- NOTE | 2017-12-17 09:41 | Progress Note ---
Subjective Date of Service: Dec 17, 2017. Subjective Pt evaluation today including: conversation w/ patient, physical exam, lab review, review of studies, review of inpatient medication list Saw/examined the patient in room 234 answers yes or no questions; tells me she is doing okay currently eating breakfast Problem List Medical Problems: (1) Acute CVA (cerebrovascular accident) Status: Acute (2) Altered mental state Status: Acute (3) Fall Status: Acute (4) Pneumonia Status: Acute (5) Pneumonia Status: Acute (6) Sepsis Status: Acute (7) Sepsis Status: Acute (8) Slurred speech Status: Acute (9) Stroke Status: Acute (10) UTI (urinary tract infection) Status: Acute (11) UTI (urinary tract infection) Status: Acute Medications Current Inpatient Medications Medications (Trade) Dose Ordered Sig/Kimberlyn Route Start Time Stop Time Status Last Admin Dose Admin Acetaminophen (Tylenol Tab) 650 mg Q4H PRN PO 12/12/17 04:45 01/11/18 04:44 Ondansetron HCl (Zofran Inj) 4 mg Q6H PRN IV 12/12/17 04:45 01/11/18 04:44 Polyethylene (Miralax Powder Packet) 17 gm DAILY PRN PO 12/12/17 04:45 01/11/18 04:44 Miscellaneous Information (Consult) 1 ea UD PRN N/A 12/12/17 04:45 01/11/18 04:44 Aspirin (Ecotrin Tab) 81 mg DAILY PO 12/12/17 09:00 01/11/18 08:59 12/17/17 08:29 81 MG Atorvastatin Calcium (Lipitor Tab) 20 mg DAILY PO 12/12/17 09:00 01/11/18 08:59 12/17/17 08:35 20 MG Cholecalciferol (Vitamin D Tab) 2,000 inter.unit DAILY PO 12/12/17 09:00 01/11/18 08:59 12/17/17 08:35 2,000 INTER.UNIT Metoclopramide HCl (Reglan Tab) 2.5 mg TID PO 12/12/17 09:00 01/11/18 08:59 12/17/17 08:32 2.5 MG Multivitamins/ Minerals (Multivitamin W/ Minerals Tab) 1 tab QD PO 12/12/17 05:15 01/11/18 05:14 12/15/17 07:37 1 TAB Cholestyramine Resin (Questran Powder Light) 4 gm BID@1000,2200 PO 12/12/17 10:00 01/11/18 09:59 12/16/17 21:42 4 GM Metoprolol Tartrate (Lopressor Tab) 12.5 mg BID PO 12/16/17 21:00 01/11/18 08:59 12/17/17 08:30 12.5 MG Potassium Chloride (Klor-Con Tab) 20 meq BID PO 12/16/17 21:00 01/15/18 08:59 12/17/17 08:32 20 MEQ Vancomycin HCl 1000 mg/Sodium Chloride 270 ml @ 125 mls/hr Q12H IV 12/16/17 22:00 12/22/17 21:59 12/16/17 21:59 125 MLS/HR Objective Vital Signs Date Time Temp Pulse Resp B/P (MAP) Pulse Ox O2 Delivery O2 Flow Rate FiO2 12/17/17 08:00 91 Nasal Cannula 2.0 12/17/17 08:00 36.6 71 18 139/91 (107) 91 12/17/17 04:33 37.2 78 18 148/98 (115) 98 12/17/17 04:00 98 Nasal Cannula 2.0 12/17/17 00:00 93 Nasal Cannula 2.0 12/17/17 00:00 37.7 74 160/108 (125) 93 Nasal Cannula 2.0 12/16/17 20:00 Room Air 12/16/17 19:25 37.1 84 22 147/98 (114) 93 Room Air 12/16/17 16:00 91 Room Air 12/16/17 15:29 37.0 65 20 122/80 (94) 91 Room Air 12/16/17 12:00 Room Air 12/16/17 11:21 36.7 80 18 114/78 (90) 91 Room Air Physical Exam General Appearance: no apparent distress, + pertinent finding (chronic mental impairment from previous CVA) Respiratory/Chest: no respiratory distress, no accessory muscle use Cardiovascular: regular rate, rhythm Abdomen: + pertinent finding (PEG tube in place) Laboratory Results Last 24 Hours Test 12/16/17 19:53 12/17/17 06:11 Vancomycin Level Trough 23.5 mcg/ml Creatinine 0.55 mg/dl Est Creatinine Clear Calc Drug Dose 85.3 ml/min Estimated GFR () 114.1 Estimated GFR (Non- 98.4 Assessment and Plan This is a 67 year old female resident of [facility] with a PMH of subdural hematoma and multiple CVAs, hx. of ALL s/p radiation - presents with +influenza A, leukocytosis Septicemia 12/17 awaiting repeating blood cultures once negative, can insert PICC line for Vancomycin, needs a total of 14 days 12/16 repeat blood cultures are positive x2 for gram positive cocci another set ordered by ID, appreciate input will check an echo to rule out endocarditis will continue Vancomycin for now continue for 14 days total Influenza A 12/17 completed course of Tamiflu 12/15 patient is appropriately being treated for the flu will complete a five day course of Tamiflu d/c back to [facility] when feeling better Sepsis secondary to Enterococcal UTI vs. possible Aspiration Pneumonia 12/16 14 total days of IV Vanco repeat blood cultures positive will check another set 12/15 repeat blood cultures pending, if negative, can d/c back to [facility] for now, continue Vancomycin 12/14 patient with a history of dysphagia and problems swallowing post-CVA possibly related to aspiration CXR - Bilateral infrahilar airspace opacities which could represent a pneumonia given the clinical history currently on a combination of Vancomycin and Aztreonam; will continue for now as per ID, appreciate input Enterococcal UTI 12/16 continue Vancomycin 12/15 continue Vancomycin for now switch to Amoxicillin once repeat blood cultures return 12/14 continue vancomycin as per ID urine culture growing enterococcal organism, sensitive to Vanc; resistant to quinolones Hypokalemia continue potassium supplementation monitor K and Mg in AM DVT ppx SCDs FULL CODE plan to d/c back to [facility] when stable
[2017-12-17] MEDS: VANCOMYCIN INJ 1,000 MG in SODIUM CHLORIDE 0.9% 250ML 250 ML IV SCH ×2 (10:21→21:58)
[2017-12-17] MEDS: CHOLESTYRAMINE LIGHT 4 GM PKT PO SCH ×2 (10:21→21:47)
[2017-12-18] VITALS (7 sets, daily range): BP systolic 117–151; BP diastolic 78–104; PULSE 65–81; TEMP 36.3–37.2; O2SAT 91–94
[2017-12-18] MEDS: CEROVITE ADV FORMULA TAB PO SCH (05:41)
[2017-12-18] MEDS ORDERED: NURSING VERBAL MED ORDER ONE (08:45)
[2017-12-18] MEDS ORDERED: VANCOMYCIN TROUGH ONE (09:30)
[2017-12-18] MEDS: ATORVASTATIN 20 MG TAB PO SCH (09:59)
[2017-12-18] MEDS: CHOLECALCIFEROL 1000 INTER.UNIT TAB PO SCH (09:59)
[2017-12-18] MEDS: POTASSIUM CHLORIDE 20 MEQ/15 ML UDC PEG SCH ×2 (09:59→21:21)
[2017-12-18] MEDS: METOCLOPRAMIDE HCL 10 MG TAB PO SCH ×3 (10:00→21:22)
[2017-12-18] MEDS: ASPIRIN 81 MG ECTAB PO SCH (10:00)
[2017-12-18] MEDS: METOPROLOL TARTRATE 25 MG TAB PO SCH ×2 (10:00→21:23)
[2017-12-18 10:26] LABS: HEMATOCRIT 30.4 % (37-47); HEMOGLOBIN 10.6 g/dL (12.0-16.0); MEAN CELL VOLUME 86.1 fL (80-100); MEAN CORPUSCULAR HGB CONC 34.9 g/dl (32-36); MEAN PLATELET VOLUME 8.8 fL (7.4-10.4); PLATELET COUNT 480 K/uL (130-400); RED CELL DISTRIBUTION WIDTH CV 13.3 % (11.5-14.5); RED CELL DISTRIBUTION WIDTH SD 41.9 fL (36.4-46.3); WHITE BLOOD COUNT 7.51 K/uL (4.8-10.8)
[2017-12-18 10:54] LABS: CALCIUM 9.1 mg/dl (8.5-10.1); CREATININE 0.5 mg/dl (0.60-1.20); POTASSIUM 3.8 mmol/L (3.5-5.1)
--- NOTE | 2017-12-18 11:28 | Pharmacy Progress Note ---
Pharmacy Abx Dose Short Note Date of Service Dec 18, 2017. Assessment & Plan Assessment 67 year old female receiving vancomycin for treatment of urosepsis Day # 9 of antimicrobial therapy. Blood cultures from 12/16 currently negative to date, plan for 14 days of antibiotics from 1st set of negative cultures Aiming for vanc trough level of ~20. Plan Vancomycin * Trough level of 22.8.5 mcg/mL is supratherapeutic * Change to 750 mg IV every 12 hours * Goal trough level for bacteremia (vanc GM = 2) : 20 mcg/mL * Trough level ordered for: 12/19/17 @6856
[2017-12-18] MEDS: VANCOMYCIN INJ 750 MG in SODIUM CHLORIDE 0.9% 250ML 250 ML IV SCH (12:20)
[2017-12-18] MEDS: CHOLESTYRAMINE LIGHT 4 GM PKT PO SCH ×2 (12:20→21:21)
--- NOTE | 2017-12-18 15:33 | Progress Note ---
Subjective Date of Service: Dec 18, 2017. Subjective Pt evaluation today including: conversation w/ patient, physical exam, lab review, review of studies, review of inpatient medication list Saw/examined the patient in room 234 she is more lethargic today not able to tolerate PO intake oral pocketing and coughing after attempting Problem List Medical Problems: (1) Acute CVA (cerebrovascular accident) Status: Acute (2) Altered mental state Status: Acute (3) Fall Status: Acute (4) Pneumonia Status: Acute (5) Pneumonia Status: Acute (6) Sepsis Status: Acute (7) Sepsis Status: Acute (8) Slurred speech Status: Acute (9) Stroke Status: Acute (10) UTI (urinary tract infection) Status: Acute (11) UTI (urinary tract infection) Status: Acute Medications Current Inpatient Medications Medications (Trade) Dose Ordered Sig/Kimberlyn Route Start Time Stop Time Status Last Admin Dose Admin Acetaminophen (Tylenol Tab) 650 mg Q4H PRN PO 12/12/17 04:45 01/11/18 04:44 Ondansetron HCl (Zofran Inj) 4 mg Q6H PRN IV 12/12/17 04:45 01/11/18 04:44 Polyethylene (Miralax Powder Packet) 17 gm DAILY PRN PO 12/12/17 04:45 01/11/18 04:44 Miscellaneous Information (Consult) 1 ea UD PRN N/A 12/12/17 04:45 01/11/18 04:44 Aspirin (Ecotrin Tab) 81 mg DAILY PO 12/12/17 09:00 01/11/18 08:59 12/18/17 10:00 81 MG Atorvastatin Calcium (Lipitor Tab) 20 mg DAILY PO 12/12/17 09:00 01/11/18 08:59 12/18/17 09:59 20 MG Cholecalciferol (Vitamin D Tab) 2,000 inter.unit DAILY PO 12/12/17 09:00 01/11/18 08:59 12/18/17 09:59 2,000 INTER.UNIT Metoclopramide HCl (Reglan Tab) 2.5 mg TID PO 12/12/17 09:00 01/11/18 08:59 12/18/17 15:04 2.5 MG Multivitamins/ Minerals (Multivitamin W/ Minerals Tab) 1 tab QD PO 12/12/17 05:15 01/11/18 05:14 12/18/17 05:41 1 TAB Cholestyramine Resin (Questran Powder Light) 4 gm BID@1000,2200 PO 12/12/17 10:00 01/11/18 09:59 12/18/17 12:20 4 GM Metoprolol Tartrate (Lopressor Tab) 12.5 mg BID PO 12/16/17 21:00 01/11/18 08:59 12/18/17 10:00 12.5 MG Potassium Chloride (Dulce Ciel Elix) 20 meq BID PEG 12/18/17 09:00 01/17/18 08:59 12/18/17 09:59 20 MEQ Vancomycin HCl 750 mg/Sodium Chloride 265 ml @ 125 mls/hr Q12H IV 12/18/17 12:00 12/30/17 11:59 12/18/17 12:20 125 MLS/HR Objective Vital Signs Date Time Temp Pulse Resp B/P (MAP) Pulse Ox O2 Delivery O2 Flow Rate FiO2 12/18/17 12:07 36.9 70 20 117/78 (91) 93 Room Air 12/18/17 11:38 36.4 70 18 134/85 (101) 93 Room Air 12/18/17 08:10 36.3 70 20 128/89 (102) 94 Nasal Cannula 2.0 12/18/17 08:00 Nasal Cannula 2.0 12/18/17 04:00 Nasal Cannula 2.0 12/18/17 03:37 37.2 76 14 134/85 (101) 91 Nasal Cannula 2.0 12/17/17 23:59 Room Air 12/17/17 23:37 36.7 78 20 155/60 (91) 94 Nasal Cannula 2.0 12/17/17 20:00 Nasal Cannula 12/17/17 19:24 37.2 77 16 133/88 (103) 94 Nasal Cannula 2.0 12/17/17 16:00 97 Nasal Cannula Physical Exam General Appearance: + pertinent finding (more lethargic today, tired/weak) Respiratory/Chest: no respiratory distress, no accessory muscle use Cardiovascular: regular rate, rhythm Abdomen: + pertinent finding (PEG tube in place) Laboratory Results Last 24 Hours Test 12/18/17 10:17 White Blood Count 7.51 K/uL Red Blood Count 3.53 M/uL Hemoglobin 10.6 g/dL Hematocrit 30.4 % Mean Corpuscular Volume 86.1 fL Mean Corpuscular Hemoglobin 30.0 pg Mean Corpuscular Hemoglobin Concent 34.9 g/dl RDW Standard Deviation 41.9 fL RDW Coefficient of Variation 13.3 % Platelet Count 480 K/uL Mean Platelet Volume 8.8 fL Sodium Level 136 mmol/L Potassium Level 3.8 mmol/L Chloride Level 105 mmol/L Carbon Dioxide Level 24 mmol/L Anion Gap 7.0 mmol/L Blood Urea Nitrogen 9 mg/dl Creatinine 0.50 mg/dl Est Creatinine Clear Calc Drug Dose 102.0 ml/min Estimated GFR () 117.7 Estimated GFR (Non- 101.6 BUN/Creatinine Ratio 18.3 Random Glucose 86 mg/dl Calcium Level 9.1 mg/dl Magnesium Level 1.8 mg/dl Chemistry Specimen Hemolysis Vancomycin Level Trough 22.8 mcg/ml Assessment and Plan This is a 67 year old female resident of [facility] with a PMH of subdural hematoma and multiple CVAs, hx. of ALL s/p radiation - presents with +influenza A, leukocytosis Septicemia 12/18 repeat cultures, preliminarily show no growth awaiting final cultures, then PICC line and IV Vancomycin on discharge due to worsening lethargy, she should have nothing by mouth only use PEG tube until she is more awake/alert 12/17 awaiting repeating blood cultures once negative, can insert PICC line for Vancomycin, needs a total of 14 days 12/16 repeat blood cultures are positive x2 for gram positive cocci another set ordered by ID, appreciate input will check an echo to rule out endocarditis will continue Vancomycin for now continue for 14 days total Influenza A 12/17 completed course of Tamiflu 12/15 patient is appropriately being treated for the flu will complete a five day course of Tamiflu d/c back to [facility] when feeling better Sepsis secondary to Enterococcal UTI vs. possible Aspiration Pneumonia 12/16 14 total days of IV Vanco repeat blood cultures positive will check another set 12/15 repeat blood cultures pending, if negative, can d/c back to [facility] for now, continue Vancomycin 12/14 patient with a history of dysphagia and problems swallowing post-CVA possibly related to aspiration CXR - Bilateral infrahilar airspace opacities which could represent a pneumonia given the clinical history currently on a combination of Vancomycin and Aztreonam; will continue for now as per ID, appreciate input Enterococcal UTI 12/16 continue Vancomycin 12/15 continue Vancomycin for now switch to Amoxicillin once repeat blood cultures return 12/14 continue vancomycin as per ID urine culture growing enterococcal organism, sensitive to Vanc; resistant to quinolones Hypokalemia continue potassium supplementation monitor K and Mg in AM DVT ppx SCDs FULL CODE plan to d/c back to [facility] when stable
[2017-12-19] VITALS (7 sets, daily range): BP systolic 126–155; BP diastolic 84–103; PULSE 73–91; TEMP 36.4–36.9; O2SAT 90–94
[2017-12-19] MEDS: VANCOMYCIN INJ 750 MG in SODIUM CHLORIDE 0.9% 250ML 250 ML IV SCH ×2 (01:05→13:43)
[2017-12-19] MEDS: CEROVITE ADV FORMULA TAB PO SCH (06:17)
[2017-12-19 08:11] LABS: HEMATOCRIT 32.9 % (37-47); HEMOGLOBIN 11.5 g/dL (12.0-16.0); MEAN CELL VOLUME 85.9 fL (80-100); MEAN PLATELET VOLUME 9.3 fL (7.4-10.4); PLATELET COUNT 504 K/uL (130-400); RED CELL DISTRIBUTION WIDTH CV 13.3 % (11.5-14.5); RED CELL DISTRIBUTION WIDTH SD 41.2 fL (36.4-46.3)
[2017-12-19 08:20] LABS: CALCIUM 9.4 mg/dl (8.5-10.1); CREATININE 0.49 mg/dl (0.60-1.20); POTASSIUM 3.6 mmol/L (3.5-5.1)
--- NOTE | 2017-12-19 09:03 | Progress Note ---
Subjective Date of Service: Dec 19, 2017. Subjective Pt evaluation today including: conversation w/ patient, physical exam, lab review, review of studies, review of inpatient medication list Saw/examined the patient in room 234 No acute issues; she has underlying cognitive dysfunction; at times, answers questions Yesterday, nursing staff worried that patient was too lethargic to take anything by mouth speech therapy agrees - now using PEG tube Problem List Medical Problems: (1) Acute CVA (cerebrovascular accident) Status: Acute (2) Altered mental state Status: Acute (3) Fall Status: Acute (4) Pneumonia Status: Acute (5) Pneumonia Status: Acute (6) Sepsis Status: Acute (7) Sepsis Status: Acute (8) Slurred speech Status: Acute (9) Stroke Status: Acute (10) UTI (urinary tract infection) Status: Acute (11) UTI (urinary tract infection) Status: Acute Review of Systems cannot obtain due to patient's mental status Medications Current Inpatient Medications Medications (Trade) Dose Ordered Sig/Kimberlyn Route Start Time Stop Time Status Last Admin Dose Admin Acetaminophen (Tylenol Tab) 650 mg Q4H PRN PO 12/12/17 04:45 01/11/18 04:44 Ondansetron HCl (Zofran Inj) 4 mg Q6H PRN IV 12/12/17 04:45 01/11/18 04:44 Polyethylene (Miralax Powder Packet) 17 gm DAILY PRN PO 12/12/17 04:45 01/11/18 04:44 Miscellaneous Information (Consult) 1 ea UD PRN N/A 12/12/17 04:45 01/11/18 04:44 Aspirin (Ecotrin Tab) 81 mg DAILY PO 12/12/17 09:00 01/11/18 08:59 12/18/17 10:00 81 MG Atorvastatin Calcium (Lipitor Tab) 20 mg DAILY PO 12/12/17 09:00 01/11/18 08:59 12/18/17 09:59 20 MG Cholecalciferol (Vitamin D Tab) 2,000 inter.unit DAILY PO 12/12/17 09:00 01/11/18 08:59 12/18/17 09:59 2,000 INTER.UNIT Metoclopramide HCl (Reglan Tab) 2.5 mg TID PO 12/12/17 09:00 01/11/18 08:59 12/18/17 21:22 2.5 MG Multivitamins/ Minerals (Multivitamin W/ Minerals Tab) 1 tab QD PO 12/12/17 05:15 01/11/18 05:14 12/19/17 06:17 1 TAB Cholestyramine Resin (Questran Powder Light) 4 gm BID@1000,2200 PO 12/12/17 10:00 01/11/18 09:59 12/18/17 21:21 4 GM Metoprolol Tartrate (Lopressor Tab) 12.5 mg BID PO 12/16/17 21:00 01/11/18 08:59 12/18/17 21:23 12.5 MG Potassium Chloride (Dulce Ciel Elix) 20 meq BID PEG 12/18/17 09:00 01/17/18 08:59 12/18/17 21:21 20 MEQ Vancomycin HCl 750 mg/Sodium Chloride 265 ml @ 125 mls/hr Q12H IV 12/18/17 12:00 12/30/17 11:59 12/19/17 01:05 125 MLS/HR Objective Vital Signs Date Time Temp Pulse Resp B/P (MAP) Pulse Ox O2 Delivery O2 Flow Rate FiO2 12/19/17 07:47 36.8 83 20 130/88 (102) 94 Room Air 12/19/17 04:05 36.9 73 18 155/90 (111) 94 Room Air 12/19/17 04:00 Room Air 12/18/17 23:59 Room Air 12/18/17 23:52 37.2 79 20 151/104 (120) 91 Room Air 12/18/17 20:00 Room Air 12/18/17 19:22 37.1 81 16 138/79 (98) 92 Room Air 12/18/17 16:00 Room Air 12/18/17 15:12 37.1 65 18 130/83 (99) 92 Room Air 12/18/17 12:07 36.9 70 20 117/78 (91) 93 Room Air 12/18/17 12:00 Room Air 12/18/17 11:38 36.4 70 18 134/85 (101) 93 Room Air Physical Exam General Appearance: no apparent distress, + pertinent finding (more lethargic, less alert than a few days prior) Respiratory/Chest: lungs clear, normal breath sounds, no respiratory distress, no accessory muscle use Cardiovascular: regular rate, rhythm, no edema, no murmur Extremities: normal inspection, no pedal edema Neurologic/Psychiatric: + pertinent finding (chronic cognitive dysfunction) Laboratory Results Last 24 Hours Test 12/18/17 10:17 12/19/17 07:40 White Blood Count 7.51 K/uL 10.10 K/uL Red Blood Count 3.53 M/uL 3.83 M/uL Hemoglobin 10.6 g/dL 11.5 g/dL Hematocrit 30.4 % 32.9 % Mean Corpuscular Volume 86.1 fL 85.9 fL Mean Corpuscular Hemoglobin 30.0 pg 30.0 pg Mean Corpuscular Hemoglobin Concent 34.9 g/dl 35.0 g/dl RDW Standard Deviation 41.9 fL 41.2 fL RDW Coefficient of Variation 13.3 % 13.3 % Platelet Count 480 K/uL 504 K/uL Mean Platelet Volume 8.8 fL 9.3 fL Sodium Level 136 mmol/L 138 mmol/L Potassium Level 3.8 mmol/L 3.6 mmol/L Chloride Level 105 mmol/L 105 mmol/L Carbon Dioxide Level 24 mmol/L 22 mmol/L Anion Gap 7.0 mmol/L 10.0 mmol/L Blood Urea Nitrogen 9 mg/dl 7 mg/dl Creatinine 0.50 mg/dl 0.49 mg/dl Est Creatinine Clear Calc Drug Dose 102.0 ml/min 92.3 ml/min Estimated GFR () 117.7 118.5 Estimated GFR (Non- 101.6 102.2 BUN/Creatinine Ratio 18.3 15.0 Random Glucose 86 mg/dl 76 mg/dl Calcium Level 9.1 mg/dl 9.4 mg/dl Magnesium Level 1.8 mg/dl Chemistry Specimen Hemolysis Vancomycin Level Trough 22.8 mcg/ml Assessment and Plan This is a 67 year old female resident of [facility] with a PMH of subdural hematoma and multiple CVAs, hx. of ALL s/p radiation - presents with +influenza A, leukocytosis Septicemia 3/4 will transfer today to med/surg continue IV Vanco plan to d/c in 1-2 days with PICC line repeat blood cultures negative thus far 3/ repeat cultures, preliminarily show no growth awaiting final cultures, then PICC line and IV Vancomycin on discharge due to worsening lethargy, she should have nothing by mouth only use PEG tube until she is more awake/alert 12/17 awaiting repeating blood cultures once negative, can insert PICC line for Vancomycin, needs a total of 14 days 12/16 repeat blood cultures are positive x2 for gram positive cocci another set ordered by ID, appreciate input will check an echo to rule out endocarditis will continue Vancomycin for now continue for 14 days total Influenza A 12/17 completed course of Tamiflu 12/15 patient is appropriately being treated for the flu will complete a five day course of Tamiflu d/c back to [facility] when feeling better Sepsis secondary to Enterococcal UTI vs. possible Aspiration Pneumonia 12/16 14 total days of IV Vanco repeat blood cultures positive will check another set 12/15 repeat blood cultures pending, if negative, can d/c back to [facility] for now, continue Vancomycin 12/14 patient with a history of dysphagia and problems swallowing post-CVA possibly related to aspiration CXR - Bilateral infrahilar airspace opacities which could represent a pneumonia given the clinical history currently on a combination of Vancomycin and Aztreonam; will continue for now as per ID, appreciate input Enterococcal UTI 12/16 continue Vancomycin 12/15 continue Vancomycin for now switch to Amoxicillin once repeat blood cultures return 12/14 continue vancomycin as per ID urine culture growing enterococcal organism, sensitive to Vanc; resistant to quinolones Hypokalemia continue potassium supplementation monitor K and Mg in AM DVT ppx SCDs FULL CODE plan to d/c back to [facility] when stable
[2017-12-19] MEDS: METOPROLOL TARTRATE 25 MG TAB PO SCH ×2 (09:13→19:46)
[2017-12-19] MEDS: CHOLECALCIFEROL 1000 INTER.UNIT TAB PO SCH (09:13)
[2017-12-19] MEDS: ATORVASTATIN 20 MG TAB PO SCH (09:13)
[2017-12-19] MEDS: METOCLOPRAMIDE HCL 10 MG TAB PO SCH ×3 (09:13→19:45)
[2017-12-19] MEDS: POTASSIUM CHLORIDE 20 MEQ/15 ML UDC PEG SCH ×2 (09:13→19:46)
[2017-12-19] MEDS: CHOLESTYRAMINE LIGHT 4 GM PKT PO SCH ×2 (10:20→21:59)
[2017-12-19] MEDS: ASPIRIN 81 MG CHEW PEG SCH (10:20)
[2017-12-19] MEDS ORDERED: VANCOMYCIN TROUGH ONE (23:30)
[2017-12-20] MEDS ORDERED: VANCOMYCIN TROUGH ONE (01:30)
[2017-12-20] MEDS: VANCOMYCIN INJ 750 MG in SODIUM CHLORIDE 0.9% 250ML 250 ML IV SCH ×2 (01:48→13:57)
[2017-12-20] MEDS: CEROVITE ADV FORMULA TAB PO SCH (05:02)
[2017-12-20 07:13] LABS: HEMATOCRIT 34.7 % (37-47); MEAN CELL VOLUME 86.8 fL (80-100); MEAN CORPUSCULAR HGB CONC 34.6 g/dl (32-36); PLATELET COUNT 534 K/uL (130-400); RED CELL DISTRIBUTION WIDTH CV 13.2 % (11.5-14.5); RED CELL DISTRIBUTION WIDTH SD 41.8 fL (36.4-46.3); WHITE BLOOD COUNT 13.59 K/uL (4.8-10.8)
[2017-12-20 07:37] LABS: CALCIUM 9.5 mg/dl (8.5-10.1); CREATININE 0.45 mg/dl (0.60-1.20); POTASSIUM 3.5 mmol/L (3.5-5.1)
[2017-12-20] MEDS: ASPIRIN 81 MG CHEW PEG SCH (08:00)
[2017-12-20 08:20] VITALS: BP 128/85; PULSE 91; TEMP 36.7; O2SAT 90
--- NOTE | 2017-12-20 08:58 | Pharmacy Progress Note ---
Pharmacy Abx Dose Short Note Date of Service Dec 20, 2017. Assessment & Plan Assessment 67 year old female receiving vancomycin for treatment of coag neg staph bacteremia in addition to enterococcal UTI Day # 9 of antimicrobial therapy - to continue for 14 days from 1st negative set of blood cultures, which was 12/16/17 WBC count increased today - I did not see that she received any steroids; afebrile Item Value Date Time Blood Culture - Preliminary Resulted 12/16/17 1133 Blood NO GROWTH TO DATE. Blood Culture - Preliminary Resulted 12/16/17 1114 Blood NO GROWTH TO DATE. Blood Culture - Final Complete 12/15/17 0834 Blood Coag Neg Staph Not Lugdunensis Blood Culture - Preliminary Resulted 12/15/17 0812 Blood Coag Neg Staph Not Lugdunensis Blood Culture - Final Complete 12/12/17 0204 Blood NO GROWTH Blood Culture - Final Complete 12/12/17 0118 Blood Coag Neg Staph Not Lugdunensis Urine Culture - Final Complete 12/12/17 0110 Urine,Catheterized Enterococcus Faecalis Plan Vancomycin * Currently receiving 750 mg IV q12h * Trough level of 18.9 mcg/mL is near therapeutic - want to aim close to 20 mcg/ mL for vanc GM of 2 * Of note, prior dose given ~2 hours late but vancomycin dose was re-timed. Previous dose was given ~1 hour late so majority of doses around time of trough would have been close to 12 hours apart * Continue dose of 750 mg IV every 12 hours * Repeat trough level ordered for: 12/22/17 prior to the 0200 dose Pharmacy will continue to follow and will adjust dose/frequency as necessary. Thank you.
[2017-12-20] MEDS: POTASSIUM CHLORIDE 20 MEQ/15 ML UDC PEG SCH ×2 (09:07→19:44)
[2017-12-20] MEDS: METOPROLOL TARTRATE 25 MG TAB PO SCH ×2 (09:08→19:41)
[2017-12-20] MEDS: ATORVASTATIN 20 MG TAB PO SCH (09:08)
[2017-12-20] MEDS: CHOLECALCIFEROL 1000 INTER.UNIT TAB PO SCH (09:09)
[2017-12-20] MEDS: METOCLOPRAMIDE HCL 10 MG TAB PO SCH ×3 (09:09→19:43)
[2017-12-20] MEDS: CHOLESTYRAMINE LIGHT 4 GM PKT PO SCH ×2 (09:19→21:06)
[2017-12-20 15:40] VITALS: BP 121/83; PULSE 83; TEMP 36.3; O2SAT 90
[2017-12-20 16:00] VITALS: O2SAT 90
--- NOTE | 2017-12-20 17:50 | Progress Note ---
Subjective Date of Service: Dec 20, 2017. Subjective Pt evaluation today including: conversation w/ patient, physical exam, lab review, review of studies, review of inpatient medication list Saw/examined the patient in room 457 She seems to be at baseline answers occasional questions, but this is her baseline No distress noted will try to feed her orally, but PEG tube is in place Problem List Medical Problems: (1) Acute CVA (cerebrovascular accident) Status: Acute (2) Altered mental state Status: Acute (3) Fall Status: Acute (4) Pneumonia Status: Acute (5) Pneumonia Status: Acute (6) Sepsis Status: Acute (7) Sepsis Status: Acute (8) Slurred speech Status: Acute (9) Stroke Status: Acute (10) UTI (urinary tract infection) Status: Acute (11) UTI (urinary tract infection) Status: Acute Medications Current Inpatient Medications Medications (Trade) Dose Ordered Sig/Kimberlyn Route Start Time Stop Time Status Last Admin Dose Admin Acetaminophen (Tylenol Tab) 650 mg Q4H PRN PO 12/12/17 04:45 01/11/18 04:44 Ondansetron HCl (Zofran Inj) 4 mg Q6H PRN IV 12/12/17 04:45 01/11/18 04:44 Polyethylene (Miralax Powder Packet) 17 gm DAILY PRN PO 12/12/17 04:45 01/11/18 04:44 Miscellaneous Information (Consult) 1 ea UD PRN N/A 12/12/17 04:45 01/11/18 04:44 Aspirin (Ecotrin Tab) 81 mg DAILY PO 12/12/17 09:00 01/11/18 08:59 Future Hold 12/18/17 10:00 81 MG Atorvastatin Calcium (Lipitor Tab) 20 mg DAILY PO 12/12/17 09:00 01/11/18 08:59 12/20/17 09:08 20 MG Cholecalciferol (Vitamin D Tab) 2,000 inter.unit DAILY PO 12/12/17 09:00 01/11/18 08:59 12/20/17 09:09 2,000 INTER.UNIT Metoclopramide HCl (Reglan Tab) 2.5 mg TID PO 12/12/17 09:00 01/11/18 08:59 12/20/17 13:58 2.5 MG Multivitamins/ Minerals (Multivitamin W/ Minerals Tab) 1 tab QD PO 12/12/17 05:15 01/11/18 05:14 12/19/17 06:17 1 TAB Cholestyramine Resin (Questran Powder Light) 4 gm BID@1000,2200 PO 12/12/17 10:00 01/11/18 09:59 12/20/17 09:19 4 GM Metoprolol Tartrate (Lopressor Tab) 12.5 mg BID PO 12/16/17 21:00 01/11/18 08:59 12/20/17 09:08 12.5 MG Potassium Chloride (Dulce Ciel Elix) 20 meq BID PEG 12/18/17 09:00 01/17/18 08:59 12/20/17 09:07 20 MEQ Vancomycin HCl 750 mg/Sodium Chloride 265 ml @ 125 mls/hr Q12H IV 12/18/17 12:00 12/30/17 11:59 12/20/17 13:57 125 MLS/HR Aspirin (Aspirin Chew) 81 mg QAM PEG 12/19/17 09:30 01/18/18 09:29 12/19/17 10:20 81 MG Objective Vital Signs Date Time Temp Pulse Resp B/P (MAP) Pulse Ox O2 Delivery O2 Flow Rate FiO2 12/20/17 16:00 90 Room Air 12/20/17 15:40 36.3 83 18 121/83 (96) 90 12/20/17 10:42 Room Air 12/20/17 08:20 36.7 91 18 128/85 (99) 90 Room Air 12/19/17 23:55 Room Air 12/19/17 23:06 36.9 91 20 142/92 (109) 92 Room Air 12/19/17 19:43 91 153/103 (120) 12/19/17 18:42 Room Air Physical Exam General Appearance: no apparent distress Respiratory/Chest: no respiratory distress, no accessory muscle use Cardiovascular: regular rate, rhythm, no edema, no murmur Neurologic/Psychiatric: no motor/sensory deficits, alert, normal mood/affect Laboratory Results Last 24 Hours Test 12/20/17 01:25 12/20/17 06:43 Vancomycin Level Trough 18.9 mcg/ml White Blood Count 13.59 K/uL Red Blood Count 4.00 M/uL Hemoglobin 12.0 g/dL Hematocrit 34.7 % Mean Corpuscular Volume 86.8 fL Mean Corpuscular Hemoglobin 30.0 pg Mean Corpuscular Hemoglobin Concent 34.6 g/dl RDW Standard Deviation 41.8 fL RDW Coefficient of Variation 13.2 % Platelet Count 534 K/uL Mean Platelet Volume 9.0 fL Sodium Level 135 mmol/L Potassium Level 3.5 mmol/L Chloride Level 102 mmol/L Carbon Dioxide Level 21 mmol/L Anion Gap 12.0 mmol/L Blood Urea Nitrogen 8 mg/dl Creatinine 0.45 mg/dl Est Creatinine Clear Calc Drug Dose 100.3 ml/min Estimated GFR () 121.9 Estimated GFR (Non- 105.1 BUN/Creatinine Ratio 17.8 Random Glucose 75 mg/dl Calcium Level 9.5 mg/dl Assessment and Plan This is a 67 year old female resident of [facility] with a PMH of subdural hematoma and multiple CVAs, hx. of ALL s/p radiation - presents with +influenza A, leukocytosis Septicemia 12/20 continue IV Vanco white count elevated today; unsure why will hold off PICC line insertion until AM when ID sees the patient will need family consent; she has had a PICC line in the past plan for d/c to SNF 12/19 will transfer today to med/surg continue IV Vanco plan to d/c in 1-2 days with PICC line repeat blood cultures negative thus far 12/18 repeat cultures, preliminarily show no growth awaiting final cultures, then PICC line and IV Vancomycin on discharge due to worsening lethargy, she should have nothing by mouth only use PEG tube until she is more awake/alert 12/17 awaiting repeating blood cultures once negative, can insert PICC line for Vancomycin, needs a total of 14 days 12/16 repeat blood cultures are positive x2 for gram positive cocci another set ordered by ID, appreciate input will check an echo to rule out endocarditis will continue Vancomycin for now continue for 14 days total Influenza A / completed course of Tamiflu 12/15 patient is appropriately being treated for the flu will complete a five day course of Tamiflu d/c back to [facility] when feeling better Sepsis secondary to Enterococcal UTI vs. possible Aspiration Pneumonia 12/16 14 total days of IV Vanco repeat blood cultures positive will check another set 12/15 repeat blood cultures pending, if negative, can d/c back to [facility] for now, continue Vancomycin 12/14 patient with a history of dysphagia and problems swallowing post-CVA possibly related to aspiration CXR - Bilateral infrahilar airspace opacities which could represent a pneumonia given the clinical history currently on a combination of Vancomycin and Aztreonam; will continue for now as per ID, appreciate input Enterococcal UTI 12/16 continue Vancomycin 12/15 continue Vancomycin for now switch to Amoxicillin once repeat blood cultures return 12/14 continue vancomycin as per ID urine culture growing enterococcal organism, sensitive to Vanc; resistant to quinolones Hypokalemia continue potassium supplementation monitor K and Mg in AM DVT ppx SCDs FULL CODE plan to d/c back to [facility] when stable
[2017-12-20 23:31] VITALS: BP 138/82; PULSE 90; TEMP 36.8; O2SAT 92
[2017-12-21] MEDS: VANCOMYCIN INJ 750 MG in SODIUM CHLORIDE 0.9% 250ML 250 ML IV SCH ×2 (01:47→13:35)
[2017-12-21] MEDS: CEROVITE ADV FORMULA TAB PO SCH (05:23)
[2017-12-21] MEDS: METOCLOPRAMIDE HCL 10 MG TAB PO SCH ×3 (07:33→19:50)
[2017-12-21] MEDS: CHOLECALCIFEROL 1000 INTER.UNIT TAB PO SCH (07:33)
[2017-12-21] MEDS: POTASSIUM CHLORIDE 20 MEQ/15 ML UDC PEG SCH ×2 (07:33→19:50)
[2017-12-21] MEDS: METOPROLOL TARTRATE 25 MG TAB PO SCH ×2 (07:34→19:50)
[2017-12-21] MEDS: ATORVASTATIN 20 MG TAB PO SCH (07:34)
[2017-12-21 07:36] VITALS: BP 125/89; PULSE 82; TEMP 37.1; O2SAT 91
[2017-12-21 08:00] VITALS: O2SAT 92
[2017-12-21 08:36] LABS: CREATININE 0.58 mg/dl (0.60-1.20)
[2017-12-21] MEDS: CHOLESTYRAMINE LIGHT 4 GM PKT PO SCH ×2 (09:25→21:10)
[2017-12-21] MEDS: ASPIRIN 81 MG CHEW PEG SCH (09:25)
[2017-12-21 10:52] LABS: HEMATOCRIT 32.7 % (37-47); HEMOGLOBIN 11.3 g/dL (12.0-16.0); MEAN CELL VOLUME 87.7 fL (80-100); MEAN CORPUSCULAR HEMOGLOBIN 30.3 pg (25-34); MEAN CORPUSCULAR HGB CONC 34.6 g/dl (32-36); MEAN PLATELET VOLUME 9.1 fL (7.4-10.4); PLATELET COUNT 532 K/uL (130-400); RED CELL DISTRIBUTION WIDTH CV 13.4 % (11.5-14.5); RED CELL DISTRIBUTION WIDTH SD 42.8 fL (36.4-46.3); WHITE BLOOD COUNT 12.35 K/uL (4.8-10.8)
--- NOTE | 2017-12-21 11:29 | Progress Note ---
Medicine Progress Note Date & Time of Visit: Dec 21, 2017 at 11:28. Subjective seen resting in bed, comfortable oriented to person follows simple commands denies dyspnea, cough, pain per clinical staff anesthesiologist, patient ate some breakfast today no other symptoms noted Objective Last 8 Hrs Date Time Temp Pulse Resp B/P (MAP) Pulse Ox O2 Delivery O2 Flow Rate FiO2 12/21/17 08:00 92 Room Air 12/21/17 07:36 37.1 82 18 125/89 (101) 91 Room Air Physical Exam: General- oriented x 1, not in distress, speaks in phrases but no effort, no distress Head- atraumatic Eyes- anicteric ENT- oropharynx clear Neck- supple, no JVD, no adenopathy Lungs- clear breath sounds bilaterally, no rales/wheezes Heart- regular rhythm; no murmur, normal rate Abdomen- normal bowel sounds, soft, nontender Extremities- no pretibial edema, no calf tenderness; peripheral pulses intact Neuro- alert, oriented x 1; right sided weakness, no other gross focal deficits Skin- warm & dry Laboratory Results: Last 24 Hours Test 12/21/17 07:48 White Blood Count 12.35 K/uL Red Blood Count 3.73 M/uL Hemoglobin 11.3 g/dL Hematocrit 32.7 % Mean Corpuscular Volume 87.7 fL Mean Corpuscular Hemoglobin 30.3 pg Mean Corpuscular Hemoglobin Concent 34.6 g/dl RDW Standard Deviation 42.8 fL RDW Coefficient of Variation 13.4 % Platelet Count 532 K/uL Mean Platelet Volume 9.1 fL Creatinine 0.58 mg/dl Est Creatinine Clear Calc Drug Dose 78.0 ml/min Estimated GFR () 112.1 Estimated GFR (Non- 96.7 Assessment & Plan 67 year old female with history of Subdural Hematoma, CVA, Hypertension, Leukemia presenting with fever, altered mental status. SEPSIS SECONDARY TO: Coag Neg Staph bacteremia UTI, Enterococcus Flu improved overall needs total of 14 days IV Vanco, today is day 07/01 can have peripheral site as access continue IV Vanco at [facility] upon discharge ID on board HYPOKALEMIA - replace and monitor HISTORY OF SUBDURAL HEMATOMA CVA - avoid heparin - already on ASA HYPERTENSION - monitor DVT prophylaxis avoid heparin, has history of subdural hematoma Full Code Disposition anticipate d/c to [facility] tomorrow with 4 more days of IV Vancomycin to complete 14 days total Current Inpatient Medications: Current Inpatient Medications Medications (Trade) Dose Ordered Sig/Kimberlyn Route Start Time Stop Time Status Last Admin Dose Admin Acetaminophen (Tylenol Tab) 650 mg Q4H PRN PO 12/12/17 04:45 01/11/18 04:44 Ondansetron HCl (Zofran Inj) 4 mg Q6H PRN IV 12/12/17 04:45 01/11/18 04:44 Polyethylene (Miralax Powder Packet) 17 gm DAILY PRN PO 12/12/17 04:45 01/11/18 04:44 Miscellaneous Information (Consult) 1 ea UD PRN N/A 12/12/17 04:45 01/11/18 04:44 Aspirin (Ecotrin Tab) 81 mg DAILY PO 12/12/17 09:00 01/11/18 08:59 Future Hold 12/18/17 10:00 81 MG Atorvastatin Calcium (Lipitor Tab) 20 mg DAILY PO 12/12/17 09:00 01/11/18 08:59 12/21/17 07:34 20 MG Cholecalciferol (Vitamin D Tab) 2,000 inter.unit DAILY PO 12/12/17 09:00 01/11/18 08:59 12/21/17 07:33 2,000 INTER.UNIT Metoclopramide HCl (Reglan Tab) 2.5 mg TID PO 12/12/17 09:00 01/11/18 08:59 12/21/17 07:33 2.5 MG Multivitamins/ Minerals (Multivitamin W/ Minerals Tab) 1 tab QD PO 12/12/17 05:15 01/11/18 05:14 12/21/17 05:23 1 TAB Cholestyramine Resin (Questran Powder Light) 4 gm BID@1000,2200 PO 12/12/17 10:00 01/11/18 09:59 12/21/17 09:25 4 GM Metoprolol Tartrate (Lopressor Tab) 12.5 mg BID PO 12/16/17 21:00 01/11/18 08:59 12/21/17 07:34 12.5 MG Potassium Chloride (Dulce Ciel Elix) 20 meq BID PEG 12/18/17 09:00 01/17/18 08:59 12/21/17 07:33 20 MEQ Vancomycin HCl 750 mg/Sodium Chloride 265 ml @ 125 mls/hr Q12H IV 12/18/17 12:00 12/30/17 11:59 12/21/17 01:47 125 MLS/HR Aspirin (Aspirin Chew) 81 mg QAM PEG 12/19/17 09:30 01/18/18 09:29 12/21/17 09:25 81 MG
[2017-12-21] MEDS: NSS + 20MEQ KCL 1000ML 1,000 ML IV SCH (14:30)
[2017-12-21 16:00] VITALS: O2SAT 92
--- NOTE | 2017-12-21 19:20 | Infectious Disease Progress Nt ---
Progress Note Date of Service Dec 21, 2017. Subjective Pt evaluation today including: conversation w/ patient, physical exam, chart review, lab review, review of studies, conversation w/ cosmetic consultant, review of inpatient medication list Appears comfortable, denying any new complaints. Remains afebrile. All Other Systems: Reviewed and Negative Medications Current Inpatient Medications Medications (Trade) Dose Ordered Sig/Kimberlyn Route Start Time Stop Time Status Last Admin Dose Admin Acetaminophen (Tylenol Tab) 650 mg Q4H PRN PO 12/12/17 04:45 01/11/18 04:44 Ondansetron HCl (Zofran Inj) 4 mg Q6H PRN IV 12/12/17 04:45 01/11/18 04:44 Polyethylene (Miralax Powder Packet) 17 gm DAILY PRN PO 12/12/17 04:45 01/11/18 04:44 Miscellaneous Information (Consult) 1 ea UD PRN N/A 12/12/17 04:45 01/11/18 04:44 Aspirin (Ecotrin Tab) 81 mg DAILY PO 12/12/17 09:00 01/11/18 08:59 Future Hold 12/18/17 10:00 81 MG Atorvastatin Calcium (Lipitor Tab) 20 mg DAILY PO 12/12/17 09:00 01/11/18 08:59 12/21/17 07:34 20 MG Cholecalciferol (Vitamin D Tab) 2,000 inter.unit DAILY PO 12/12/17 09:00 01/11/18 08:59 12/21/17 07:33 2,000 INTER.UNIT Metoclopramide HCl (Reglan Tab) 2.5 mg TID PO 12/12/17 09:00 01/11/18 08:59 12/21/17 13:34 2.5 MG Multivitamins/ Minerals (Multivitamin W/ Minerals Tab) 1 tab QD PO 12/12/17 05:15 01/11/18 05:14 12/21/17 05:23 1 TAB Cholestyramine Resin (Questran Powder Light) 4 gm BID@1000,2200 PO 12/12/17 10:00 01/11/18 09:59 12/21/17 09:25 4 GM Metoprolol Tartrate (Lopressor Tab) 12.5 mg BID PO 12/16/17 21:00 01/11/18 08:59 12/21/17 07:34 12.5 MG Potassium Chloride (Dulce Ciel Elix) 20 meq BID PEG 12/18/17 09:00 01/17/18 08:59 12/21/17 07:33 20 MEQ Vancomycin HCl 750 mg/Sodium Chloride 265 ml @ 125 mls/hr Q12H IV 12/18/17 12:00 12/30/17 11:59 12/21/17 13:35 125 MLS/HR Aspirin (Aspirin Chew) 81 mg QAM PEG 12/19/17 09:30 01/18/18 09:29 12/21/17 09:25 81 MG Potassium Chloride/Sodium Chloride 1,000 ml @ 60 mls/hr [id number] IV 12/21/17 14:15 01/20/18 14:14 12/21/17 14:30 60 MLS/HR Objective Vital Signs Date Time Temp Pulse Resp B/P (MAP) Pulse Ox O2 Delivery O2 Flow Rate FiO2 12/21/17 16:00 92 Room Air 12/21/17 08:00 92 Room Air 12/21/17 07:36 37.1 82 18 125/89 (101) 91 Room Air 12/21/17 00:00 Room Air 12/20/17 23:31 36.8 90 20 138/82 (100) 92 Room Air Physical Exam General Appearance: WD/WN, no apparent distress Eyes: normal inspection, EOMI, sclerae normal ENT: normal ENT inspection, pharynx normal Neck: supple, no adenopathy, thyroid normal, trachea midline Respiratory/Chest: chest non-tender, lungs clear, no respiratory distress, + respiratory distress Cardiovascular: regular rate, rhythm, no gallop, no murmur Abdomen: normal bowel sounds, non tender, soft, no organomegaly Extremities: non-tender, no calf tenderness, normal capillary refill Neurologic/Psychiatric: alert, + disoriented Skin: normal color, warm/dry, no rash Lymphatic: no adenopathy Laboratory Results RUN DATE: 12/18/17 [facility] LAB PAGE 1 RUN TIME: 0754 Specimen Inquiry PATIENT: MANI RINALDI LOC: Bob U # : [id number] AGE/SX: 67/F ROOM: [facility] REG : 12/12/[address]: Royce Kaur DO : 1950 BED: 1 DIS : STATUS: ADM IN TLOC: SPEC #: [id number] ANDI: 12/16/17 STATUS: RES REQ #: [id number] RECD: 12/16/[address]: Jennifer. Chen D.O. SOURCE: BLOOD ENTR: 12/16/17-[address] [facility] [address]: Caro Ramirez M.D. SPDC: George Renner MD, Sheetal ., D.O. Haroon, Salman A., DO ORDERED: BLOOD CULTURE Procedure Result Verified Site BLD CULT Preliminary 12/18/17-0754 NO GROWTH TO DATE. Last 24 Hours Test 12/21/17 07:48 White Blood Count 12.35 K/uL Red Blood Count 3.73 M/uL Hemoglobin 11.3 g/dL Hematocrit 32.7 % Mean Corpuscular Volume 87.7 fL Mean Corpuscular Hemoglobin 30.3 pg Mean Corpuscular Hemoglobin Concent 34.6 g/dl RDW Standard Deviation 42.8 fL RDW Coefficient of Variation 13.4 % Platelet Count 532 K/uL Mean Platelet Volume 9.1 fL Potassium Level 3.9 mmol/L Creatinine 0.58 mg/dl Est Creatinine Clear Calc Drug Dose 78.0 ml/min Estimated GFR () 112.1 Estimated GFR (Non- 96.7 Assessment and Plan (1) Gram positive septicemia (2) UTI (urinary tract infection) Status: Acute 67-year-old retirement resident with evidence of clinical sepsis, with recently diagnosed influenza a infection treated with Tamiflu, with Enterococcus urinary tract infection as well as possible pneumonia. Blood cultures have been positive for coagulase negative Staph, follow-up cultures negative on appropriate treatment. No evidence of endocarditis. Will complete course of therapy for staph infection as discussed. Will follow.
[2017-12-21 23:43] VITALS: BP 167/63; PULSE 82; TEMP 36.6; O2SAT 95
[2017-12-22] MEDS ORDERED: VANCOMYCIN TROUGH ONE (01:30)
[2017-12-22] MEDS: VANCOMYCIN INJ 750 MG in SODIUM CHLORIDE 0.9% 250ML 250 ML IV SCH (02:19)
[2017-12-22] MEDS: CEROVITE ADV FORMULA TAB PO SCH (05:49)
[2017-12-22] MEDS: NSS + 20MEQ KCL 1000ML 1,000 ML IV SCH (06:59)
[2017-12-22 07:37] VITALS: BP 143/79; PULSE 71; TEMP 36.5; O2SAT 92
[2017-12-22] MEDS: ATORVASTATIN 20 MG TAB PO SCH (07:40)
[2017-12-22] MEDS: POTASSIUM CHLORIDE 20 MEQ/15 ML UDC PEG SCH (07:40)
[2017-12-22] MEDS: CHOLECALCIFEROL 1000 INTER.UNIT TAB PO SCH (07:40)
[2017-12-22] MEDS: METOPROLOL TARTRATE 25 MG TAB PO SCH (07:41)
[2017-12-22] MEDS: METOCLOPRAMIDE HCL 10 MG TAB PO SCH ×2 (07:41→14:35)
[2017-12-22] MEDS: ASPIRIN 81 MG CHEW PEG SCH (07:45)
[2017-12-22 09:26] LABS: BASO % 0.2 %; BASO ABS # 0.02 K/uL (0-0.2); EOS % 1.1 %; EOS ABS # 0.09 K/uL (0-0.5); HEMATOCRIT 30.9 % (37-47); HEMOGLOBIN 10.6 g/dL (12.0-16.0); IG# 0.04 K/uL (0.00-0.02); LYMPH % 21.2 %; LYMPH ABS # 1.76 K/uL (1.2-3.4); MEAN CELL VOLUME 87.5 fL (80-100); MEAN CORPUSCULAR HGB CONC 34.3 g/dl (32-36); MONO % 4.7 %; MONO ABS # 0.39 K/uL (0.11-0.59); NEUT % 72.3 %; NEUT ABS # 6.01 K/uL (1.4-6.5); PLATELET COUNT 494 K/uL (130-400); RED CELL DISTRIBUTION WIDTH CV 13.4 % (11.5-14.5); RED CELL DISTRIBUTION WIDTH SD 42.8 fL (36.4-46.3); WHITE BLOOD COUNT 8.31 K/uL (4.8-10.8)
--- NOTE | 2017-12-22 09:36 | Pharmacy Progress Note ---
Pharmacy Abx Dose Short Note Date of Service Dec 22, 2017. Assessment & Plan Assessment 67 year old female receiving vancomcycin for treatment of gram + septicemia 1st set of negative blood cultures on 12/16/17 Day # 11/14 of antimicrobial therapy - previous notes report 14 days of therapy from 1st negative blood culture, which would be end date of 12/30, but I cannot find any info in IDs recs to confirm this Plan Vancomycin * Trough level of 15.9 mcg/mL is subtherapeutic for GM = 2 * Change to 750 mg IV every 10 hours - next dose due at 1200 today * Goal trough level for bacteremia w/ vanc GM = 2: ~ 20 mcg/mL * Trough level ordered for: 12/23/17 prior to the dose due at 1800 * If [facility] going [facility], would recommend trough level around the same time, which would be with the 4th dose of new regimen Pharmacy will continue to follow and will adjust dose/frequency as necessary. Thank you.
--- NOTE | 2017-12-22 10:57 | Progress Note ---
Medicine Progress Note Date & Time of Visit: Dec 22, 2017 at 10:46. Subjective seen resting in bed, alert, awake smiling, comfortable answers some questions cooperative states she feels fine no dyspnea, chest pain, any pain ate well for breakfast as per RN , Stafff no other symptoms states she is ready for discharge today Objective Last 8 Hrs Date Time Temp Pulse Resp B/P (MAP) Pulse Ox O2 Delivery O2 Flow Rate FiO2 12/22/17 08:00 Room Air 12/22/17 07:37 36.5 71 18 143/79 (100) 92 Room Air Physical Exam: General- oriented x 1, not in distress, speaks in phrases but no effort, no distress Eyes- anicteric ENT- oropharynx clear Neck- supple, no JVD Lungs- clear breath sounds bilaterally Heart- regular rhythm; no murmur, normal rate Abdomen- normal bowel sounds, soft, nontender, Peg tube site clean, no discharge , no erythema/warmth/swelling Extremities- no pretibial edema, no calf tenderness; peripheral pulses intact Neuro- alert, oriented x 1; right sided weakness, no other gross focal deficits Skin- warm & dry Laboratory Results: Last 24 Hours Test 12/22/17 01:40 12/22/17 09:15 Vancomycin Level Trough 15.9 mcg/ml White Blood Count 8.31 K/uL Red Blood Count 3.53 M/uL Hemoglobin 10.6 g/dL Hematocrit 30.9 % Mean Corpuscular Volume 87.5 fL Mean Corpuscular Hemoglobin 30.0 pg Mean Corpuscular Hemoglobin Concent 34.3 g/dl Platelet Count 494 K/uL Mean Platelet Volume 9.0 fL Neutrophils (%) (Auto) 72.3 % Lymphocytes (%) (Auto) 21.2 % Monocytes (%) (Auto) 4.7 % Eosinophils (%) (Auto) 1.1 % Basophils (%) (Auto) 0.2 % Neutrophils # (Auto) 6.01 K/uL Lymphocytes # (Auto) 1.76 K/uL Monocytes # (Auto) 0.39 K/uL Eosinophils # (Auto) 0.09 K/uL Basophils # (Auto) 0.02 K/uL RDW Standard Deviation 42.8 fL RDW Coefficient of Variation 13.4 % Immature Granulocyte % (Auto) 0.5 % Immature Granulocyte # (Auto) 0.04 K/uL Potassium Level 3.6 mmol/L Assessment & Plan 67 year old female with history of Subdural Hematoma, CVA, Hypertension, Leukemia presenting with fever, altered mental status. SEPSIS SECONDARY TO: Coag Neg Staph bacteremia UTI, Enterococcus Influenza improved overall ID consulted- Dr. Renner needs total of 14 days IV Vanco (Day #11 as of 12/22/17) Pharmacy recommendations re: Vancomycin dosing * as of 12/22/17: Trough level of 15.9 mcg/mL is subtherapeutic for GM = 2 Change to 750 mg IV every 10 hours - next dose due at 1200 today * Goal trough level for bacteremia w/ vanc GM = 2: ~ 20 mcg/mL * Trough level ordered for: 12/23/17 prior to the dose due at 1800 * would recommend trough level around the same time, which would be with the 4th dose of new regimen continue IV Vancomycin at [facility] with Pharmacist Supervision HYPOKALEMIA - replaced - monitor HISTORY OF SUBDURAL HEMATOMA CVA - avoid heparin - already on ASA HYPERTENSION - monitor Full Code Disposition d/c to [facility] today patient to be followed by MD at [facility] usual Primary Care Physician is Dr. Pressley at [facility] Current Inpatient Medications: Current Inpatient Medications Medications (Trade) Dose Ordered Sig/Kimberlyn Route Start Time Stop Time Status Last Admin Dose Admin Acetaminophen (Tylenol Tab) 650 mg Q4H PRN PO 12/12/17 04:45 01/11/18 04:44 Ondansetron HCl (Zofran Inj) 4 mg Q6H PRN IV 12/12/17 04:45 01/11/18 04:44 Polyethylene (Miralax Powder Packet) 17 gm DAILY PRN PO 12/12/17 04:45 01/11/18 04:44 Miscellaneous Information (Consult) 1 ea UD PRN N/A 12/12/17 04:45 01/11/18 04:44 Aspirin (Ecotrin Tab) 81 mg DAILY PO 12/12/17 09:00 01/11/18 08:59 Future Hold 12/18/17 10:00 81 MG Atorvastatin Calcium (Lipitor Tab) 20 mg DAILY PO 12/12/17 09:00 01/11/18 08:59 12/22/17 07:40 20 MG Cholecalciferol (Vitamin D Tab) 2,000 inter.unit DAILY PO 12/12/17 09:00 01/11/18 08:59 12/22/17 07:40 2,000 INTER.UNIT Metoclopramide HCl (Reglan Tab) 2.5 mg TID PO 12/12/17 09:00 01/11/18 08:59 12/22/17 07:41 2.5 MG Multivitamins/ Minerals (Multivitamin W/ Minerals Tab) 1 tab QD PO 12/12/17 05:15 01/11/18 05:14 12/22/17 05:49 1 TAB Cholestyramine Resin (Questran Powder Light) 4 gm BID@1000,2200 PO 12/12/17 10:00 01/11/18 09:59 12/21/17 21:10 4 GM Metoprolol Tartrate (Lopressor Tab) 12.5 mg BID PO 12/16/17 21:00 01/11/18 08:59 12/22/17 07:41 12.5 MG Potassium Chloride (Dulce Ciel Elix) 20 meq BID PEG 12/18/17 09:00 01/17/18 08:59 12/22/17 07:40 20 MEQ Aspirin (Aspirin Chew) 81 mg QAM PEG 12/19/17 09:30 01/18/18 09:29 12/22/17 07:45 81 MG Potassium Chloride/Sodium Chloride 1,000 ml @ 60 mls/hr [id number] IV 12/21/17 14:15 01/20/18 14:14 12/22/17 06:59 60 MLS/HR Vancomycin HCl 750 mg/Sodium Chloride 265 ml @ 125 mls/hr Q10H IV 12/22/17 12:00 12/25/17 23:59
[2017-12-22] MEDS ORDERED: VANC1INJ94 IV ×2 (11:09→11:19)
[2017-12-22] MEDS ORDERED: POTA20TA16 PO (11:19)
--- NOTE | 2017-12-22 11:23 | Discharge Instructions ---
Discharge Instructions Date of Service Dec 22, 2017. Admission Reason for Admission: Pneumonia, Sepsis, Uti Discharge Discharge Diagnosis / Problem: Sepsis secondary to Staph Bacteremia, Enterococcus UTI, Influenza Discharge Goals Goal(s): Diagnostic testing, Therapeutic intervention Activity Recommendations Activity Level: Assistance Required Therapies: Physical Therapy, Occupational Therapy, Speech Therapy . Additional Information Patient informed of condition: Yes Advance Directives: No (Unknown) DNR: No (Patient is a Full Code) Level of Care: Acute Rehab Communicable Disease: No Prognosis: Improving Instructions / Follow-Up Instructions / Follow-Up Speech Therapy Discharge Instructions * 1. Mechanical soft diet 2. Aspiration precautions, No straws. Fully upright for meals and for 30 minutes after meals. 3. Only feed when awake, alert, and able to participate. Will need assistance with feeding. Small bites/sips. Alternate solids and liquids. Cue to use a lingual sweep. 4. Medications crushed and placed in a carrier such as applesauce or pudding. Consider medication administration and enteral nutrition via PEG as needed pending alertness. 5. Would benefit from continued INFECTION PREVENTION PRACTITIONER services for carryover of diet and safe swallow stratgies. FALL PRECAUTIONS PLEASE. PATIENT NEEDS ASSISTANCE WITH FEEDING. VANCOMYCIN DAILY DOSING C/O PHARMACIST. MONITOR POTASSIUM LEVEL. PLEASE REFER TO HOSPITAL DISCHARGE SUMMARY FOR FURTHER RECOMMENDATIONS. Current Hospital Diet Patient's current hospital diet: AHA Diet (Heart Healthy) Discharge Diet Recommended Diet: AHA Diet (Heart Healthy) Diet Texture: Mechanical Soft (ground) Procedures Procedures Performed: CT HEAD, CHEST XRAY, ECHOCARDIOGRAM Pending Studies Studies pending at discharge: yes List of pending studies: REPEAT POTASSIUM LEVEL. Physician Orders On Transfer Special Precautions: Speech Therapy Discharge Instructions * 1. Mechanical soft diet 2. Aspiration precautions, No straws. Fully upright for meals and for 30 minutes after meals. 3. Only feed when awake, alert, and able to participate. Will need assistance with feeding. Small bites/sips. Alternate solids and liquids. Cue to use a lingual sweep. 4. Medications crushed and placed in a carrier such as applesauce or pudding. Consider medication administration and enteral nutrition via PEG as needed pending alertness. 5. Would benefit from continued INFECTION PREVENTION PRACTITIONER services for carryover of diet and safe swallow stratgies. FALL PRECAUTIONS PLEASE. PATIENT NEEDS ASSISTANCE WITH FEEDING. VANCOMYCIN DAILY DOSING C/O PHARMACIST. MONITOR POTASSIUM LEVEL. PLEASE REFER TO HOSPITAL DISCHARGE SUMMARY FOR FURTHER RECOMMENDATIONS. Medical Emergencies . Who to Call and When: Medical Emergencies: If at any time you feel your situation is an emergency, please call 911 immediately. . Non-Emergent Contact Non-Emergency issues call your: Primary Care Provider Call Non-Emergent contact if: you have a fever, your pain is not controlled, you have any medication questions . Past History Medical & Surgical History: (1) Anemia (2) CVA, s/p TPA (3) possible tia (4) CVA (cerebral vascular accident) (5) Subdural hematoma, acute (6) Basal pneumonia of both lungs (7) Acute respiratory failure with hypoxia (8) Sepsis (9) Pneumonia (10) Gram positive septicemia (11) UTI (urinary tract infection) (12) Breast cancer (13) Leukemia (14) Hypertension . "Provider Documentation" section prepared by Douglas Duran. . Core Measure Problem Core Measures: None
--- NOTE | 2017-12-22 11:39 | Discharge Summary ---
Discharge Summary Date of Service Dec 22, 2017. Discharge Summary Admission Date: Dec 12, 2017 at 04:47 Discharge Date: Dec 22, 2017 Discharge Disposition: Rehab Principal Diagnosis: SEPSIS SECONDARY TO:Coag Neg Staph bacteremia; UTI, Enterococcus, Influenza Secondary Diagnoses/Problems: PLEASE REFER TO HOSPITAL COURSE BELOW. Procedures: CT HEAD WITHOUT CONTRAST (CT) CLINICAL HISTORY: Altered mental status. Flulike symptoms. COMPARISON STUDY: December 06, 2007 TECHNIQUE: Axial CT of the brain is performed from the vertex to the skull base. IV contrast was not administered for this examination. A dose lowering technique was utilized adhering to the principles of ALARA. CT DOSE: 614.27 mGy.cm FINDINGS: No intra or extra-axial mass lesions are visualized. There is no CT evidence of acute cortical infarction. There is no evidence of midline shift. There is no acute hemorrhage. No calvarial fractures are visualized. There are extensive white matter hypodensities likely on a small vessel basis. There are old basal ganglia lacunar infarcts. There is no evidence of pathologic ventricular dilatation. There is a right maxillary sinus air-fluid level. IMPRESSION: 1. Right maxillary sinus air-fluid level 2. No acute intracranial findings. Extensive white matter disease, likely on a small vessel basis. Old lacunar infarcts. CHEST ONE VIEW PORTABLE CLINICAL HISTORY: fever, hypoxia COMPARISON STUDY: December 06, 2017 FINDINGS: The patient is rotated. The heart is normal in size. There are bilateral infrahilar airspace opacities. There are no pleural effusions.[ IMPRESSION: Technically limited study. Bilateral infrahilar airspace opacities which could represent a pneumonia given the clinical history. A PA and lateral study is recommended when the patient is clinically able. ECHO: -- Conclusions -- * Normal LV chamber size with mild concentric LVH. * Normal LV systolic function, EF 55-60%. * No segmental left ventricular wall motion abnormalities are noted. * Grade I diastolic dysfunction. * Poorly visualized valvular structures with no significant stenosis or regurgitation by Doppler. * Study insufficient to definitely exclude endocarditis. Consultations: Infectious Disease Dr. Renner Pending Studies/Follow-Up: Speech Therapy Discharge Instructions * 1. Mechanical soft diet 2. Aspiration precautions, No straws. Fully upright for meals and for 30 minutes after meals. 3. Only feed when awake, alert, and able to participate. Will need assistance with feeding. Small bites/sips. Alternate solids and liquids. Cue to use a lingual sweep. 4. Medications crushed and placed in a carrier such as applesauce or pudding. Consider medication administration and enteral nutrition via PEG as needed pending alertness. 5. Would benefit from continued ASSISTANT PROFESSOR OF RADIOLOGY services for carryover of diet and safe swallow stratgies. FALL PRECAUTIONS PLEASE. PATIENT NEEDS ASSISTANCE WITH FEEDING. VANCOMYCIN DAILY DOSING C/O PHARMACIST. MONITOR POTASSIUM LEVEL. PLEASE REFER TO HOSPITAL COURSE BELOW FOR FURTHER RECOMMENDATIONS. Medication Reconciliation New Medications: Vancomycin HCl in Sodium Chlor (VANCOMYCIN in NSS) 1 Inj Inj 750 MG IV q10 for 4 Days Changed Medications: Potassium Ext Rel (Klor-Con) 20 Meq Tabcr 20 MEQ PO BID for 10 Days (Changed from: DAILY) Continued Medications: Aspirin (Aspirin EC Low Dose) 81 Mg Ectab 1 TABS PO DAILY Atorvastatin (Lipitor) 40 Mg Tab 20 MG PO DAILY Cholecalciferol (Vitamin D) 1,000 Unit Tab 2000 UNITS PO DAILY TWO 1,000 UNIT TABLETS Cholestyramine (Questran) 4 Gm Pow 4 GM PO BID Home O2 Therapy (Oxygen) Gas 2 LITERS NA PRN WHEN SPO2 FALLS BELOW 89%, NEEDED Metoclopramide (Reglan) 10 Mg Tab 2.5 MG PO TID NAUSEA Metoprolol Tartrate (Lopressor) 25 Mg Tab 12.5 MG PO BID, TAB Multiple Vitamins W/ Minerals (Multivitamin Women) 1 Tab Tab 1 TAB PO QD Discontinued Medications: Dextrose 5%/0.45% Ns (Dextrose 5%/0.45% Ns) 1 Inj Inj IV CONTINOUS 25 ml/hr Oseltamivir Phosphate (Tamiflu) 75 Mg Cap 75 MG PO AMHS for 5 Days, #10 Admission Information HPI (per Admitting provider): Patient is a 67 yo female resident of [facility] who was brought to the hospital today for complaints of fever, dehydration, and AMS. The patient was being treated for a UTI diagnosed 5 days ago, and is also on tamiflu for influenza A which was diagnosed on 12/10. The patient was initially on bactrim but this was switched to macrobid due to C&S. Patient was also said to have 2 episodes of vomiting, and reportedly coughed some after swallowing some food at some point in the past 2 days. She has a known history of aspiration pneumonia per records. 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 She does require assistance with ADLs. She has had a few instances of lethargy over the past few days as well which has been concerning to the patient's daughter. All information was obtained from the medical records as the daughter was not at the bedside at time of admission and the patient is unable to provide any meaningful history. Physical Exam (per Admitting): General Appearance: WD/WN, no apparent distress, + thin Head: normocephalic, atraumatic Eyes: PERRL, EOMI, sclerae normal ENT: hearing grossly normal Neck: supple, no adenopathy, no JVD, no carotid bruits, trachea midline Respiratory/Chest: chest non-tender, no respiratory distress, no accessory muscle use, + rhonchi, + pertinent finding (frequent non-productive cough noted) Cardiovascular: regular rate, rhythm, no edema, no gallop, no JVD, no murmur Abdomen/GI: normal bowel sounds, non tender, soft, no organomegaly Extremities/Musculoskelatal: no calf tenderness, normal capillary refill, no pedal edema Neurologic/Psych: alert, + aphasia, + motor weakness (chronic hemiparesis RUE and RLE), + pertinent finding (sluggish to respond to verbal, has difficulty with communicating) Skin: normal color, warm/dry, no rash Hospital Course 67 year old female with history of Subdural Hematoma, CVA, Hypertension, Leukemia presenting with fever, altered mental status. SEPSIS SECONDARY TO: Coag Neg Staph bacteremia UTI, Enterococcus Influenza met sepsis criteria during admission blood cultures 12/12: (+) 1/2 bottles Coag neg staph 12/15: (+) 2/2 bottles Coag neg staph 12/16: Negative Urine culture: (+) Entercoccus, sens to Vanco improved overall ID consulted- Dr. Renner, Endocarditis unlikely per Dr. Renner needs total of 14 days IV Vanco (Day #11 as of 12/22/17) Pharmacy recommendations re: Vancomycin dosing * as of 12/22/17: Trough level of 15.9 mcg/mL is subtherapeutic for GM = 2 Change to 750 mg IV every 10 hours - next dose due at 1200 today * Goal trough level for bacteremia w/ vanc GM = 2: ~ 20 mcg/mL * Trough level ordered for: 12/23/17 prior to the dose due at 1800 * would recommend trough level around the same time, which would be with the 4th dose of new regimen continue IV Vancomycin at [facility] with Pharmacist Supervision finished course of Tamiflu HYPOKALEMIA -K increased to BID - monitor HISTORY OF SUBDURAL HEMATOMA CVA - avoid heparin - already on ASA HYPERTENSION - continue Metoprolol BID - monitor Full Code Disposition d/c to [facility] patient to be followed by MD at [facility] usual Primary Care Physician is Dr. Pressley at [facility] Total time spent on discharge = 45 minutes This includes examination of the patient, discharge planning, medication reconciliation, and communication with other providers. Discharge Instructions Discharge Instructions Date of Service Dec 22, 2017. Admission Reason for Admission: Pneumonia, Sepsis, Uti Discharge Discharge Diagnosis / Problem: Sepsis secondary to Staph Bacteremia, Enterococcus UTI, Influenza Discharge Goals Goal(s): Diagnostic testing, Therapeutic intervention Activity Recommendations Activity Level: Assistance Required Therapies: Physical Therapy, Occupational Therapy, Speech Therapy . Additional Information Patient informed of condition: Yes Advance Directives: No (Unknown) DNR: No (Patient is a Full Code) Level of Care: Acute Rehab Communicable Disease: No Prognosis: Improving Instructions / Follow-Up Instructions / Follow-Up Speech Therapy Discharge Instructions * 1. Mechanical soft diet 2. Aspiration precautions, No straws. Fully upright for meals and for 30 minutes after meals. 3. Only feed when awake, alert, and able to participate. Will need assistance with feeding. Small bites/sips. Alternate solids and liquids. Cue to use a lingual sweep. 4. Medications crushed and placed in a carrier such as applesauce or pudding. Consider medication administration and enteral nutrition via PEG as needed pending alertness. 5. Would benefit from continued ASSISTANT PROFESSOR OF RADIOLOGY services for carryover of diet and safe swallow stratgies. FALL PRECAUTIONS PLEASE. PATIENT NEEDS ASSISTANCE WITH FEEDING. VANCOMYCIN DAILY DOSING C/O PHARMACIST. MONITOR POTASSIUM LEVEL. PLEASE REFER TO HOSPITAL DISCHARGE SUMMARY FOR FURTHER RECOMMENDATIONS. Current Hospital Diet Patient's current hospital diet: AHA Diet (Heart Healthy) Discharge Diet Recommended Diet: AHA Diet (Heart Healthy) Diet Texture: Mechanical Soft (ground) Procedures Procedures Performed: CT HEAD, CHEST XRAY, ECHOCARDIOGRAM Pending Studies Studies pending at discharge: yes List of pending studies: REPEAT POTASSIUM LEVEL. Physician Orders On Transfer Special Precautions: Speech Therapy Discharge Instructions * 1. Mechanical soft diet 2. Aspiration precautions, No straws. Fully upright for meals and for 30 minutes after meals. 3. Only feed when awake, alert, and able to participate. Will need assistance with feeding. Small bites/sips. Alternate solids and liquids. Cue to use a lingual sweep. 4. Medications crushed and placed in a carrier such as applesauce or pudding. Consider medication administration and enteral nutrition via PEG as needed pending alertness. 5. Would benefit from continued ASSISTANT PROFESSOR OF RADIOLOGY services for carryover of diet and safe swallow stratgies. FALL PRECAUTIONS PLEASE. PATIENT NEEDS ASSISTANCE WITH FEEDING. VANCOMYCIN DAILY DOSING C/O PHARMACIST. MONITOR POTASSIUM LEVEL. PLEASE REFER TO HOSPITAL DISCHARGE SUMMARY FOR FURTHER RECOMMENDATIONS. Medical Emergencies . Who to Call and When: Medical Emergencies: If at any time you feel your situation is an emergency, please call 911 immediately. . Non-Emergent Contact Non-Emergency issues call your: Primary Care Provider Call Non-Emergent contact if: you have a fever, your pain is not controlled, you have any medication questions . Past History Medical & Surgical History: (1) Anemia (2) CVA, s/p TPA (3) possible tia (4) CVA (cerebral vascular accident) (5) Subdural hematoma, acute (6) Basal pneumonia of both lungs (7) Acute respiratory failure with hypoxia (8) Sepsis (9) Pneumonia (10) Gram positive septicemia (11) UTI (urinary tract infection) (12) Breast cancer (13) Leukemia (14) Hypertension . "Provider Documentation" section prepared by Douglas Duran. . Core Measure Problem Core Measures: None
[2017-12-22 11:49] VITALS: BP 143/79; PULSE 71; TEMP 36.5; O2SAT 92
[2017-12-22] MEDS ORDERED: VANCOMYCIN INJ 750 MG in SODIUM CHLORIDE 0.9% 250ML 250 ML IV SCH (12:00)
[2017-12-22] MEDS: CHOLESTYRAMINE LIGHT 4 GM PKT PO SCH (12:09)
[2017-12-23] MEDS ORDERED: VANCOMYCIN TROUGH ONE (17:30)
== END 2017-12-22 15:35 | DRG 871 ==
LOC: EDBD 01:00 → C.EDC 01:01 → C.2T 04:47 → ENRESERV 04:54 → C.MS4W 12-19 09:05 → ENRESERV 12-19 09:34
PROVIDERS: ADMIT Internal Medicine; ATTEND Internal Medicine
DX: A41.2 Sepsis due to unspecified staphylococcus (principal); J69.0 Pneumonitis due to inhalation of food and vomit; N39.0 Urinary tract infection, site not specified; I69.359 Hemiplegia and hemiparesis following cerebral infarction affecting unspecified side; J10.1 Influenza due to other identified influenza virus with other respiratory manifestations; B95.2 Enterococcus as the cause of diseases classified elsewhere; E87.6 Hypokalemia; I10 Essential (primary) hypertension; I69.322 Dysarthria following cerebral infarction; Z85.3 Personal history of malignant neoplasm of breast; Z90.13 Acquired absence of bilateral breasts and nipples; Z85.6 Personal history of leukemia; Z92.3 Personal history of irradiation; Z99.81 Dependence on supplemental oxygen; Z79.82 Long term (current) use of aspirin; Z79.899 Other long term (current) drug therapy; Z88.0 Allergy status to penicillin

== ENCOUNTER 2018-06-09 09:19 | Emergency (ER) | payer OTHER, BC, MEDICARE ==
[~2018-06-09] VITALS: Ht 160 cm; Wt 53.9 kg
[~2018-06-09 09:19] MED LIST changes: -ACET-1693 PO; -ASPCH81X PO; +ASPI-320 PO; -ATOR-22 PO; -CHOL100010 PO; +CHOL20009 PO; +DOCU5LIQ PO; +LPR25 PO; +LPT20 PO; -METO-157 PO; -METO25TA56 PO; +METO5TAB2 PO; -MULT-1019 PO; +MULT-17 PO; -OSEL75CA23 PO; -POTA20TA16 PO; -SACC250C PO; +SENN-104 PO; -SULF800T23 PO
[2018-06-09 09:35] VITALS: TEMP 37; Ht 160 cm; Wt 53.9 kg
[2018-06-09] MEDS ORDERED: ASPCH81X PO (09:45)
[2018-06-09] MEDS ORDERED: DOCU10LI PO (09:45)
[2018-06-09] MEDS ORDERED: LSN25 PO (09:45)
[2018-06-09 09:57] VITALS: O2SAT 97
[2018-06-09] MEDS ORDERED: SODIUM CHLORIDE 0.9% 1000ML 1,000 ML IV STA (09:59)
--- NOTE | 2018-06-09 10:29 | DIAGNOSTIC IMAGING REPORT ---
CHEST ONE VIEW PORTABLE CLINICAL HISTORY: Altered mental status. Fall. COMPARISON STUDY: History of April 29, 2018. FINDINGS: Incidental note is made of bilateral breast implants. Lung volumes are at the lower limits of normal. There is no consolidation or evidence for pulmonary edema. Cardiac size is normal. Mediastinal contours are normal. There is no pneumothorax or pleural effusion. IMPRESSION: No acute cardiopulmonary findings. Electronically signed by: Eliud Ramirez M.D. 06/09/2018 10:28 AM Dictated Date/Time: 06/09/2018 10:27 AM
--- NOTE | 2018-06-09 10:48 | DIAGNOSTIC IMAGING REPORT ---
PELVIS 1 OR 2 VIEW ROUTINE CLINICAL HISTORY: Pelvic pain following fall. COMPARISON STUDY: Pelvis radiograph April 29, 2018. FINDINGS: Alignment of the hips is anatomic. There is no acute fracture within the pelvis or hips. IMPRESSION: No acute fracture within the pelvis or hips. Electronically signed by: Eliud Ramirez M.D. 06/09/2018 10:47 AM Dictated Date/Time: 06/09/2018 10:28 AM
--- NOTE | 2018-06-09 11:03 | DIAGNOSTIC IMAGING REPORT ---
R ELBOW MIN 3 VIEWS ROUTINE CLINICAL HISTORY: Right elbow pain following fall. COMPARISON: None FINDINGS: Alignment of the right elbow is anatomic. Evaluation is somewhat difficult given difficulty positioning. However, no acute fracture or joint effusion is identified. IMPRESSION: Study mildly compromised by difficulty positioning. No acute fracture or joint effusion of the right elbow identified. Electronically signed by: Eliud Ramirez M.D. 06/09/2018 11:02 AM Dictated Date/Time: 06/09/2018 11:00 AM
[2018-06-09 11:46] LABS: BASO % 0.2 %; BASO ABS # 0.02 K/uL (0-0.2); EOS % 1.2 %; EOS ABS # 0.14 K/uL (0-0.5); HEMATOCRIT 38.1 % (37-47); HEMOGLOBIN 12.7 g/dL (12.0-16.0); IG# 0.02 K/uL (0.00-0.02); LYMPH % 20.2 %; LYMPH ABS # 2.38 K/uL (1.2-3.4); MEAN CELL VOLUME 89.9 fL (80-100); MEAN CORPUSCULAR HGB CONC 33.3 g/dl (32-36); MONO % 5.4 %; MONO ABS # 0.64 K/uL (0.11-0.59); NEUT % 72.8 %; PLATELET COUNT 349 K/uL (130-400); RED CELL DISTRIBUTION WIDTH CV 13.7 % (11.5-14.5)
--- NOTE | 2018-06-09 11:52 | DIAGNOSTIC IMAGING REPORT ---
CT SCAN OF THE BRAIN WITHOUT IV CONTRAST CLINICAL HISTORY: Weakness. Change in mental status. Fall. COMPARISON STUDY: CT of the brain dated 04/29/2018. TECHNIQUE: Unenhanced axial CT scan of the brain is performed from the vertex to the skull base. A dose lowering technique was utilized adhering to the principles of ALARA. FINDINGS: Brain parenchyma: There are age-related involutional changes noting advanced confluent subcortical and periventricular microangiopathic change. Chronic lacunar infarcts are identified in the the left caudate head, the basal ganglia, the left thalamus, and the right cerebellar hemisphere. Wallerian degeneration is noted in the left aspect of the perlita. There is no hemorrhage, mass effect, or evidence of acute territorial ischemia by CT criteria. [place]-white matter is preserved. No extra-axial fluid collection is seen. Ventricles, sulci, cisterns: Prominent secondary to involutional change. Intracranial vasculature: There is atherosclerotic calcification of the cavernous carotid and vertebral arteries. Calvarium: The skeletal structures are osteopenic. No depressed calvarial fracture is seen. Sinuses and mastoids: There is trace mucosal thickening in the right maxillary antrum. The remaining visualized paranasal sinuses are clear. The mastoid air cells are well pneumatized. Orbits: The bony orbits are grossly intact. IMPRESSION: Senescent changes as above with no hemorrhage, mass effect, or evidence of acute territorial ischemia by CT criteria. Electronically signed by: Jean Paul Arriaga M.D. 06/09/2018 11:50 AM Dictated Date/Time: 06/09/2018 11:47 AM
[2018-06-09] MEDS ORDERED: CEFTRIAXONE SOD INJ 1 GM ADDVIAL IV STA (11:55)
--- NOTE | 2018-06-09 11:57 | DIAGNOSTIC IMAGING REPORT ---
CERVICAL SPINE W/O CT DOSE: 846.28 mGy.cm CLINICAL HISTORY: 68 years-old Female with fall, altered ms. Acute neck injury status post fall with acutely altered mental status. COMPARISON: CT head of same day, CT cervical spine 10/31/2017 TECHNIQUE: Multiple axial CT images of the cervical spine were obtained without contrast. A dose lowering technique was utilized adhering to the principles of ALARA. FINDINGS: Bones appear mildly demineralized. Moderate disc space narrowing at C5-C6 and mild intervertebral disc space narrowing at C6-C7. Multilevel uncovertebral spurring with at least mild multilevel facet arthrosis. C1-C2 interval is within normal limits. No acute cervical spine fracture or subluxation. No prevertebral soft tissue swelling. Mastoid air cells and middle ear cavities are clear. Mildly heterogeneous thyroid with 6 mm left thyroid nodule. The soft tissues are unremarkable. Calcification of the carotid vasculature. Imaged lung apices appear clear. IMPRESSION: No acute cervical spine fracture or subluxation. The above report was generated using voice recognition software. It may contain grammatical, syntax or spelling errors. Electronically signed by: Rene Maher M.D. 06/09/2018 11:55 AM Dictated Date/Time: 06/09/2018 11:50 AM
[2018-06-09 12:16] LABS: ALBUMIN 3.5 gm/dl (3.4-5.0); ALKALINE PHOSPHATASE 63 U/L (45-117); ALT/SGPT 16 U/L (12-78); AST/SGOT 14 U/L (15-37); BLOOD UREA NITROGEN 14 mg/dl (7-18); CALCIUM 9.3 mg/dl (8.5-10.1); CARBON DIOXIDE 27 mmol/L (21-32); CREATININE 0.76 mg/dl (0.60-1.20); GLUCOSE 78 mg/dl (70-99); SODIUM 139 mmol/L (136-145); TOTAL PROTEIN 7.7 gm/dl (6.4-8.2)
[2018-06-09] MEDS ORDERED: CEPH500C PO (13:02)
[2018-06-09 13:30] VITALS: BP 158/95; PULSE 70; O2SAT 100
--- NOTE | 2018-06-09 15:57 | EMERGENCY ROOM VISIT NOTE ---
History Report prepared by Connor: Minesh Elliott Under the Supervision of: Dr. Jean Paul Sloan M.D. First contact with patient: 09:50 Chief Complaint: FALL Stated Complaint: FALL/ EVAL, [facility] History of Present Illness History is limited secondary to mental state. The patient is a 68 year old female who presents to the Emergency Room via ambulance with complaints of a potential fall. Nursing staff reports that the patient was found on the ground at [facility] this morning at 08:30, around 1 hour ago. There were no witnesses for the fall, and it is unclear if there was trauma to the head. He states that the patient believes that she landed on her right elbow, and denies chest pain, shortness of breath, leg pain, hip pain, or other complaints. He reports a possible history of dementia in the patient. He was told by EMS that the patient was nonverbal, but he notes that she was able to say "hello" when he spoke with the patient. The patient presented to the ER on April 29 for a fall with a similar story. She was also found on the ground at that time. Source of History: nursing staff Onset: found around 1 hour ago at 08:30 Position: elbow Quality: other (potential fall) Timing: resolved Associated Symptoms: No chest pain, No SOB Note: denies hip pain or leg pain unsure if she hit her head Review of Systems Limited secondary to mental state. Past Medical & Surgical Medical Problems: (1) Acute respiratory failure with hypoxia (2) Basal pneumonia of both lungs (3) Breast cancer (4) CVA (cerebral vascular accident) (5) CVA, s/p TPA (6) Gram positive septicemia (7) Hypertension (8) Leukemia (9) possible tia Surgical Problems: (1) History of breast reconstruction Family History Cancer Hypertension Social History Smoking Status: Unknown if Ever Smoked Alcohol Use: none Drug Use: none Marital Status: Housing Status: other Occupation Status: other Current/Historical Medications Scheduled Aspirin (Aspirin Chewable), 81 MG PO DAILY Atorvastatin (Lipitor), 20 MG PO DAILY Cephalexin Monohydrate (Keflex), 500 MG PO TID Cholecalciferol (Vitamin D), 2,000 UNITS PO DAILY Home O2 Therapy (Oxygen), 2 LITERS NA PRN Lisinopril (Lisinopril), 2.5 MG PO DAILY Metoclopramide Hcl (Metoclopramide Hcl), 2.5 MG PO TID Metoprolol Tartrate (Lopressor), 25 MG PO Q12 Multiple Vitamins W/ Minerals (Thera M Plus), 1 TAB PO DAILY Sennosides-Docusate Sodium (Senna-S), 1 TAB PO QDL Scheduled PRN Docusate Sodium (Silace), 10 ML PO BID PRN for Constipation Allergies Coded Allergies: POLLEN (Verified Allergy, Unknown, RUNNY NOSE/SNEEZING, 06/09/18) Penicillins (Verified Allergy, Unknown, RASH, 06/09/18) Physical Exam Vital Signs Date Time Temp Pulse Resp B/P (MAP) Pulse Ox O2 Delivery O2 Flow Rate FiO2 06/09/18 13:30 70 18 158/95 100 Room Air 06/09/18 11:33 72 18 154/96 97 Room Air 06/09/18 09:57 97 Room Air 06/09/18 09:35 37.0 74 18 157/87 96 Room Air 06/09/18 09:34 69 Physical Exam GENERAL: Patient is in no acute distress. HEENT: No acute trauma, normocephalic atraumatic, mucous membranes dry, no nasal congestion, no scleral icterus. NECK: No stridor, no adenopathy, no meningismus, trachea is midline. LUNGS: Clear to auscultation bilaterally, no wheeze, no rhonchi, breath sounds equal. HEART: Without murmurs gallops or rubs, regular rate and rhythm. ABDOMEN: Soft, nontender, bowel sounds positive, no hernias, no peritonitis. EXTREMITIES: No obvious pain with movement of upper or lower extremities. There are a few older contusions to her extremities. No acute contusion, no limb deformity, no edema. NEUROLOGIC: Somnolent, awakens to voice. Neuro exam is difficult, but strength seems equal on both sides in the upper and lower extremities. Seems nonverbal currently. SKIN: No rash, no jaundice, no diaphoresis. Medical Decision & Procedures ER Provider Diagnostic Interpretation: Radiology results as stated below per my review and radiologist interpretation: PELVIS 1 OR 2 VIEW ROUTINE CLINICAL HISTORY: Pelvic pain following fall. COMPARISON STUDY: Pelvis radiograph April 29, 2018. FINDINGS: Alignment of the hips is anatomic. There is no acute fracture within the pelvis or hips. IMPRESSION: No acute fracture within the pelvis or hips. Electronically signed by: Eliud Raimrez M.D. 06/09/2018 10:47 AM Dictated Date/Time: 06/09/2018 10:[address] SCAN OF THE BRAIN WITHOUT IV CONTRAST CLINICAL HISTORY: Weakness. Change in mental status. Fall. COMPARISON STUDY: CT of the brain dated 04/29/2018. TECHNIQUE: Unenhanced axial CT scan of the brain is performed from the vertex to the skull base. A dose lowering technique was utilized adhering to the principles of ALARA. FINDINGS: Brain parenchyma: There are age-related involutional changes noting advanced confluent subcortical and periventricular microangiopathic change. Chronic lacunar infarcts are identified in the the left caudate head, the basal ganglia, the left thalamus, and the right cerebellar hemisphere. Wallerian degeneration is noted in the left aspect of the perlita. There is no hemorrhage, mass effect, or evidence of acute territorial ischemia by CT criteria. [place]-white matter is preserved. No extra-axial fluid collection is seen. Ventricles, sulci, cisterns: Prominent secondary to involutional change. Intracranial vasculature: There is atherosclerotic calcification of the cavernous carotid and vertebral arteries. Calvarium: The skeletal structures are osteopenic. No depressed calvarial fracture is seen. Sinuses and mastoids: There is trace mucosal thickening in the right maxillary antrum. The remaining visualized paranasal sinuses are clear. The mastoid air cells are well pneumatized. Orbits: The bony orbits are grossly intact. IMPRESSION: Senescent changes as above with no hemorrhage, mass effect, or evidence of acute territorial ischemia by CT criteria. Electronically signed by: Jean Paul Arriaga M.D. 06/09/2018 11:50 AM Dictated Date/Time: 06/09/2018 11:47 AM CHEST ONE VIEW PORTABLE CLINICAL HISTORY: Altered mental status. Fall. COMPARISON STUDY: History of April 29, 2018. FINDINGS: Incidental note is made of bilateral breast implants. Lung volumes are at the lower limits of normal. There is no consolidation or evidence for pulmonary edema. Cardiac size is normal. Mediastinal contours are normal. There is no pneumothorax or pleural effusion. IMPRESSION: No acute cardiopulmonary findings. Electronically signed by: Eliud Ramirez M.D. 06/09/2018 10:28 AM Dictated Date/Time: 06/09/2018 10:27 AM CERVICAL SPINE W/O CT DOSE: 846.28 mGy.cm CLINICAL HISTORY: 68 years-old Female with fall, altered ms. Acute neck injury status post fall with acutely altered mental status. COMPARISON: CT head of same day, CT cervical spine 10/31/2017 TECHNIQUE: Multiple axial CT images of the cervical spine were obtained without contrast. A dose lowering technique was utilized adhering to the principles of ALARA. FINDINGS: Bones appear mildly demineralized. Moderate disc space narrowing at C5-C6 and mild intervertebral disc space narrowing at C6-C7. Multilevel uncovertebral spurring with at least mild multilevel facet arthrosis. C1-C2 interval is within normal limits. No acute cervical spine fracture or subluxation. No prevertebral soft tissue swelling. Mastoid air cells and middle ear cavities are clear. Mildly heterogeneous thyroid with 6 mm left thyroid nodule. The soft tissues are unremarkable. Calcification of the carotid vasculature. Imaged lung apices appear clear. IMPRESSION: No acute cervical spine fracture or subluxation. The above report was generated using voice recognition software. It may contain grammatical, syntax or spelling errors. Electronically signed by: Rene Maher M.D. 06/09/2018 11:55 AM Dictated Date/Time: 06/09/2018 11:50 AM R ELBOW MIN 3 VIEWS ROUTINE CLINICAL HISTORY: Right elbow pain following fall. COMPARISON: None FINDINGS: Alignment of the right elbow is anatomic. Evaluation is somewhat difficult given difficulty positioning. However, no acute fracture or joint effusion is identified. IMPRESSION: Study mildly compromised by difficulty positioning. No acute fracture or joint effusion of the right elbow identified. Electronically signed by: Eliud Ramirez M.D. 06/09/2018 11:02 AM Dictated Date/Time: 06/09/2018 11:00 AM Laboratory Results 06/09/18 11:29 Red Blood Count 4.24, Mean Corpuscular Volume 89.9, Mean Corpuscular Hemoglobin 30.0, Mean Corpuscular Hemoglobin Concent 33.3, Mean Platelet Volume 10.0, Neutrophils (%) (Auto) 72.8, Lymphocytes (%) (Auto) 20.2, Monocytes (%) (Auto) 5.4, Eosinophils (%) (Auto) 1.2, Basophils (%) (Auto) 0.2, Neutrophils # (Auto) 8.60, Lymphocytes # (Auto) 2.38, Monocytes # (Auto) 0.64, Eosinophils # (Auto) 0.14, Basophils # (Auto) 0.02 06/09/18 11:29 Test 06/09/18 10:30 06/09/18 11:29 Urine Color YELLOW Urine Appearance CLOUDY (CLEAR) Urine pH 6.5 (4.5-7.5) Urine Specific [place] 1.022 (1.000-1.030) Urine Protein NEG (NEG) Urine Glucose (UA) NEG (NEG) Urine Ketones NEG (NEG) Urine Occult Blood TRACE (NEG) Urine Nitrite NEG (NEG) Urine Bilirubin NEG (NEG) Urine Urobilinogen NEG (NEG) Urine Leukocyte Esterase MODERATE (NEG) Urine WBC (Auto) 10-30 /hpf (0-5) Urine RBC (Auto) 0-4 /hpf (0-4) Urine Hyaline Casts (Auto) 1-5 /lpf (0-5) Urine Epithelial Cells (Auto) 10-20 /lpf (0-5) Urine Bacteria (Auto) 4+ (NEG) Urine Yeast (Auto) (NONE PRSENT) White Blood Count 11.80 K/uL (4.8-10.8) Red Blood Count 4.24 M/uL (4.2-5.4) Hemoglobin 12.7 g/dL (12.0-16.0) Hematocrit 38.1 % (37-47) Mean Corpuscular Volume 89.9 fL (80-100) Mean Corpuscular Hemoglobin 30.0 pg (25-34) Mean Corpuscular Hemoglobin Concent 33.3 g/dl (32-36) Platelet Count 349 K/uL (130-400) Mean Platelet Volume 10.0 fL (7.4-10.4) Neutrophils (%) (Auto) 72.8 % Lymphocytes (%) (Auto) 20.2 % Monocytes (%) (Auto) 5.4 % Eosinophils (%) (Auto) 1.2 % Basophils (%) (Auto) 0.2 % Neutrophils # (Auto) 8.60 K/uL (1.4-6.5) Lymphocytes # (Auto) 2.38 K/uL (1.2-3.4) Monocytes # (Auto) 0.64 K/uL (0.11-0.59) Eosinophils # (Auto) 0.14 K/uL (0-0.5) Basophils # (Auto) 0.02 K/uL (0-0.2) RDW Standard Deviation 45.0 fL (36.4-46.3) RDW Coefficient of Variation 13.7 % (11.5-14.5) Immature Granulocyte % (Auto) 0.2 % Immature Granulocyte # (Auto) 0.02 K/uL (0.00-0.02) Prothrombin Time 10.4 SECONDS (9.0-12.0) Prothromb Time International Ratio 1.0 (0.9-1.1) Activated Partial Thromboplast Time 25.0 SECONDS (21.0-31.0) Partial Thromboplastin Ratio 1.0 Anion Gap 7.0 mmol/L (3-11) Est Creatinine Clear Calc Drug Dose 60.2 ml/min Estimated GFR () 94.7 Estimated GFR (Non- 81.7 BUN/Creatinine Ratio 18.7 (10-20) Calcium Level 9.3 mg/dl (8.5-10.1) Magnesium Level 2.2 mg/dl (1.8-2.4) Total Bilirubin 0.9 mg/dl (0.2-1) Aspartate Amino Transf (AST/SGOT) 14 U/L (15-37) Alanine Aminotransferase (ALT/SGPT) 16 U/L (12-78) Alkaline Phosphatase 63 U/L (45-117) Total Creatine Kinase 65 U/L (26-192) Troponin I < 0.015 ng/ml (0-0.045) Total Protein 7.7 gm/dl (6.4-8.2) Albumin 3.5 gm/dl (3.4-5.0) Globulin 4.2 gm/dl (2.5-4.0) Albumin/Globulin Ratio 0.8 (0.9-2) Thyroid Stimulating Hormone (TSH) 1.340 uIu/ml (0.300-4.500) Laboratory results reviewed by me. Medications Administered Medications (Trade) Dose Ordered Sig/Kimberlyn Route Start Time Stop Time Status Last Admin Dose Admin Sodium Chloride 1,000 ml @ 999 mls/hr Q1H1M STAT IV 06/09/18 09:59 06/09/18 10:59 DC 06/09/18 09:59 999 MLS/HR Ceftriaxone Sodium (Rocephin Inj) 1 gm NOW STAT IV 06/09/18 11:55 06/09/18 11:57 DC 06/09/18 12:02 1 GM ECG Per My Interpretation Indication: altered mental status Rate (beats per minute): 71 Rhythm: normal sinus Findings: other (No ST elevation. No PVCs. Old inferior infarct.) ED Course 0954: The patient was evaluated in room A11B. A complete history and physical exam was performed. 0959: Ordered Sodium Chloride 1000 ml @ 999 mls/hr IV 1155: Ordered Rocephin 1 gm IV 1305: Reevaluated the patient. Discussed results and discharge instructions: she verbalized understanding and agreement. The patient is ready for discharge. Medical Decision Differential diagnosis: Intracranial bleeding, head trauma, cervical spine injury, pneumonia, UTI, extremity fracture, dehydration, anemia, HI There is a mild leukocytosis, this could be consistent with infection. No concerning anemia. No significant electrolyte abnormality, kidney failure or hepatitis. Chest film does not show pneumonia. Right elbow film does not show evidence for fracture. Pelvis film shows no pelvic or hip fracture. Brain CT shows no acute bleed or mass-effect. Cervical spine CT shows no acute fracture. EKG shows a normal sinus rhythm with an old inferior infarct, no acute ischemic change. Cardiac enzyme testing 1 is not consistent with acute cardiac injury. Patient appears to be in a euthyroid state. Urinalysis does suggest infection, urine culture is pending. Patient received IV saline, she was given IV ceftriaxone. The patient is awake now and smiling, she is in no distress. She does not appear to have suffered any major trauma from this event today. I do think treatment for UTI would be warranted. The patient is being discharged on Keflex , we will call with any unusual culture results requiring an antibiotic change. The patient can return for any worsening symptoms. Medication Reconcilliation Current Medication List: was personally reviewed by me Blood Pressure Screening Patient's blood pressure: Elevated blood pressure Blood pressure disposition: Referred to PCP Impression Primary Impression: Fall Additional Impressions: Weakness UTI (urinary tract infection) Scribe Attestation The scribe's documentation has been prepared under my direction and personally reviewed by me in its entirety. I confirm that the note above accurately reflects all work, treatment, procedures, and medical decision making performed by me. Departure Information Dispostion Home / Self-Care Prescriptions Cephalexin Monohydrate (Keflex) 500 Mg Cap 500 MG PO TID for 7 Days, #21 CAP Prov: Jean Paul Sloan M.D. 06/09/18 Referrals Ranjeet Carrillo D.O. (PCP) Forms HOME CARE DOCUMENTATION FORM, IMPORTANT VISIT INFORMATION Patient Instructions My [facility] Additional Instructions keflex 3x per day for 1 week fluids rest no fractures found today brain CT, c-spine CT were negative today lab work and urine testing suggests a UTI return if worsening Problem Qualifiers
== END 2018-06-09 14:02 | disposition home or self-care (01) ==
LOC: EDBD 09:19 → C.EDA 09:20
DX: R53.1 Weakness (principal); N39.0 Urinary tract infection, site not specified; W19.XXXA Unspecified fall, initial encounter; J96.91 Respiratory failure, unspecified with hypoxia; D49.3 Neoplasm of unspecified behavior of breast; Z86.73 Personal history of transient ischemic attack (TIA), and cerebral infarction without residual deficits; I10 Essential (primary) hypertension; C95.90 Leukemia, unspecified not having achieved remission; Z79.82 Long term (current) use of aspirin; Z88.0 Allergy status to penicillin

== ENCOUNTER 2018-10-18 18:31 | Inpatient (IN) ==
[2018-10-18] MEDS ORDERED: SODIUM CHLORIDE 0.9% 1000ML 1,000 ML IV SCH (19:00)
[2018-10-18 19:51] LABS: Base Excess VBG 2.8 mEq/L; Basophils # (auto) 0.03 K/uL (0-0.2); Basophils % (auto) 0.2 %; Eosinophils # (auto) 0.04 K/uL (0-0.5); Eosinophils % (auto) 0.2 %; HCO3 VBG 28 mmol/L; Hemoglobin 13.6 g/dL (12.0-16.0); Immature Granulocytes # (auto) 0.04 K/uL (0.00-0.02); Immature Granulocytes % (auto) 0.2 %; Lymphocytes # (auto) 1.16 K/uL (1.2-3.4); Lymphocytes % (auto) 6.6 %; Mean Corpuscular Volume 92.2 fL (80-100); Mean Platelet Volume 10.1 fL (7.4-10.4); Monocytes % (auto) 4.5 %; Neutrophils # (auto) 15.63 K/uL (1.4-6.5); Neutrophils % (auto) 88.3 %; Oxygen Saturation VBG < 60.0 %; PCO2 VBG 47 mmHg (38-50); PO2 VBG 20 mmHg; Platelet Count 337 K/uL (130-400); RDW Coefficient of Variation 13.2 % (11.5-14.5); RDW Standard Deviation 44.5 fL (36.4-46.3); Red Blood Count 4.34 M/uL (4.2-5.4)
--- NOTE | 2018-10-18 20:02 | XRay Report ---
XR chest 1V portable CLINICAL HISTORY: Altered mental status. COMPARISON STUDY: Chest radiograph and chest CT August 25, 2018. FINDINGS: There is no pneumothorax or pleural effusion. There is no consolidation or evidence for pul monary edema. Cardiomediastinal silhouette is normal. There are bilateral breast implants. IMPRESSION: No acute cardiopulmonary findings. Electronically signed by: Eliud Ramirez M.D. 10/18/2018 8:01 PM
[2018-10-18 20:11] LABS: Alanine Aminotransferase 19 U/L (12-78); Albumin Level 3.6 gm/dl (3.4-5.0); Aspartate Aminotransferase 18 U/L (15-37); BUN Creatinine Ratio 22.4 (10-20); Blood Urea Nitrogen 20 mg/dl (7-18); Calcium 9.1 mg/dl (8.5-10.1); Carbon Dioxide 30 mmol/L (21-32); Chloride 107 mmol/L (98-107); Est GFR (African American) 79.4; Est GFR (Non-African American) 68.5; Glucose 118 mg/dl (70-99); Potassium 4.2 mmol/L (3.5-5.1); Sodium 142 mmol/L (136-145)
[2018-10-18 20:16] LABS: Albumin Globulin Ratio 0.8 (0.9-2); Alkaline Phosphatase 71 U/L (45-117); Globulin 4.5 gm/dl (2.5-4.0); Total Protein 8.1 gm/dl (6.4-8.2); Troponin I < 0.015 ng/ml (0-0.045)
[2018-10-18] MEDS ORDERED: OPTIRAY 320 125ml IV PRN (20:39)
--- NOTE | 2018-10-18 20:43 | CT Scan Report ---
CT OF THE HEAD WITHOUT CONTRAST CLINICAL HISTORY: AMS, h/o CVA and bleed COMPARISON STUDY: Head CT August 25, 2018. CT DOSE: 537.48 mGy.cm TECHNIQUE: Helical axial images of the head were obtained without IV contrast. Automated exposure con trol was utilized for the study. A dose lowering technique was utilized adhering to the principles o f ALARA. FINDINGS: No acute intracranial hemorrhage, midline shift or mass effect is present. Ventricular syst em is stable. Basilar cisterns are patent. There are no extra axial collections. Atrophy is again not ed as well as extensive small vessel disease and old lacunar infarcts within the bilateral basal gang martina. The appearance of the brain is unchanged since exam of August 25, 2018. There are no findings t o suggest acute dural sinus thrombosis or acute territorial infarct. There is no calvarial fracture. Calvarial lucencies remain unchanged. IMPRESSION: No acute intracranial findings. No change in appearance of the brain. Electronically signed by: Eliud Ramirez M.D. 10/18/2018 8:41 PM
[2018-10-18] MEDS ORDERED: SODIUM CHLORIDE 0.9% 1000ML 1,000 ML IV ONE (21:02)
[2018-10-18] MEDS ORDERED: VANCOMYCIN HCL 1,250 MG in SODIUM CHLORIDE 0.9% 500 ML IV ONE (21:02)
[2018-10-18] MEDS ORDERED: VANCOMYCIN CONSULT ACTIVE PRN ×2 (21:02→23:37)
--- NOTE | 2018-10-18 21:02 | CT Scan Report ---
CT OF THE ABDOMEN AND PELVIS WITH CONTRAST CLINICAL HISTORY: Vomiting. Altered mental status. COMPARISON STUDY: CT of the abdomen and pelvis July 01, 2018. TECHNIQUE: Following IV administration of 115 mL of Optiray-320, axial images of the abdomen and pelv is were obtained from the lung bases to the proximal femurs. Images were reviewed in the axial, sagit eduardo, and coronal planes. IV contrast was administered without complication. Automated exposure contr ol was utilized for the study. A dose lowering technique was utilized adhering to the principles of ALARA. CT DOSE: 309.94 mGy.cm FINDINGS: Bilateral breast implants are partially imaged. The liver, spleen, adrenal glands and pancr eas are unremarkable. There is no biliary or pancreatic ductal dilatation. There is no peripancreatic or pericholecystic infiltration. Innumerable hypodense bilateral renal lesions are noted. These favo r cysts. There is no hydronephrosis. No pneumatosis, free air or portal venous gas is present. The ap pendix is normal. A moderate amount of stool within the rectum is noted. There is moderate pelvic inf iltration adjacent to the sigmoid colon. There is no abscess. Note is made of gas within the endometr ial cavity as well as gas within the left adnexa adjacent to the left ovary. No diverticular disease is identified by CT. There is no evidence for a bowel obstruction. No suspicious osseous lesion is no coreen. IMPRESSION: 1. Moderate pelvic infiltration adjacent to the sigmoid colon. In addition, gas within the endometria l cavity and left adnexa. Overall, the findings suggest an infectious process which may be gynecologi c or gastrointestinal in etiology. However, no evidence for acute diverticulitis. No abscess. No fist reynaldo identified. Findings discussed with Dr. Kingston at time of dictation. 2. Moderate amount of stool within the rectum. No bowel obstruction. Normal appendix. Electronically signed by: Eliud Ramirez M.D. 10/18/2018 8:59 PM
[2018-10-18] MEDS ORDERED: CEFEPIME 1,000 MG in SYRINGE 0 ML IV STA (21:03)
[2018-10-18] MEDS ORDERED: metroNIDAZOLE 500 MG/100 ML BAG IV STA (21:03)
[2018-10-18 21:27] LABS: Appearance Urine Clear (Clear); Bacteria Urine Automated 2+ (Negative); Bilirubin Urine Negative (Negative); Blood Urine Trace (Negative); Cast Urine Automated 0 /lpf (0-5); Color Urine Yellow; Epithelial Cell Urine Auto 0-5 /lpf (0-5); Glucose Urine UA Negative (Negative); Ketones Urine Negative (Negative); Leukocyte Esterase Urine Negative (Negative); Nitrite Urine Negative (Negative); Protein Urine Negative (Negative); Specific Gravity Urine > 1.045 (1.000-1.030); Urobilinogen Urine Negative (Negative)
[2018-10-18] MEDS ORDERED: SOD PHOSPHATE/SOD BIPHOSPHATE ENEMA 132 ML BTL PR PRN (23:37)
[2018-10-18] MEDS ORDERED: NITROGLYCERIN SL 0.4 MG/TAB TAB SL PRN (23:37)
[2018-10-18] MEDS ORDERED: VANCOMYCIN HCL 1,000 MG in SODIUM CHLORIDE 0.9% 250 ML IV SCH (23:37)
[2018-10-18] MEDS ORDERED: ONDANSETRON INJ 2 MG/ML 2 ML VIAL IV PRN (23:37)
[2018-10-18] MEDS ORDERED: ERTAPENEM CONSULT ACTIVE PRN (23:53)
--- NOTE | 2018-10-19 01:09 | History and Physical Report ---
DATE OF ADMISSION: 10/18/2018 CHIEF COMPLAINT: Unresponsive episode. HISTORY OF PRESENT ILLNESS: This is a 68-year-old female with past medical history significant for ischemic stroke in 2016, which made her a right-sided hemiplegic and dysphagia and she was on tube feeds for some time, but right now she can eat mechanical soft diet. In 2017, she suffered a fall and had a subdural hematoma. Since then, cognitive function has gone down. She can recognize her family, but she is mostly nonverbal. She does not ambulate. She needs 2-people assistance, mostly wheelchair bound. She is mostly incontinent. She is currently at [facility]. Has history of hypertension, dysarthria, history of C. diff, osteoporosis, hyperlipidemia, acute myeloid leukemia in remission, was brought in today because at dinner time she was taken with the wheelchair into the dinner room and she had some food and suddenly she vomited and became unresponsive. Her blood pressure was low.And she was brought into the hospital. In the Er she was given antibiotics, fluids, and CAT scan of the abdomen and pelvis w as done which is showing some moderate pelvic infiltration adjacent to sigmoid colon and also some gas within the endometrial cavity and left adnexa but there are no signs of obvious abscess.So question of infectious process could be from gynecological or gastrointestinal in etiology. No fistula identified. The patient after receiving antibiotics and fluids, is more alert and awake now. Daughter is in the room and she thinks the patient is back to her baseline. I tried to talk to the patient, asked about the belly pain, she denied it but could not get any other answers from the patient and that is normal for her as per daughter. No recent fever, chills. No cough, no recent diarrhea. Apparently, until this episode she was at baseline. All the information is got from the daughter and also from the [facility] nursing staff. ALLERGIES: PENICILLIN. PAST MEDICAL HISTORY: As mentioned above. PAST SURGICAL HISTORY: Enlargement of breast with implant, bilateral mastectomy, PEG tube placement. MEDICATIONS: Currently, the patient is on Tylenol 500 mg p.o. p.r.n., aspirin 81 mg p.o. daily, atorvastatin 20 mg p.o. daily, vitamin D 2000 units p.o. daily, Colace 100 mg p.o. b.i.d., lisinopril 2.5 mg p.o. daily, metoprolol 25 mg p.o. b.i.d., multivitamins 1 tablet daily, Zofran 4 mg p.o. q. 4 hours p.r.n., MiraLax 17 g p.o. daily p.r.n., Senokot 8.6 g p.o. daily, Fleet enema p.r.n. FAMILY HISTORY: Significant for father had cancer. Mother had bladder cancer. SOCIAL HISTORY: Currently living at [facility]. No tobacco use, no alcohol use. No drug use. REVIEW OF SYSTEMS: Unobtainable at this time. PHYSICAL EXAMINATION: GENERAL: The patient is alert and awake, but nonverbal. VITAL SIGNS: Temperature 36.6, pulse 105, respiratory rate 18, blood pressure 150/133, oxygen 99% on 4 L. HEENT: No pallor, no icterus. NECK: No JVD, no neck masses. CARDIOVASCULAR: S1, S2 heard, regular rate and rhythm, no murmur, no gallop. RESPIRATORY SYSTEM: Normal AP diameter. No accessory muscles use. No wheezing, no crackles. ABDOMEN: Soft, bowel sounds present. Seems to be on mild discomfort on palpation. No distention, no guarding. CENTRAL NERVOUS SYSTEM: Alert and awake, not oriented, nonverbal, not obeys any commands. EXTREMITIES: No edema or erythema. LABS: WBC 17, hemoglobin 13.6, hematocrit 40, platelets 337. Venous blood gases pH of 7.4, pCO2 of 47, pO2 of 20, bicarbonate 28. Oxygen saturation is 96%. Sodium 142, potassium 4.2, chloride 107, bicarbonate 30, BUN 20, creatinine 0.8, serum glucose 108. Lactate 1.3, calcium 10.1, total bilirubin 1.0, AST 89, ALT 19, alkaline phosphatase is 71, troponin I less than 0.015. Lipase 147. Chest x-ray: No acute cardiopulmonary findings. CT of the head, no acute cardiopulmonary findings. CT of abdomen and pelvis, moderate pelvic infiltration adjacent to sigmoid colon in addition to gas in the endometrial cavity and left adnexa overall the findings suggested infectious process, which may be gynecological or gastrointestinal in etiology. No evidence of acute diverticulitis, no abscess, no fistula identified. Moderate amount of stool within the rectum. No bowel obstruction, normal appendix. ASSESSMENT AND PLAN: This is a 68-year-old female who presents with altered mental status. 1. Altered mental status. Possibly secondary to infectious process with gastrointestinal or gynecological source as per Ct scan. The patient is mostly wheelchair bound. She can tolerate mechanical soft diet okay. At [facility], the patient was taken on the wheelchair to the dining room where she had dinner and she vomited and became unresponsive and was hypotensive at the time. In the Emergency Room, received fluids and antibiotics, currently back to her baseline as per daughter. A CAT scan showing pelvic infiltration around the sigmoid colon, possible gastrointestinal or gynecological infection and the Emergency Room physician discussed with the radiologist and they recommend to repeat CAT scan in morning to further delineate the exact source of infection. SHE RECEIVED IV CEFEPIME AND FLAGYL AND VANCOMYCIN IN THE EMERGENCY ROOM THE PATIENT PENICILLIN ALLERGY. We will place on IV Invanz and IV vancomycin. Follow the cultures. Surgical consult in morning for further recommendation. Repeat CT scan as per surgery. We will keep her n.p.o. for now and IV fluids. Lactate is normal. 2. History of cerebrovascular accident with left-sided hemiplegia on aspirin and statin. 3. History of subdural hematoma in 2017. Since then, her cognitive function has gone down and she is mostly dysarthric and mostly wheelchair bound, needs 2-people assist, has incontinence.Plan to discharge back to [facility] when patient is stable. 4. Hyperlipidemia. Continue statin. 5. Hypertension. Continue Lopressor and lisinopril with holding parameters. 6. History of Clostridium difficile colitis. The patient is getting antibiotics currently. We will place her on probiotics. 7. Deep venous thrombosis prophylaxis, sequential compression devices for now. DISPOSITION. Close monitoring in tele floor. Level I full code as per my discussion with her daughter. TIEN
[2018-10-19] MEDS: SODIUM CHLORIDE 0.9% 1000ML 1,000 ML IV SCH ×3 (01:36→19:37)
[2018-10-19] MEDS: ERTAPENEM SODIUM 1,000 MG in SODIUM CHLORIDE 0.9% 50 ML IV SCH (01:37)
--- NOTE | 2018-10-19 01:49 | Emergency Department Note ---
Entered by August Seaman acting as a scribe for History of Present Illness General Chief complaint: Altered Mental Status Stated complaint: AMS, LETHARGIC Time Seen by Provider: 10/18/18 18:48 Source: family Limitations: altered mental status History of Present Illness The patient is a 68 y/o white female w/ PMHx of a subdural hematoma, CVA, breast cancer, UTI, HTN who presents to the ED w/ CC of a constant altered mental status beginning 1.5 hours ago. Pt present from [facility] via ambulance. The patient's daughter states the patient is a resident at [facility] and recieves their highest care. She reports the patient has been there since her brain bleed 2 years ago. The daughter notes the patient was at dinner when shes started to vomit and became unresponsive with a low blood pressure. She states the patient is normally more active and not curled up into what seems like a ball. The daughter reports the patient is not presenting like her normal UTI symptoms either. She notes the patient is more active on her left side than right side secondary to her brain bleed. The daughter states the patient is able to speak. She denies fevers, symptoms similar to her UTI, and oxygen dependency. HPI limited secondary to the patient's altered mental status. Home Medications Home Medications Medication Instructions Recorded Confirmed Type acetaminophen 500 mg PO Q4 PRN MDD 3gm/24hr 08/25/18 10/18/18 History aspirin 81 mg PO DAILY 08/25/18 10/18/18 History atorvastatin 20 mg PO DAILY 08/25/18 10/18/18 History cholecalciferol (vitamin D3) 2,000 unit PO DAILY 08/25/18 10/18/18 History [Vitamin D3] docusate sodium [Silace] 100 mg PO BID 08/25/18 10/18/18 History lisinopril 2.5 mg PO DAILY 08/25/18 10/18/18 History metoprolol tartrate 25 mg PO Q12 08/25/18 10/18/18 History multivitamin,vz-rxha-ssrlzsow 1 tab PO DAILY 08/25/18 10/18/18 History [Therems-M] polyethylene glycol 3350 [Miralax] 17 g PO DAILY PRN 08/25/18 10/18/18 History sennosides [senna] 8.6 mg PO DAILY 08/25/18 10/18/18 History sodium phosphates [Fleet Enema] 118 ml OH DAILY PRN 08/25/18 10/18/18 History ondansetron HCl 4 mg PO Q4H PRN 10/18/18 10/18/18 History Allergies Allergy/AdvReac Type Severity Reaction Status Date / Time Penicillins Allergy Unknown RASH Verified 10/18/18 20:04 pollen extracts Allergy Unknown RUNNY Verified 10/18/18 20:04 NOSE/SNEEZING Past Med/Surg History Medical History Breast cancer (Resolved) Leukemia (Resolved) Hypertension (Chronic) Acute respiratory failure with hypoxia Anemia (Acute) CVA (cerebral vascular accident) UTI (urinary tract infection) (Acute) Anemia Breast cancer CVA (cerebral vascular accident) HTN (hypertension) Leukemia Surgical History History of breast reconstruction (Resolved) Family History Other No pertinent family history Social History Current Living Situation: [facility] Current Living Situation Comment: [place] Feels Safe at Home: Declines to Answer Smoking Status: Unknown if ever smoked Hx Alcohol Use: No Hx Substance Use: No Beliefs That Will Affect Care: None Communication Ability: Impaired Review of Systems Unobtainable due to cognitive status (AMS) Physical Exam Vital Signs Vital Signs - 24 hr 10/18/18 18:38 10/18/18 19:38 10/18/18 21:18 Temperature 36.6 C Temperature Source Oral Sepsis Recent Fever Within 48 Hours No Sepsis New/Unexplained Change in Mental Status No Sepsis Action Taken by Nursing No Action Required Pulse Rate 108 H Pulse Rate [Apical] 112 H 105 H Respiratory Rate 26 H 18 18 Respiratory Depth Shallow Blood Pressure 151/109 H Blood Pressure [Left Arm] 151/99 H 154/133 H Blood Pressure Mean 123 Blood Pressure Mean [Left Arm] 116 140 Pulse Oximetry 92 96 99 Oxygen Delivery Method Nasal Cannula Nasal Cannula Nasal Cannula Oxygen Flow Rate 4 4 4 10/18/18 23:09 10/18/18 23:50 Temperature 36.6 C Temperature Source Axillary Sepsis Recent Fever Within 48 Hours Sepsis New/Unexplained Change in Mental Status Sepsis Action Taken by Nursing Pulse Rate 100 H Pulse Rate [Apical] 91 H Respiratory Rate 16 18 Respiratory Depth Blood Pressure 130/94 Blood Pressure [Left Arm] 157/81 H Blood Pressure Mean Blood Pressure Mean [Left Arm] 106 Pulse Oximetry 100 93 Oxygen Delivery Method Nasal Cannula Room Air Oxygen Flow Rate 4 GENERAL: Arousable to verbal a tactile stimuli. EYE EXAM: Normal conjunctiva. PERRL, no anisocoria and EOM's grossly intact w/o pain. OROPHARYNX: No exudate, posterior pharynx is clear, no tonsillar/uvular deviation or swelling. NECK: Supple, no nuchal rigidity, no adenopathy, non-tender. No signs of meningismus. LUNGS: Clear to auscultation bilaterally. Normal chest wall mechanics. HEART: Tachycardic and regular, no MRG. ABDOMEN: Abdomen soft, appears mildly uncomfortable to palpation throughout w/o localization BACK: No CVA TTP. SKIN: No rashes and no bruising. UPPER EXTREMITIES: Upper extremities are grossly normal. LOWER EXTREMITIES: No pitting edema. No calf pain. NEURO EXAM: Arousable to verbal a tactile stimuli. Nonverbal. Limited movement of the RLE and RUE. 3/5 strength in her LUE and LLE. Course 1850: Past medical records reviewed. The patient was evaluated in room B02, and a complete history and physical examination were performed. 2021: I reevaluated the patient and updated her family of her current test results. 2101: I spoke with Dr. Ramirez about the patient's test results. 2132: I reviewed the patient's case with Dr. Cesar, [facility] Hospitalist. he will evaluate the patient for further management. 2137: I reevaluated the patient and discussed the findings with her family. They verbalized agreement to a hospitalist evaluation and the treatment plan. The patient will be evaluated for further management and care. Administered Medications Sodium Chloride (Nss 1000ml) 1,000 mls @ 100 mls/hr IV .Q10H [facility] Stop: 11/17/18 23:36 Last Admin: 10/19/18 01:36 Dose: 100 mls/hr Ertapenem 1,000 mg/ Sodium (Chloride) 60 mls @ 100 mls/hr IV Q24H [facility]ASSIA; Protocol Stop: 10/29/18 00:59 Last Admin: 10/19/18 01:37 Dose: 100 mls/hr Discontinued Medications Sodium Chloride (Nss 1000ml) 1,000 mls @ 999 mls/hr IV .Q1H1M [facility] Stop: 10/18/18 20:00 Last Infusion: 10/18/18 21:35 Dose: 0 mls/hr Admin: 10/18/18 19:37 Dose: 999 mls/hr Metronidazole (Flagyl) 500 mg in 100 mls @ 100 mls/hr IV NOW STA Stop: 10/18/18 22:02 Last Infusion: 10/19/18 00:33 Dose: 0 mls/hr Admin: 10/18/18 21:44 Dose: 100 mls/hr Cefepime HCl 1,000 mg/ Syringe 11.3 mls @ 5.5 mls/min IV NOW STA Stop: 10/18/18 21:05 Last Admin: 10/18/18 22:02 Dose: 5.5 mls/min Sodium Chloride (Nss 1000ml) 1,000 mls @ 999 mls/hr IV .Q1H1M ONE Stop: 10/18/18 22:02 Last Infusion: 10/19/18 00:34 Dose: 0 mls/hr Admin: 10/18/18 21:44 Dose: 999 mls/hr Vancomycin HCl 1,250 mg/ (Sodium Chloride) 525 mls @ 200 mls/hr IV NOW ONE Stop: 10/18/18 23:39 Last Infusion: 10/19/18 01:23 Dose: 0 mls/hr Admin: 10/18/18 22:29 Dose: 200 mls/hr Ioversol (Optiray 320 125ml) 115 ml IV ONCE PRN PRN Reason: Interaction Checking Stop: 10/22/18 20:38 Last Admin: 10/18/18 20:40 Dose: 115 ml Medical Decision Making Medical Records Attestation: I reviewed the patient's medical records. Home Medications Current Medication List: was personally reviewed by me Laboratory Data Attestation: I reviewed the patient's lab results. Result diagrams: 10/18/18 19:27 10/18/18 19:27 Lab Results 10/18/18 10/18/18 10/18/18 Range/Units 19:27 19:27 19:27 WBC 17.70 H (4.8-10.8) K/uL RBC 4.34 (4.2-5.4) M/uL Hgb 13.6 (12.0-16.0) g/dL Hct 40.0 (37-47) % MCV 92.2 (80-100) fL MCH 31.3 (25-34) pg MCHC 34.0 (32-36) g/dL RDW Std Deviation 44.5 (36.4-46.3) fL RDW Coeff of Henrik 13.2 (11.5-14.5) % Plt Count 337 (130-400) K/uL MPV 10.1 (7.4-10.4) fL Immature Gran % (Auto) 0.2 % Neut % (Auto) 88.3 % Lymph % (Auto) 6.6 % Long % (Auto) 4.5 % Eos % (Auto) 0.2 % Baso % (Auto) 0.2 % Immature Gran # (Auto) 0.04 H (0.00-0.02) K/uL Neut # (Auto) 15.63 H (1.4-6.5) K/uL Lymph # (Auto) 1.16 L (1.2-3.4) K/uL Long # (Auto) 0.80 H (0.11-0.59) K/uL Eos # (Auto) 0.04 (0-0.5) K/uL Baso # (Auto) 0.03 (0-0.2) K/uL VBG pH 7.40 (7.36-7.41) VBG pCO2 47 (38-50) mmHg VBG pO2 20 mmHg VBG HCO3 28 mmol/L VBG O2 Saturation < 60.0 % VBG Base Excess 2.8 mEq/L Barometric Pressure 736.4 mm/Hg Sodium 142 (136-145) mmol/L Potassium 4.2 (3.5-5.1) mmol/L Chloride 107 (98-107) mmol/L Carbon Dioxide 30 (21-32) mmol/L Anion Gap 5.0 (3-11) BUN 20 H (7-18) mg/dl Creatinine 0.88 (0.6-1.2) mg/dl Est Cr Clr Drug Dosing Not Reportable Est GFR ( Amer) 79.4 Est GFR (Non-Af Amer) 68.5 BUN/Creatinine Ratio 22.4 H (10-20) Glucose 118 H (70-99) mg/dl Lactate (0.4-2.0) mmol/L Calcium 9.1 (8.5-10.1) mg/dl Total Bilirubin 1.0 (0.2-1) mg/dl AST 18 (15-37) U/L ALT 19 (12-78) U/L Alkaline Phosphatase 71 (45-117) U/L Troponin I < 0.015 (0-0.045) ng/ml Total Protein 8.1 (6.4-8.2) gm/dl Albumin 3.6 (3.4-5.0) gm/dl Globulin 4.5 H (2.5-4.0) gm/dl Albumin/Globulin Ratio 0.8 L (0.9-2) Lipase 147 (73-393) U/L Urine Color Urine Appearance (Clear) Urine pH (4.5-7.5) Ur Specific Achille (1.000-1.030) Urine Protein (Negative) Urine Glucose (UA) (Negative) Urine Ketones (Negative) Urine Blood (Negative) Urine Nitrite (Negative) Urine Bilirubin (Negative) Urine Urobilinogen (Negative) Ur Leukocyte Esterase (Negative) Urine WBC (Auto) (0-5) /hpf Urine RBC (Auto) (0-4) /hpf U Hyaline Cast (Auto) (0-5) /lpf U Epithel Cells (Auto) (0-5) /lpf Urine Bacteria (Auto) (Negative) 10/18/18 10/18/18 Range/Units 21:13 21:37 WBC (4.8-10.8) K/uL RBC (4.2-5.4) M/uL Hgb (12.0-16.0) g/dL Hct (37-47) % MCV (80-100) fL MCH (25-34) pg MCHC (32-36) g/dL RDW Std Deviation (36.4-46.3) fL RDW Coeff of Henrik (11.5-14.5) % Plt Count (130-400) K/uL MPV (7.4-10.4) fL Immature Gran % (Auto) % Neut % (Auto) % Lymph % (Auto) % Long % (Auto) % Eos % (Auto) % Baso % (Auto) % Immature Gran # (Auto) (0.00-0.02) K/uL Neut # (Auto) (1.4-6.5) K/uL Lymph # (Auto) (1.2-3.4) K/uL Long # (Auto) (0.11-0.59) K/uL Eos # (Auto) (0-0.5) K/uL Baso # (Auto) (0-0.2) K/uL VBG pH (7.36-7.41) VBG pCO2 (38-50) mmHg VBG pO2 mmHg VBG HCO3 mmol/L VBG O2 Saturation % VBG Base Excess mEq/L Barometric Pressure mm/Hg Sodium (136-145) mmol/L Potassium (3.5-5.1) mmol/L Chloride (98-107) mmol/L Carbon Dioxide (21-32) mmol/L Anion Gap (3-11) BUN (7-18) mg/dl Creatinine (0.6-1.2) mg/dl Est Cr Clr Drug Dosing Est GFR ( Amer) Est GFR (Non-Af Amer) BUN/Creatinine Ratio (10-20) Glucose (70-99) mg/dl Lactate 1.3 (0.4-2.0) mmol/L Calcium (8.5-10.1) mg/dl Total Bilirubin (0.2-1) mg/dl AST (15-37) U/L ALT (12-78) U/L Alkaline Phosphatase (45-117) U/L Troponin I (0-0.045) ng/ml Total Protein (6.4-8.2) gm/dl Albumin (3.4-5.0) gm/dl Globulin (2.5-4.0) gm/dl Albumin/Globulin Ratio (0.9-2) Lipase (73-393) U/L Urine Color Yellow Urine Appearance Clear (Clear) Urine pH 8.0 H (4.5-7.5) Ur Specific Achille > 1.045 H (1.000-1.030) Urine Protein Negative (Negative) Urine Glucose (UA) Negative (Negative) Urine Ketones Negative (Negative) Urine Blood Trace H (Negative) Urine Nitrite Negative (Negative) Urine Bilirubin Negative (Negative) Urine Urobilinogen Negative (Negative) Ur Leukocyte Esterase Negative (Negative) Urine WBC (Auto) 1-5 (0-5) /hpf Urine RBC (Auto) 5-10 H (0-4) /hpf U Hyaline Cast (Auto) 0 (0-5) /lpf U Epithel Cells (Auto) 0-5 (0-5) /lpf Urine Bacteria (Auto) 2+ H (Negative) Imaging Data Radiologist's Impression: Radiology results as stated below per my review and the radiologist's interpretation: CT OF THE ABDOMEN AND PELVIS WITH CONTRAST CLINICAL HISTORY: Vomiting. Altered mental status. COMPARISON STUDY: CT of the abdomen and pelvis July 01, 2018. TECHNIQUE: Following IV administration of 115 mL of Optiray-320, axial images of the abdomen and pelvis were obtained from the lung bases to the proximal femurs. Images were reviewed in the axial, sagittal, and coronal planes. IV contrast was administered without complication. Automated exposure control was utilized for the study. A dose lowering technique was utilized adhering to the principles of ALARA. CT DOSE: 309.94 mGy.cm FINDINGS: Bilateral breast implants are partially imaged. The liver, spleen, adrenal glands and pancreas are unremarkable. There is no biliary or pancreatic ductal dilatation. There is no peripancreatic or pericholecystic infiltration. Innumerable hypodense bilateral renal lesions are noted. These favor cysts. There is no hydronephrosis. No pneumatosis, free air or portal venous gas is present. The appendix is normal. A moderate amount of stool within the rectum is noted. There is moderate pelvic infiltration adjacent to the sigmoid colon. There is no abscess. Note is made of gas within the endometrial cavity as well as gas within the left adnexa adjacent to the left ovary. No diverticular disease is identified by CT. There is no evidence for a bowel obstruction. No suspicious osseous lesion is noted. IMPRESSION: 1. Moderate pelvic infiltration adjacent to the sigmoid colon. In addition, gas within the endometrial cavity and left adnexa. Overall, the findings suggest an infectious process which may be gynecologic or gastrointestinal in etiology. However, no evidence for acute diverticulitis. No abscess. No fistula identified. Findings discussed with Dr. Kingston at time of dictation. 2. Moderate amount of stool within the rectum. No bowel obstruction. Normal appendix. Electronically signed by: Eliud Ramirez M.D. 10/18/2018 8:[address] OF THE HEAD WITHOUT CONTRAST CLINICAL HISTORY: AMS, h/o CVA and bleed COMPARISON STUDY: Head CT August 25, 2018. CT DOSE: 537.48 mGy.cm TECHNIQUE: Helical axial images of the head were obtained without IV contrast. Automated exposure control was utilized for the study. A dose lowering technique was utilized adhering to the principles of ALARA. FINDINGS: No acute intracranial hemorrhage, midline shift or mass effect is present. Ventricular system is stable. Basilar cisterns are patent. There are no extra axial collections. Atrophy is again noted as well as extensive small vessel disease and old lacunar infarcts within the bilateral basal ganglia. The appearance of the brain is unchanged since exam of August 25, 2018. There are no findings to suggest acute dural sinus thrombosis or acute territorial infarct. There is no calvarial fracture. Calvarial lucencies remain unchanged. IMPRESSION: No acute intracranial findings. No change in appearance of the brain. Electronically signed by: Eliud Ramirez M.D. 10/18/2018 8:41 PM XR chest 1V portable CLINICAL HISTORY: Altered mental status. COMPARISON STUDY: Chest radiograph and chest CT August 25, 2018. FINDINGS: There is no pneumothorax or pleural effusion. There is no consolidation or evidence for pulmonary edema. Cardiomediastinal silhouette is normal. There are bilateral breast implants. IMPRESSION: No acute cardiopulmonary findings. Electronically signed by: Eliud Ramirez M.D. 10/18/2018 8:01 PM Blood Pressure Blood Pressure Findings: Elevated blood pressure Blood Pressure Disposition: further management by hospitalist TYSON Leija The patient is a 68 y/o white female w/ PMHx of a subdural hematoma, CVA, breast cancer, UTI, HTN who presents to the ED w/ CC of a constant altered mental status beginning 1.5 hours ago. Differential diagnoses includes but is not limited to toxic, metabolic, infectious, traumatic, cardiac, neurologic, hematologic, psychiatric and inflammatory etiologies. Patient was seen and evaluated the bedside. The patient's daughter was also at the bedside. The patient does have some limited abilities and the patient is an element does require a fair amount of therapy and care secondary to stroke and brain bleed. Patient reportedly had an episode of vomiting was less responsive after meal today. The patient's blood sugar was unremarkable upon presentation although somewhat elevated. The patient did respond to tactile as well as verbal stimuli. Patient does have decreased movement of the right upper and right lower extremity which is chronic secondary to the patient's CVA. Patient did have blood work completed along with a chest film urinalysis and CT of the abdomen pelvis. The patient's blood work showed a white blood cell count of 17,000. The patient had been given some IV fluids. The patient had been placed on some oxygen but I believe this was somewhat related to the patient's posture. The patient's chest x-ray appears clear and was read as unremarkable. Patient CT of the abdomen pelvis did show some pelvic wall infiltration concerning for either pelvic or gastrointestinal infection. There was no evidence of any abscess. I did order blood cultures antibiotics and a lactate as well as an additional liter of IV fluid. I did convey these findings to the patient's family members at the bedside. Upon reassessment the patient was more alert. Patient CT of the head did not show any acute change. Patient's urinalysis does not appear grossly infected. I did discuss the patient's case with the on-call hospitalist who agreed to further evaluate and treat the patient. Impression & Plan Abdominal infection Critical Care Time I have personally spent greater than 45 minutes of critical care time in direct management of this patient. This includes bedside care, interpretation of diagnostic studies, and testing, discussion with consultants, patient, and family members, and other require inpatient management activities. This 45 minutes is in excess of all separately billable procedures. Critical Care Time: Yes Total Critical Care Time: 45 Discharge Plan Visit Data *Final* Discharge Date/Time: 10/18/18 23:09 Chief Complaint: Altered Mental Status Stated Complaint: AMS, LETHARGIC ED Provider: Hema Kingston Discharge Problem: Abdominal infection Patient Disposition: Admitted As Inpatient Discharge Instructions Interventions: ED Discharge Assessment Last Done: 10/18/18 23:09 The scribe's documentation has been prepared under my direction and personally reviewed by me in its entirety. I confirm that the note above accurately reflects all work, treatment, procedures, and medical decision making performed by me.
[2018-10-19 05:47] LABS: Basophils # (auto) 0.03 K/uL (0-0.2); Basophils % (auto) 0.3 %; Eosinophils # (auto) 0.12 K/uL (0-0.5); Eosinophils % (auto) 1.2 %; Hematocrit (blood only) 33.2 % (37-47); Hemoglobin 10.9 g/dL (12.0-16.0); Immature Granulocytes # (auto) 0.02 K/uL (0.00-0.02); Immature Granulocytes % (auto) 0.2 %; Lymphocytes # (auto) 2.48 K/uL (1.2-3.4); Mean Corpuscular Hgb Conc 32.8 g/dL (32-36); Mean Corpuscular Volume 91.5 fL (80-100); Mean Platelet Volume 10.1 fL (7.4-10.4); Monocytes # (auto) 0.76 K/uL (0.11-0.59); Monocytes % (auto) 7.7 %; Neutrophils # (auto) 6.51 K/uL (1.4-6.5); Neutrophils % (auto) 65.6 %; Platelet Count 265 K/uL (130-400); RDW Coefficient of Variation 13.2 % (11.5-14.5); RDW Standard Deviation 43.9 fL (36.4-46.3); Red Blood Count 3.63 M/uL (4.2-5.4); White Blood Count 9.92 K/uL (4.8-10.8)
[2018-10-19 06:19] LABS: BUN Creatinine Ratio 20.7 (10-20); Blood Urea Nitrogen 13 mg/dl (7-18); Calcium 7.7 mg/dl (8.5-10.1); Carbon Dioxide 24 mmol/L (21-32); Chloride 114 mmol/L (98-107); Est GFR (African American) 108.3; Est GFR (Non-African American) 93.5; Glucose 82 mg/dl (70-99); Potassium 3.7 mmol/L (3.5-5.1); Sodium 144 mmol/L (136-145)
[2018-10-19] MEDS ORDERED: PATIENT'S HEIGHT AND/OR WEIGHT NEEDED ONE (07:00)
[2018-10-19] MEDS ORDERED: INFLUENZA VACCINE HIGH DOSE 65+ 0.5 ML SYR IM ONE (08:45)
[2018-10-19] MEDS ORDERED: INFLUENZA ADMINISTRATION CHARGE ONE (08:45)
[2018-10-19] MEDS ORDERED: PNEUMOCOCCAL POLYSACCHARIDES 25 MCG/0.5 ML VIAL/SYR IM ONE (08:45)
[2018-10-19] MEDS ORDERED: PNEUMOCOCCAL ADMINISTRATION CHARGE ONE (08:45)
[2018-10-19] MEDS ORDERED: LISINOPRIL 2.5 MG TAB PO SCH (09:00)
[2018-10-19] MEDS: DOCUSATE SODIUM 100 MG CAP PO SCH ×2 (09:28→19:33)
[2018-10-19] MEDS: ASPIRIN 81 MG ECTAB PO SCH (09:28)
[2018-10-19] MEDS: CEROVITE ADV FORMULA TAB PO SCH (09:29)
[2018-10-19] MEDS: METOPROLOL TARTRATE 25 MG TAB PO SCH ×2 (09:29→19:33)
[2018-10-19] MEDS: SENNA 8.6 MG TAB PO SCH (09:29)
[2018-10-19] MEDS: CHOLECALCIFEROL 1,000 UNITS TAB PO SCH (09:29)
[2018-10-19] MEDS: ATORVASTATIN 20 MG TAB PO SCH (09:29)
--- NOTE | 2018-10-19 11:08 | Surgery Consultation ---
Date of Consultation October 19, 2018 Assessment & Plan (1) Abdominal infection: 68 year-old female with past medical history significant for ischemic stroke in 2016 which made her a right-sided hemiplegic and dysphagia who presented to emergency department after an episode of vomiting and unresponsiveness. CT scan of abdomen and pelvis showing moderate pelvic infiltration adjacent to sigmoid colon in addition to gas in the endometrial cavity and left adnexa overall the findings suggested infectious process, which may be gynecological or gastrointestinal in etiology. There is no evidence of diverticulitis, fistula or abscess. Abdomen is benign, soft, nontender. No abdominal pain reported by patient. Plan: No surgical intervention required at this time. Would recommend continuing IV antibiotics Given vomiting, would recommend GI consultation as patient may require upper endoscopy Would keep npo for now Continue IV fluids IV Zofran as needed for nausea Continue medical management Our service signing off, please call with questions or concerns. Dr. Rodriguez has seen and examined patient, agrees with above. History of Present Illness Reason for Consultation: Abdominal infection Requesting Physician: Dr. Cesar Attending Physician: Paul Prasad MD History of Present Illness 68 year-old female with past medical history significant for ischemic stroke in 2016, which made her a right-sided hemiplegic and dysphagia who presented to emergency department after an episode of vomiting and unresponsiveness. Most of history obtained by chart as patient is mostly nonverbal. CT scan of abdomen and pelvis showing moderate pelvic infiltration adjacent to sigmoid colon in addition to gas in the endometrial cavity and left adnexa overall the findings suggested infectious process, which may be gynecological or gastrointestinal in etiology. There is no evidence of diverticulitis, fistula or abscess. Abdomen is benign, soft, nontender. No abdominal pain reported by patient. Allergies Allergy/AdvReac Type Severity Reaction Status Date / Time Penicillins Allergy Unknown RASH Verified 10/18/18 20:04 pollen extracts Allergy Unknown RUNNY Verified 10/18/18 20:04 NOSE/SNEEZING Home Medications Home Medications Medication Instructions Recorded Confirmed Type acetaminophen 500 mg PO Q4 PRN MDD 3gm/24hr 08/25/18 10/18/18 History aspirin 81 mg PO DAILY 08/25/18 10/18/18 History atorvastatin 20 mg PO DAILY 08/25/18 10/18/18 History cholecalciferol (vitamin D3) 2,000 unit PO DAILY 08/25/18 10/18/18 History [Vitamin D3] docusate sodium [Silace] 100 mg PO BID 08/25/18 10/18/18 History lisinopril 2.5 mg PO DAILY 08/25/18 10/18/18 History metoprolol tartrate 25 mg PO Q12 08/25/18 10/18/18 History multivitamin,[id number] 1 tab PO DAILY 08/25/18 10/18/18 History [Therems-M] polyethylene glycol 3350 [Miralax] 17 g PO DAILY PRN 08/25/18 10/18/18 History sennosides [senna] 8.6 mg PO DAILY 08/25/18 10/18/18 History sodium phosphates [Fleet Enema] 118 ml [place] DAILY PRN 08/25/18 10/18/18 History ondansetron HCl 4 mg PO Q4H PRN 10/18/18 10/18/18 History Patient History Medical History Breast cancer (Resolved) Leukemia (Resolved) Hypertension (Chronic) Acute respiratory failure with hypoxia Anemia (Acute) CVA (cerebral vascular accident) UTI (urinary tract infection) (Acute) Anemia Breast cancer CVA (cerebral vascular accident) HTN (hypertension) Leukemia Surgical History History of breast reconstruction (Resolved) Family History Other No pertinent family history Social History Current Living Situation: [facility] Current Living Situation Comment: [place] Feels Safe at Home: Declines to Answer Smoking Status: Unknown if ever smoked Hx Alcohol Use: No Hx Substance Use: No Beliefs That Will Affect Care: None Communication Ability: Impaired Review of Systems Constitutional: as per Subjective / HPI Physical Exam 2 Vital Signs (Past 24 Hours): Last Vital Signs Temp 36.6 C 10/19/18 07:59 Pulse 79 10/19/18 07:59 Resp 18 10/19/18 07:59 BP 126/81 10/19/18 07:59 Pulse Ox 96 10/19/18 07:59 Constitutional: WD/WN, vitals as above no acute distress Respiratory: normal respiratory effort; no respiratory distress Gastrointestinal (Abdomen): Inspection/Auscultation: abdomen normal to inspection; abdomen not distended Percussion/Palpation: abdomen soft; abdomen nontender, no guarding and abdomen not rigid Skin: no rashes, warm and dry Results & Data Laboratory Results 10/19/18 10/19/18 10/19/18 Range/Units 05:31 05:31 05:31 WBC 9.92 (4.8-10.8) K/uL RBC 3.63 L (4.2-5.4) M/uL Hgb 10.9 L (12.0-16.0) g/dL Hct 33.2 L (37-47) % MCV 91.5 (80-100) fL MCH 30.0 (25-34) pg MCHC 32.8 (32-36) g/dL RDW Std Deviation 43.9 (36.4-46.3) fL RDW Coeff of Henrik 13.2 (11.5-14.5) % Plt Count 265 (130-400) K/uL MPV 10.1 (7.4-10.4) fL Immature Gran % (Auto) 0.2 % Neut % (Auto) 65.6 % Lymph % (Auto) 25.0 % [place] % (Auto) 7.7 % Eos % (Auto) 1.2 % Baso % (Auto) 0.3 % Immature Gran # (Auto) 0.02 (0.00-0.02) K/uL Neut # (Auto) 6.51 H (1.4-6.5) K/uL Lymph # (Auto) 2.48 (1.2-3.4) K/uL [place] # (Auto) 0.76 H (0.11-0.59) K/uL Eos # (Auto) 0.12 (0-0.5) K/uL Baso # (Auto) 0.03 (0-0.2) K/uL VBG pH (7.36-7.41) VBG pCO2 (38-50) mmHg VBG pO2 mmHg VBG HCO3 mmol/L VBG O2 Saturation % VBG Base Excess mEq/L Barometric Pressure mm/Hg Sodium 144 (136-145) mmol/L Potassium 3.7 (3.5-5.1) mmol/L Chloride 114 H (98-107) mmol/L Carbon Dioxide 24 (21-32) mmol/L Anion Gap 6.0 (3-11) BUN 13 (7-18) mg/dl Creatinine 0.63 (0.6-1.2) mg/dl Est Cr Clr Drug Dosing Not Reportable Est GFR ( Amer) 108.3 Est GFR (Non-Af Amer) 93.5 BUN/Creatinine Ratio 20.7 H (10-20) Glucose 82 (70-99) mg/dl Lactate (0.4-2.0) mmol/L Calcium 7.7 L D (8.5-10.1) mg/dl Magnesium 2.0 (1.8-2.4) mg/dl Total Bilirubin (0.2-1) mg/dl AST (15-37) U/L ALT (12-78) U/L Alkaline Phosphatase (45-117) U/L Troponin I (0-0.045) ng/ml Total Protein (6.4-8.2) gm/dl Albumin (3.4-5.0) gm/dl Globulin (2.5-4.0) gm/dl Albumin/Globulin Ratio (0.9-2) Lipase (73-393) U/L Urine Color Urine Appearance (Clear) Urine pH (4.5-7.5) Ur Specific [place] (1.000-1.030) Urine Protein (Negative) Urine Glucose (UA) (Negative) Urine Ketones (Negative) Urine Blood (Negative) Urine Nitrite (Negative) Urine Bilirubin (Negative) Urine Urobilinogen (Negative) Ur Leukocyte Esterase (Negative) Urine WBC (Auto) (0-5) /hpf Urine RBC (Auto) (0-4) /hpf U Hyaline Cast (Auto) (0-5) /lpf U Epithel Cells (Auto) (0-5) /lpf Urine Bacteria (Auto) (Negative) Nasal Screen MRSA (PCR) (Negative) Hepatitis C Ab Screen Neg (Neg) 10/19/18 10/18/18 10/18/18 Range/Units 04:00 21:37 21:13 WBC (4.8-10.8) K/uL RBC (4.2-5.4) M/uL Hgb (12.0-16.0) g/dL Hct (37-47) % MCV (80-100) fL MCH (25-34) pg MCHC (32-36) g/dL RDW Std Deviation (36.4-46.3) fL RDW Coeff of Henrik (11.5-14.5) % Plt Count (130-400) K/uL MPV (7.4-10.4) fL Immature Gran % (Auto) % Neut % (Auto) % Lymph % (Auto) % [place] % (Auto) % Eos % (Auto) % Baso % (Auto) % Immature Gran # (Auto) (0.00-0.02) K/uL Neut # (Auto) (1.4-6.5) K/uL Lymph # (Auto) (1.2-3.4) K/uL [place] # (Auto) (0.11-0.59) K/uL Eos # (Auto) (0-0.5) K/uL Baso # (Auto) (0-0.2) K/uL VBG pH (7.36-7.41) VBG pCO2 (38-50) mmHg VBG pO2 mmHg VBG HCO3 mmol/L VBG O2 Saturation % VBG Base Excess mEq/L Barometric Pressure mm/Hg Sodium (136-145) mmol/L Potassium (3.5-5.1) mmol/L Chloride (98-107) mmol/L Carbon Dioxide (21-32) mmol/L Anion Gap (3-11) BUN (7-18) mg/dl Creatinine (0.6-1.2) mg/dl Est Cr Clr Drug Dosing Est GFR ( Amer) Est GFR (Non-Af Amer) BUN/Creatinine Ratio (10-20) Glucose (70-99) mg/dl Lactate 1.3 (0.4-2.0) mmol/L Calcium (8.5-10.1) mg/dl Magnesium (1.8-2.4) mg/dl Total Bilirubin (0.2-1) mg/dl AST (15-37) U/L ALT (12-78) U/L Alkaline Phosphatase (45-117) U/L Troponin I (0-0.045) ng/ml Total Protein (6.4-8.2) gm/dl Albumin (3.4-5.0) gm/dl Globulin (2.5-4.0) gm/dl Albumin/Globulin Ratio (0.9-2) Lipase (73-393) U/L Urine Color Yellow Urine Appearance Clear (Clear) Urine pH 8.0 H (4.5-7.5) Ur Specific [place] > 1.045 H (1.000-1.030) Urine Protein Negative (Negative) Urine Glucose (UA) Negative (Negative) Urine Ketones Negative (Negative) Urine Blood Trace H (Negative) Urine Nitrite Negative (Negative) Urine Bilirubin Negative (Negative) Urine Urobilinogen Negative (Negative) Ur Leukocyte Esterase Negative (Negative) Urine WBC (Auto) 1-5 (0-5) /hpf Urine RBC (Auto) 5-10 H (0-4) /hpf U Hyaline Cast (Auto) 0 (0-5) /lpf U Epithel Cells (Auto) 0-5 (0-5) /lpf Urine Bacteria (Auto) 2+ H (Negative) Nasal Screen MRSA (PCR) Negative (Negative) Hepatitis C Ab Screen (Neg) 10/18/18 10/18/18 10/18/18 Range/Units 19:27 19:27 19:27 WBC 17.70 H (4.8-10.8) K/uL RBC 4.34 (4.2-5.4) M/uL Hgb 13.6 (12.0-16.0) g/dL Hct 40.0 (37-47) % MCV 92.2 (80-100) fL MCH 31.3 (25-34) pg MCHC 34.0 (32-36) g/dL RDW Std Deviation 44.5 (36.4-46.3) fL RDW Coeff of Henrik 13.2 (11.5-14.5) % Plt Count 337 (130-400) K/uL MPV 10.1 (7.4-10.4) fL Immature Gran % (Auto) 0.2 % Neut % (Auto) 88.3 % Lymph % (Auto) 6.6 % [place] % (Auto) 4.5 % Eos % (Auto) 0.2 % Baso % (Auto) 0.2 % Immature Gran # (Auto) 0.04 H (0.00-0.02) K/uL Neut # (Auto) 15.63 H (1.4-6.5) K/uL Lymph # (Auto) 1.16 L (1.2-3.4) K/uL [place] # (Auto) 0.80 H (0.11-0.59) K/uL Eos # (Auto) 0.04 (0-0.5) K/uL Baso # (Auto) 0.03 (0-0.2) K/uL VBG pH 7.40 (7.36-7.41) VBG pCO2 47 (38-50) mmHg VBG pO2 20 mmHg VBG HCO3 28 mmol/L VBG O2 Saturation < 60.0 % VBG Base Excess 2.8 mEq/L Barometric Pressure 736.4 mm/Hg Sodium 142 (136-145) mmol/L Potassium 4.2 (3.5-5.1) mmol/L Chloride 107 (98-107) mmol/L Carbon Dioxide 30 (21-32) mmol/L Anion Gap 5.0 (3-11) BUN 20 H (7-18) mg/dl Creatinine 0.88 (0.6-1.2) mg/dl Est Cr Clr Drug Dosing Not Reportable Est GFR ( Amer) 79.4 Est GFR (Non-Af Amer) 68.5 BUN/Creatinine Ratio 22.4 H (10-20) Glucose 118 H (70-99) mg/dl Lactate (0.4-2.0) mmol/L Calcium 9.1 (8.5-10.1) mg/dl Magnesium (1.8-2.4) mg/dl Total Bilirubin 1.0 (0.2-1) mg/dl AST 18 (15-37) U/L ALT 19 (12-78) U/L Alkaline Phosphatase 71 (45-117) U/L Troponin I < 0.015 (0-0.045) ng/ml Total Protein 8.1 (6.4-8.2) gm/dl Albumin 3.6 (3.4-5.0) gm/dl Globulin 4.5 H (2.5-4.0) gm/dl Albumin/Globulin Ratio 0.8 L (0.9-2) Lipase 147 (73-393) U/L Urine Color Urine Appearance (Clear) Urine pH (4.5-7.5) Ur Specific [place] (1.000-1.030) Urine Protein (Negative) Urine Glucose (UA) (Negative) Urine Ketones (Negative) Urine Blood (Negative) Urine Nitrite (Negative) Urine Bilirubin (Negative) Urine Urobilinogen (Negative) Ur Leukocyte Esterase (Negative) Urine WBC (Auto) (0-5) /hpf Urine RBC (Auto) (0-4) /hpf U Hyaline Cast (Auto) (0-5) /lpf U Epithel Cells (Auto) (0-5) /lpf Urine Bacteria (Auto) (Negative) Nasal Screen MRSA (PCR) (Negative) Hepatitis C Ab Screen (Neg) Diagnostic Findings CT OF THE ABDOMEN AND PELVIS WITH CONTRAST CLINICAL HISTORY: Vomiting. Altered mental status. COMPARISON STUDY: CT of the abdomen and pelvis July 01, 2018. TECHNIQUE: Following IV administration of 115 mL of [id number]-320, axial images of the abdomen and pelvis were obtained from the lung bases to the proximal femurs. Images were reviewed in the axial, sagittal, and coronal planes. IV contrast was administered without complication. Automated exposure control was utilized for the study. A dose lowering technique was utilized adhering to the principles of ALARA. CT DOSE: 309.94 mGy.cm FINDINGS: Bilateral breast implants are partially imaged. The liver, spleen, adrenal glands and pancreas are unremarkable. There is no biliary or pancreatic ductal dilatation. There is no peripancreatic or pericholecystic infiltration. Innumerable hypodense bilateral renal lesions are noted. These favor cysts. There is no hydronephrosis. No pneumatosis, free air or portal venous gas is present. The appendix is normal. A moderate amount of stool within the rectum is noted. There is moderate pelvic infiltration adjacent to the sigmoid colon. There is no abscess. Note is made of gas within the endometrial cavity as well as gas within the left adnexa adjacent to the left ovary. No diverticular disease is identified by CT. There is no evidence for a bowel obstruction. No suspicious osseous lesion is noted. IMPRESSION: 1. Moderate pelvic infiltration adjacent to the sigmoid colon. In addition, gas within the endometrial cavity and left adnexa. Overall, the findings suggest an infectious process which may be gynecologic or gastrointestinal in etiology. However, no evidence for acute diverticulitis. No abscess. No fistula identified. Findings discussed with Dr. Kingsotn at time of dictation. 2. Moderate amount of stool within the rectum. No bowel obstruction. Normal appendix.
[2018-10-19] MEDS: VANCOMYCIN HCL 750 MG in SODIUM CHLORIDE 0.9% 250 ML IV SCH ×2 (11:11→22:05)
--- NOTE | 2018-10-19 13:18 | Pharmacy Report ---
Pharmacy Abx Initial Consult - Date of Service October 19, 2018 - Pharmacy Dosing Scope Date of Consult: 10/18/18 Consultation requested by: Dr. Cesar Pharmacy is consulted to initiate Vancomycin and Ertapenem IV dosing therapy, order appropriate labs and adjust drug dose/frequency. - Subjective The patient is a 68 year old F admitted on 10/18/18 22:40. - Objective Height: 5 ft 3 in Weight: 52.4 kg Vital Signs (Past 12hrs): Vital Signs Temp Pulse Pulse Resp BP Pulse Ox 10/19/18 11:51 36.6 C 70 19 140/92 97 10/19/18 07:59 36.6 C 79 18 126/81 96 10/19/18 04:13 36.3 C L 76 18 155/48 H 98 Lab Results (24hrs): Laboratory Tests (24 Hours) 10/19/18 10/19/18 10/18/18 05:31 05:31 19:27 WBC 9.92 Neut # (Auto) 6.51 H Creatinine 0.63 0.88 Est Cr Clr Drug Dosing Not Reportable Not Reportable 10/18/18 19:27 WBC 17.70 H Neut # (Auto) 15.63 H Creatinine Est Cr Clr Drug Dosing Micro Results: 10/18/18 21:33 Blood Culture - Pending Blood 10/18/18 19:27 Blood Culture - Pending Blood - Risk Factors for Resistance * Resident in a halfway or extended-care facility - Assessment & Plan Assessment 68 year old F with h/o of CVA resulting in right-sided hemiplegia and dysphagia , subdural hematoma from a fall, HTN, C. diff, and AML (in remission). Patient was brought in after an episode of vomitting after eating her dinner, she then became non-responsive. Abdominal CT suggests an infectious process which may involve GI or . Plan Vancomycin and Ertapenem for treatment of intra-abdominal infection Vancomycin IV * Estimated PK Parameters: Vd 0.7 L/kg, Owen 0.064 hr-1, t1/2 ~10 hr * Loading dose: 1250 mg (24 mg/kg) * Maintenance dose: 750 mg IV (~14 mg/kg) every 12 hours * Goal trough level : 15 to 20 mcg/mL * Trough/Random level ordered for 10/20/18 before 1100 dose. Ertapenem * 1 gm IV every 24 hours for CrCl >30 mL/min. Pharmacy will continue to follow and will adjust dose/frequency as necessary. Thank you.
--- NOTE | 2018-10-19 17:47 | Hospitalist Progress Note ---
Date of Service October 19, 2018 Assessment & Plan (1) Altered mental status: Patient is a 68 yr female who presents with altered mental status from [facility] Altered mental status Possibly Metabolic encephalopathy from Infectious process --CT ABD: Moderate pelvic infiltration adjacent to the sigmoid colon. In addition, gas within the endometrial cavity and left adnexa. Overall, the findings suggest an infectious process which may be gynecologic or gastrointestinal in etiology. However, no evidence for acute diverticulitis. No abscess. No fistula identified. --Continue IV fluids, ABX --Plan to repeat CT ABD in AM --No surgical intervention required as per surgery --Consider GI eval if no improvement --Speech eval prior to starting diet, NPO for now --FU blood.Urine cultures Syncopal Episode After Vomiting Likely Vasovagal CT Head:No acute intracranial findings. No change in appearance of the brain. Sinus rhytm on monitor Hi/O CVA Chronic hemiplegia Continue aspirin, statin. H/O subdural hematoma in 2017 cognitive function declined since hematoma Dysarthric and mostly wheelchair bound at baseline Plan to discharge back to [facility] when patient is stable. Hyperlipidemia Continue statin Hypertension Continue Lopressor, lisinopril H/O Clostridium difficile colitis Check for C.diff if patient develops diarrhea DVT Px: SCDs for now Code Status: full code as per patient's daughter Disposition: Plan to discharge back to [facility] Subjective Patient is seen and examined at bedside Patient unable to provide any history No apparent distress Discussed with daughter in detail Plan to repeat CT abd tomorrow Continue IV Abx, IV fluids Physical Exam 2 Vital Signs (Past 24 Hours): Last Vital Signs Temp 36.8 C 10/19/18 15:29 Pulse 76 10/19/18 15:29 Resp 16 10/19/18 15:29 BP 147/92 H 10/19/18 15:29 Pulse Ox 93 10/19/18 15:29 Physical Exam: Physical Exam: Vitals signs as noted above General Appearance:Moderately built and nourished, no apparent distress Head: normocephalic, Atraumatic Eyes: normal inspection, EOMI Neck: supple, Trachea midline Respiratory/Chest: Normal breath sounds, CTA Cardiovascular: S1, S2, No murmur Abdomen/GI:Soft, mild tender, Bowel sounds present Extremities/Musculoskelatal:normal inspection, no edema Neurologic/Psych:alert, awake, Chronic hemiplegia, Non verbal, doesn't obey commands Skin: normal color, warm Results & Data Laboratory Results Short CBC 10/18/18 10/19/18 Range/Units 19:27 05:31 WBC 17.70 H 9.92 (4.8-10.8) K/uL Hgb 13.6 10.9 L (12.0-16.0) g/dL Hct 40.0 33.2 L (37-47) % Plt Count 337 265 (130-400) K/uL BMP 10/18/18 10/19/18 19:27 05:31 Sodium 142 144 Potassium 4.2 3.7 Chloride 107 114 H Carbon Dioxide 30 24 BUN 20 H 13 Creatinine 0.88 0.63 Glucose 118 H 82 Calcium 9.1 7.7 L D Cardiac Enzymes 10/18/18 Range/Units 19:27 Troponin I < 0.015 (0-0.045) ng/ml Liver Function 10/18/18 Range/Units 19:27 Total Bilirubin 1.0 (0.2-1) mg/dl AST 18 (15-37) U/L ALT 19 (12-78) U/L Alkaline Phosphatase 71 (45-117) U/L Albumin 3.6 (3.4-5.0) gm/dl Urine 10/18/18 Range/Units 21:13 Urine Color Yellow Urine Appearance Clear (Clear) Urine pH 8.0 H (4.5-7.5) Ur Specific [place] > 1.045 H (1.000-1.030) Urine Protein Negative (Negative) Urine Glucose (UA) Negative (Negative) Medications Administered Current Inpatient Medications Acetaminophen (Tylenol) 650 mg PO Q4H PRN PRN Reason: Pain or Fever Stop: 11/17/18 23:36 Aspirin (Ecotrin) 81 mg PO DAILY [facility]ASS[facility] Stop: 11/18/18 08:59 Last Admin: 10/19/18 09:28 Dose: Not Given Atorvastatin Calcium (Lipitor) 20 mg PO DAILY [facility] Stop: 11/18/18 08:59 Last Admin: 10/19/18 09:29 Dose: Not Given Docusate Sodium (Colace) 100 mg PO BID [facility]ASSIA Stop: 11/18/18 08:59 Last Admin: 10/19/18 09:28 Dose: Not Given Ertapenem (Consult) 1 ea N/A UD PRN PRN Reason: Consult Stop: 11/17/18 23:52 Sodium Chloride (Nss 1000ml) 1,000 mls @ 100 mls/hr IV .Q10H [facility] Stop: 11/17/18 23:36 Last Infusion: 10/19/18 12:33 Dose: Infused Ertapenem 1,000 mg/ Sodium (Chloride) 60 mls @ 100 mls/hr IV Q24H [facility]; Protocol Stop: 10/29/18 00:59 Last Infusion: 10/19/18 02:17 Dose: Infused Vancomycin HCl 750 mg/ Sodium (Chloride) 265 mls @ 125 mls/hr IV Q12H [facility] Stop: 10/29/18 10:59 Last Infusion: 10/19/18 13:19 Dose: Infused Lisinopril (Zestril) 2.5 mg PO DAILY [facility] Stop: 11/18/18 08:59 Last Admin: 10/19/18 09:29 Dose: Not Given Metoprolol Tartrate (Lopressor) 25 mg PO Q12 [facility] Stop: 11/18/18 08:59 Last Admin: 10/19/18 09:29 Dose: Not Given Miscellaneous Information (Consult) 1 ea N/A UD PRN PRN Reason: Consult Stop: 11/17/18 23:36 Multivitamins/Minerals (Multivitamin W/ Minerals) 1 tab PO DAILY [facility] Stop: 11/18/18 08:59 Last Admin: 10/19/18 09:29 Dose: Not Given Nitroglycerin (Nitrostat) 0.4 mg UD PRN PRN Reason: Chest Pain Stop: 11/17/18 23:36 Ondansetron HCl (Zofran) 4 mg IV Q6H PRN PRN Reason: Nausea Stop: 11/17/18 23:36 Sennosides (Senokot) 8.6 mg PO DAILY [facility] Stop: 11/18/18 08:59 Last Admin: 10/19/18 09:29 Dose: Not Given Sodium Biphosphate/Sodium Phosphate (Fleet Enema) 118 ml [place] DAILY PRN PRN Reason: Constipation Stop: 11/17/18 23:36 Vitamin D (Vitamin D3) 2,000 units PO DAILY [facility] Stop: 11/18/18 08:59 Last Admin: 10/19/18 09:29 Dose: Not Given _ (1) Altered mental status Altered mental status type: unspecified Coma depth: Coma timing: Qualified Code(s): R41.82 - Altered mental status, unspecified
[2018-10-20] MEDS: ERTAPENEM SODIUM 1,000 MG in SODIUM CHLORIDE 0.9% 50 ML IV SCH (00:20)
[2018-10-20] MEDS: LISINOPRIL 5 MG TAB PO SCH ×2 (01:54→11:16)
[2018-10-20 07:09] LABS: Hematocrit (blood only) 37.1 % (37-47); Hemoglobin 12.4 g/dL (12.0-16.0); Mean Corpuscular Hgb Conc 33.4 g/dL (32-36); Mean Corpuscular Volume 89.8 fL (80-100); Mean Platelet Volume 9.9 fL (7.4-10.4); Platelet Count 309 K/uL (130-400); RDW Standard Deviation 42.3 fL (36.4-46.3); Red Blood Count 4.13 M/uL (4.2-5.4); White Blood Count 9.28 K/uL (4.8-10.8)
--- NOTE | 2018-10-20 07:29 | CT Scan Report ---
CT SCAN OF THE ABDOMEN AND PELVIS WITHOUT IV CONTRAST CLINICAL HISTORY: Generalized abdominal pain. COMPARISON STUDY: Abdominal CT dated 10/18/2018 and 07/01/2018. TECHNIQUE: CT scan of the abdomen and pelvis is performed from the lung bases to the proximal femora. Images are reviewed in the axial, sagittal, and coronal planes. IV contrast was not administered for this examination as per the referring clinician. Note that the examination was performed in signific ant suboptimal fashion without oral and IV contrast. The examination is also compromised by streak ar tifact from the arms which cannot elevated above the abdomen as well as patient motion. A dose loweri ng technique was utilized adhering to the principles of ALARA. CT DOSE: 476.30 mGy.cm FINDINGS: Lung bases: The heart is mildly enlarged and there is trace pericardial fluid. There are coronary art celina calcifications. There is mild ectasia of the ascending thoracic aorta which measures up to 3.8 cm . There are trace pleural effusions with bibasilar atelectasis. Bilateral breast implants are noted. A tiny hiatal hernia is identified. Liver: The unenhanced liver is normal in size, contour, and attenuation. There is no intrahepatic lynsey iary ductal dilatation. Gallbladder: Layering hyperdense material within the gallbladder is new from previous and likely repr esents vicariously excreted contrast. The gallbladder is otherwise unremarkable. Spleen: Normal in size and attenuation. Pancreas: The unenhanced pancreas is moderately atrophic and grossly unremarkable. Adrenal glands: Unremarkable. Kidneys: The unenhanced kidneys demonstrate cortical atrophy and are without hydronephrosis. There ar e no renal calculi identified. There is no evidence of contour deforming renal mass lesion. Scattered subcentimeter cortical hypodensities likely represent cysts but cannot be definitively characterized due to streak and motion artifact. Abdominal vasculature: The abdominal aorta is normal in course and caliber noting moderate atheroscle rotic calcification. Bowel: There is moderate colonic fecal retention. No bowel obstruction is seen. The appendix is well -visualized and normal. Peritoneum: There is no intraperitoneal free air or abdominal ascites. There is a small fat-containin g umbilical hernia. Lymphadenopathy: None. Pelvic viscera: The bladder is distended and grossly unremarkable. The uterus and adnexa are normal a s visualized. Gas is noted within the endometrial canal in the left adnexa (axial image #[id number]). Skeletal structures: The skeletal structures are osteopenic. There is mild lumbosacral spondylosis. A hemangioma is noted in the body of L4. No lytic or blastic lesions are seen. IMPRESSION: 1. Suboptimal examination without oral and IV contrast. The examination is also degraded by streak an d motion artifact. 2. There is unchanged infiltration of the pelvic fat adjacent to the sigmoid colon. There is also gas present within the endometrial canal and involving the left adnexal structures. Some of these findin gs have been present dating back to 07/01/2018, and although this could be of gynecologic or GI origin , a gynecologic etiology is favored. No fistula is clearly identified. Clinical correlation will be e ssential. 3. Moderate colonic fecal retention. 4. Trace pleural effusions. 5. Additional findings as above. Electronically signed by: Jean Paul Arriaga M.D. 10/20/2018 7:28 AM
[2018-10-20 07:42] LABS: BUN Creatinine Ratio 11.4 (10-20); Calcium 8.7 mg/dl (8.5-10.1); Creatinine Clr Calc Pharmacy 78.9 ml/min; Est GFR (African American) 111.3; Est GFR (Non-African American) 96.1; Potassium 3.4 mmol/L (3.5-5.1)
[2018-10-20] MEDS: CHOLECALCIFEROL 1,000 UNITS TAB PO SCH (07:59)
[2018-10-20] MEDS: DOCUSATE SODIUM 100 MG CAP PO SCH ×3 (07:59→21:42)
[2018-10-20] MEDS: ATORVASTATIN 20 MG TAB PO SCH (07:59)
[2018-10-20] MEDS: SENNA 8.6 MG TAB PO SCH (08:00)
[2018-10-20] MEDS: CEROVITE ADV FORMULA TAB PO SCH (08:00)
[2018-10-20] MEDS: ASPIRIN 81 MG ECTAB PO SCH (08:00)
[2018-10-20] MEDS ORDERED: POTASSIUM CHLORIDE 10 MEQ TABCR PO STA (08:47)
[2018-10-20] MEDS ORDERED: VANCOMYCIN TROUGH ONE (10:30)
[2018-10-20] MEDS: POLYETHYLENE (MIRALAX) 17 GM PACK PO SCH (11:16)
--- NOTE | 2018-10-20 11:25 | Pharmacy Report ---
Pharmacy Abx Dose Short Note - Date of Service October 20, 2018 - Assessment & Plan Assessment 68 year old F receiving Vancomycin 750mg Q12 for treatment of GI vs. infection Day # 3 of antimicrobial therapy. Laboratory Tests 10/20/18 06:48 Vancomycin Trough 14.8 Plan Vancomycin * Trough level of 14.8 mcg/mL is subtherapeutic -- please note that this trough was accidentally drawn ~ 4hrs early, however can anticipate that the level would have been even lower at 1030. * Change to 750 mg IV every 10 hours - also found data from previous admissions that showed therapeutic troughs with this dose and interval. * Goal trough level : 15 to 20 mcg/mL * Trough or random level ordered for: 10/21/18 before 1700 dose. Pharmacy will continue to follow and will adjust dose/frequency as necessary. Thank you.
[2018-10-20] MEDS: VANCOMYCIN HCL 750 MG in SODIUM CHLORIDE 0.9% 250 ML IV SCH (11:27)
[2018-10-20] MEDS: METOPROLOL TARTRATE 25 MG TAB PO SCH ×3 (12:25→21:42)
--- NOTE | 2018-10-20 15:00 | OB/GYN Consultation ---
Date of Consultation October 20, 2018 Assessment & Plan (1) Abnormal endometrial ultrasound: 68 YO postmenopausal female admitted for syncope, altered mental status Incidental finding fo gas in endometrium per CT scan 9 same in 07/05) Normal pelvic exam Recommend pelvic US to evaluate endometrium better Discussed with Dr. Prasad History of Present Illness Reason for Consultation: Gas in endometrium Attending Physician: Paul Prasad MD History of Present Illness I was called for medicine team to see this patient for findings of gas in ednometrium per CT scan whihc was done for abdominal pain She seems to be sleeping and not responding tro questions I called her daughter who gave consent for further evaluation with pelvic exam and US Per her Arlette has been postmenopausal for many years, not sure for how long Never had PMB nor director adult issues No h/o abnormal pap smears She has been in senior living She had 2 's Allergies Allergy/AdvReac Type Severity Reaction Status Date / Time Penicillins Allergy Unknown RASH Verified 10/18/18 20:04 pollen extracts Allergy Unknown RUNNY Verified 10/18/18 20:04 NOSE/SNEEZING Home Medications Home Medications Medication Instructions Recorded Confirmed Type acetaminophen 500 mg PO Q4 PRN MDD 3gm/24hr 08/25/18 10/18/18 History aspirin 81 mg PO DAILY 08/25/18 10/18/18 History atorvastatin 20 mg PO DAILY 08/25/18 10/18/18 History cholecalciferol (vitamin D3) 2,000 unit PO DAILY 08/25/18 10/18/18 History [Vitamin D3] docusate sodium [Silace] 100 mg PO BID 08/25/18 10/18/18 History lisinopril 2.5 mg PO DAILY 08/25/18 10/18/18 History metoprolol tartrate 25 mg PO Q12 08/25/18 10/18/18 History multivitamin,re-ugyf-pbazjirh 1 tab PO DAILY 08/25/18 10/18/18 History [Therems-M] polyethylene glycol 3350 [Miralax] 17 g PO DAILY PRN 08/25/18 10/18/18 History sennosides [senna] 8.6 mg PO DAILY 08/25/18 10/18/18 History sodium phosphates [Fleet Enema] 118 ml [place] DAILY PRN 08/25/18 10/18/18 History ondansetron HCl 4 mg PO Q4H PRN 10/18/18 10/18/18 History Patient History Medical History Breast cancer (Resolved) Leukemia (Resolved) Hypertension (Chronic) Acute respiratory failure with hypoxia Anemia (Acute) CVA (cerebral vascular accident) UTI (urinary tract infection) (Acute) Anemia Breast cancer CVA (cerebral vascular accident) HTN (hypertension) Leukemia Surgical History History of breast reconstruction (Resolved) Family History Other No pertinent family history Social History Current Living Situation: [facility] Current Living Situation Comment: [place] Feels Safe at Home: Declines to Answer Smoking Status: Unknown if ever smoked Hx Alcohol Use: No Hx Substance Use: No Beliefs That Will Affect Care: None Communication Ability: Impaired Physical Exam 2 Vital Signs (Past 24 Hours): Last Vital Signs Temp 36.8 C 10/20/18 11:21 Pulse 86 10/20/18 11:21 Resp 18 10/20/18 11:21 BP 132/85 10/20/18 11:21 Pulse Ox 95 10/20/18 11:21 Constitutional: + ill appearing, + cachectic, + altered mental status and + language barrier Genitourinary: Ext genitalia: normal, physiologic atrophy Speculum: atrophic vagina small amount of yellow d/c, unable to see cervix, most likely atrophic and confluent with vaginal wall Bimanula exam: cervix atrophic and confluent with vaginal wall No pelvic mass
--- NOTE | 2018-10-20 16:20 | Ultrasound Report ---
US pelvic complete HISTORY: 68 years-old Female gas in endometrium per CT scan endometrial air seen on comparison CT. COMPARISON: CT abdomen and pelvis of same day TECHNIQUE: Multiple real-time sonographic images of the deep pelvic structures were obtained transabd ominally assessing grayscale appearance. Study is limited secondary to patient condition. No transvag inal component was obtained secondary to altered mental status. FINDINGS: Anteflexed uterus measures 4.7 x 2.8 x 3.0 cm and is partially secured by bowel gas. Ovaries are not diagnostically visualized. No significant free pelvic fluid. Echogenic focus noted about the fundal u terus. IMPRESSION: 1. Limited study as above. 2. Echogenic focus about the fundal uterus likely correlates with the focus of air within the endomet rial canal seen on comparison CT of unknown etiology. 3. Nonvisualization of the ovaries. The above report was generated using voice recognition software. It may contain grammatical, syntax o r spelling errors. Electronically signed by: Rene Maher M.D. 10/20/2018 4:18 PM
--- NOTE | 2018-10-20 16:41 | Hospitalist Progress Note ---
Date of Service October 20, 2018 Assessment & Plan (1) Altered mental status: Patient is a 68 yr female who presents with altered mental status from [facility] Altered mental status Possibly Metabolic encephalopathy from Infectious process --CT ABD: Moderate pelvic infiltration adjacent to the sigmoid colon. In addition, gas within the endometrial cavity and left adnexa. Overall, the findings suggest an infectious process which may be gynecologic or gastrointestinal in etiology. However, no evidence for acute diverticulitis. No abscess. No fistula identified. --Repeat CT ABD: No significant change --Pelvic USD: Echogenic focus about the fundal uterus likely correlates with the focus of air within the endometrial canal seen on comparison CT of unknown etiology. Nonvisualization of the ovaries --Normal Pelvic Exam as per OBGYN --Continue IV fluids --No surgical intervention required as per surgery --Appreciate OBGYN Input --Speech eval done -Mechanical soft diet when patient more awake --Blood culture:No growth to date --Urine Culture: Likely contamination --Vaginal Culture:pending --Continue bowel regimen for constipation --Consulted Neurology for Input --Discontinue antibiotics given mental status change and negative cultures Syncopal Episode After Vomiting Likely Vasovagal CT Head:No acute intracranial findings. No change in appearance of the brain. Sinus rhytm on monitor Hi/O CVA Chronic hemiplegia Continue aspirin, statin. H/O subdural hematoma in 2017 cognitive function declined since hematoma Dysarthric and mostly wheelchair bound at baseline Plan to discharge back to [facility] when patient is stable. Hyperlipidemia Continue statin Hypertension Continue Lopressor, lisinopril H/O Clostridium difficile colitis Check for C.diff if patient develops diarrhea DVT Px: SCDs for now Code Status: full code as per patient's daughter Disposition: Plan to discharge back to [facility] when medically stable Subjective Patient is seen and examined at bedside Patient is very drowsy today and had difficulty even to take her pills Patient unable to provide any history No apparent distress Discussed with daughter and OBGYN in detail Continue IV Abx, IV fluids Repeat CT abd:No significant change Will request Neurology evaluation Physical Exam 2 Vital Signs (Past 24 Hours): Last Vital Signs Temp 37.4 C 10/20/18 15:17 Pulse 83 10/20/18 15:17 Resp 18 10/20/18 15:17 BP 143/90 H 10/20/18 15:17 Pulse Ox 94 01/03/19 15:17 Physical Exam: Physical Exam: Vitals signs as noted above General Appearance:Moderately built and nourished, no apparent distress, Very drowsy Head: normocephalic, Atraumatic Eyes: normal inspection, EOMI Neck: supple, Trachea midline Respiratory/Chest: Decreased breath sounds, CTA Cardiovascular: S1, S2, No murmur Abdomen/GI:Soft, mild tender, Bowel sounds present Extremities/Musculoskelatal:normal inspection, no edema Neurologic/Psych:alert, awake, Chronic hemiplegia, Non verbal, doesn't obey commands Skin: normal color, warm Results & Data Laboratory Results Short CBC 10/20/18 Range/Units 06:48 WBC 9.28 (4.8-10.8) K/uL Hgb 12.4 (12.0-16.0) g/dL Hct 37.1 (37-47) % Plt Count 309 (130-400) K/uL BMP 10/20/18 06:48 Sodium 137 Potassium 3.4 L Chloride 104 Carbon Dioxide 24 BUN 7 D Creatinine 0.58 L Glucose [address]cium [address] ABD: 1. Suboptimal examination without oral and IV contrast. The examination is also degraded by streak and motion artifact. 2. There is unchanged infiltration of the pelvic fat adjacent to the sigmoid colon. There is also gas present within the endometrial canal and involving the left adnexal structures. Some of these findings have been present dating back to 07/01/2018, and although this could be of gynecologic or GI origin, a gynecologic etiology is favored. No fistula is clearly identified. Clinical correlation will be essential. 3. Moderate colonic fecal retention. 4. Trace pleural effusions. 5. Additional findings as above. Pelvic USD: 1. Limited study as above. 2. Echogenic focus about the fundal uterus likely correlates with the focus of air within the endometrial canal seen on comparison CT of unknown etiology. 3. Nonvisualization of the ovaries. _ (1) Altered mental status Altered mental status type: unspecified Coma depth: Coma timing: Qualified Code(s): R41.82 - Altered mental status, unspecified
[2018-10-20] MEDS ORDERED: D5W AND 1/2NSS + 20MEQ KCL 20 MEQ/1,000 ML BAG IV ONE (17:00)
--- NOTE | 2018-10-20 20:52 | Neurology Consultation ---
Date of Consultation October 20, 2018 Assessment & Plan (1) Altered mental status: 1.altered MS- unclear how far she is from baseline 2. CT head- any new bleed or other acute findings 3. EEG- possible seizure focus 4. antibiotic stopped no + cultures, no elevated WBC or fevers 5. medical managment per primary team 6. family input would be helpful 7. if positive culture or infection is discovered could restart antibiotic treat to culture results further recommendation once EEG and CT is resulted Pt seen and examined. Pt sleepy but arousable, follows min commands. Neck supple , no gaze preference. R hemiparesis. Imp Pt with compromised baseline related to prior ICH or infarct, hx of SDH. Presumed current pelvic infection, with addition of "Penem" antibiotic. Pt with mult prior admissions with encephalop related to infection. P CT head, EEG. Will follow with you, FRENCH Gar MD Supervising Physician Co-Signing Physician Notes I have seen and discussed above patient with Dr Mayuri Gar, neurology History of Present Illness Reason for Consultation: Altered MS Requesting Physician: Paul Prasad MD Attending Physician: Paul Prasad MD History of Present Illness Arlette is a 68 year old female with PMH ischemic stroke in 2016 causing right sided hemiplegic and dysphagia requiring tube feeds but now able to tolerate mechanical soft food,HTN, dysarthria, c diff, osteoperosis, hyperlipidemia, acute myeloid leukemia in remission, breast CA and reconstruction, anemia. In 2017 she suffered a fall injury and SDH. since then cognitive funcition has been declining. She can recognize her family but at baseline is mostly non verbal. She does not ambulate and needs a 2 person assist for tranfers and is mainly dependent on a wheelchair for mobility. She is on the most part incontinent. She resides a [place] and was brought to the ED after being at dinner and vomiting and becoming unresponsive and was found to have a low blood pressure. She was given antibiotics, fluids and CT scan of the abdomen and pelvis showed some pelvic infiltrate adjacent to the sigmoid colon and some gas within the endometrial cavity and left adnexa no signs of abscess. no fistula. After receiving antibiotics and fluids she became more responsive and was back to her baseline. No family is in the room. Today she is no responding as much as previous. She does not answer questions but she is following simple commands. Allergies Allergy/AdvReac Type Severity Reaction Status Date / Time Penicillins Allergy Unknown RASH Verified 10/18/18 20:04 pollen extracts Allergy Unknown RUNNY Verified 10/18/18 20:04 NOSE/SNEEZING Home Medications Home Medications Medication Instructions Recorded Confirmed Type acetaminophen 500 mg PO Q4 PRN MDD 3gm/24hr 08/25/18 10/18/18 History aspirin 81 mg PO DAILY 08/25/18 10/18/18 History atorvastatin 20 mg PO DAILY 08/25/18 10/18/18 History cholecalciferol (vitamin D3) 2,000 unit PO DAILY 08/25/18 10/18/18 History [Vitamin D3] docusate sodium [Silace] 100 mg PO BID 08/25/18 10/18/18 History lisinopril 2.5 mg PO DAILY 08/25/18 10/18/18 History metoprolol tartrate 25 mg PO Q12 08/25/18 10/18/18 History multivitamin,om-fohw-azhbbpfi 1 tab PO DAILY 08/25/18 10/18/18 History [Therems-M] polyethylene glycol 3350 [Miralax] 17 g PO DAILY PRN 08/25/18 10/18/18 History sennosides [senna] 8.6 mg PO DAILY 08/25/18 10/18/18 History sodium phosphates [Fleet Enema] 118 ml [place] DAILY PRN 08/25/18 10/18/18 History ondansetron HCl 4 mg PO Q4H PRN 10/18/18 10/18/18 History Patient History Medical History Breast cancer (Resolved) Leukemia (Resolved) Hypertension (Chronic) Acute respiratory failure with hypoxia Anemia (Acute) CVA (cerebral vascular accident) UTI (urinary tract infection) (Acute) Anemia Breast cancer CVA (cerebral vascular accident) HTN (hypertension) Leukemia Surgical History History of breast reconstruction (Resolved) Family History Other No pertinent family history Social History Current Living Situation: Custodial Current Living Situation Comment: [place] Feels Safe at Home: Declines to Answer Smoking Status: Unknown if ever smoked Hx Alcohol Use: No Hx Substance Use: No Beliefs That Will Affect Care: None Communication Ability: Impaired Physical Exam 2 Vital Signs (Past 24 Hours): Last Vital Signs Temp 36.8 C 10/20/18 19:24 Pulse 86 10/20/18 19:24 Resp 16 10/20/18 19:24 BP 153/100 H 10/20/18 19:24 Pulse Ox 97 10/20/18 19:24 Physical Exam: Constitutional: appearance ill appearing thin pale Ears, Nose, Mouth and Throat: mucous membranes moist, no injection and skin normal, eyes normal Cardiovascular: normal S-1 and S-2 and regular rate and rhythm Respiratory: course breath sounds Musculoskeletal: no peripheral edema and good distal pulses Skin: no stigmata of neurocutaneous disease noted and normal and intact Eyes: unable to fully evaluate pupils, appears to have a leftward gaze preference NEUROLOGIC EXAMINATION: Mental status: Alert minimally interactive, squeezes with hand opens eyes with command Cranial Nerves mild flattening of nasolabial fold Reflexes: Deep tendon reflexes were symmetrical and graded 2/5. Plantar responses were up going Sensory: response with moaning to deep stimulation Gait/Stance: Posture lying in bed. purposeful movement of legs, right arm and leg spastic Strength: unable to test patient will only move spontaneously and squeeze with left hand Results & Data Laboratory Results Abnormal Labs 10/18/18 10/18/18 10/18/18 19:27 19:27 21:13 WBC 17.70 H RBC Hgb Hct Immature Gran # (Auto) 0.04 H Neut # (Auto) 15.63 H Lymph # (Auto) 1.16 L [place] # (Auto) 0.80 H Potassium Chloride BUN 20 H Creatinine BUN/Creatinine Ratio 22.4 H Glucose 118 H Calcium Globulin 4.5 H Albumin/Globulin Ratio 0.8 L Urine pH 8.0 H Ur Specific [place] > 1.045 H Urine Blood Trace H Urine RBC (Auto) 5-10 H Urine Bacteria (Auto) 2+ H 10/19/18 10/19/18 10/20/18 05:31 05:31 06:48 WBC RBC 3.63 L 4.13 L Hgb 10.9 L Hct 33.2 L Immature Gran # (Auto) Neut # (Auto) 6.51 H Lymph # (Auto) [place] # (Auto) 0.76 H Potassium Chloride 114 H BUN Creatinine BUN/Creatinine Ratio 20.7 H Glucose Calcium 7.7 L D Globulin Albumin/Globulin Ratio Urine pH Ur Specific [place] Urine Blood Urine RBC (Auto) Urine Bacteria (Auto) 10/20/18 06:48 WBC RBC Hgb Hct Immature Gran # (Auto) Neut # (Auto) Lymph # (Auto) [place] # (Auto) Potassium 3.4 L Chloride BUN Creatinine 0.58 L BUN/Creatinine Ratio Glucose Calcium Globulin Albumin/Globulin Ratio Urine pH Ur Specific [place] Urine Blood Urine RBC (Auto) Urine Bacteria (Auto) _ (1) Altered mental status Altered mental status type: unspecified Coma depth: Coma timing: Qualified Code(s): R41.82 - Altered mental status, unspecified
[2018-10-20] MEDS ORDERED: VANCOMYCIN HCL 750 MG in SODIUM CHLORIDE 0.9% 250 ML IV SCH (21:00)
[2018-10-21] MEDS ORDERED: XOPENEX/ATROVENT 1.25mg/0.5MG NEB COMBO NEB PRN ×2 (00:38→01:07)
[2018-10-21] MEDS ORDERED: XOPENEX/ATROVENT 1.25mg/0.5MG NEB COMBO NEB STA (00:38)
[2018-10-21] MEDS ORDERED: LEVALBUTEROL 1.25MG/0.5ML NEB INH SCH (00:45)
[2018-10-21] MEDS ORDERED: IPRATROPIUM BROMIDE NEB SOLN 0.02% 2.5 ML VIAL INH SCH (00:45)
[2018-10-21 01:06] LABS: Basophils # (auto) 0.02 K/uL (0-0.2); Basophils % (auto) 0.2 %; Eosinophils # (auto) 0.03 K/uL (0-0.5); Eosinophils % (auto) 0.3 %; Hematocrit (blood only) 36.3 % (37-47); Hemoglobin 12.9 g/dL (12.0-16.0); Immature Granulocytes # (auto) 0.02 K/uL (0.00-0.02); Immature Granulocytes % (auto) 0.2 %; Lymphocytes # (auto) 1.44 K/uL (1.2-3.4); Lymphocytes % (auto) 12.6 %; Mean Corpuscular Hgb Conc 35.5 g/dL (32-36); Mean Corpuscular Volume 87.7 fL (80-100); Mean Platelet Volume 9.9 fL (7.4-10.4); Monocytes # (auto) 0.44 K/uL (0.11-0.59); Monocytes % (auto) 3.8 %; Neutrophils % (auto) 82.9 %; Platelet Count 333 K/uL (130-400); RDW Coefficient of Variation 12.8 % (11.5-14.5); Red Blood Count 4.14 M/uL (4.2-5.4); White Blood Count 11.45 K/uL (4.8-10.8)
[2018-10-21 01:10] LABS: HCO3 ABG 22 mmol/L (19-24); PCO2 ABG 29 mmHg (35-46); PO2 ABG 49 mm/Hg (80-95); pH ABG 7.49 (7.35-7.45)
[2018-10-21 01:12] LABS: Allen Test POS (Pos)
[2018-10-21 01:16] LABS: Partial Thromboplastin Ratio 1.1; Partial Thromboplastin Time 28.4 Seconds (21.0-31.0)
[2018-10-21] MEDS ORDERED: methylPREDNISolone 20 MG in SYRINGE 0 ML IM STA (01:19)
[2018-10-21] MEDS ORDERED: ERTAPENEM SODIUM 1,000 MG in SYRINGE 0 ML IV STA (01:19)
[2018-10-21 01:23] LABS: Albumin Level 3.1 gm/dl (3.4-5.0); BUN Creatinine Ratio 15.6 (10-20); Calcium 8.6 mg/dl (8.5-10.1); Creatinine Clr Calc Pharmacy 89.8 ml/min; Est GFR (African American) 116.1; Est GFR (Non-African American) 100.2; Potassium 3.5 mmol/L (3.5-5.1)
[2018-10-21] MEDS ORDERED: NSS + 20MEQ KCL 20 MEQ/1,000 ML BAG IV ONE (01:23)
--- NOTE | 2018-10-21 01:23 | Hospitalist Progress Note ---
Date of Service October 21, 2018 Subjective Made aware by RN of noisy breathing, possible aspiration given decreased responsiveness throughout the day. Chest x-ray as per my interpretation atelectasis AP Aspiration pneumonitis Solu-Medrol 1 dose nebs as needed IV Ertapenem Will relay to AM provider. Physical Exam 2 Vital Signs (Past 24 Hours): Last Vital Signs Temp 37.2 C 10/21/18 01:00 Pulse 101 H 10/21/18 01:00 Resp 17 10/21/18 01:00 BP 148/104 H 10/21/18 01:00 Pulse Ox 94 10/21/18 01:00
[2018-10-21 01:25] LABS: Albumin Globulin Ratio 0.7 (0.9-2); Bilirubin,Total 1.3 mg/dl (0.2-1); Globulin 4.5 gm/dl (2.5-4.0); Total Protein 7.6 gm/dl (6.4-8.2)
[2018-10-21] MEDS ORDERED: methylPREDNISolone 20 MG in SYRINGE 0 ML IV STA (01:35)
[2018-10-21] MEDS: LEVALBUTEROL 1.25MG/0.5ML NEB INH PRN ×2 (02:09→20:06)
[2018-10-21] MEDS: IPRATROPIUM BROMIDE NEB SOLN 0.02% 2.5 ML VIAL INH PRN ×2 (02:09→20:05)
[2018-10-21] MEDS: ERTAPENEM SODIUM 1,000 MG in SODIUM CHLORIDE 0.9% 50 ML IV SCH (02:15)
[2018-10-21 02:56] LABS: Magnesium 1.9 mg/dl (1.8-2.4)
[2018-10-21 06:02] LABS: Appearance Urine Clear (Clear); Blood Urine 2+ (Negative); Color Urine Yellow; Glucose Urine UA Negative (Negative); Leukocyte Esterase Urine Negative (Negative); Nitrite Urine Negative (Negative); Protein Urine Trace (Negative); Specific Gravity Urine >= 1.030 (1.000-1.030); Urobilinogen Urine Negative (Negative)
[2018-10-21 06:14] LABS: Bilirubin Urine Negative (Negative); Ictotest Urine Negative (Negative)
[2018-10-21 06:16] LABS: Ketones Urine 3+ (Negative)
--- NOTE | 2018-10-21 06:31 | XRay Report ---
XR chest 1V portable HISTORY: 68 years-old Female noisy breathing acute shortness of breath COMPARISON: Chest radiograph October 18, 2018, CT abdomen and pelvis October 20, 2018 TECHNIQUE: Portable AP view of the chest FINDINGS: Trace bilateral pleural effusions with subsegmental left basilar opacities. Right lung is clear. No p neumothorax or overt pulmonary edema. Cardiomediastinal and hilar silhouettes are within normal limit s. Bones of the chest appear grossly intact. IMPRESSION: 1. Subsegmental left basilar opacities suggest atelectasis with pneumonitis thought to be less likely . 2. Trace pleural effusions redemonstrated. The above report was generated using voice recognition software. It may contain grammatical, syntax o r spelling errors. Electronically signed by: Rene Maher M.D. 10/21/2018 6:30 AM
[2018-10-21 06:36] LABS: Epithelial Cell Urine 0-5 /lpf (0-5)
[2018-10-21 06:38] LABS: Bacteria Urine Negative (Negative); WBC Urine 0-5 /hpf (0-5)
--- NOTE | 2018-10-21 06:41 | Ultrasound Report ---
US venous doppler UE LT HISTORY: 68 years-old Female LUE swelling acute pain and swelling of the left upper extremity COMPARISON: None available TECHNIQUE: Multiple real-time sonographic images of the left upper extremity deep venous structures w ere obtained assessing grayscale appearance, color and spectral flow FINDINGS: Study is limited secondary to patient positioning and cooperation. Normal flow, compressibility, phas icity and augmentation of the left upper extremity deep venous structures. IMPRESSION: No sonographic evidence of deep venous thrombosis. The above report was generated using voice recognition software. It may contain grammatical, syntax o r spelling errors. Electronically signed by: Rene Maher M.D. 10/21/2018 6:40 AM
--- NOTE | 2018-10-21 06:47 | CT Scan Report ---
CT head/brain wo con CLINICAL HISTORY: 68 years-old Female with MS change. Acutely altered mental status TECHNIQUE: Multiple axial CT images of the head were obtained without contrast. A dose lowering tech nique was utilized adhering to the principles of ALARA. CT DOSE: 537.48 mGy.cm COMPARISON: CT head October 18, 2018. FINDINGS: No acute intracranial hemorrhage, midline shift, intracranial mass, hydrocephalus, territorial ischem ia or abnormal extra-axial collection. Moderate atrophy with advanced white matter hypodensities comp atible with chronic microvascular ischemic changes. Remote lacunar infarctions noted about the basal ganglia. Cerebral vascular calcifications noted. The calvarium is intact. Mild mucosal thickening of the right maxillary and sphenoid sinuses. IMPRESSION: No acute intracranial abnormality. The above report was generated using voice recognition software. It may contain grammatical, syntax o r spelling errors. Electronically signed by: Rene Maher M.D. 10/21/2018 6:45 AM
[2018-10-21] MEDS: DOCUSATE SODIUM 100 MG CAP PO SCH ×2 (08:00→20:54)
[2018-10-21] MEDS: ASPIRIN 81 MG ECTAB PO SCH (08:01)
[2018-10-21] MEDS: SENNA 8.6 MG TAB PO SCH (08:01)
[2018-10-21] MEDS: CHOLECALCIFEROL 1,000 UNITS TAB PO SCH (08:01)
[2018-10-21] MEDS: ATORVASTATIN 20 MG TAB PO SCH (08:01)
[2018-10-21] MEDS: METOPROLOL TARTRATE 25 MG TAB PO SCH ×2 (08:01→20:54)
[2018-10-21] MEDS: POLYETHYLENE (MIRALAX) 17 GM PACK PO SCH (08:01)
[2018-10-21] MEDS: CEROVITE ADV FORMULA TAB PO SCH (08:01)
[2018-10-21] MEDS ORDERED: ERTAPENEM CONSULT ACTIVE PRN (09:00)
--- NOTE | 2018-10-21 09:17 | Palliative Care Consultation ---
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 CT a/p showed "moderate pelvic infiltration adjacent to sigmoid colon and also some gas within the endometrial cavity and left adnexa but there are no signs of obvious abscess so question of infectious process could be gynecological or gastrointestinal in etiology." Neuro and group exercise manager consulted. Patient was started on IVF and abx. Abx were discontinued at recommendation of neuro due to possible side effects. CT head negative for any acute process but showed chronic microvascular change. Last evening, patient noted to be more leghargic than normal (is mostly nonverbal and requires two assist out of bed at baseline), and increased secretions/moist breath sounds. She was made NPO for possible aspiration, CXR obtained which did not show acute process. Speech asked to reevaluate. Ertapenem restarted. -Patient remains lethargic today. Only responded to noxious stimuli, did not follow commands. Did not open eyes. -Spoke at length three different times with talib's daughter/POA, Tiarra Thomas. Tiarra states that her mother does actually have a good quality of life and is usually able to interact with her and her daughter (patient's granddaughter). She has had infections and illnesses in the past and has recovered. She'd like to give her mom and chance to recover from this as well. -For now, continue with current treatment and full code. We discussed CODE STATUS at length. She would like her brother from [place] to have a chance to see her mother and help make decision. (2) Altered mental status: Altered mental status type: unspecified Coma depth: Coma timing : Qualified Code(s): R41.82 - Altered mental status, unspecified (3) Acute UTI: (4) History of CVA with residual deficit: (5) H/O traumatic brain injury: Supervising Physician Co-Signing Physician Notes Chart reviewed, patient examined. Patient's daughter and son-in-law at bedside. Patient more alert-does get agitated and combative at times-during most of the conversation she was smiling often not in agreement. Daughter having difficult time determining patient's goals of care-had long discussion with patient's daughter and son-in-law at bedside Regarding what patient enjoys in life, and how to maximize her enjoyment. Discussed aspiration , feeding tube, pleasure feeding at length. PE: No acute distress, patient appears comfortable HEENT: Alopecia, EOMI, mill [place] REsp: loose cough, productive, strong, no resp distress, coarse BS CV: Regular rate no edema Abdomen: Not distended Neuro: Alert, oriented to person, more confused at times than others, not able to make medical decisions History of Present Illness Reason for Consultation: Goals of care Requesting Physician: Dr. 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 CT a/p showed "moderate pelvic infiltration adjacent to sigmoid colon and also some gas within the endometrial cavity and left adnexa but there are no signs of obvious abscess so question of infectious process could be gynecological or gastrointestinal in etiology." Neuro and group exercise manager consulted. Patient was started on IVF and abx. Abx were discontinued at recommendation of neuro due to possible side effects. CT head negative for any acute process but showed chronic microvascular change. Last evening, patient noted to be more leghargic than normal (is mostly nonverbal and requires two assist out of bed at baseline), and increased secretions/moist breath sounds. She was made NPO for possible aspiration, CXR obtained which did not show acute process. Speech asked to reevaluate. Ertapenem restarted. Patient remains lethargic today. Only responded to noxious stimuli, does not follow commands. Palliative care consulted for goals of care. See A&P for details of discussion with patient's daughter/POA, Tiarra Thomas. Thank you kindly for this consult. I will follow as needed. Allergies Allergy/AdvReac Type Severity Reaction Status Date / Time Penicillins Allergy Unknown RASH Verified 10/18/18 20:04 pollen extracts Allergy Unknown RUNNY Verified 10/18/18 20:04 NOSE/SNEEZING Home Medications Home Medications Medication Instructions Recorded Confirmed Type acetaminophen 500 mg PO Q4 PRN MDD 3gm/24hr 08/25/18 10/18/18 History aspirin 81 mg PO DAILY 08/25/18 10/18/18 History atorvastatin 20 mg PO DAILY 08/25/18 10/18/18 History cholecalciferol (vitamin D3) 2,000 unit PO DAILY 08/25/18 10/18/18 History [Vitamin D3] docusate sodium [Silace] 100 mg PO BID 08/25/18 10/18/18 History lisinopril 2.5 mg PO DAILY 08/25/18 10/18/18 History metoprolol tartrate 25 mg PO Q12 08/25/18 10/18/18 History multivitamin,[id number] 1 tab PO DAILY 08/25/18 10/18/18 History [Therems-M] polyethylene glycol 3350 [Miralax] 17 g PO DAILY PRN 08/25/18 10/18/18 History sennosides [senna] 8.6 mg PO DAILY 08/25/18 10/18/18 History sodium phosphates [Fleet Enema] 118 ml [place] DAILY PRN 08/25/18 10/18/18 History ondansetron HCl 4 mg PO Q4H PRN 10/18/18 10/18/18 History Patient History Medical History Breast cancer (Resolved) Leukemia (Resolved) Hypertension (Chronic) Acute respiratory failure with hypoxia Anemia (Acute) CVA (cerebral vascular accident) UTI (urinary tract infection) (Acute) Anemia Breast cancer CVA (cerebral vascular accident) HTN (hypertension) Leukemia Surgical History History of breast reconstruction (Resolved) Family History Other No pertinent family history Social History Current Living Situation: Retirement Current Living Situation Comment: [place] Feels Safe at Home: Declines to Answer Smoking Status: Unknown if ever smoked Hx Alcohol Use: No Hx Substance Use: No Beliefs That Will Affect Care: None Communication Ability: Impaired Review of Systems unable to obtain due to altered mental status Physical Exam 2 Vital Signs (Past 24 Hours): Last Vital Signs Temp 36.3 C L 10/21/18 07:44 Pulse 87 10/21/18 07:44 Resp 21 10/21/18 07:44 BP 127/86 10/21/18 07:44 Pulse Ox 92 10/21/18 07:44 Constitutional: well developed, well nourished and + physical limitations ( general deconditioning) ENMT: Ears: no hearing impairment Neck: normal visual inspection and trachea midline Respiratory: normal respiratory effort; no respiratory distress and no labored breathing Auscultation: + diminished lung sounds and + rhonchi Cardiovascular: RRR, no murmur, no edema Gastrointestinal (Abdomen): Inspection/Auscultation: abdomen normal to inspection and normal bowel sounds; abdomen not distended Percussion/ Palpation: abdomen soft Skin: no rashes, warm and dry Neurologic: + not awake responded to noxious stimuli Psychiatric: Orientation: + not alert Time Spent Midlevel 75 minutes with >50% of time spent at bedside with patient and on phone with daughter discussing condition and GOC. Attending Spent additional 35 minutes at bedside with patient and family ,For a total of 110 minutes - Discussed sling and investigating patient's goals of care and discussing treatment options
--- NOTE | 2018-10-21 12:12 | Procedure Note ---
EEG Procedure Note Date of Service October 21, 2018 Start / End Times Start Time: 0800 End Time: 0830 Referring Physician Mayuri Trujillo History protracted confusion Home Medication List Home Medications Medication Instructions Recorded Confirmed Type acetaminophen 500 mg PO Q4 PRN MDD 3gm/24hr 08/25/18 10/18/18 History aspirin 81 mg PO DAILY 08/25/18 10/18/18 History atorvastatin 20 mg PO DAILY 08/25/18 10/18/18 History cholecalciferol (vitamin D3) 2,000 unit PO DAILY 08/25/18 10/18/18 History [Vitamin D3] docusate sodium [Silace] 100 mg PO BID 08/25/18 10/18/18 History lisinopril 2.5 mg PO DAILY 08/25/18 10/18/18 History metoprolol tartrate 25 mg PO Q12 08/25/18 10/18/18 History multivitamin,[id number]-[id number] 1 tab PO DAILY 08/25/18 10/18/18 History [Therems-M] polyethylene glycol 3350 [Miralax] 17 g PO DAILY PRN 08/25/18 10/18/18 History sennosides [senna] 8.6 mg PO DAILY 08/25/18 10/18/18 History sodium phosphates [Fleet Enema] 118 ml [place] DAILY PRN 08/25/18 10/18/18 History ondansetron HCl 4 mg PO Q4H PRN 10/18/18 10/18/18 History Inpatient Medication List Aspirin (Ecotrin) 81 mg PO DAILY [facility] Stop: 11/18/18 08:59 Last Admin: 10/21/18 08:01 Dose: Not Given Admin: 10/20/18 08:00 Dose: 81 mg Admin: 10/19/18 09:28 Dose: Not Given Atorvastatin Calcium (Lipitor) 20 mg PO DAILY [facility] Stop: 11/18/18 08:59 Last Admin: 10/21/18 08:01 Dose: Not Given Admin: 10/20/18 07:59 Dose: 20 mg Admin: 10/19/18 09:29 Dose: Not Given Docusate Sodium (Colace) 100 mg PO BID [facility] Stop: 11/18/18 08:59 Last Admin: 10/21/18 08:00 Dose: Not Given Admin: 10/20/18 21:42 Dose: Not Given Admin: 10/20/18 07:59 Dose: 100 mg Admin: 10/19/18 19:33 Dose: 100 mg Admin: 10/19/18 09:28 Dose: Not Given Potassium Chloride/Sodium Chloride (Normal Saline W/20 Meq Kcl) 20 meq in 1, 000 mls @ 60 mls/hr IV .[id number] ONE Stop: 10/21/18 18:02 Last Admin: 10/21/18 02:03 Dose: 60 mls/hr Ertapenem 1,000 mg/ Sodium (Chloride) 60 mls @ 100 mls/hr IV Q24H [facility]; Protocol Stop: 10/28/18 01:59 Last Infusion: 10/21/18 02:46 Dose: 0 mls/hr Admin: 10/21/18 02:15 Dose: 100 mls/hr Ipratropium [place] (Atrovent 0.02% 0.5mg/2.5ml) 0.5 mg INH Q4H PRN PRN Reason: Shortness Of Breath Or Wheezing Stop: 11/20/18 01:14 Last Admin: 10/21/18 02:09 Dose: 0.5 mg Levalbuterol HCl (Xopenex 1.25mg/0.5ml Neb) 1.25 mg INH Q4H PRN PRN Reason: Shortness Of Breath Or Wheezing Stop: 11/20/18 01:14 Last Admin: 10/21/18 02:09 Dose: 1.25 mg Lisinopril (Zestril) 5 mg PO DAILY [facility] Stop: 11/19/18 01:29 Last Admin: 10/20/18 11:16 Dose: 5 mg Admin: 10/20/18 01:54 Dose: 5 mg Metoprolol Tartrate (Lopressor) 25 mg PO Q12 [facility] Stop: 11/18/18 08:59 Last Admin: 10/21/18 08:01 Dose: Not Given Admin: 10/20/18 21:42 Dose: Not Given Admin: 10/20/18 12:25 Dose: 25 mg Admin: 10/19/18 19:33 Dose: 25 mg Admin: 10/19/18 09:29 Dose: Not Given Multivitamins/Minerals (Multivitamin W/ Minerals) 1 tab PO DAILY [facility] Stop: 11/18/18 08:59 Last Admin: 10/21/18 08:01 Dose: Not Given Admin: 10/20/18 08:00 Dose: 1 tab Admin: 10/19/18 09:29 Dose: Not Given Polyethylene Glycol (Miralax Powder Packet) 17 gm PO DAILY [facility] Stop: 10/22/18 09:44 Last Admin: 10/21/18 08:01 Dose: Not Given Admin: 10/20/18 11:16 Dose: 17 gm Sennosides (Senokot) 8.6 mg PO DAILY [facility] Stop: 11/18/18 08:59 Last Admin: 10/21/18 08:01 Dose: Not Given Admin: 10/20/18 08:00 Dose: 8.6 mg Admin: 10/19/18 09:29 Dose: Not Given Vitamin D (Vitamin D3) 2,000 units PO DAILY [facility] Stop: 11/18/18 08:59 Last Admin: 10/21/18 08:01 Dose: Not Given Admin: 10/20/18 07:59 Dose: 2,000 units Admin: 10/19/18 09:29 Dose: Not Given Discontinued Medications Sodium Chloride (Nss 1000ml) 1,000 mls @ 999 mls/hr IV .Q1H1M [facility] Stop: 10/18/18 20:00 Last Infusion: 10/18/18 21:35 Dose: 0 mls/hr Admin: 10/18/18 19:37 Dose: 999 mls/hr Metronidazole (Flagyl) 500 mg in 100 mls @ 100 mls/hr IV NOW STA Stop: 10/18/18 22:02 Last Infusion: 10/19/18 00:33 Dose: 0 mls/hr Admin: 10/18/18 21:44 Dose: 100 mls/hr Cefepime HCl 1,000 mg/ Syringe 11.3 mls @ 5.5 mls/min IV NOW STA Stop: 10/18/18 21:05 Last Admin: 10/18/18 22:02 Dose: 5.5 mls/min Sodium Chloride (Nss 1000ml) 1,000 mls @ 999 mls/hr IV .Q1H1M ONE Stop: 10/18/18 22:02 Last Infusion: 10/19/18 00:34 Dose: 0 mls/hr Admin: 10/18/18 21:44 Dose: 999 mls/hr Vancomycin HCl 1,250 mg/ (Sodium Chloride) 525 mls @ 200 mls/hr IV NOW ONE Stop: 10/18/18 23:39 Last Infusion: 10/19/18 01:23 Dose: 0 mls/hr Admin: 10/18/18 22:29 Dose: 200 mls/hr Sodium Chloride (Nss 1000ml) 1,000 mls @ 60 mls/hr IV .[id number] [facility] Stop: 11/17/18 23:36 Last Infusion: 10/20/18 01:26 Dose: 0 mls/hr Admin: 10/19/18 19:37 Dose: Not Given Admin: 10/19/18 19:30 Dose: 100 mls/hr Infusion: 10/19/18 12:33 Dose: 0 mls/hr Infusion: 10/19/18 12:09 Dose: 100 mls/hr Infusion: 10/19/18 11:12 Dose: 0 mls/hr Infusion: 10/19/18 11:11 Dose: 100 mls/hr Admin: 10/19/18 01:36 Dose: 100 mls/hr Ertapenem 1,000 mg/ Sodium (Chloride) 60 mls @ 100 mls/hr IV Q24H [facility]; Protocol Stop: 10/29/18 00:59 Last Infusion: 10/20/18 01:18 Dose: 0 mls/hr Admin: 10/20/18 00:20 Dose: 100 mls/hr Infusion: 10/19/18 02:17 Dose: 0 mls/hr Admin: 10/19/18 01:37 Dose: 100 mls/hr Vancomycin HCl 750 mg/ Sodium (Chloride) 265 mls @ 125 mls/hr IV Q12H [facility] Stop: 10/20/18 14:00 Last Infusion: 10/20/18 18:33 Dose: Admin: 10/20/18 11:27 Dose: 125 mls/hr Infusion: 10/20/18 00:20 Dose: 0 mls/hr Admin: 10/19/18 22:05 Dose: 125 mls/hr Infusion: 10/19/18 13:19 Dose: 0 mls/hr Admin: 10/19/18 11:11 Dose: 125 mls/hr Potassium Chloride/Dextrose/Sod Cl (D5w And 1/2nss + 20meq Kcl) 20 meq in 1, 000 mls @ 50 mls/hr IV .Q20H ONE Stop: 10/21/18 12:59 Last Infusion: 10/21/18 02:46 Dose: 0 mls/hr Infusion: 10/21/18 00:56 Dose: 0 mls/hr Admin: 10/20/18 18:27 Dose: 50 mls/hr Methylprednisolone 20 mg/ (Syringe) 0.32 mls @ 1.5 mls/min IV NOW STA Stop: 10/21/18 01:36 Last Admin: 10/21/18 02:14 Dose: 1.5 mls/min Influenza Virus Vaccine (Fluzone High-Dose Pf) 0.5 ml IM .ONCE ONE Stop: 10/19/18 08:46 Last Admin: 10/19/18 09:26 Dose: 0.5 ml Ioversol (Optiray 320 125ml) 115 ml IV ONCE PRN PRN Reason: Interaction Checking Stop: 10/22/18 20:38 Last Admin: 10/18/18 20:40 Dose: 115 ml Lisinopril (Zestril) 2.5 mg PO DAILY [facility] Stop: 11/18/18 08:59 Last Admin: 10/19/18 09:29 Dose: Not Given Miscellaneous (Patient's Height And/Or Weight Needed) 1 ea N/A ONE ONE Stop: 10/19/18 07:01 Last Admin: 10/19/18 18:41 Dose: Not Given Miscellaneous (Levalbuterol/Ipratropium 1.25mg) 1 ea NEB NOW STA Stop: 10/21/18 00:39 Last Admin: 10/21/18 01:37 Dose: Not Given Pneumococcal Polyvalent Vaccine (Pneumovax-23) 25 mcg IM .ONCE ONE Stop: 10/19/18 08:46 Last Admin: 10/19/18 11:13 Dose: 25 mcg Potassium Chloride (Klor-Con M10) 40 meq PO NOW STA Stop: 10/20/18 08:48 Last Admin: 10/20/18 12:24 Dose: 40 meq Description This is a 21 electrode EEG with a single channel dedicated to limited EKG. The electrodes were placed in accordance with the International 10-20 system. The study is of good quality with a few movement artefacts and none that interfere with interpretation and video analysis of patient movement and behavior are recorded Photic stimulation is performed, hyperventilation and drowsiness and light sleep are not recorded During what appears to be wakefulness there is a background posterior maximum and symmetrical rhythm in the mid to upper theta range a slower and higher amplitude central theta pattern admixed with delta waveforms of nonrhythmic type and very low voltage bifrontal beta activity all of which is symmetrical and non focal. photic stimulation induces no changes of import. At no time is there evidence for potentially epileptogenic patterns Interpretation moderately slow and non focal eeg during wakefulness with no epileptiform patterns seen. Clinical Correlation study indicates a nonspecific generalized non focal encephalopathy without evidence for potentially or ongoing epileptiform activity Deandre Wisdom MD
--- NOTE | 2018-10-21 13:30 | Neurology Progress Note ---
Date of Service October 21, 2018 Assessment & Plan (1) Altered mental status: 1.altered MS- unclear how far she is from baseline- currently back to baseline 2. CT head- no acute findings 3. EEG- no seizure focus 4. antibiotic stopped no + cultures, no elevated WBC or fevers 5. medical managment per primary team 6. ok to discharge once medically stable 7. if positive culture or infection is discovered could restart antibiotic treat to culture results 8. unclear what causes the change in her MS. no seizure focus but ?? if these are seizure related. recurring similar episodes 9. will order Keppra at a low 250 mg BID follow up in 4-6 weeks with neurology Mayuri Reza PAC schedule. Supervising Physician Co-Signing Physician Notes I have seen and discussed above patient with Dr Deandre Wisdom, neurology I have reviewed these case, discussed the issues with Mayuri Reza PA-C, and have discussed the above plans with the patient's daughter. At this time our plans to initiate empiric Keppra are probably not going to be carried out as the daughter would prefer to watch and wait and see how many of these acute confusional episodes occur over the next few weeks to months before making a commitment to the anticonvulsants. I tend to agree with this although the story in this clinical situation is pretty suspicious for partial seizures and a postictal confusional state. Unfortunately the use of Keppra may be problematical in his case as the patient my examination was very irritable today and according to the daughter this is something that has been emerging Keppra is notorious for increasing irritability and even if it were effective in eliminating the spells the behavioral changes may be unacceptable. At this point and we are simply going to observe the patient see her in follow- up in our clinic as scheduled above and at that point consider another outpatient EEG. Her cooperation with a 72-hour ambulatory recording study however it is likely to be extremely limited relying on short duration EEG is for diagnosis in this particular case may prove futile Neurology is going to sign off at the present time if recurrent unequivocal seizure-like activity occurs then we would recommend a trial of low-dose Keppra and hopefully the behavioral issues were not emerge. I would invite the attending physicians to reconsult us if things change. Deandre Hartan is a 68 year old female with PMH ischemic stroke in 2016 causing right sided hemiplegic and dysphagia requiring tube feeds but now able to tolerate mechanical soft food,HTN, dysarthria, c diff, osteoperosis, hyperlipidemia, acute myeloid leukemia in remission, breast CA and reconstruction, anemia. In 2017 she suffered a fall injury and SDH. since then cognitive funcition has been declining. She can recognize her family but at baseline is mostly non verbal. She does not ambulate and needs a 2 person assist for tranfers and is mainly dependent on a wheelchair for mobility. She is on the most part incontinent. She resides a [place] and was brought to the ED after being at dinner and vomiting and becoming unresponsive and was found to have a low blood pressure. She was given antibiotics, fluids and CT scan of the abdomen and pelvis showed some pelvic infiltrate adjacent to the sigmoid colon and some gas within the endometrial cavity and left adnexa no signs of abscess. no fistula. After receiving antibiotics and fluids she became more responsive and was back to her baseline. Yesterday she was not responding to command today she is saying some words, following commands. nursing staff reports she is back to her baseline. 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 biceps triceps 4/5, hip flex 4/5 smiles, says a few words, "good" "ok" Results & Data Laboratory Results Abnormal lab results 10/21/18 10/21/18 10/21/18 Range/Units 00:57 00:57 00:57 WBC 11.45 H (4.8-10.8) K/uL RBC 4.14 L (4.2-5.4) M/uL Hct 36.3 L (37-47) % Neut # (Auto) 9.50 H (1.4-6.5) K/uL ABG pH (7.35-7.45) ABG pCO2 (35-46) mmHg ABG pO2 (80-95) mm/Hg ABG O2 Saturation (90-95) % Sodium 134 L (136-145) mmol/L Creatinine 0.51 L (0.6-1.2) mg/dl Total Bilirubin 1.3 H (0.2-1) mg/dl Ammonia < 10.0 L (11-32) umol/L Albumin 3.1 L (3.4-5.0) gm/dl Globulin 4.5 H (2.5-4.0) gm/dl Albumin/Globulin Ratio 0.7 L (0.9-2) Urine Protein (Negative) Urine Ketones (Negative) Urine Blood (Negative) Urine RBC (0-4) /hpf 10/21/18 10/21/18 Range/Units 00:57 05:30 WBC (4.8-10.8) K/uL RBC (4.2-5.4) M/uL Hct (37-47) % Neut # (Auto) (1.4-6.5) K/uL ABG pH 7.49 H (7.35-7.45) ABG pCO2 29 L (35-46) mmHg ABG pO2 49 L (80-95) mm/Hg ABG O2 Saturation 85.0 L (90-95) % Sodium (136-145) mmol/L Creatinine (0.6-1.2) mg/dl Total Bilirubin (0.2-1) mg/dl Ammonia (11-32) umol/L Albumin (3.4-5.0) gm/dl Globulin (2.5-4.0) gm/dl Albumin/Globulin Ratio (0.9-2) Urine Protein Trace H (Negative) Urine Ketones 3+ H (Negative) Urine Blood 2+ H (Negative) Urine RBC 5-10 H (0-4) /hpf Diagnostic Findings EEG-moderately slow and non focal eeg during wakefulness with no epileptiform patterns seen. CT head- No acute intracranial abnormality. CXR-Subsegmental left basilar opacities suggest atelectasis with pneumonitis thought to be less likely. Trace pleural effusions redemonstrated. LE doppler-No sonographic evidence of deep venous thrombosis. _ (1) Altered mental status Altered mental status type: unspecified Coma depth: Coma timing: Qualified Code(s): R41.82 - Altered mental status, unspecified
[2018-10-21] MEDS ORDERED: levETIRAcetam 250 MG TAB PO SCH (14:30)
[2018-10-21] MEDS ORDERED: VANCOMYCIN TROUGH ONE (16:30)
[2018-10-21] MEDS: NSS + 20MEQ KCL 20 MEQ/1,000 ML BAG IV SCH (17:34)
--- NOTE | 2018-10-21 17:58 | Hospitalist Progress Note ---
Date of Service October 21, 2018 Assessment & Plan (1) Altered mental status: Patient is a 68 yr female who presents with altered mental status from [facility] Altered mental status Possibly Metabolic encephalopathy from Infectious process: ? Aspiration --CT ABD: Moderate pelvic infiltration adjacent to the sigmoid colon. In addition, gas within the endometrial cavity and left adnexa. Overall, the findings suggest an infectious process which may be gynecologic or gastrointestinal in etiology. However, no evidence for acute diverticulitis. No abscess. No fistula identified. --Repeat CT ABD: No significant change --Pelvic USD: Echogenic focus about the fundal uterus likely correlates with the focus of air within the endometrial canal seen on comparison CT of unknown etiology. Nonvisualization of the ovaries --Normal Pelvic Exam as per OBGYN --Continue gentle IV fluids --No surgical intervention required as per surgery --Appreciate OBGYN Input --continue Speech eval -NPO for now --Blood culture:No growth to date --Urine Culture: Likely contamination --Vaginal Culture:No growth to date --Continue bowel regimen for constipation --Appreciate Neurology Input --Resumed antibiotics for possible aspiration --EEG: no seizure focus --Daughter not interested in starting on low dose Keppra for possible partial seizures --Mental status improved --Needs follow up with Neurology in 4-6 weeks --Palliative Care following to address goals of care Syncopal Episode After Vomiting Likely Vasovagal CT Head:No acute intracranial findings. No change in appearance of the brain. Sinus rhytm on monitor Hi/O CVA Chronic hemiplegia Continue aspirin, statin. H/O subdural hematoma in 2017 cognitive function declined since hematoma Dysarthric and mostly wheelchair bound at baseline Plan to discharge back to [facility] when patient is stable. Hyperlipidemia Continue statin Hypertension Continue Lopressor, lisinopril H/O Clostridium difficile colitis Check for C.diff if patient develops diarrhea DVT Px: SCDs for now Code Status: full code as per patient's daughter Disposition: Plan to discharge back to [facility] when medically stable Subjective Patient is seen and examined at bedside More alert, awake today Patient unable to provide any history No apparent distress Discussed in detail with patient's daughter, Neurology and palliative care Patient continue to be NPO given high aspiration risk Daughter preferred not to be started on Keppra which Neurologist suggested Continue IV Abx, IV fluids Tries to follow commands today Physical Exam 2 Vital Signs (Past 24 Hours): Last Vital Signs Temp 36.3 C L 10/21/18 15:40 Pulse 84 10/21/18 15:54 Resp 20 10/21/18 15:40 BP 159/99 H 10/21/18 15:40 Pulse Ox 94 10/21/18 15:40 Physical Exam: Physical Exam: Vitals signs as noted above General Appearance:Moderately built and nourished, no apparent distress Head: normocephalic, Atraumatic Eyes: normal inspection, EOMI Neck: supple, Trachea midline Respiratory/Chest: Decreased breath sounds, mild basal crackles Cardiovascular: S1, S2, No murmur Abdomen/GI:Soft, mild tender, Bowel sounds present Extremities/Musculoskelatal:normal inspection, no edema Neurologic/Psych:alert, awake, Chronic hemiplegia, Non verbal, tries to follow commands Skin: normal color, warm Results & Data Laboratory Results Short CBC 10/21/18 Range/Units 00:57 WBC 11.45 H (4.8-10.8) K/uL Hgb 12.9 (12.0-16.0) g/dL Hct 36.3 L (37-47) % Plt Count 333 (130-400) K/uL BMP 10/21/18 00:57 Sodium 134 L Potassium 3.5 Chloride 102 Carbon Dioxide 22 BUN 8 Creatinine 0.51 L Glucose 97 Calcium 8.6 Liver Function 10/21/18 Range/Units 00:57 Total Bilirubin 1.3 H (0.2-1) mg/dl AST 18 (15-37) U/L ALT 15 (12-78) U/L Alkaline Phosphatase 67 (45-117) U/L Albumin 3.1 L (3.4-5.0) gm/dl Urine 10/21/18 Range/Units 05:30 Urine Color Yellow Urine Appearance Clear (Clear) Urine pH 6.0 (4.5-7.5) Ur Specific Otis >= 1.030 (1.000-1.030) Urine Protein Trace H (Negative) Urine Glucose (UA) Negative (Negative) _ (1) Altered mental status Altered mental status type: unspecified Coma depth: Coma timing: Qualified Code(s): R41.82 - Altered mental status, unspecified
[2018-10-21] MEDS ORDERED: LABETALOL HCL IV 5 MG/ML 20ML IV PRN (18:59)
[2018-10-22] MEDS: ERTAPENEM SODIUM 1,000 MG in SODIUM CHLORIDE 0.9% 50 ML IV SCH (03:02)
[2018-10-22 07:22] LABS: Hematocrit (blood only) 37.9 % (37-47); Hemoglobin 13.3 g/dL (12.0-16.0); Mean Corpuscular Hgb Conc 35.1 g/dL (32-36); Mean Corpuscular Volume 88.8 fL (80-100); Mean Platelet Volume 10.1 fL (7.4-10.4); Platelet Count 355 K/uL (130-400); RDW Standard Deviation 41.9 fL (36.4-46.3); Red Blood Count 4.27 M/uL (4.2-5.4)
[2018-10-22 07:42] LABS: BUN Creatinine Ratio 13.8 (10-20); Calcium 8.9 mg/dl (8.5-10.1); Est GFR (African American) 108.3; Est GFR (Non-African American) 93.5; Potassium 3.6 mmol/L (3.5-5.1)
[2018-10-22] MEDS: ASPIRIN 81 MG ECTAB PO SCH (08:33)
[2018-10-22] MEDS: DOCUSATE SODIUM 100 MG CAP PO SCH ×2 (08:33→19:47)
[2018-10-22] MEDS: CHOLECALCIFEROL 1,000 UNITS TAB PO SCH (08:34)
[2018-10-22] MEDS: ATORVASTATIN 20 MG TAB PO SCH (08:34)
[2018-10-22] MEDS: POLYETHYLENE (MIRALAX) 17 GM PACK PO SCH (08:34)
[2018-10-22] MEDS: CEROVITE ADV FORMULA TAB PO SCH (08:34)
[2018-10-22] MEDS: SENNA 8.6 MG TAB PO SCH (08:34)
[2018-10-22] MEDS: METOPROLOL TARTRATE 25 MG TAB PO SCH ×2 (08:34→19:46)
[2018-10-22] MEDS: LISINOPRIL 5 MG TAB PO SCH (13:34)
[2018-10-22] MEDS: NSS + 20MEQ KCL 20 MEQ/1,000 ML BAG IV SCH (13:34)
--- NOTE | 2018-10-22 16:11 | Hospitalist Progress Note ---
Date of Service October 22, 2018 Assessment & Plan (1) Altered mental status: Patient is a 68 yr female who presents with altered mental status from [facility] Altered mental status Possibly Metabolic encephalopathy from Infectious process: ? Aspiration --CT ABD: Moderate pelvic infiltration adjacent to the sigmoid colon. In addition, gas within the endometrial cavity and left adnexa. Overall, the findings suggest an infectious process which may be gynecologic or gastrointestinal in etiology. However, no evidence for acute diverticulitis. No abscess. No fistula identified. --Repeat CT ABD: No significant change --Pelvic USD: Echogenic focus about the fundal uterus likely correlates with the focus of air within the endometrial canal seen on comparison CT of unknown etiology. Nonvisualization of the ovaries --Normal Pelvic Exam as per OBGYN --Continue gentle IV fluids --No surgical intervention required as per surgery --Appreciate OBGYN Input --continue Speech eval daily and diet as per speech eval --Blood culture:No growth to date --Urine Culture: Likely contamination --Vaginal Culture:No growth to date --Continue bowel regimen for constipation --Appreciate Neurology Input --Resumed antibiotics for possible aspiration --EEG: no seizure focus --Daughter not interested in starting on low dose Keppra for possible partial seizures --Mental status improved --Needs follow up with Neurology in 4-6 weeks --Palliative Care following to address goals of care --Daughter prefers PEG tube placement if patient continues to have dysphagia Syncopal Episode After Vomiting Likely Vasovagal CT Head:No acute intracranial findings. No change in appearance of the brain. Sinus rhytm on monitor Hi/O CVA Chronic hemiplegia Continue aspirin, statin. H/O subdural hematoma in 2017 cognitive function declined since hematoma Dysarthric and mostly wheelchair bound at baseline Plan to discharge back to [facility] when patient is stable. Hyperlipidemia Continue statin Hypertension Continue Lopressor, lisinopril H/O Clostridium difficile colitis Check for C.diff if patient develops diarrhea DVT Px: SCDs for now Code Status: full code as per patient's daughter Disposition: Plan to discharge back to [facility] when medically stable Subjective Patient is seen and examined at bedside More alert, awake during later part of the day Tries to follow commands Patient unable to provide any history No apparent distress Discussed in detail with patient's daughter today Needs daily speech eval Continue IV Abx, IV fluids for now Mild leukocytosis likely secondary to steroids Physical Exam 2 Vital Signs (Past 24 Hours): Last Vital Signs Temp 37.0 C 10/22/18 11:46 Pulse 85 10/22/18 11:46 Resp 16 10/22/18 11:46 BP 114/72 10/22/18 11:46 Pulse Ox 92 10/22/18 11:46 Physical Exam: Physical Exam: Vitals signs as noted above General Appearance:Moderately built and nourished, no apparent distress Head: normocephalic, Atraumatic Eyes: normal inspection, EOMI Neck: supple, Trachea midline Respiratory/Chest: Decreased breath sounds, CTA Cardiovascular: S1, S2, No murmur Abdomen/GI:Soft, mild tender, Bowel sounds present Extremities/Musculoskelatal:normal inspection, no edema Neurologic/Psych:alert, awake, Chronic hemiplegia, Non verbal, tries to follow commands Skin: normal color, warm Results & Data Laboratory Results Short CBC 10/22/18 Range/Units 06:55 WBC 13.90 H (4.8-10.8) K/uL Hgb 13.3 (12.0-16.0) g/dL Hct 37.9 (37-47) % Plt Count 355 (130-400) K/uL BMP 10/22/18 06:55 Sodium 139 Potassium 3.6 Chloride 105 Carbon Dioxide 23 BUN 9 Creatinine 0.63 Glucose 96 Calcium 8.9 _ (1) Altered mental status Altered mental status type: unspecified Coma depth: Coma timing: Qualified Code(s): R41.82 - Altered mental status, unspecified
[2018-10-22] MEDS: D5W AND 1/2NSS + 20MEQ KCL 20 MEQ/1,000 ML BAG IV SCH (16:55)
--- NOTE | 2018-10-22 21:26 | Obstetrical Progress Note ---
Date of Service October 22, 2018 Subjective Addendum, late entry from 10/20/18 Pelvic US was done abdominally: Limited study . 2. Echogenic focus about the fundal uterus likely correlates with the focus of air within the endometrial canal seen on comparison CT of unknown etiology. 3. Nonvisualization of the ovaries I looked at the pictures, normal atrophic/ small uterus and endometrium, very small, mm ( thoug not measured) echogenic focus, most likely from prior instrumentation or calcification, not clinically significant given no h/o PMB Ovaries atrophic Vaginal cx negative Plan per medicine Physical Exam 2 Vital Signs (Past 24 Hours): Last Vital Signs Temp 36.8 C 10/22/18 19:35 Pulse 91 H 10/22/18 19:35 Resp 18 10/22/18 19:35 BP 125/82 10/22/18 19:35 Pulse Ox 95 10/22/18 19:35
[2018-10-23] MEDS: ERTAPENEM SODIUM 1,000 MG in SODIUM CHLORIDE 0.9% 50 ML IV SCH (03:18)
[2018-10-23 06:55] LABS: Hematocrit (blood only) 35.2 % (37-47); Hemoglobin 11.9 g/dL (12.0-16.0); Mean Corpuscular Hgb Conc 33.8 g/dL (32-36); Mean Corpuscular Volume 88.4 fL (80-100); Mean Platelet Volume 10.2 fL (7.4-10.4); Platelet Count 364 K/uL (130-400); RDW Coefficient of Variation 13.1 % (11.5-14.5); RDW Standard Deviation 42.2 fL (36.4-46.3); Red Blood Count 3.98 M/uL (4.2-5.4); White Blood Count 9.87 K/uL (4.8-10.8)
[2018-10-23 07:24] LABS: Calcium 8.6 mg/dl (8.5-10.1); Creatinine Clr Calc Pharmacy 89.4 ml/min; Est GFR (African American) 116.1; Est GFR (Non-African American) 100.2; Potassium 3.1 mmol/L (3.5-5.1)
[2018-10-23] MEDS: POTASSIUM CHLORIDE / WTR 10 MEQ/100 ML PLCT IV SCH ×3 (08:41→11:04)
[2018-10-23] MEDS: SENNA 8.6 MG TAB PO SCH (08:44)
[2018-10-23] MEDS: ASPIRIN 81 MG ECTAB PO SCH (08:45)
[2018-10-23] MEDS: ATORVASTATIN 20 MG TAB PO SCH (08:45)
[2018-10-23] MEDS: CHOLECALCIFEROL 1,000 UNITS TAB PO SCH (08:45)
[2018-10-23] MEDS: LISINOPRIL 5 MG TAB PO SCH (08:45)
[2018-10-23] MEDS: CEROVITE ADV FORMULA TAB PO SCH (08:46)
[2018-10-23] MEDS: DOCUSATE SODIUM 100 MG CAP PO SCH ×2 (08:46→20:59)
[2018-10-23] MEDS: METOPROLOL TARTRATE 25 MG TAB PO SCH ×2 (08:46→20:59)
[2018-10-23] MEDS: D5W AND 1/2NSS + 20MEQ KCL 20 MEQ/1,000 ML BAG IV SCH (09:47)
[2018-10-23] MEDS ORDERED: POTASSIUM CHLORIDE 20 MEQ/15 ML UDC PO STA (09:55)
--- NOTE | 2018-10-23 17:39 | Hospitalist Progress Note ---
Date of Service October 23, 2018 Assessment & Plan (1) Altered mental status: Patient is a 68 yr female who presents with altered mental status from [facility] Altered mental status Possibly Metabolic encephalopathy from Infectious process: ? Aspiration --CT ABD: Moderate pelvic infiltration adjacent to the sigmoid colon. In addition, gas within the endometrial cavity and left adnexa. Overall, the findings suggest an infectious process which may be gynecologic or gastrointestinal in etiology. However, no evidence for acute diverticulitis. No abscess. No fistula identified. --Repeat CT ABD: No significant change --Pelvic USD: Echogenic focus about the fundal uterus likely correlates with the focus of air within the endometrial canal seen on comparison CT of unknown etiology. Nonvisualization of the ovaries --Normal Pelvic Exam as per OBGYN --Received IV fluids --No surgical intervention required as per surgery --Appreciate OBGYN Input --Speech eval done --Blood culture:No growth to date --Urine Culture: Likely contamination --Vaginal Culture:No growth to date --Continue bowel regimen for constipation --Appreciate Neurology Input --Continue antibiotics for aspiration for now --EEG: no seizure focus --Daughter not interested in starting on low dose Keppra for possible partial seizures --Mental status improved, Tolerating diet --Needs follow up with Neurology in 4-6 weeks Syncopal Episode After Vomiting Likely Vasovagal CT Head:No acute intracranial findings. No change in appearance of the brain. Sinus rhytm on monitor Hypokalemia: 2/2 poor oral intake monitor and replace as needed Hi/O CVA Chronic hemiplegia Continue aspirin, statin. H/O subdural hematoma in 2017 cognitive function declined since hematoma Dysarthric and mostly wheelchair bound at baseline Plan to discharge back to [facility] when patient is stable. Hyperlipidemia Continue statin Hypertension Continue Lopressor, lisinopril H/O Clostridium difficile colitis Check for C.diff if patient develops diarrhea DVT Px: SCDs for now Code Status: full code as per patient's daughter Disposition: Plan to discharge back to [facility] when medically stable Subjective Patient is seen and examined at bedside Patient is doing much better today Denies chest pain, dyspnea, nausea Able to take pills, tolerating diet Seemed to answer appropriately to questions Afebrile Leukocytosis resolved Physical Exam 2 Vital Signs (Past 24 Hours): Last Vital Signs Temp 36.5 C 10/23/18 17:03 Pulse 79 10/23/18 17:03 Resp 18 10/23/18 17:03 BP 129/83 10/23/18 17:03 Pulse Ox 95 10/23/18 17:03 Physical Exam: Physical Exam: Vitals signs as noted above General Appearance:Moderately built and nourished, no apparent distress Head: normocephalic, Atraumatic Eyes: normal inspection, EOMI Neck: supple, Trachea midline Respiratory/Chest: Decreased/coarse breath sounds Cardiovascular: S1, S2, No murmur Abdomen/GI:Soft, mild tender, Bowel sounds present Extremities/Musculoskelatal:normal inspection, no edema Neurologic/Psych:alert, awake, Chronic hemiplegia, Non verbal, tries to follow commands Skin: normal color, warm Results & Data Laboratory Results Short CBC 10/23/18 Range/Units 06:07 WBC 9.87 (4.8-10.8) K/uL Hgb 11.9 L (12.0-16.0) g/dL Hct 35.2 L (37-47) % Plt Count 364 (130-400) K/uL BMP 10/23/18 06:07 Sodium 137 Potassium 3.1 L Chloride 106 Carbon Dioxide 23 BUN 8 Creatinine 0.51 L Glucose 91 Calcium 8.6 _ (1) Altered mental status Altered mental status type: unspecified Coma depth: Coma timing: Qualified Code(s): R41.82 - Altered mental status, unspecified
[2018-10-24] MEDS: ERTAPENEM SODIUM 1,000 MG in SODIUM CHLORIDE 0.9% 50 ML IV SCH (04:28)
[2018-10-24 07:10] LABS: Hematocrit (blood only) 36.3 % (37-47); Hemoglobin 12.3 g/dL (12.0-16.0); Mean Corpuscular Hgb Conc 33.9 g/dL (32-36); Mean Corpuscular Volume 89.4 fL (80-100); Mean Platelet Volume 10.2 fL (7.4-10.4); Platelet Count 378 K/uL (130-400); RDW Coefficient of Variation 13.1 % (11.5-14.5); Red Blood Count 4.06 M/uL (4.2-5.4); White Blood Count 8.78 K/uL (4.8-10.8)
[2018-10-24 07:49] LABS: Creatinine Clr Calc Pharmacy 74.8 ml/min; Est GFR (African American) 109.5; Est GFR (Non-African American) 94.5; Magnesium 2.1 mg/dl (1.8-2.4); Potassium 3.5 mmol/L (3.5-5.1)
[2018-10-24] MEDS: METOPROLOL TARTRATE 25 MG TAB PO SCH ×2 (13:30→20:40)
[2018-10-24] MEDS: ATORVASTATIN 20 MG TAB PO SCH (13:30)
[2018-10-24] MEDS: ASPIRIN 81 MG ECTAB PO SCH (13:30)
--- NOTE | 2018-10-24 15:57 | Hospitalist Progress Note ---
Date of Service October 24, 2018 Assessment & Plan (1) Altered mental status: Patient is a 68 yr female who presents with altered mental status from [facility] Altered mental status Possibly Metabolic encephalopathy from Infectious process: ? Aspiration --CT ABD: Moderate pelvic infiltration adjacent to the sigmoid colon. In addition, gas within the endometrial cavity and left adnexa. Overall, the findings suggest an infectious process which may be gynecologic or gastrointestinal in etiology. However, no evidence for acute diverticulitis. No abscess. No fistula identified. --Repeat CT ABD: No significant change --Pelvic USD: Echogenic focus about the fundal uterus likely correlates with the focus of air within the endometrial canal seen on comparison CT of unknown etiology. Nonvisualization of the ovaries --Normal Pelvic Exam as per OBGYN --Received IV fluids --No surgical intervention required as per surgery --Appreciate OBGYN Input --Speech eval done --Blood culture:No growth --Urine Culture: Likely contamination --Vaginal Culture:No growth --Continue bowel regimen for constipation --Appreciate Neurology Input --EEG: no seizure focus --Daughter not interested in starting on low dose Keppra for possible partial seizures --Mental status fluctuates, Tolerating diet --IV Abx transitioned to PO to complete the course for possible aspiration --Needs follow up with Neurology in 4-6 weeks Syncopal Episode After Vomiting Likely Vasovagal CT Head:No acute intracranial findings. No change in appearance of the brain. Sinus rhytm on monitor Hypokalemia: 2/2 poor oral intake monitor and replace as needed H/O CVA Chronic hemiplegia Continue aspirin, statin. H/O subdural hematoma in 2017 cognitive function declined since hematoma Dysarthric and mostly wheelchair bound at baseline Plan to discharge back to [facility] when patient is stable. Hyperlipidemia Continue statin Hypertension Continue Lopressor, lisinopril H/O Clostridium difficile colitis Check for C.diff if patient develops diarrhea DVT Px: SCDs for now Code Status: full code as per patient's daughter Disposition: Plan to discharge back to [facility] when medically stable Subjective Patient is seen and examined at bedside Patient lethargic today Did not take her morning pills Updated daughter No distress on exam Mostly non verbal today Physical Exam 2 Vital Signs (Past 24 Hours): Last Vital Signs Temp 36.8 C 10/24/18 11:47 Pulse 86 10/24/18 11:47 Resp 19 10/24/18 11:47 BP 133/90 10/24/18 11:47 Pulse Ox 97 10/24/18 11:47 Physical Exam: Physical Exam: Vitals signs as noted above General Appearance:Moderately built and nourished, no apparent distress Head: normocephalic, Atraumatic Eyes: normal inspection, EOMI Neck: supple, Trachea midline Respiratory/Chest: Decreased breath sounds Cardiovascular: S1, S2, No murmur Abdomen/GI:Soft, mild tender, Bowel sounds present Extremities/Musculoskelatal:normal inspection, no edema Neurologic/Psych:alert, awake, Chronic hemiplegia, Non verbal, tries to follow commands Skin: normal color, warm Results & Data Laboratory Results Short CBC 10/24/18 Range/Units 06:41 WBC 8.78 (4.8-10.8) K/uL Hgb 12.3 (12.0-16.0) g/dL Hct 36.3 L (37-47) % Plt Count 378 (130-400) K/uL BMP 10/24/18 06:41 Sodium 139 Potassium 3.5 Chloride 105 Carbon Dioxide 26 BUN 9 Creatinine 0.61 Glucose 75 Calcium 9.0 _ (1) Altered mental status Altered mental status type: unspecified Coma depth: Coma timing: Qualified Code(s): R41.82 - Altered mental status, unspecified
[2018-10-24] MEDS: CHOLECALCIFEROL 1,000 UNITS TAB PO SCH (16:16)
[2018-10-24] MEDS: DOCUSATE SODIUM 100 MG CAP PO SCH ×3 (16:16→20:54)
[2018-10-24] MEDS: SENNA 8.6 MG TAB PO SCH (16:16)
[2018-10-24] MEDS: CEROVITE ADV FORMULA TAB PO SCH (16:16)
[2018-10-24] MEDS: LISINOPRIL 5 MG TAB PO SCH (16:27)
--- NOTE | 2018-10-24 17:29 | Palliative Care Progress Note ---
Date of Service October 24, 2018 Assessment & Plan (1) Goals of care, counseling/discussion: -68 year old female with PMH CVA 2016 left with right hemiplegia, dysphagia, and aphasia, TBI with subdural hematoma 2017, breast cancer, leukemia , and ambulatory dysfunction, presented from [facility] with altered mental status and unresponsive episode. CT a/p showed "moderate pelvic infiltration adjacent to sigmoid colon and also some gas within the endometrial cavity and left adnexa but there are no signs of obvious abscess so question of infectious process could be gynecological or gastrointestinal in etiology." Neuro and manager urgent care consulted. Patient was started on IVF and abx. Abx were discontinued at recommendation of neuro due to possible side effects. CT head negative for any acute process but showed chronic microvascular change. -Patient is more lethargic today. Patient with eyes open, intermittently gaze was unfocused, would smile occasionally. -Spoke at length with patient's son-regarding goals of care, reviewed pulsed form, left at bedside for son to discuss with his sister who is patient's POA. Discussed returning back to [facility] resuming prior care versus returning to [facility] under hospice care -For now, continue with current treatment and full code. We discussed CODE STATUS at length. Son to speak with his sister who is patient's POA regarding CODE STATUS and if they would want a hospice referral. Discussed with son recurrent aspiration-patient does enjoy eating, if patient is able to return under hospice care-we will allow pleasure feeding. (2) Altered mental status: Stable (3) Acute UTI: Resolved (4) History of CVA with residual deficit: Stable (5) H/O traumatic brain injury: Subjective Patient seen and examined with son, Jordy, at bedside. Patient unable to give a review of systems-would smile and nod at times during conversation. Review of Systems Unable to obtain due to mental status Physical Exam 2 Vital Signs (Past 24 Hours): Last Vital Signs Temp 36.8 C 10/24/18 15:55 Pulse 91 H 10/24/18 15:55 Resp 18 10/24/18 15:55 BP 132/88 10/24/18 15:55 Pulse Ox 94 10/24/18 15:55 Constitutional: NAD, more confused at times than others Eyes: EOMI ENMT: Hearing appears normal Respiratory: Unlabored Cardiovascular: Regular rate, no edema Gastrointestinal (Abdomen): Soft, nontender Musculoskeletal: Generalized weakness Skin: No increased pallor Neurologic: Confused Time Spent Attending Total time spent 40 minutes with greater than 50% of the time spent at bedside discussing patient's current status, goals of care, treatment options including returning to [facility] under hospice care. _ (1) Altered mental status Altered mental status type: unspecified Coma depth: Coma timing: Qualified Code(s): R41.82 - Altered mental status, unspecified
[2018-10-24] MEDS ORDERED: POTASSIUM CHLORIDE 20 MEQ TABCR PO STA (21:18)
[2018-10-24] MEDS: DEXTROSE 50% 50 ML SYRINGE IV ONE ×2 (21:43→22:09)
[2018-10-24] MEDS ORDERED: D5NSS + 20MEQ KCL 20 MEQ/1,000 ML BAG IV STA (21:44)
--- NOTE | 2018-10-24 21:57 | XRay Report ---
XR chest 1V portable HISTORY: 68 years-old Female low o2 acute hypoxia COMPARISON: Chest radiograph 10 2018, CT abdomen and pelvis October 20, 2017 TECHNIQUE: Portable AP view of the chest FINDINGS: Can't mediastinal and hilar silhouettes are unchanged. Patient is mildly rotated. Left lung apex part ially obscured by the patient's chin. No pneumothorax, pleural effusion or overt pulmonary edema. Per sistent subsegmental left basilar opacities with mild left hemidiaphragmatic elevation. Degenerative changes of the shoulders and spine. Referral calcifications noted about bilateral mammoplasty. IMPRESSION: Persistent subsegmental left basilar opacities suggestive of atelectasis or pneumonitis. The above report was generated using voice recognition software. It may contain grammatical, syntax o r spelling errors. Electronically signed by: Rene Maher M.D. 10/24/2018 9:56 PM
[2018-10-24 22:27] LABS: BUN Creatinine Ratio 18.4 (10-20); Calcium 8.9 mg/dl (8.5-10.1); Est GFR (Non-African American) 96.6; Potassium 3.3 mmol/L (3.5-5.1)
[2018-10-24 22:56] LABS: HCO3 ABG 22 mmol/L (19-24); Oxygen Saturation ABG 89.4 % (90-95); PCO2 ABG 30 mmHg (35-46); PO2 ABG 56 mm/Hg (80-95); pH ABG 7.49 (7.35-7.45)
[2018-10-24] MEDS: POTASSIUM CHLORIDE / WTR 10 MEQ/100 ML PLCT IV SCH (23:03)
[2018-10-24 23:26] LABS: Allen Test POS (Pos)
[2018-10-24] MEDS ORDERED: XOPENEX/ATROVENT 1.25mg/0.5MG NEB COMBO NEB STA (23:58)
--- NOTE | 2018-10-24 23:59 | Hospitalist Progress Note ---
Date of Service October 24, 2018 Subjective Made aware by RN of patient having junky breath sounds. Hypoxemia also noted. AP Recurrent aspiration Restart Ertapenem, will relay to AM provider. Nebs, Solu-Medrol 1 dose Suction as needed. Will relay to AM provider Physical Exam 2 Vital Signs (Past 24 Hours): Last Vital Signs Temp 36.8 C 10/24/18 23:55 Pulse 91 H 10/24/18 23:55 Resp 18 10/24/18 23:55 BP 172/124 H 10/24/18 23:55 Pulse Ox 90 10/24/18 23:55
[2018-10-25] MEDS ORDERED: ERTAPENEM SODIUM 1,000 MG in SYRINGE 0 ML IV STA (00:01)
[2018-10-25] MEDS: IPRATROPIUM BROMIDE NEB SOLN 0.02% 2.5 ML VIAL INH PRN (00:14)
[2018-10-25] MEDS: LEVALBUTEROL 1.25MG/0.5ML NEB INH PRN (00:14)
[2018-10-25] MEDS ORDERED: methylPREDNISolone 20 MG in SYRINGE 0 ML IV SCH (00:15)
[2018-10-25] MEDS ORDERED: LEVALBUTEROL 1.25MG/0.5ML NEB INH STA (00:16)
[2018-10-25] MEDS ORDERED: IPRATROPIUM BROMIDE NEB SOLN 0.02% 2.5 ML VIAL INH STA (00:16)
[2018-10-25] MEDS: POTASSIUM CHLORIDE / WTR 10 MEQ/100 ML PLCT IV SCH ×3 (00:25→02:42)
[2018-10-25] MEDS: ERTAPENEM SODIUM 1,000 MG in SODIUM CHLORIDE 0.9% 50 ML IV SCH (01:14)
[2018-10-25] MEDS: METOPROLOL TARTRATE 25 MG TAB PO SCH ×2 (03:23→21:54)
[2018-10-25 06:40] LABS: BUN Creatinine Ratio 15.9 (10-20); Calcium 8.7 mg/dl (8.5-10.1); Creatinine Clr Calc Pharmacy 91.2 ml/min; Est GFR (African American) 116.9; Est GFR (Non-African American) 100.9; Potassium 3.6 mmol/L (3.5-5.1)
[2018-10-25] MEDS: ATORVASTATIN 20 MG TAB PO SCH (07:21)
[2018-10-25] MEDS: CHOLECALCIFEROL 1,000 UNITS TAB PO SCH (07:21)
[2018-10-25] MEDS: DOCUSATE SODIUM 100 MG CAP PO SCH ×2 (07:21→21:54)
[2018-10-25] MEDS: ASPIRIN 81 MG ECTAB PO SCH (07:21)
[2018-10-25] MEDS: LISINOPRIL 5 MG TAB PO SCH (07:21)
[2018-10-25] MEDS: CEROVITE ADV FORMULA TAB PO SCH (07:21)
[2018-10-25] MEDS: SENNA 8.6 MG TAB PO SCH (07:21)
[2018-10-25] MEDS ORDERED: ERTAPENEM CONSULT ACTIVE PRN (09:00)
[2018-10-25] MEDS ORDERED: CEFDINIR 300 MG CAP PO SCH (09:00)
--- NOTE | 2018-10-25 15:10 | Hospitalist Progress Note ---
Date of Service October 25, 2018 Assessment & Plan (1) Altered mental status: Patient is a 68 yr female who presents with altered mental status from [facility] Altered mental status Possibly Metabolic encephalopathy from Infectious process: Recurrent Aspiration --CT ABD: Moderate pelvic infiltration adjacent to the sigmoid colon. In addition, gas within the endometrial cavity and left adnexa. Overall, the findings suggest an infectious process which may be gynecologic or gastrointestinal in etiology. However, no evidence for acute diverticulitis. No abscess. No fistula identified. --Repeat CT ABD: No significant change --Pelvic USD: Echogenic focus about the fundal uterus likely correlates with the focus of air within the endometrial canal seen on comparison CT of unknown etiology. Nonvisualization of the ovaries --Normal Pelvic Exam as per OBGYN --Received IV fluids --No surgical intervention required as per surgery --Appreciate OBGYN Input --Speech eval done:: Mechanical soft diet but patient has been having aspiration issues --Needs daily speech eval --Blood culture:No growth --Urine Culture: Likely contamination --Vaginal Culture:No growth --Continue bowel regimen for constipation --Appreciate Neurology Input --EEG: no seizure focus --Daughter not interested in starting on low dose Keppra for possible partial seizures --Mental status fluctuates --Restarted IV Abx for recurrent aspiration --Nebs, Solu medrol as needed --Appreciate Pulmonary Hygiene with frequent suctioning --Needs follow up with Neurology in 4-6 weeks --Palliative Care following: Appreciate Input --Family to decide on code status and PEG tube placement issues Syncopal Episode After Vomiting Likely Vasovagal CT Head:No acute intracranial findings. No change in appearance of the brain. Sinus rhytm on monitor Hypokalemia: 2/2 poor oral intake monitor and replace as needed H/O CVA Chronic hemiplegia Continue aspirin, statin. H/O subdural hematoma in 2017 cognitive function declined since hematoma Dysarthric and mostly wheelchair bound at baseline Plan to discharge back to [facility] when patient is stable. Hyperlipidemia Continue statin Hypertension Continue Lopressor, lisinopril H/O Clostridium difficile colitis Check for C.diff if patient develops diarrhea DVT Px: SCDs Re: H/O subdural Hematoma Code Status: full code for now as per patient's daughter Disposition: Plan to discharge back to [facility] when medically stable Subjective Patient is seen and examined at bedside Mostly Non verbal today Coarse breath sounds on exam Needs 4 liters of oxygen to maintain Sats Had aspirated again overnight No fever, leukocytosis Palliative updated daughter and readdress code status Full Code for now Family planning to decide on peg tube/code status again tomorrow Restrarted IV Abx overnight Physical Exam 2 Vital Signs (Past 24 Hours): Last Vital Signs Temp 36.8 C 10/25/18 15:04 Pulse 95 H 10/25/18 15:04 Resp 16 10/25/18 15:04 BP 149/104 H 10/25/18 15:04 Pulse Ox 92 10/25/18 15:04 Physical Exam: Physical Exam: Vitals signs as noted above General Appearance:Moderately built and nourished, no apparent distress Head: normocephalic, Atraumatic Eyes: normal inspection, EOMI Neck: supple, Trachea midline Respiratory/Chest: Decreased/Coarse breath sounds Cardiovascular: S1, S2, No murmur Abdomen/GI:Soft, mild tender, Bowel sounds present Extremities/Musculoskelatal:normal inspection, no edema Neurologic/Psych:alert, awake, Chronic hemiplegia, Non verbal, lethargic today Skin: normal color, warm Results & Data Laboratory Results [facility] 10/24/18 10/25/18 21:48 05:35 Sodium 138 136 Potassium 3.3 L 3.6 Chloride 105 106 Carbon Dioxide 21 22 BUN 11 8 Creatinine 0.57 L 0.50 L Glucose 70 139 H Calcium 8.9 8.7 Diagnostic Findings CXR: Persistent subsegmental left basilar opacities suggestive of atelectasis or pneumonitis. _ (1) Altered mental status Altered mental status type: unspecified Coma depth: Coma timing: Qualified Code(s): R41.82 - Altered mental status, unspecified
[2018-10-25] MEDS ORDERED: ENALAPRILAT 0.625 MG in SYRINGE 9.5 ML IV PRN (16:15)
--- NOTE | 2018-10-25 16:21 | Palliative Care Progress Note ---
Date of Service October 25, 2018 Assessment & Plan (1) Goals of care, counseling/discussion: -68 year old female with PMH CVA 2016 left with right hemiplegia, dysphagia, and aphasia, TBI with subdural hematoma 2017, breast cancer, leukemia , and ambulatory dysfunction, presented from [facility] home with altered mental status and unresponsive episode. CT a/p showed "moderate pelvic infiltration adjacent to sigmoid colon and also some gas within the endometrial cavity and left adnexa but there are no signs of obvious abscess so question of infectious process could be gynecological or gastrointestinal in etiology." Neuro and technical services librarian consulted. Patient was started on IVF and abx. Abx were discontinued at recommendation of neuro due to possible side effects. CT head negative for any acute process but showed chronic microvascular change. - Patient with eyes open, would smile occasionally. -Spoke at length with patient's daughter, by phone-regarding goals of care, treatment options and CODE STATUS. Discussed a feeding tube or returning back to [facility] resuming prior care versus returning to [facility] under hospice care -For now, continue with current treatment and full code. We discussed CODE STATUS at length. (2) Altered mental status: Stable (3) Acute UTI: Resolved (4) History of CVA with residual deficit: Stable (5) H/O traumatic brain injury: Subjective Patient is awake, smiles at times, able to nod yes or no-but not consistently. Patient denies any discomfort, or increased shortness of breath. No family at bedside Was able to reach daughter and spoke with her at length regarding treatment options i.e. n.p.o. with G-tube feeds, return to [facility] with previous level of care, return to [facility] under hospice care. Discussed that the choice will depend on whether or not they want patient to return to the hospital if an episode like this happened again. Daughter stated she wishes the patient to be a FULL CODE for now-she plans to talk to other family members and will get back with us tomorrow. She is fairly certain that they would not want a feeding tube. Physical Exam 2 Vital Signs (Past 24 Hours): Last Vital Signs Temp 36.8 C 10/25/18 15:04 Pulse 95 H 10/25/18 15:04 Resp 16 10/25/18 15:04 BP 149/104 H 10/25/18 15:04 Pulse Ox 92 10/25/18 15:04 Constitutional: NAD Eyes: EOMI ENMT: Normal hearing Respiratory: Coarse breath sounds bilaterally Cardiovascular: Regular rate Gastrointestinal (Abdomen): Soft nontender Skin: Warm, no increased pallor Neurologic: Significant cognitive deficits-appears to understand conversation at times Psychiatric: No behavioral issues Time Spent Attending Total time spent 35 minutes with greater than 50% of the time spent discussing treatment options, just medical decision making as well as CODE STATUS with patient's daughter who is her POA _ (1) Altered mental status Altered mental status type: unspecified Coma depth: Coma timing: Qualified Code(s): R41.82 - Altered mental status, unspecified
[2018-10-25] MEDS ORDERED: HEPARIN SOD 5,000 UNIT/0.5 ML VIAL SQ SCH (21:00)
[2018-10-25] MEDS ORDERED: GLUCOSE 10 TABS/TUBE PO PRN (22:35)
[2018-10-25] MEDS ORDERED: CARBOHYDRATES FOR HYPOGLYCEMIA PO PRN (22:35)
[2018-10-25] MEDS ORDERED: DEXTROSE 50% 50 ML SYRINGE IV PRN (22:35)
[2018-10-25] MEDS ORDERED: methylPREDNISolone 20 MG in SYRINGE 0 ML IV STA (22:35)
[2018-10-25] MEDS ORDERED: GLUCOSE 40% GEL 15 GM TUBE PO PRN (22:35)
[2018-10-25] MEDS ORDERED: GLUCAGON FOR INJ 1 MG VIAL SQ PRN (22:35)
[2018-10-25] MEDS ORDERED: METOPROLOL TARTRATE 1 MG/ML VIAL IV STA (22:36)
--- NOTE | 2018-10-25 22:51 | XRay Report ---
SINGLE VIEW CHEST CLINICAL HISTORY: Abnormal breath sounds. FINDINGS: An AP, portable, upright chest radiograph is compared to study dated 10/24/2018 and correlate d with chest CT dated 08/25/[address] dated 10/20/2018. The examination is significantly deg raded by portable technique and patient rotation. The cardiomediastinal silhouette is unremarkable. Chronic interstitial thickening is similar to previous. There is a layering left pleural effusion wit h associated left basilar consolidation. No pneumothorax is seen. The skeletal structures are osteope halle. The bony thorax is grossly intact. There are calcified breast implants. IMPRESSION: 1. There is a layering left pleural effusion with associated left basilar consolidation. This has sig nificantly increased from 10/24/2018. The appearance is typical for pneumonia/aspiration pneumonitis. C linical correlation will be required and radiographic follow-up to resolution is recommended. 2. The right lung appears clear. Electronically signed by: Jean Paul Arriaga M.D. 10/25/2018 10:50 PM
[2018-10-25 23:05] LABS: HCO3 ABG 22 mmol/L (19-24); Oxygen Saturation ABG 93.4 % (90-95); PCO2 ABG 29 mmHg (35-46); PO2 ABG 63 mm/Hg (80-95)
[2018-10-25] MEDS: IPRATROPIUM BROMIDE NEB SOLN 0.02% 2.5 ML VIAL INH SCH (23:05)
[2018-10-25 23:06] LABS: Allen Test Pos (Pos)
[2018-10-25] MEDS: LEVALBUTEROL 1.25MG/0.5ML NEB INH SCH (23:06)
--- NOTE | 2018-10-25 23:23 | Hospitalist Progress Note ---
Date of Service October 25, 2018 Assessment & Plan (1) Respiratory failure without hypercapnia: Secondary to recurrent aspiration pneumonia Sepsis secondary to above Supplemental O2 Cultures, continue ertapenem check lactic acid, IVF N.p.o. except meds for now Strict aspiration precautions, suction respiratory secretions as needed Steroids and nebs for bronchospasm Pulmonary consult in a.m. RE resp failure secondary to recurrent aspiration, possible bronchoscopy Transfer to ICU if with deterioration of clinical status. Patient's daughter/POA, Miss Tiarra Thomas was updated of developments over the phone and is in agreement with the plan of care. She requests GI service to be consulted in AM evaluate patient for PEG tube placement for recurrent aspiration. Subjective Made aware by RN around 10:30 PM of patient having decreased responsiveness, with coarse breath sounds. Cardiac rate 130s. Patient later on noted to be febrile. O2 sat 60s. Physical Exam 2 Vital Signs (Past 24 Hours): Last Vital Signs Temp 37.8 C H 10/25/18 22:49 Pulse 120 H 10/25/18 22:49 Resp 20 10/25/18 22:49 BP 157/95 H 10/25/18 22:49 Pulse Ox 96 10/25/18 22:49 Physical Exam: GENERAL: Disoriented, nonverbal, respiratory distress SKIN: Pallor, warm HEENT: Pale palpebral conjunctivae, no ptosis, dry buccal mucosa, O2 mask in place NECK : Supple, no tenderness CHEST : Bilateral rhonchi/wheezes, no tenderness HEART : Tachycardic ABDOMEN: Some distention, nontender EXTREMITIES : min LE swelling, no tenderness NEUROLOGIC : Nonverbal Results & Data Laboratory Results Laboratory Results WBC 22.04 K/uL (4.8-10.8) H 10/26/18 00:56 RBC 4.23 M/uL (4.2-5.4) 10/26/18 00:56 Hgb 12.8 g/dL (12.0-16.0) 10/26/18 00:56 Hct 37.5 % (37-47) 10/26/18 00:56 MCV 88.7 fL (80-100) 10/26/18 00:56 MCH 30.3 pg (25-34) 10/26/18 00:56 MCHC 34.1 g/dL (32-36) 10/26/18 00:56 RDW Std Deviation 42.8 fL (36.4-46.3) 10/26/18 00:56 RDW Coeff of Henrik 13.2 % (11.5-14.5) 10/26/18 00:56 Plt Count 501 K/uL (130-400) H 10/26/18 00:56 MPV 9.6 fL (7.4-10.4) 10/26/18 00:56 Immature Gran % (Auto) 0.5 % 10/26/18 00:56 Neut % (Auto) 88.9 % 10/26/18 00:56 Lymph % (Auto) 6.2 % 10/26/18 00:56 Nye % (Auto) 4.3 % 10/26/18 00:56 Eos % (Auto) 0.0 % 10/26/18 00:56 Baso % (Auto) 0.1 % 10/26/18 00:56 Immature Gran # (Auto) 0.10 K/uL (0.00-0.02) H 10/26/18 00:56 Neut # (Auto) 19.61 K/uL (1.4-6.5) H 10/26/18 00:56 Lymph # (Auto) 1.37 K/uL (1.2-3.4) 10/26/18 00:56 Nye # (Auto) 0.94 K/uL (0.11-0.59) H 10/26/18 00:56 Eos # (Auto) 0.00 K/uL (0-0.5) 10/26/18 00:56 Baso # (Auto) 0.02 K/uL (0-0.2) 10/26/18 00:56 APTT 28.4 Seconds (21.0-31.0) 10/21/18 00:57 PTT Ratio 1.1 10/21/18 00:57 ABG pH 7.50 (7.35-7.45) H 10/25/18 22:51 ABG pCO2 29 mmHg (35-46) L 10/25/18 22:51 ABG pO2 63 mm/Hg (80-95) L 10/25/18 22:51 ABG HCO3 22 mmol/L (19-24) 10/25/18 22:51 ABG O2 Saturation 93.4 % (90-95) 10/25/18 22:51 ABG Base Excess -0.2 mEq/L (-9-1.8) 10/25/18 22:51 Franklin Test Pos (Pos) 10/25/18 22:51 VBG pH 7.40 (7.36-7.41) 10/18/18 19:27 VBG pCO2 47 mmHg (38-50) 10/18/18 19:27 VBG pO2 20 mmHg 10/18/18 19:27 VBG HCO3 28 mmol/L 10/18/18 19:27 VBG O2 Saturation < 60.0 % 10/18/18 19:27 VBG Base Excess 2.8 mEq/L 10/18/18 19:27 Barometric Pressure 722.3 mm/Hg 10/25/18 22:51 Oxygen Given 6 LITERS 10/25/18 22:51 Sodium 139 mmol/L (136-145) 10/25/18 22:51 Potassium 3.5 mmol/L (3.5-5.1) 10/25/18 22:51 Chloride 106 mmol/L (98-107) 10/25/18 22:51 Carbon Dioxide 22 mmol/L (21-32) 10/25/18 22:51 Anion Gap 11.0 (3-11) 10/25/18 22:51 BUN 8 mg/dl (7-18) 10/25/18 22:51 Creatinine 0.58 mg/dl (0.6-1.2) L 10/25/18 22:51 Est Cr Clr Drug Dosing 78.6 ml/min 10/25/18 22:51 Est GFR ( Amer) 111.3 10/25/18 22:51 Est GFR (Non-Af Amer) 96.1 10/25/18 22:51 BUN/Creatinine Ratio 14.2 (10-20) 10/25/18 22:51 Glucose 97 mg/dl (70-99) 10/25/18 22:51 POC Glucose 87 (70-99) 10/25/18 22:37 Lactate 1.2 mmol/L (0.4-2.0) 10/26/18 00:46 Calcium 9.0 mg/dl (8.5-10.1) 10/25/18 22:51 Magnesium 1.7 mg/dl (1.8-2.4) L 10/25/18 22:51 Total Bilirubin 1.3 mg/dl (0.2-1) H 10/21/18 00:57 AST 18 U/L (15-37) 10/21/18 00:57 ALT 15 U/L (12-78) 10/21/18 00:57 Alkaline Phosphatase 67 U/L (45-117) 10/21/18 00:57 Ammonia < 10.0 umol/L (11-32) L 10/21/18 00:57 Troponin I < 0.015 ng/ml (0-0.045) 10/18/18 19:27 Total Protein 7.6 gm/dl (6.4-8.2) 10/21/18 00:57 Albumin 3.1 gm/dl (3.4-5.0) L 10/21/18 00:57 Globulin 4.5 gm/dl (2.5-4.0) H 10/21/18 00:57 Albumin/Globulin Ratio 0.7 (0.9-2) L 10/21/18 00:57 Lipase 147 U/L (73-393) 10/18/18 19:27 Procalcitonin 0.19 ng/ml (0-0.5) 10/21/18 10:58 TSH 2.440 uIu/ml (0.300-4.500) 10/21/18 00:57 Specimen Hemolysis 10/25/18 22:51 Urine Color Yellow 10/21/18 05:30 Urine Appearance Clear (Clear) 10/21/18 05:30 Urine pH 6.0 (4.5-7.5) 10/21/18 05:30 Ur Specific Liberty >= 1.030 (1.000-1.030) 10/21/18 05:30 Urine Protein Trace (Negative) H 10/21/18 05:30 Urine Glucose (UA) Negative (Negative) 10/21/18 05:30 Urine Ketones 3+ (Negative) H 10/21/18 05:30 Urine Blood 2+ (Negative) H 10/21/18 05:30 Urine Nitrite Negative (Negative) 10/21/18 05:30 Urine Bilirubin Negative (Negative) 10/21/18 05:30 Urine Urobilinogen Negative (Negative) 10/21/18 05:30 Ur Leukocyte Esterase Negative (Negative) 10/21/18 05:30 Urine WBC (Auto) 1-5 /hpf (0-5) 10/18/18 21:13 Urine RBC (Auto) 5-10 /hpf (0-4) H 10/18/18 21:13 U Hyaline Cast (Auto) 0 /lpf (0-5) 10/18/18 21:13 U Epithel Cells (Auto) 0-5 /lpf (0-5) 10/18/18 21:13 Urine Bacteria (Auto) 2+ (Negative) H 10/18/18 21:13 Urine RBC 5-10 /hpf (0-4) H 10/21/18 05:30 Urine WBC 0-5 /hpf (0-5) 10/21/18 05:30 Ur Epithelial Cells 0-5 /lpf (0-5) 10/21/18 05:30 Urine Bacteria Negative (Negative) 10/21/18 05:30 Nasal Screen MRSA (PCR) Negative (Negative) 10/19/18 04:00 Vancomycin Trough 14.8 mcg/ml (See Comment) 10/20/18 06:48 Hepatitis C Ab Screen Neg (Neg) 10/19/18 05:31 Diagnostic Findings Chest x-ray: 1. There is a layering left pleural effusion with associated left basilar consolidation. This has significantly increased from 10/24/2018. The appearance is typical for pneumonia/aspiration pneumonitis. Clinical correlation will be required and radiographic follow-up to resolution is recommended. 2. The right lung appears clear.
[2018-10-25 23:27] LABS: BUN Creatinine Ratio 14.2 (10-20); Creatinine Clr Calc Pharmacy 78.6 ml/min; Est GFR (African American) 111.3; Est GFR (Non-African American) 96.1; Magnesium 1.7 mg/dl (1.8-2.4); Potassium 3.5 mmol/L (3.5-5.1)
[2018-10-25] MEDS ORDERED: MAGNESIUM SULFATE / D5W 1 GM/100 ML BAG IV ONE (23:29)
[2018-10-25] MEDS ORDERED: NSS + 20MEQ KCL 20 MEQ/1,000 ML BAG IV ONE (23:29)
[2018-10-25] MEDS ORDERED: ACETAMINOPHEN 65 ML IV STA (23:30)
[2018-10-26] MEDS ORDERED: methylPREDNISolone 40 MG in SYRINGE 0 ML IV STA (00:03)
[2018-10-26] MEDS ORDERED: XOPENEX/ATROVENT 1.25mg/0.5MG NEB COMBO NEB STA (00:03)
[2018-10-26] MEDS ORDERED: IPRATROPIUM BROMIDE NEB SOLN 0.02% 2.5 ML VIAL INH STA (00:06)
[2018-10-26] MEDS ORDERED: LEVALBUTEROL 1.25MG/0.5ML NEB INH STA (00:06)
[2018-10-26 01:04] LABS: Basophils # (auto) 0.02 K/uL (0-0.2); Basophils % (auto) 0.1 %; Hematocrit (blood only) 37.5 % (37-47); Hemoglobin 12.8 g/dL (12.0-16.0); Immature Granulocytes % (auto) 0.5 %; Lymphocytes # (auto) 1.37 K/uL (1.2-3.4); Lymphocytes % (auto) 6.2 %; Mean Corpuscular Hgb Conc 34.1 g/dL (32-36); Mean Corpuscular Volume 88.7 fL (80-100); Mean Platelet Volume 9.6 fL (7.4-10.4); Monocytes # (auto) 0.94 K/uL (0.11-0.59); Monocytes % (auto) 4.3 %; Neutrophils # (auto) 19.61 K/uL (1.4-6.5); Neutrophils % (auto) 88.9 %; Platelet Count 501 K/uL (130-400); RDW Coefficient of Variation 13.2 % (11.5-14.5); RDW Standard Deviation 42.8 fL (36.4-46.3); Red Blood Count 4.23 M/uL (4.2-5.4); White Blood Count 22.04 K/uL (4.8-10.8)
[2018-10-26] MEDS: ERTAPENEM SODIUM 1,000 MG in SODIUM CHLORIDE 0.9% 50 ML IV SCH (01:21)
[2018-10-26] MEDS ORDERED: METOPROLOL TARTRATE 1 MG/ML VIAL IV STA (01:53)
[2018-10-26] MEDS ORDERED: XOPENEX/ATROVENT 1.25mg/0.5MG NEB COMBO NEB SCH (02:00)
[2018-10-26] MEDS: IPRATROPIUM BROMIDE NEB SOLN 0.02% 2.5 ML VIAL INH SCH ×4 (02:22→20:33)
[2018-10-26] MEDS: LEVALBUTEROL 1.25MG/0.5ML NEB INH SCH ×4 (02:23→20:33)
[2018-10-26] MEDS: POTASSIUM CHLORIDE / WTR 10 MEQ/100 ML PLCT IV SCH ×4 (02:38→05:47)
[2018-10-26] MEDS: METOPROLOL TARTRATE 25 MG TAB PO SCH ×2 (07:36→21:29)
[2018-10-26] MEDS: ATORVASTATIN 20 MG TAB PO SCH (07:36)
[2018-10-26] MEDS: DOCUSATE SODIUM 100 MG CAP PO SCH ×2 (07:36→21:29)
[2018-10-26] MEDS: SENNA 8.6 MG TAB PO SCH (07:36)
[2018-10-26] MEDS: ASPIRIN 81 MG ECTAB PO SCH (07:36)
[2018-10-26] MEDS: CEROVITE ADV FORMULA TAB PO SCH (07:36)
[2018-10-26] MEDS: LISINOPRIL 5 MG TAB PO SCH (07:37)
[2018-10-26] MEDS: CHOLECALCIFEROL 1,000 UNITS TAB PO SCH (07:37)
[2018-10-26 07:48] LABS: Basophils # (auto) 0.01 K/uL (0-0.2); Basophils % (auto) 0.1 %; Hematocrit (blood only) 36.2 % (37-47); Hemoglobin 12.3 g/dL (12.0-16.0); Immature Granulocytes # (auto) 0.09 K/uL (0.00-0.02); Immature Granulocytes % (auto) 0.5 %; Lymphocytes # (auto) 0.92 K/uL (1.2-3.4); Lymphocytes % (auto) 5.4 %; Mean Corpuscular Volume 89.4 fL (80-100); Mean Platelet Volume 10.3 fL (7.4-10.4); Monocytes # (auto) 0.35 K/uL (0.11-0.59); Neutrophils # (auto) 15.81 K/uL (1.4-6.5); Platelet Count 434 K/uL (130-400); RDW Coefficient of Variation 13.2 % (11.5-14.5); RDW Standard Deviation 42.7 fL (36.4-46.3); Red Blood Count 4.05 M/uL (4.2-5.4); White Blood Count 17.18 K/uL (4.8-10.8)
[2018-10-26] MEDS: methylPREDNISolone 40 MG in SYRINGE 0 ML IV SCH ×2 (08:13→21:33)
[2018-10-26 08:15] LABS: BUN Creatinine Ratio 15.8 (10-20); Calcium 8.4 mg/dl (8.5-10.1); Creatinine Clr Calc Pharmacy 67.3 ml/min; Est GFR (African American) 107.8; Magnesium 2.4 mg/dl (1.8-2.4)
[2018-10-26] MEDS: NSS + 20MEQ KCL 20 MEQ/1,000 ML BAG IV SCH ×2 (11:06→23:42)
--- NOTE | 2018-10-26 12:15 | Gastrointestinal Consultation ---
Date of Consultation October 26, 2018 Assessment & Plan (1) Altered mental status: Present on Admission?: Yes (2) History of CVA with residual deficit: Present on Admission?: Yes (3) Respiratory failure without hypercapnia: Pt is a 68 y/o female w hx of CVA, residual deficits (very little verbally , WC bound); admitted for AMS and sepsis suspected from aspiration pneumonia. GI consulted for possible PEG tube placement. I had a long discussion with pt's daughter Tiarra. Pt had prior PEG placement in 2016, removed last Spring as she was able to eat orally. She is aware that pt has complex medical comorbidity and is dying. However she and rest of family members are not ready for hospice and pt is currently on full code. I did discuss w Tiarra my assessment on pt's condition today. She did require increased O2 supplement from [place] to now 13L oxymask. I explained to Tiarra that pt isn't a good candidate for non emergent invasive procedures requiring sedation given her current respiratory status. A PEG tube feeding also wouldn't prevent future aspiration from happening and it won't necessarily prolong pt's lifespan. There are also possible risks of bleeding, infection, peritonitis with PEG tube placement and the tube would have to remain in place for at least 8-12 weeks before it can be removed it no longer needed to prevent fistula formation if removed too soon. In consideration of the above, and the fact that a PEG placement may be more risky than provide more benefit for pt, Tiarra decides to defer PEG placement. She did inquire about other alternative form of feeding. I recommended trial of Coresafe feeding through NG placement. She is agreeable for us to try this instead GI will sign off, call if new questions/concerns arise. Present on Admission?: Yes Supervising Physician Co-Signing Physician Notes I have performed a history and physical examination of this patient and reviewed the electronic medical record. Specifically, on physical examination patient is reponsive to pain but disoriented. Overall assessment is that she is preterminal and that PEG placement would not prolong life nor reduce discomfort. I have discussed the case with MELLISA Funez. The above note reflects my findings, conclusions, and recommendations. Russell Mistry MD History of Present Illness Reason for Consultation: Eval for possible PEG placement Requesting Physician: Dr. Paul Prasad Attending Physician: Dr. Russell Mistry History of Present Illness Pt is a 68 y/o female currently admitted for AMS, sepsis possible from aspiration pneumonia who is seen in consultation for possible PEG tube placement. She has hx of CVA, at baseline is wheelchair bound and speaks very little words per her daugther (Tiarra). She currently is seen laying in bed, eyes opened to name called but not following any commands. Histories obtained from chart review and daughter Tiarra. Pt had hx of PEG placement in 2016 at [facility], removed last Spring. She had been eating by mouth. However w recent illness and AMS, she hadn't been able to take food orally as much and Tiarra is worried she's not keeping up w her nutrition. She is currently on maintenance IVF. Pt and family had met w Palliative service here, currently family would like to keep her on Full Code, not ready for hospice yet. Allergies Allergy/AdvReac Type Severity Reaction Status Date / Time Penicillins Allergy Unknown RASH Verified 10/18/18 20:04 pollen extracts Allergy Unknown RUNNY Verified 10/18/18 20:04 NOSE/SNEEZING Home Medications Home Medications Medication Instructions Recorded Confirmed Type acetaminophen 500 mg PO Q4 PRN MDD 3gm/24hr 08/25/18 10/18/18 History aspirin 81 mg PO DAILY 08/25/18 10/18/18 History atorvastatin 20 mg PO DAILY 08/25/18 10/18/18 History cholecalciferol (vitamin D3) 2,000 unit PO DAILY 08/25/18 10/18/18 History [Vitamin D3] docusate sodium [Silace] 100 mg PO BID 08/25/18 10/18/18 History lisinopril 2.5 mg PO DAILY 08/25/18 10/18/18 History metoprolol tartrate 25 mg PO Q12 08/25/18 10/18/18 History multivitamin,uk-kljx-mlhyxvev 1 tab PO DAILY 08/25/18 10/18/18 History [Therems-M] polyethylene glycol 3350 [Miralax] 17 g PO DAILY PRN 08/25/18 10/18/18 History sennosides [senna] 8.6 mg PO DAILY 08/25/18 10/18/18 History sodium phosphates [Fleet Enema] 118 ml [place] DAILY PRN 08/25/18 10/18/18 History ondansetron HCl 4 mg PO Q4H PRN 10/18/18 10/18/18 History Patient History Medical History Breast cancer (Resolved) Leukemia (Resolved) Hypertension (Chronic) Acute respiratory failure with hypoxia Anemia (Acute) CVA (cerebral vascular accident) UTI (urinary tract infection) (Acute) Anemia Breast cancer CVA (cerebral vascular accident) HTN (hypertension) Leukemia Surgical History History of breast reconstruction (Resolved) Family History Other No pertinent family history Social History Current Living Situation: Detention Current Living Situation Comment: Vin Feels Safe at Home: Declines to Answer Smoking Status: Unknown if ever smoked Hx Alcohol Use: No Hx Substance Use: No Beliefs That Will Affect Care: None Communication Ability: Impaired Review of Systems Unable to obtain due to her AMS Physical Exam 2 Vital Signs (Past 24 Hours): Last Vital Signs Temp 36.3 C L 10/26/18 07:28 Pulse 90 10/26/18 07:28 Resp 14 10/26/18 07:28 BP 92/65 L 10/26/18 07:28 Pulse Ox 93 10/26/18 07:28 Physical Exam: Laying in bed, comfortable, eyes closed but opens when name called. Unable to talk to me or follow commands. ENMT: external ear and nose normal, oropharynx normal Neck: trachea midline Respiratory: Auscultation: + diminished lung sounds On Oxymask 13L sat 93% Cardiovascular: RRR, no murmur, no edema Gastrointestinal (Abdomen): Inspection/Auscultation: + hypoactive bowel sounds Percussion/Palpation: abdomen soft; no guarding Skin: no jaundice Neurologic: Opens eyes when name called, not following commands nor verbalizing. Results & Data Laboratory Results Laboratory Results - last 48 hr 10/24/18 10/24/18 10/24/18 21:31 21:33 21:48 WBC RBC Hgb Hct MCV MCH MCHC RDW Std Deviation RDW Coeff of Henrik Plt Count MPV Immature Gran % (Auto) Neut % (Auto) Lymph % (Auto) [place] % (Auto) Eos % (Auto) Baso % (Auto) Immature Gran # (Auto) Neut # (Auto) Lymph # (Auto) [place] # (Auto) Eos # (Auto) Baso # (Auto) ABG pH ABG pCO2 ABG pO2 ABG HCO3 ABG O2 Saturation ABG Base Excess Franklin Test Barometric Pressure Oxygen Given Sodium 138 Potassium 3.3 L Chloride 105 Carbon Dioxide 21 Anion Gap 13.0 H BUN 11 Creatinine 0.57 L Est Cr Clr Drug Dosing 80.0 Est GFR ( Amer) 112.0 Est GFR (Non-Af Amer) 96.6 BUN/Creatinine Ratio 18.4 Glucose 70 POC Glucose 68 L* 75 Lactate Calcium 8.9 Phosphorus Magnesium 2.0 Specimen Hemolysis 10/24/18 10/24/18 10/24/18 22:03 22:27 22:43 WBC RBC Hgb Hct MCV MCH MCHC RDW Std Deviation RDW Coeff of Henrik Plt Count MPV Immature Gran % (Auto) Neut % (Auto) Lymph % (Auto) [place] % (Auto) Eos % (Auto) Baso % (Auto) Immature Gran # (Auto) Neut # (Auto) Lymph # (Auto) [place] # (Auto) Eos # (Auto) Baso # (Auto) ABG pH Cancelled 7.49 H ABG pCO2 Cancelled 30 L ABG pO2 Cancelled 56 L ABG HCO3 Cancelled 22 ABG O2 Saturation Cancelled 89.4 L ABG Base Excess Cancelled -0.5 Franklin Test Cancelled POS Barometric Pressure Cancelled 733.6 Oxygen Given Cancelled 2 L Sodium Potassium Chloride Carbon Dioxide Anion Gap BUN Creatinine Est Cr Clr Drug Dosing Est GFR ( Amer) Est GFR (Non-Af Amer) BUN/Creatinine Ratio Glucose POC Glucose 251 H Lactate Calcium Phosphorus Magnesium Specimen Hemolysis 10/25/18 10/25/18 10/25/18 05:35 22:37 22:51 WBC RBC Hgb Hct MCV MCH MCHC RDW Std Deviation RDW Coeff of Henrik Plt Count MPV Immature Gran % (Auto) Neut % (Auto) Lymph % (Auto) [place] % (Auto) Eos % (Auto) Baso % (Auto) Immature Gran # (Auto) Neut # (Auto) Lymph # (Auto) [place] # (Auto) Eos # (Auto) Baso # (Auto) ABG pH 7.50 H ABG pCO2 29 L ABG pO2 63 L ABG HCO3 22 ABG O2 Saturation 93.4 ABG Base Excess -0.2 Franklin Test Pos Barometric Pressure 722.3 Oxygen Given 6 LITERS Sodium 136 Potassium 3.6 Chloride 106 Carbon Dioxide 22 Anion Gap 8.0 BUN 8 Creatinine 0.50 L Est Cr Clr Drug Dosing 91.2 Est GFR ( Amer) 116.9 Est GFR (Non-Af Amer) 100.9 BUN/Creatinine Ratio 15.9 Glucose 139 H POC Glucose 87 Lactate Calcium 8.7 Phosphorus Magnesium Specimen Hemolysis 10/25/18 10/26/18 10/26/18 22:51 00:46 00:56 WBC 22.04 H RBC 4.23 Hgb 12.8 Hct 37.5 MCV 88.7 MCH 30.3 MCHC 34.1 RDW Std Deviation 42.8 RDW Coeff of Henrik 13.2 Plt Count 501 H MPV 9.6 Immature Gran % (Auto) 0.5 Neut % (Auto) 88.9 Lymph % (Auto) 6.2 [place] % (Auto) 4.3 Eos % (Auto) 0.0 Baso % (Auto) 0.1 Immature Gran # (Auto) 0.10 H Neut # (Auto) 19.61 H Lymph # (Auto) 1.37 [place] # (Auto) 0.94 H Eos # (Auto) 0.00 Baso # (Auto) 0.02 ABG pH ABG pCO2 ABG pO2 ABG HCO3 ABG O2 Saturation ABG Base Excess Franklin Test Barometric Pressure Oxygen Given Sodium 139 Potassium 3.5 Chloride 106 Carbon Dioxide 22 Anion Gap 11.0 BUN 8 Creatinine 0.58 L Est Cr Clr Drug Dosing 78.6 Est GFR ( Amer) 111.3 Est GFR (Non-Af Amer) 96.1 BUN/Creatinine Ratio 14.2 Glucose 97 POC Glucose Lactate 1.2 Calcium 9.0 Phosphorus Magnesium 1.7 L Specimen Hemolysis 10/26/18 10/26/18 07:01 07:01 WBC 17.18 H RBC 4.05 L Hgb 12.3 Hct 36.2 L MCV 89.4 MCH 30.4 MCHC 34.0 RDW Std Deviation 42.7 RDW Coeff of Henrik 13.2 Plt Count 434 H MPV 10.3 Immature Gran % (Auto) 0.5 Neut % (Auto) 92.0 Lymph % (Auto) 5.4 [place] % (Auto) 2.0 Eos % (Auto) 0.0 Baso % (Auto) 0.1 Immature Gran # (Auto) 0.09 H Neut # (Auto) 15.81 H Lymph # (Auto) 0.92 L [place] # (Auto) 0.35 Eos # (Auto) 0.00 Baso # (Auto) 0.01 ABG pH ABG pCO2 ABG pO2 ABG HCO3 ABG O2 Saturation ABG Base Excess Franklin Test Barometric Pressure Oxygen Given Sodium 138 Potassium 5.0 D Chloride 108 H Carbon Dioxide 21 Anion Gap 9.0 BUN 10 Creatinine 0.64 Est Cr Clr Drug Dosing 67.3 Est GFR ( Amer) 107.8 Est GFR (Non-Af Amer) 93.0 BUN/Creatinine Ratio 15.8 Glucose 144 H POC Glucose Lactate Calcium 8.4 L Phosphorus 4.0 Magnesium 2.4 Specimen Hemolysis _ (1) Altered mental status Altered mental status type: unspecified Coma depth: Coma timing: Qualified Code(s): R41.82 - Altered mental status, unspecified
--- NOTE | 2018-10-26 13:19 | XRay Report ---
XR chest 1V portable HISTORY: 68 years-old Female Coresafe placement status post placement of a feeding tube COMPARISON: Chest radiograph 10/25/2018 TECHNIQUE: Portable AP view of the chest FINDINGS: Cardiomediastinal and hilar silhouettes are within normal limits. Feeding tube has been placed with d istal tip terminating below the diaphragm within the region of the proximal mid gastric body. No pneu mothorax. Small left pleural effusion with left basilar and left infrahilar opacities. Right lung quincy ears clear. Degenerative changes of the shoulders and spine. IMPRESSION: 1. Status post placement of a feeding tube with distal tip terminating in the expected region of the proximal to mid gastric lumen. 2. Small left pleural effusion with left basilar opacities suggestive of atelectasis or pneumonitis. The above report was generated using voice recognition software. It may contain grammatical, syntax o r spelling errors. Electronically signed by: Rene Maher M.D. 10/26/2018 1:18 PM
--- NOTE | 2018-10-26 15:53 | Hospitalist Progress Note ---
Date of Service October 26, 2018 Assessment & Plan (1) Respiratory failure without hypercapnia: Admitted with the acute respiratory failure likely secondary to aspiration pneumonia Condition has been stable Keeps on Aspirating While in the Hospital No acute distress at rest and tolerating nasal cannula oxygen Has been on intravenous ertapenem and Solu-Medrol Present on Admission?: Yes (2) History of CVA with residual deficit: History of CVA with dysphagia and dysphasia Has not been showing any improvement of her general condition History of PEG tube Appreciate GI input and recommendation-no PEG tube is recommended at this time Continue current PT and OT Palliative care consulted-appreciate input (3) Abnormal endometrial ultrasound: Evaluated by [employer] Nothing acute going on at this time (4) H/O traumatic brain injury: With history of encephalopathy Clinically stable but critical (5) Acute metabolic encephalopathy: Admitted with acute metabolic encephalopathy likely secondary to infection Has been on intravenous ertapenem White count has been improving Overall prognosis is not that (6) Nutritional assessment: She cannot take anything orally due to ongoing aspiration Was seen by speech and recommended PEG tube placement Appreciate GI input-PEG tube is not an option at this time Will try nasogastric feeding for the timing GI bleed discussed with the daughter and updated her of this condition Overall prognosis remains poor Subjective 68 years old female with significant past medical history including CVA with residual deficit and dysphagia and dysphasia was admitted with sepsis secondary to pneumonia likely aspiration. 10/26 Patient was seen and examined the medical floor She keeps on aspirating with any food given orally She remains stable but nonverbal She was evaluated by GI for possible PEG placement Palliative care is on board as well Physical Exam 2 Vital Signs (Past 24 Hours): Last Vital Signs Temp 36.3 C L 10/26/18 07:28 Pulse 89 10/26/18 14:08 Resp 16 10/26/18 14:08 BP 92/65 L 10/26/18 07:28 Pulse Ox 90 10/26/18 14:08 Physical Exam: Lying in bed without any symptoms Constitutional: WD/WN, vitals as above + ill appearing, + cachectic, + altered mental status, + physical limitations (general deconditioning) and + language barrier; no acute distress Eyes: PERRL, conjunctivae normal, anicteric sclerae ENMT: external ear and nose normal, oropharynx normal Ears: no hearing impairment Neck: normal visual inspection and trachea midline Respiratory: normal respiratory effort Auscultation: + diminished lung sounds (Mostly at the bases with occasional crackles) Cardiovascular: RRR, no murmur, no edema Gastrointestinal (Abdomen): Inspection/Auscultation: abdomen normal to inspection, normal bowel sounds and + hypoactive bowel sounds; abdomen not distended Percussion/Palpation: abdomen soft; abdomen nontender, no guarding and abdomen not rigid Skin: no rashes, warm and dry no jaundice Neurologic: awake (Opens eyes on comments. Nonverbal) Psychiatric: Orientation: + not alert Results & Data Laboratory Results Short CBC 10/26/18 10/26/18 Range/Units 00:56 07:01 WBC 22.04 H 17.18 H (4.8-10.8) K/uL Hgb 12.8 12.3 (12.0-16.0) g/dL Hct 37.5 36.2 L (37-47) % Plt Count 501 H 434 H (130-400) K/uL BMP 10/25/18 10/26/18 22:51 07:01 Sodium 139 138 Potassium 3.5 5.0 D Chloride 106 108 H Carbon Dioxide 22 21 BUN 8 10 Creatinine 0.58 L 0.64 Glucose 97 144 H Calcium 9.0 8.4 L Medications Administered Current Inpatient Medications Acetaminophen (Tylenol) 650 mg PO Q4H PRN PRN Reason: Pain or Fever Stop: 11/17/18 23:36 Aspirin (Ecotrin) 81 mg PO DAILY [facility] Stop: 11/18/18 08:59 Last Admin: 10/26/18 07:36 Dose: Not Given Atorvastatin Calcium (Lipitor) 20 mg PO DAILY [facility] Stop: 11/18/18 08:59 Last Admin: 10/26/18 07:36 Dose: Not Given Dextrose (Dextrose 50%) 25 - 50 ml IV UD PRN; Protocol PRN Reason: Hypoglycemia Protocol Stop: 11/24/18 22:34 Docusate Sodium (Colace) 100 mg PO BID [facility] Stop: 11/18/18 08:59 Last Admin: 10/26/18 07:36 Dose: Not Given Ertapenem (Consult) 1 ea N/A DAILY PRN PRN Reason: Consult Stop: 11/24/18 08:59 Glucagon (Glucagen) 1 mg SQ UD PRN; Protocol PRN Reason: Hypoglycemia Protocol Stop: 11/24/18 22:34 Glucose (Glucose 40%) 15 - 30 gm PO UD PRN; Protocol PRN Reason: Hypoglycemia Protocol Stop: 11/24/18 22:34 Glucose (Dex4 Glucose) 4 - 8 tabs PO UD PRN; Protocol PRN Reason: Hypoglycemia Protocol Stop: 11/24/18 22:34 Ertapenem 1,000 mg/ Sodium (Chloride) 60 mls @ 100 mls/hr IV DAILY@0030 [facility] Stop: 11/01/18 00:29 Last Infusion: 10/26/18 01:57 Dose: Infused Enalaprilat 0.625 mg/ Syringe 10 mls @ 2 mls/min IV Q6H PRN PRN Reason: Hypertension Stop: 11/24/18 16:14 Potassium Chloride/Sodium Chloride (Normal Saline W/20 Meq Kcl) 20 meq in 1, 000 mls @ 80 mls/hr IV .[id number] [facility] Stop: 11/25/18 03:29 Last Admin: 10/26/18 11:06 Dose: 80 mls/hr Methylprednisolone 40 mg/ (Syringe) 0.64 mls @ 1.5 mls/min IV BID [facility] Stop: 11/25/18 08:59 Last Admin: 10/26/18 08:13 Dose: 1.5 mls/min Ipratropium [place] (Atrovent 0.02% 0.5mg/2.5ml) 0.5 mg INH Q4H PRN PRN Reason: Shortness Of Breath Or Wheezing Stop: 11/20/18 01:14 Last Admin: 10/25/18 00:14 Dose: 0.5 mg Ipratropium [place] (Atrovent 0.02% 0.5mg/2.5ml) 0.5 mg INH Q6R [facility] Stop: 11/24/18 22:44 Last Admin: 10/26/18 14:07 Dose: 0.5 mg Levalbuterol HCl (Xopenex 1.25mg/0.5ml Neb) 1.25 mg INH Q4H PRN PRN Reason: Shortness Of Breath Or Wheezing Stop: 11/20/18 01:14 Last Admin: 10/25/18 00:14 Dose: 1.25 mg Levalbuterol HCl (Xopenex 1.25mg/0.5ml Neb) 1.25 mg INH Q6R [facility] Stop: 11/24/18 22:44 Last Admin: 10/26/18 14:07 Dose: 1.25 mg Lisinopril (Zestril) 10 mg PO DAILY [facility] Stop: 11/24/18 06:44 Last Admin: 10/26/18 07:37 Dose: Not Given Metoprolol Tartrate (Lopressor) 25 mg PO Q12 [facility] Stop: 11/24/18 01:59 Last Admin: 10/26/18 07:36 Dose: Not Given Miscellaneous (Carbohydrates For Hypoglycemia) 15 - 30 gm PO UD PRN PRN Reason: Hypoglycemia Treatment Stop: 11/24/18 22:34 Multivitamins/Minerals (Multivitamin W/ Minerals) 1 tab PO DAILY [facility] Stop: 11/18/18 08:59 Last Admin: 10/26/18 07:36 Dose: Not Given Nitroglycerin (Nitrostat) 0.4 mg SL UD PRN PRN Reason: Chest Pain Stop: 11/17/18 23:36 Ondansetron HCl (Zofran) 4 mg IV Q6H PRN PRN Reason: Nausea Stop: 11/17/18 23:36 Sennosides (Senokot) 8.6 mg PO DAILY [facility] Stop: 11/18/18 08:59 Last Admin: 10/26/18 07:36 Dose: Not Given Sodium Biphosphate/Sodium Phosphate (Fleet Enema) 118 ml [place] DAILY PRN PRN Reason: Constipation Stop: 11/17/18 23:36 Vitamin D (Vitamin D3) 2,000 units PO DAILY [facility] Stop: 11/18/18 08:59 Last Admin: 10/26/18 07:37 Dose: Not Given
--- NOTE | 2018-10-26 23:06 | Pulmonary Consultation ---
Date of Consultation October 26, 2018 Assessment & Plan (1) Acute respiratory failure with hypoxia: Impression: 1. Chronic aspiration, likely due to dysphagia and CVA. 2. Acute hypoxic respiratory failure secondary to above. 3. History of CVA with difficulty controlling her airways. 4. Encephalopathy. 5. History of mastectomy and reconstruction. Plan: 1. The patient has been treated with ertapenem, this is likely chronic aspiration rather than acute aspiration. She is responding by labs. No evidence of fever. Consider downgrading antibiotics after 3 days. 2. Obtain a CAT scan of the chest to evaluate for atelectasis of the left lower lobe. 3. If the atelectasis persist, the patient would not have good cough reflex. Bronchoscopy would be indicated with the risk of intubation. 4. Consider PEG tube placement. 5. Address CODE STATUS. 6. Continue bronchodilators. 7. Discontinue steroids. Thank you, will follow. History of Present Illness Reason for Consultation: Shortness of breath Requesting Physician: Dr. Parks Attending Physician: Rios Parks MD History of Present Illness Dear data: Thank you for your kind referral of Mrs. Palma to pulmonary service. This is 68-year-old female with history of CVA, recurrent aspiration due to dysphagia , recurrent pneumonia, presented to the hospital several days ago with increasing shortness of breath and hypercapnia, the patient does have a history of PEG tube for feeding, when I interviewed the patient, she was a very poor historian and could not give me any review of system. The patient having upper airway gurgling. NG tube was in place as well. It is unclear to me whether the patient has the PEG tube be removed in the past. The patient was treated with ertapenem on this admission in addition she had Solu-Medrol was added. Patient also was treated with bronchodilators. The patient does not carry a diagnosis of obstructive lung disease. Review of system and family history was not obtainable. Past medical history obtained from the records only. Allergies Allergy/AdvReac Type Severity Reaction Status Date / Time Penicillins Allergy Unknown RASH Verified 10/18/18 20:04 pollen extracts Allergy Unknown RUNNY Verified 10/18/18 20:04 NOSE/SNEEZING Home Medications Home Medications Medication Instructions Recorded Confirmed Type acetaminophen 500 mg PO Q4 PRN MDD 3gm/24hr 08/25/18 10/18/18 History aspirin 81 mg PO DAILY 08/25/18 10/18/18 History atorvastatin 20 mg PO DAILY 08/25/18 10/18/18 History cholecalciferol (vitamin D3) 2,000 unit PO DAILY 08/25/18 10/18/18 History [Vitamin D3] docusate sodium [Silace] 100 mg PO BID 08/25/18 10/18/18 History lisinopril 2.5 mg PO DAILY 08/25/18 10/18/18 History metoprolol tartrate 25 mg PO Q12 08/25/18 10/18/18 History multivitamin,[id number]-kwxt-pgbyzkru 1 tab PO DAILY 08/25/18 10/18/18 History [Therems-M] polyethylene glycol 3350 [Miralax] 17 g PO DAILY PRN 08/25/18 10/18/18 History sennosides [senna] 8.6 mg PO DAILY 08/25/18 10/18/18 History sodium phosphates [Fleet Enema] 118 ml [place] DAILY PRN 08/25/18 10/18/18 History ondansetron HCl 4 mg PO Q4H PRN 10/18/18 10/18/18 History Patient History Medical History Breast cancer (Resolved) Leukemia (Resolved) Hypertension (Chronic) Acute respiratory failure with hypoxia Anemia (Acute) CVA (cerebral vascular accident) UTI (urinary tract infection) (Acute) Anemia Breast cancer CVA (cerebral vascular accident) HTN (hypertension) Leukemia Surgical History History of breast reconstruction (Resolved) Family History Other No pertinent family history Social History Current Living Situation: Prison Current Living Situation Comment: [place] Feels Safe at Home: Declines to Answer Smoking Status: Unknown if ever smoked Hx Alcohol Use: No Hx Substance Use: No Beliefs That Will Affect Care: None Communication Ability: Impaired Review of Systems Not obtainable. Physical Exam 2 Vital Signs (Past 24 Hours): Last Vital Signs Temp 36.3 C L 10/26/18 22:54 Pulse 102 H 10/26/18 22:54 Resp 26 H 10/26/18 22:54 BP 160/91 H 10/26/18 22:54 Pulse Ox 93 10/26/18 22:54 Physical Exam: 68-year-old female cachectic, does not follow commands properly , NG tube in place, upper airway sounding, crackles mainly scattered throughout the lung field, abdomen is benign, no edema. Neurologically difficult to assess. Results & Data Laboratory Results Leukocytosis, improving, left shift but minimal bandemia. Rest of the labs appeared acceptable. Chest x-ray was reviewed which showed left lower lobe atelectasis with adjacent pleural effusion.
[2018-10-27] MEDS: ERTAPENEM SODIUM 1,000 MG in SODIUM CHLORIDE 0.9% 50 ML IV SCH (01:07)
[2018-10-27] MEDS: IPRATROPIUM BROMIDE NEB SOLN 0.02% 2.5 ML VIAL INH SCH ×4 (01:32→19:45)
[2018-10-27] MEDS: LEVALBUTEROL 1.25MG/0.5ML NEB INH SCH ×4 (01:33→19:45)
[2018-10-27 07:22] LABS: Basophils # (auto) 0.01 K/uL (0-0.2); Basophils % (auto) 0.1 %; Hematocrit (blood only) 31.4 % (37-47); Hemoglobin 10.5 g/dL (12.0-16.0); Immature Granulocytes # (auto) 0.15 K/uL (0.00-0.02); Immature Granulocytes % (auto) 0.8 %; Lymphocytes # (auto) 1.09 K/uL (1.2-3.4); Lymphocytes % (auto) 5.9 %; Mean Corpuscular Hgb Conc 33.4 g/dL (32-36); Mean Platelet Volume 9.9 fL (7.4-10.4); Monocytes # (auto) 0.83 K/uL (0.11-0.59); Monocytes % (auto) 4.5 %; Neutrophils # (auto) 16.46 K/uL (1.4-6.5); Neutrophils % (auto) 88.7 %; Platelet Count 391 K/uL (130-400); RDW Coefficient of Variation 13.3 % (11.5-14.5); Red Blood Count 3.53 M/uL (4.2-5.4); White Blood Count 18.54 K/uL (4.8-10.8)
[2018-10-27] MEDS: ATORVASTATIN 20 MG TAB PO SCH (07:31)
[2018-10-27] MEDS: METOPROLOL TARTRATE 25 MG TAB PO SCH ×2 (07:31→21:56)
[2018-10-27] MEDS: LISINOPRIL 5 MG TAB PO SCH (07:31)
[2018-10-27] MEDS: ASPIRIN 81 MG ECTAB PO SCH (07:31)
[2018-10-27] MEDS: DOCUSATE SODIUM 100 MG CAP PO SCH ×2 (07:32→21:57)
[2018-10-27] MEDS: SENNA 8.6 MG TAB PO SCH (07:32)
[2018-10-27] MEDS: CEROVITE ADV FORMULA TAB PO SCH (07:32)
[2018-10-27] MEDS: CHOLECALCIFEROL 1,000 UNITS TAB PO SCH (07:32)
[2018-10-27 08:00] LABS: BUN Creatinine Ratio 23.6 (10-20); Calcium 8.6 mg/dl (8.5-10.1); Creatinine Clr Calc Pharmacy 108.6 ml/min; Est GFR (African American) 123.8; Est GFR (Non-African American) 106.8; Phosphorus 2.5 mg/dl (2.5-4.9); Potassium 3.9 mmol/L (3.5-5.1)
[2018-10-27] MEDS: NSS + 20MEQ KCL 20 MEQ/1,000 ML BAG IV SCH ×2 (12:40→19:10)
--- NOTE | 2018-10-27 13:30 | CT Scan Report ---
CT chest wo con CT DOSE: 201.51 mGy.cm CLINICAL HISTORY: 68 years-old Female with recurrent aspiration. Follow-up study in a patient with r ecurrent aspiration pneumonitis TECHNIQUE: Multiaxial CT images of the chest were performed without contrast. A dose lowering techni que was utilized adhering to the principles of ALARA. COMPARISON: CTA of the chest 08/25/2018, CT abdomen and pelvis 10/20/2018 FINDINGS: Heterogeneous appearance of the thyroid. Study is limited without the use of IV contrast. Trace peric ardial effusion. Coronary arterial calcifications are noted. No thoracic aortic aneurysm. Mildly prom inent paratracheal lymph nodes measure up to 7 mm, likely reactive. An enteric tube is present coursi ng into the gastric lumen with distal tip terminating outside the [id number]. Small left pleural effusion. No pneumothorax. Layering groundglass opacities noted about the bilatera l major fissures. Multifocal groundglass and consolidative opacities of the left lung base, notably w ithin the basal left lower lobe and inferior segment lingula. Moderate tracheobronchial secretions wi th bibasilar mucous plugging. No overt pulmonary edema. Mild subsegmental groundglass and consolidati ve opacities of the right lung base. 3 mm solid nodule of the right upper lobe is unchanged on image 104 series 4. No acute process of the imaged upper abdomen. Bilateral breast augmentation changes with subpectoral saline implants which appear intact. Bones appear to be intact. IMPRESSION: 1. Small left pleural effusion with multifocal groundglass and consolidative opacities of the left chiqui ng base, notably within the left lower lobe suggestive of pneumonia and/or aspiration pneumonitis. 2. Moderate degree of tracheobronchial secretions with bibasilar mucous plugging. 3. Mild subsegmental groundglass and consolidative opacities of the right lower lobe suggest atelecta sis with a mild pneumonitis also in the differential. 4. Enteric tube courses into the gastric lumen, distal tip outside the [id number]. Electronically signed by: Rene Maher M.D. 10/27/2018 1:28 PM
[2018-10-27] MEDS: FIBERSOURCE HN 1.2 CAL 1000 ML BAG NG SCH ×2 (13:42→22:04)
--- NOTE | 2018-10-27 14:43 | Hospitalist Progress Note ---
Date of Service October 27, 2018 Assessment & Plan (1) Respiratory failure without hypercapnia: Admitted with the acute respiratory failure likely secondary to aspiration pneumonia Condition has been stable but critical Keeps on Aspirating While in the Hospital-has been started 1 nasogastric feeding Has been on intravenous ertapenem and Solu-Medrol Appreciate input from radius corner machine operator and recommendation We will try respiratory therapy to see any change Question of bronchoscopy and subsequent probable complications were discussed with the daughter, the patient and the son-in-law (2) History of CVA with residual deficit: History of CVA with dysphagia and dysphasia Has not been showing any improvement of her general condition History of PEG tube Appreciate GI input and recommendation-no PEG tube is recommended at this time Continue current PT and OT Palliative care consulted-appreciate input We will continue with the nasogastric feeding for the next 5-7 days If the condition deteriorates, likely to change to comfort care (3) Abnormal endometrial ultrasound: Evaluated by [facility] Nothing acute going on at this time (4) H/O traumatic brain injury: With history of encephalopathy Clinically stable but critical (5) Acute metabolic encephalopathy: Admitted with acute metabolic encephalopathy likely secondary to infection Has been on intravenous ertapenem White count has been improving Overall prognosis is poor Has periodic incidence of acute delirium (6) Nutritional assessment: She cannot take anything orally due to ongoing aspiration Was seen by speech and recommended PEG tube placement Appreciate GI input-PEG tube is not an option at this time Will try nasogastric feeding for the timing GI bleed discussed with the daughter and updated her of this condition Overall prognosis remains poor Discussed in detail with the family members Subjective 68 years old female with significant past medical history including CVA with residual deficit and dysphagia and dysphasia was admitted with sepsis secondary to pneumonia likely aspiration. 10/26 Patient was seen and examined the medical floor She keeps on aspirating with any food given orally She remains stable but nonverbal She was evaluated by GI for possible PEG placement Palliative care is on board as well 10/27 Patient was seen and examined in presence of daughter and son-in-law She has been a lot better today and in fact communicating well She has been bedbound secondary to stroke and also subdural hematoma in the past She continues to aspirate when she tries to take anything orally Denies any acute symptoms today Physical Exam 2 Vital Signs (Past 24 Hours): Last Vital Signs Temp 36.5 C 10/27/18 07:40 Pulse 83 10/27/18 14:08 Resp 18 10/27/18 14:08 BP 150/96 H 10/27/18 07:40 Pulse Ox 95 10/27/18 14:08 Physical Exam: Lying in bed comfortably Constitutional: WD/WN, vitals as above + ill appearing, + cachectic, + altered mental status, + physical limitations (general deconditioning) and + language barrier; no acute distress Eyes: PERRL, conjunctivae normal, anicteric sclerae ENMT: external ear and nose normal, oropharynx normal Ears: no hearing impairment Neck: normal visual inspection and trachea midline Respiratory: normal respiratory effort Auscultation: + diminished lung sounds (Bilaterally, more on the left side and lower part of the lung with collaterals) Cardiovascular: RRR, no murmur, no edema Gastrointestinal (Abdomen): Inspection/Auscultation: abdomen normal to inspection, normal bowel sounds and + hypoactive bowel sounds; abdomen not distended Percussion/Palpation: abdomen soft; abdomen nontender, no guarding and abdomen not rigid Skin: no rashes, warm and dry no jaundice Neurologic: awake Has been communicating well Generally very weak and lethargy Psychiatric: Orientation: + not alert Results & Data Laboratory Results Short CBC 10/27/18 Range/Units 06:44 WBC 18.54 H (4.8-10.8) K/uL Hgb 10.5 L (12.0-16.0) g/dL Hct 31.4 L (37-47) % Plt Count 391 (130-400) K/uL BMP 10/27/18 06:44 Sodium 137 Potassium 3.9 D Chloride 107 Carbon Dioxide 22 BUN 10 Creatinine 0.42 L Glucose 129 H Calcium 8.6 Medications Administered Current Inpatient Medications Acetaminophen (Tylenol) 650 mg PO Q4H PRN PRN Reason: Pain or Fever Stop: 11/17/18 23:36 Aspirin (Ecotrin) 81 mg PO DAILY [facility] Stop: 11/18/18 08:59 Last Admin: 10/27/18 07:31 Dose: 81 mg Atorvastatin Calcium (Lipitor) 20 mg PO DAILY [facility] Stop: 11/18/18 08:59 Last Admin: 10/27/18 07:31 Dose: 20 mg Dextrose (Dextrose 50%) 25 - 50 ml IV UD PRN; Protocol PRN Reason: Hypoglycemia Protocol Stop: 11/24/18 22:34 Docusate Sodium (Colace) 100 mg PO BID [facility] Stop: 11/18/18 08:59 Last Admin: 10/27/18 07:32 Dose: Not Given Enteral Nutritional Formula (Fibersource Hn 1.2 Fadi Liquid) 1,000 ml NG UD [facility] ; Protocol Stop: 11/26/18 12:59 Last Admin: 10/27/18 13:42 Dose: 1,000 ml Ertapenem (Consult) 1 ea N/A DAILY PRN PRN Reason: Consult Stop: 11/24/18 08:59 Glucagon (Glucagen) 1 mg SQ UD PRN; Protocol PRN Reason: Hypoglycemia Protocol Stop: 11/24/18 22:34 Glucose (Glucose 40%) 15 - 30 gm PO UD PRN; Protocol PRN Reason: Hypoglycemia Protocol Stop: 11/24/18 22:34 Glucose (Dex4 Glucose) 4 - 8 tabs PO UD PRN; Protocol PRN Reason: Hypoglycemia Protocol Stop: 11/24/18 22:34 Ertapenem 1,000 mg/ Sodium (Chloride) 60 mls @ 100 mls/hr IV DAILY@0030 [facility] Stop: 11/01/18 00:29 Last Infusion: 10/27/18 02:15 Dose: Infused Enalaprilat 0.625 mg/ Syringe 10 mls @ 2 mls/min IV Q6H PRN PRN Reason: Hypertension Stop: 11/24/18 16:14 Potassium Chloride/Sodium Chloride (Normal Saline W/20 Meq Kcl) 20 meq in 1, 000 mls @ 80 mls/hr IV .[id number] [facility] Stop: 11/25/18 03:29 Last Admin: 10/27/18 12:40 Dose: 80 mls/hr Ipratropium [place] (Atrovent 0.02% 0.5mg/2.5ml) 0.5 mg INH Q4H PRN PRN Reason: Shortness Of Breath Or Wheezing Stop: 11/20/18 01:14 Last Admin: 10/25/18 00:14 Dose: 0.5 mg Ipratropium [place] (Atrovent 0.02% 0.5mg/2.5ml) 0.5 mg INH Q6R [facility] Stop: 11/24/18 22:44 Last Admin: 10/27/18 14:07 Dose: 0.5 mg Levalbuterol HCl (Xopenex 1.25mg/0.5ml Neb) 1.25 mg INH Q4H PRN PRN Reason: Shortness Of Breath Or Wheezing Stop: 11/20/18 01:14 Last Admin: 10/25/18 00:14 Dose: 1.25 mg Levalbuterol HCl (Xopenex 1.25mg/0.5ml Neb) 1.25 mg INH Q6R [facility] Stop: 11/24/18 22:44 Last Admin: 10/27/18 14:07 Dose: 1.25 mg Lisinopril (Zestril) 10 mg PO DAILY [facility] Stop: 11/24/18 06:44 Last Admin: 10/27/18 07:31 Dose: 10 mg Metoprolol Tartrate (Lopressor) 25 mg PO Q12 [facility] Stop: 11/24/18 01:59 Last Admin: 10/27/18 07:31 Dose: 25 mg Miscellaneous (Carbohydrates For Hypoglycemia) 15 - 30 gm PO UD PRN PRN Reason: Hypoglycemia Treatment Stop: 11/24/18 22:34 Multivitamins/Minerals (Multivitamin W/ Minerals) 1 tab PO DAILY [facility] Stop: 11/18/18 08:59 Last Admin: 10/27/18 07:32 Dose: 1 tab Nitroglycerin (Nitrostat) 0.4 mg SL UD PRN PRN Reason: Chest Pain Stop: 11/17/18 23:36 Ondansetron HCl (Zofran) 4 mg IV Q6H PRN PRN Reason: Nausea Stop: 11/17/18 23:36 Sennosides (Senokot) 8.6 mg PO DAILY [facility] Stop: 11/18/18 08:59 Last Admin: 10/27/18 07:32 Dose: Not Given Sodium Biphosphate/Sodium Phosphate (Fleet Enema) 118 ml [place] DAILY PRN PRN Reason: Constipation Stop: 11/17/18 23:36 Vitamin D (Vitamin D3) 2,000 units PO DAILY [facility] Stop: 11/18/18 08:59 Last Admin: 10/27/18 07:32 Dose: 2,000 units
--- NOTE | 2018-10-27 15:19 | Palliative Care Progress Note ---
Date of Service October 27, 2018 Assessment & Plan (1) Goals of care, counseling/discussion: -68 year old female with PMH CVA 2016 left with right hemiplegia, dysphagia, and aphasia, TBI with subdural hematoma 2017, breast cancer, leukemia , and ambulatory dysfunction, presented from [facility] with altered mental status and unresponsive episode. CT a/p showed "moderate pelvic infiltration adjacent to sigmoid colon and also some gas within the endometrial cavity and left adnexa but there are no signs of obvious abscess so question of infectious process could be gynecological or gastrointestinal in etiology." Neuro and design analyst consulted. Patient was started on IVF and abx. Abx were discontinued at recommendation of neuro due to possible side effects. CT head negative for any acute process but showed chronic microvascular change. Patient with recurrent episodes of aspiration-Did have a prior G-tube, per GI not a good candidate for a feeding tube- Daughter is not interested in pursuing this any further at this time -Spoke at length with patient's daughter, by phone-regarding goals of care, treatment options and CODE STATUS. Daughter would like to take 1 day at a time and see how her mother does NG feeds over the next several days regarding strength and coordination of her swallow. (2) Altered mental status: Waxes and wanes, at times she appears to comprehend the conversation, at other times her gaze is unfocused (3) Acute UTI: Resolved (4) History of CVA with residual deficit: Likely the cause of her recurrent aspiration (5) H/O traumatic brain injury: Subjective Patient is awake, more alert, able to nod yes or naila a few simple questions. Patient denies any discomfort. No family at bedside Was able to reach daughter and spoke with her at length regarding any decisions made regarding treatment options we had discussed before. Daughter stated she wishes the patient to be a FULL CODE for now, wants to take one day at a time and see how she does on NG feeds - ie: gets stronger and can take PO without kahlil aspiration. Physical Exam 2 Vital Signs (Past 24 Hours): Last Vital Signs Temp 36.5 C 10/27/18 07:40 Pulse 83 10/27/18 14:08 Resp 18 10/27/18 14:08 BP 150/96 H 10/27/18 07:40 Pulse Ox 95 10/27/18 14:08 Physical Exam: PE: Patient awake, alert, no acute distress HEENT: NG tube in place Respiratory: Decreased breath sounds bilateral bases right greater than left, few rhonchi right base CV: Regular rate Abdomen: Soft nontender Extremities: No edema Neuro: Alert, significant cognitive deficits-unable to make her own medical decisions Time Spent Attending Total time spent 35 minutes with greater than 50% of the time assessing patient as well as discussing plan of care with patient's daughter _ (1) Altered mental status Altered mental status type: unspecified Coma depth: Coma timing: Qualified Code(s): R41.82 - Altered mental status, unspecified
--- NOTE | 2018-10-27 17:56 | Pulmonology Progress Note ---
Date of Service October 27, 2018 Assessment & Plan (1) Acute respiratory failure with hypoxia: Impression: 1. Chronic aspiration, likely due to dysphagia and CVA. 2. Acute hypoxic respiratory failure secondary to above. 3. History of CVA with difficulty controlling her airways. 4. Encephalopathy. 5. History of mastectomy and reconstruction. Plan: 1. Agree with your current treatment. 2. CAT scan of the chest was reviewed personally which showed atelectasis of the left lower lobe. 3. Start the patient on vibrating vest and pulmonary toilet if possible. 4. Consider PEG tube placement. The patient has one done on her before but was discontinued. I do believe that the patient is aspirating to her lung. 5. Address CODE STATUS. 6. Continue bronchodilators. 7. If the patient continued to aspirate, a bronchoscopy would be helpful, but only a temporary measure. Long discussion took place with the patient and her daughter at the bedside, will continue with the current treatment until the patient improves or further discussion took place in regard of goals of care. 8. Nutrition will remain an issue without PEG tube. Thank you, will follow. Subjective The patient open her eyes follow commands, however she does not seem to protect her airways when she is talking, she does have a G-tube for feeding. She seems to be in good spirits. Denies any shortness of breath. She had poor cough reflex and unable to raise her sputum. Physical Exam 2 Vital Signs (Past 24 Hours): Last Vital Signs Temp 36.7 C 10/27/18 15:00 Pulse 93 H 10/27/18 15:00 Resp 23 10/27/18 15:00 BP 120/78 10/27/18 15:00 Pulse Ox 95 10/27/18 14:08 Physical Exam: Vital signs remained stable, S1-S2 regular rate and rhythm, O2 saturation 95% on nasal cannula and facemask with 2 L. Rhonchi bilaterally, abdomen is benign, no edema. Results & Data Laboratory Results Labs were reviewed which showed leukocytosis, BMP remains acceptable. Diagnostic Findings CAT scan of the chest showed atelectasis of the left lower lobe, multiple areas of subsegmental atelectasis as well, consistent with mucoid impaction.
[2018-10-28] MEDS: ERTAPENEM SODIUM 1,000 MG in SODIUM CHLORIDE 0.9% 50 ML IV SCH ×2 (00:46→23:28)
[2018-10-28] MEDS: NSS + 20MEQ KCL 20 MEQ/1,000 ML BAG IV SCH ×2 (01:40→14:12)
[2018-10-28] MEDS: IPRATROPIUM BROMIDE NEB SOLN 0.02% 2.5 ML VIAL INH SCH ×4 (01:57→19:52)
[2018-10-28] MEDS: LEVALBUTEROL 1.25MG/0.5ML NEB INH SCH ×4 (01:58→19:52)
[2018-10-28] MEDS: ASPIRIN 81 MG ECTAB PO SCH (07:58)
[2018-10-28] MEDS: CEROVITE ADV FORMULA TAB PO SCH (07:58)
[2018-10-28] MEDS: DOCUSATE SODIUM 100 MG CAP PO SCH ×2 (07:58→21:13)
[2018-10-28] MEDS: SENNA 8.6 MG TAB PO SCH (07:58)
[2018-10-28] MEDS: METOPROLOL TARTRATE 25 MG TAB PO SCH ×2 (07:58→21:12)
[2018-10-28] MEDS: ATORVASTATIN 20 MG TAB PO SCH (07:58)
[2018-10-28] MEDS: CHOLECALCIFEROL 1,000 UNITS TAB PO SCH (07:59)
[2018-10-28] MEDS: LISINOPRIL 5 MG TAB PO SCH (07:59)
--- NOTE | 2018-10-28 15:22 | Hospitalist Progress Note ---
Date of Service October 28, 2018 Assessment & Plan (1) Respiratory failure without hypercapnia: Admitted with the acute respiratory failure likely secondary to aspiration pneumonia Condition has been stable but critical Keeps on Aspirating While in the Hospital-has been started 1 nasogastric feeding Has been on intravenous ertapenem and Solu-Medrol Appreciate input from security expert and recommendation We will try respiratory therapy to see any change Question of bronchoscopy and subsequent probable complications were discussed with the daughter, the patient and the son-in-law Will ask for respiratory therapy for possible use of vibration vest to help expectoration White cell count was noted to be high today We will repeat tomorrow to see if any change Overall prognosis remains poor (2) History of CVA with residual deficit: History of CVA with dysphagia and dysphasia Has not been showing any improvement of her general condition History of PEG tube Appreciate GI input and recommendation-no PEG tube is recommended at this time Continue current PT and OT Palliative care consulted-appreciate input We will continue with the nasogastric feeding for the next 5-7 days If the condition deteriorates, likely to change to comfort care (3) Abnormal endometrial ultrasound: Evaluated by CLINICAL ANALYST Nothing acute going on at this time (4) H/O traumatic brain injury: With history of encephalopathy Clinically stable but critical (5) Acute metabolic encephalopathy: Admitted with acute metabolic encephalopathy likely secondary to infection Has been on intravenous ertapenem White count has been improving Overall prognosis is poor Has periodic incidence of acute delirium (6) Nutritional assessment: She cannot take anything orally due to ongoing aspiration Was seen by speech and recommended PEG tube placement Appreciate GI input-PEG tube is not an option at this time Will try nasogastric feeding for the timing GI bleed discussed with the daughter and updated her of this condition Overall prognosis remains poor Discussed in detail with the family members Subjective 68 years old female with significant past medical history including CVA with residual deficit and dysphagia and dysphasia was admitted with sepsis secondary to pneumonia likely aspiration. 10/26 Patient was seen and examined the medical floor She keeps on aspirating with any food given orally She remains stable but nonverbal She was evaluated by GI for possible PEG placement Palliative care is on board as well 10/27 Patient was seen and examined in presence of daughter and son-in-law She has been a lot better today and in fact communicating well She has been bedbound secondary to stroke and also subdural hematoma in the past She continues to aspirate when she tries to take anything orally Denies any acute symptoms today 10/28 Patient was seen and examined in the presence of daughter and the son-in-law Condition is worse today and not being communicating Discussed with the family members in detail and answered all of their questions Physical Exam 2 Vital Signs (Past 24 Hours): Last Vital Signs Temp 38.0 C H 10/28/18 07:35 Pulse 98 H 10/28/18 14:20 Resp 18 10/28/18 14:20 BP 130/91 10/28/18 07:35 Pulse Ox 94 10/28/18 14:20 Constitutional: WD/WN, vitals as above + ill appearing and + cachectic; no acute distress Eyes: PERRL, conjunctivae normal, anicteric sclerae ENMT: external ear and nose normal, oropharynx normal Ears: no hearing impairment Neck: normal visual inspection and trachea midline Respiratory: normal respiratory effort Auscultation: + diminished lung sounds (Bilaterally, more on the left side and lower part of the lung with collaterals) Cardiovascular: RRR, no murmur, no edema Gastrointestinal (Abdomen): Inspection/Auscultation: abdomen normal to inspection, normal bowel sounds and + hypoactive bowel sounds; abdomen not distended Percussion/Palpation: abdomen soft; abdomen nontender, no guarding and abdomen not rigid Skin: no rashes, warm and dry no jaundice Neurologic: + obtunded Not communicating today. Not been following any commands. Psychiatric: Orientation: + not alert
[2018-10-28] MEDS: FIBERSOURCE HN 1.2 CAL 1000 ML BAG NG SCH (16:44)
[2018-10-28] MEDS: ACETAMINOPHEN 325 MG TAB PO PRN (23:26)
[2018-10-29] MEDS: NSS + 20MEQ KCL 20 MEQ/1,000 ML BAG IV SCH ×2 (02:02→14:34)
[2018-10-29] MEDS: IPRATROPIUM BROMIDE NEB SOLN 0.02% 2.5 ML VIAL INH SCH ×4 (02:09→19:29)
[2018-10-29] MEDS: LEVALBUTEROL 1.25MG/0.5ML NEB INH SCH ×4 (02:09→19:29)
[2018-10-29 08:49] LABS: Basophils # (auto) 0.01 K/uL (0-0.2); Basophils % (auto) 0.1 %; Eosinophils % (auto) 0.9 %; Hematocrit (blood only) 32.6 % (37-47); Hemoglobin 10.7 g/dL (12.0-16.0); Immature Granulocytes # (auto) 0.09 K/uL (0.00-0.02); Immature Granulocytes % (auto) 0.8 %; Lymphocytes # (auto) 1.86 K/uL (1.2-3.4); Lymphocytes % (auto) 16.2 %; Mean Corpuscular Hgb Conc 32.8 g/dL (32-36); Mean Corpuscular Volume 90.8 fL (80-100); Mean Platelet Volume 9.7 fL (7.4-10.4); Monocytes # (auto) 0.83 K/uL (0.11-0.59); Monocytes % (auto) 7.2 %; Neutrophils # (auto) 8.59 K/uL (1.4-6.5); Neutrophils % (auto) 74.8 %; Platelet Count 391 K/uL (130-400); RDW Coefficient of Variation 13.5 % (11.5-14.5); RDW Standard Deviation 44.8 fL (36.4-46.3); Red Blood Count 3.59 M/uL (4.2-5.4); White Blood Count 11.48 K/uL (4.8-10.8)
[2018-10-29 09:29] LABS: Calcium 8.6 mg/dl (8.5-10.1); Creatinine Clr Calc Pharmacy 82.7 ml/min; Est GFR (Non-African American) 98.3; Magnesium 2.1 mg/dl (1.8-2.4); Potassium 3.6 mmol/L (3.5-5.1)
[2018-10-29 09:38] LABS: Phosphorus 3.1 mg/dl (2.5-4.9)
--- NOTE | 2018-10-29 10:30 | XRay Report ---
XR chest 1V portable CLINICAL HISTORY: Coresafe placement COMPARISON STUDY: 10/26/2018 FINDINGS: The cardiac and mediastinal contours remain stable. There are left lower lobe airspace opac ities consistent with a pneumonia. A feeding tube has been inserted. The tube extends into the right mainstem bronchus and terminates within the right lower lobe. The tube needs to be repositioned. This report will be called. IMPRESSION: 1. Malpositioned nasogastric tube which is located within the right lower lobe. This report will be c alled 2. Left lower lobe airspace opacities consistent with pneumonia Electronically signed by: Julien Conrad M.D. 10/29/2018 10:27 AM
[2018-10-29] MEDS: ASPIRIN 81 MG ECTAB PO SCH (10:55)
[2018-10-29] MEDS: SENNA 8.6 MG TAB PO SCH (10:55)
[2018-10-29] MEDS: CEROVITE ADV FORMULA TAB PO SCH (10:55)
[2018-10-29] MEDS: METOPROLOL TARTRATE 25 MG TAB PO SCH ×2 (10:55→20:58)
[2018-10-29] MEDS: ATORVASTATIN 20 MG TAB PO SCH (10:55)
[2018-10-29] MEDS: CHOLECALCIFEROL 1,000 UNITS TAB PO SCH (10:55)
[2018-10-29] MEDS: LISINOPRIL 5 MG TAB PO SCH (10:55)
[2018-10-29] MEDS: DOCUSATE SODIUM 100 MG CAP PO SCH ×2 (10:55→20:57)
--- NOTE | 2018-10-29 12:55 | Hospitalist Progress Note ---
Date of Service October 29, 2018 Assessment & Plan (1) Respiratory failure without hypercapnia: Admitted with the acute respiratory failure likely secondary to aspiration pneumonia Condition has been stable but critical Keeps on Aspirating While in the Hospital-has been started 1 nasogastric feeding Has been on intravenous ertapenem and Solu-Medrol Appreciate input from home maker and recommendation We will try respiratory therapy to see any change Question of bronchoscopy and subsequent probable complications were discussed with the daughter, the patient and the son-in-law Will ask for respiratory therapy for possible use of vibration vest to help expectoration Could not tolerate respiratory therapy and more likely just causing harm to the patient Therapy discontinued Remains a stable and the white count has been coming down (2) History of CVA with residual deficit: History of CVA with dysphagia and dysphasia Has not been showing any improvement of her general condition History of PEG tube Appreciate GI input and recommendation-no PEG tube is recommended at this time Continue current PT and OT Palliative care consulted-appreciate input We will continue with the nasogastric feeding for the next 5-7 days If the condition deteriorates, likely to change to comfort care Has had a long discussion with the daughter and son-in-law We will continue current management (3) Abnormal endometrial ultrasound: Evaluated by NEGATIVE CUTTER Nothing acute going on at this time (4) H/O traumatic brain injury: With history of encephalopathy Clinically stable but critical (5) Acute metabolic encephalopathy: Admitted with acute metabolic encephalopathy likely secondary to infection Has been on intravenous ertapenem White count has been improving Overall prognosis is poor Has periodic incidence of acute delirium (6) Nutritional assessment: She cannot take anything orally due to ongoing aspiration Was seen by speech and recommended PEG tube placement Appreciate GI input-PEG tube is not an option at this time Will try nasogastric feeding for the timing GI bleed discussed with the daughter and updated her of this condition Overall prognosis remains poor Discussed in detail with the family members The feeding tube of was taken out by patient The tube was reintroduced but unfortunately ended up in left lobe of the lung The tube was taken out immediately and will be reinserted after some time Patient remained asymptomatic throughout the procedure Subjective 68 years old female with significant past medical history including CVA with residual deficit and dysphagia and dysphasia was admitted with sepsis secondary to pneumonia likely aspiration. 10/26 Patient was seen and examined the medical floor She keeps on aspirating with any food given orally She remains stable but nonverbal She was evaluated by GI for possible PEG placement Palliative care is on board as well 10/27 Patient was seen and examined in presence of daughter and son-in-law She has been a lot better today and in fact communicating well She has been bedbound secondary to stroke and also subdural hematoma in the past She continues to aspirate when she tries to take anything orally Denies any acute symptoms today 10/28 Patient was seen and examined in the presence of daughter and the son-in-law Condition is worse today and not being communicating Discussed with the family members in detail and answered all of their questions 10/29 Patient was seen and examined the medical floor She has been talking today but remains extremely weak She denies any acute pain and/or shortness of breath Physical Exam 2 Vital Signs (Past 24 Hours): Last Vital Signs Temp 36.8 C 10/29/18 11:33 Pulse 85 10/29/18 11:50 Resp 16 10/29/18 11:33 BP 156/99 H 10/29/18 11:33 Pulse Ox 95 10/29/18 11:33 Constitutional: WD/WN, vitals as above + acute distress, + ill appearing, + cachectic, + altered mental status, + physical limitations (general deconditioning) and + language barrier Eyes: PERRL, conjunctivae normal, anicteric sclerae ENMT: external ear and nose normal, oropharynx normal Ears: no hearing impairment Neck: normal visual inspection and trachea midline Respiratory: normal respiratory effort Auscultation: + diminished lung sounds (Bilaterally, more on the left side and lower part of the lung with collaterals) and + crackles Cardiovascular: RRR, no murmur, no edema Gastrointestinal (Abdomen): Inspection/Auscultation: abdomen normal to inspection, normal bowel sounds and + hypoactive bowel sounds; abdomen not distended Percussion/Palpation: abdomen soft; abdomen nontender, no guarding and abdomen not rigid Skin: no rashes, warm and dry no jaundice Neurologic: awake and + obtunded Psychiatric: Orientation: + not alert Results & Data Laboratory Results Short CBC 10/29/18 Range/Units 08:05 WBC 11.48 H (4.8-10.8) K/uL Hgb 10.7 L (12.0-16.0) g/dL Hct 32.6 L (37-47) % Plt Count 391 (130-400) K/uL BMP 10/29/18 10/29/18 08:05 08:05 Sodium 140 Cancelled Potassium 3.6 Cancelled Chloride 107 Cancelled Carbon Dioxide 26 Cancelled BUN 10 Cancelled Creatinine 0.54 L Cancelled Glucose 108 H Cancelled Calcium 8.6 Cancelled Medications Administered Current Inpatient Medications Acetaminophen (Tylenol) 650 mg PO Q4H PRN PRN Reason: Pain or Fever Stop: 11/17/18 23:36 Last Admin: 10/28/18 23:26 Dose: 650 mg Aspirin (Ecotrin) 81 mg PO DAILY [facility] Stop: 11/18/18 08:59 Last Admin: 10/29/18 10:55 Dose: Not Given Atorvastatin Calcium (Lipitor) 20 mg PO DAILY [facility] Stop: 11/18/18 08:59 Last Admin: 10/29/18 10:55 Dose: Not Given Dextrose (Dextrose 50%) 25 - 50 ml IV UD PRN; Protocol PRN Reason: Hypoglycemia Protocol Stop: 11/24/18 22:34 Docusate Sodium (Colace) 100 mg PO BID [facility] Stop: 11/18/18 08:59 Last Admin: 10/29/18 10:55 Dose: Not Given Enteral Nutritional Formula (Fibersource Hn 1.2 Fadi Liquid) 1,000 ml NG UD [facility] ; Protocol Stop: 11/26/18 12:59 Last Admin: 10/28/18 16:44 Dose: 1,000 ml Ertapenem (Consult) 1 ea N/A DAILY PRN PRN Reason: Consult Stop: 11/24/18 08:59 Glucagon (Glucagen) 1 mg SQ UD PRN; Protocol PRN Reason: Hypoglycemia Protocol Stop: 11/24/18 22:34 Glucose (Glucose 40%) 15 - 30 gm PO UD PRN; Protocol PRN Reason: Hypoglycemia Protocol Stop: 11/24/18 22:34 Glucose (Dex4 Glucose) 4 - 8 tabs PO UD PRN; Protocol PRN Reason: Hypoglycemia Protocol Stop: 11/24/18 22:34 Ertapenem 1,000 mg/ Sodium (Chloride) 60 mls @ 100 mls/hr IV DAILY@0030 [facility] Stop: 11/01/18 00:29 Last Infusion: 10/29/18 00:16 Dose: Infused Enalaprilat 0.625 mg/ Syringe 10 mls @ 2 mls/min IV Q6H PRN PRN Reason: Hypertension Stop: 11/24/18 16:14 Potassium Chloride/Sodium Chloride (Normal Saline W/20 Meq Kcl) 20 meq in 1, 000 mls @ 80 mls/hr IV .[id number] [facility] Stop: 11/25/18 03:29 Last Admin: 10/29/18 02:02 Dose: 80 mls/hr Ipratropium [place] (Atrovent 0.02% 0.5mg/2.5ml) 0.5 mg INH Q4H PRN PRN Reason: Shortness Of Breath Or Wheezing Stop: 11/20/18 01:14 Last Admin: 10/25/18 00:14 Dose: 0.5 mg Ipratropium [place] (Atrovent 0.02% 0.5mg/2.5ml) 0.5 mg INH Q6R [facility] Stop: 11/24/18 22:44 Last Admin: 10/29/18 07:34 Dose: 0.5 mg Levalbuterol HCl (Xopenex 1.25mg/0.5ml Neb) 1.25 mg INH Q4H PRN PRN Reason: Shortness Of Breath Or Wheezing Stop: 11/20/18 01:14 Last Admin: 10/25/18 00:14 Dose: 1.25 mg Levalbuterol HCl (Xopenex 1.25mg/0.5ml Neb) 1.25 mg INH Q6R [facility] Stop: 11/24/18 22:44 Last Admin: 10/29/18 07:34 Dose: 1.25 mg Lisinopril (Zestril) 10 mg PO DAILY [facility] Stop: 11/24/18 06:44 Last Admin: 10/29/18 10:55 Dose: Not Given Metoprolol Tartrate (Lopressor) 25 mg PO Q12 [facility] Stop: 11/24/18 01:59 Last Admin: 10/29/18 10:55 Dose: Not Given Miscellaneous (Carbohydrates For Hypoglycemia) 15 - 30 gm PO UD PRN PRN Reason: Hypoglycemia Treatment Stop: 11/24/18 22:34 Multivitamins/Minerals (Multivitamin W/ Minerals) 1 tab PO DAILY [facility] Stop: 11/18/18 08:59 Last Admin: 10/29/18 10:55 Dose: Not Given Nitroglycerin (Nitrostat) 0.4 mg SL UD PRN PRN Reason: Chest Pain Stop: 11/17/18 23:36 Ondansetron HCl (Zofran) 4 mg IV Q6H PRN PRN Reason: Nausea Stop: 11/17/18 23:36 Sennosides (Senokot) 8.6 mg PO DAILY [facility] Stop: 11/18/18 08:59 Last Admin: 10/29/18 10:55 Dose: Not Given Sodium Biphosphate/Sodium Phosphate (Fleet Enema) 118 ml [place] DAILY PRN PRN Reason: Constipation Stop: 11/17/18 23:36 Vitamin D (Vitamin D3) 2,000 units PO DAILY [facility] Stop: 11/18/18 08:59 Last Admin: 10/29/18 10:55 Dose: Not Given
--- NOTE | 2018-10-29 13:17 | XRay Report ---
XR chest 1V portable CLINICAL HISTORY: coresafe placement COMPARISON STUDY: 10/29/2018 FINDINGS: The right-sided core safe catheter has been repositioned and is now positioned within the s tomach. The cardiac and mediastinal contours remain stable. There are persistent left lower lobe airs pace opacities consistent with a pneumonia.[ IMPRESSION: 1. Left lower lobe airspace opacities consistent with pneumonia 2. Interval repositioning of the core safe catheter which is now positioned with the stomach Electronically signed by: Julien Conrad M.D. 10/29/2018 1:16 PM
[2018-10-29] MEDS: FIBERSOURCE HN 1.2 CAL 1000 ML BAG NG SCH (17:20)
[2018-10-30] MEDS: NSS + 20MEQ KCL 20 MEQ/1,000 ML BAG IV SCH ×2 (01:27→13:58)
[2018-10-30] MEDS: ERTAPENEM SODIUM 1,000 MG in SODIUM CHLORIDE 0.9% 50 ML IV SCH (01:30)
[2018-10-30] MEDS: LEVALBUTEROL 1.25MG/0.5ML NEB INH SCH ×4 (01:53→19:24)
[2018-10-30] MEDS: IPRATROPIUM BROMIDE NEB SOLN 0.02% 2.5 ML VIAL INH SCH ×4 (01:54→19:24)
[2018-10-30] MEDS: DOCUSATE SODIUM 100 MG CAP PO SCH ×2 (08:31→20:06)
[2018-10-30] MEDS: CHOLECALCIFEROL 1,000 UNITS TAB PO SCH (08:31)
[2018-10-30] MEDS: ASPIRIN 81 MG ECTAB PO SCH (08:32)
[2018-10-30] MEDS: CEROVITE ADV FORMULA TAB PO SCH (08:32)
[2018-10-30] MEDS: METOPROLOL TARTRATE 25 MG TAB PO SCH ×2 (08:32→20:27)
[2018-10-30] MEDS: ATORVASTATIN 20 MG TAB PO SCH (08:32)
[2018-10-30] MEDS: LISINOPRIL 5 MG TAB PO SCH (08:32)
[2018-10-30] MEDS: SENNA 8.6 MG TAB PO SCH (08:32)
--- NOTE | 2018-10-30 14:43 | Hospitalist Progress Note ---
Date of Service October 30, 2018 Assessment & Plan (1) Respiratory failure without hypercapnia: Admitted with the acute respiratory failure likely secondary to aspiration pneumonia Condition has been stable but critical Keeps on Aspirating While in the Hospital-has been started 1 nasogastric feeding Has been on intravenous ertapenem and Solu-Medrol Appreciate input from brim greaser operator and recommendation We will try respiratory therapy to see any change Question of bronchoscopy and subsequent probable complications were discussed with the daughter, the patient and the son-in-law Will ask for respiratory therapy for possible use of vibration vest to help expectoration Could not tolerate respiratory therapy and more likely just causing harm to the patient Therapy discontinued Remains a stable and the white count has been coming down Did not have any significant coughing or reflux symptoms when the NG tube was in left main bronchus and left lower lobe Discussed with the daughter and the son Bronchial suction is not going to be helpful at this time Otherwise condition remains stable (2) History of CVA with residual deficit: History of CVA with dysphagia and dysphasia Has not been showing any improvement of her general condition History of PEG tube Appreciate GI input and recommendation-no PEG tube is recommended at this time Continue current PT and OT Palliative care consulted-appreciate input We will continue with the nasogastric feeding for the next 5-7 days If the condition deteriorates, likely to change to comfort care Has had a long discussion with the daughter and son-in-law We will continue current management Overall condition has been deteriorating Prognosis remains poor (3) Abnormal endometrial ultrasound: Evaluated by PHYSICIAN PRACTICE CONSULTANT Nothing acute going on at this time (4) H/O traumatic brain injury: With history of encephalopathy Clinically stable but critical (5) Acute metabolic encephalopathy: Admitted with acute metabolic encephalopathy likely secondary to infection Has been on intravenous ertapenem White count has been improving Overall prognosis is poor Has periodic incidence of acute delirium (6) Nutritional assessment: She cannot take anything orally due to ongoing aspiration Was seen by speech and recommended PEG tube placement Appreciate GI input-PEG tube is not an option at this time Will try nasogastric feeding for the timing GI bleed discussed with the daughter and updated her of this condition Overall prognosis remains poor Discussed in detail with the family members The feeding tube of was taken out by patient The tube was reintroduced but unfortunately ended up in left lobe of the lung The tube was taken out immediately and will be reinserted after some time Patient remained asymptomatic throughout the procedure Discussed with the family members again today They are going to talk to other family members for guidance of treatment from this point Subjective 68 years old female with significant past medical history including CVA with residual deficit and dysphagia and dysphasia was admitted with sepsis secondary to pneumonia likely aspiration. 10/26 Patient was seen and examined the medical floor She keeps on aspirating with any food given orally She remains stable but nonverbal She was evaluated by GI for possible PEG placement Palliative care is on board as well 10/27 Patient was seen and examined in presence of daughter and son-in-law She has been a lot better today and in fact communicating well She has been bedbound secondary to stroke and also subdural hematoma in the past She continues to aspirate when she tries to take anything orally Denies any acute symptoms today 10/28 Patient was seen and examined in the presence of daughter and the son-in-law Condition is worse today and not being communicating Discussed with the family members in detail and answered all of their questions 10/29 Patient was seen and examined the medical floor She has been talking today but remains extremely weak She denies any acute pain and/or shortness of breath 10/30 Patient was seen and examined in medical floor She took off her NG feeding tube yesterday and that was reinserted Initially the feeding tube went into the left lower lobe of the lung which was taken out immediately With the second attempt the tube was in the stomach and the feeding was started Surprisingly the patient did not have any cough or reflux symptoms from the feeding tube being in bronchus Physical Exam 2 Vital Signs (Past 24 Hours): Last Vital Signs Temp 36.5 C 10/30/18 12:03 Pulse 92 H 10/30/18 14:07 Resp 18 10/30/18 14:07 BP 122/90 10/30/18 12:03 Pulse Ox 92 10/30/18 14:07 Physical Exam: Lying in bed without any acute distress Constitutional: + ill appearing, + cachectic, + physical limitations (general deconditioning) and + language barrier; no acute distress Not been communicating today Eyes: PERRL, conjunctivae normal, anicteric sclerae ENMT: external ear and nose normal, oropharynx normal Ears: no hearing impairment Neck: normal visual inspection and trachea midline Respiratory: normal respiratory effort Auscultation: + diminished lung sounds (Bilaterally, more on the left side and lower part of the lung with collaterals) and + crackles Cardiovascular: RRR, no murmur, no edema Gastrointestinal (Abdomen): Inspection/Auscultation: abdomen normal to inspection, normal bowel sounds and + hypoactive bowel sounds; abdomen not distended Percussion/Palpation: abdomen soft; abdomen nontender, no guarding and abdomen not rigid Skin: no rashes, warm and dry no jaundice Neurologic: awake and + obtunded Psychiatric: Orientation: + not alert Results & Data Medications Administered Current Inpatient Medications Acetaminophen (Tylenol) 650 mg PO Q4H PRN PRN Reason: Pain or Fever Stop: 11/17/18 23:36 Last Admin: 10/28/18 23:26 Dose: 650 mg Aspirin (Ecotrin) 81 mg PO DAILY [facility] Stop: 11/18/18 08:59 Last Admin: 10/30/18 08:32 Dose: 81 mg Atorvastatin Calcium (Lipitor) 20 mg PO DAILY [facility] Stop: 11/18/18 08:59 Last Admin: 10/30/18 08:32 Dose: 20 mg Dextrose (Dextrose 50%) 25 - 50 ml IV UD PRN; Protocol PRN Reason: Hypoglycemia Protocol Stop: 11/24/18 22:34 Docusate Sodium (Colace) 100 mg PO BID [facility] Stop: 11/18/18 08:59 Last Admin: 10/30/18 08:31 Dose: Not Given Enteral Nutritional Formula (Fibersource Hn 1.2 Fadi Liquid) 1,000 ml NG UD [facility] ; Protocol Stop: 11/26/18 12:59 Last Admin: 10/29/18 17:20 Dose: 1,000 ml Ertapenem (Consult) 1 ea N/A DAILY PRN PRN Reason: Consult Stop: 11/24/18 08:59 Glucagon (Glucagen) 1 mg SQ UD PRN; Protocol PRN Reason: Hypoglycemia Protocol Stop: 11/24/18 22:34 Glucose (Glucose 40%) 15 - 30 gm PO UD PRN; Protocol PRN Reason: Hypoglycemia Protocol Stop: 11/24/18 22:34 Glucose (Dex4 Glucose) 4 - 8 tabs PO UD PRN; Protocol PRN Reason: Hypoglycemia Protocol Stop: 11/24/18 22:34 Ertapenem 1,000 mg/ Sodium (Chloride) 60 mls @ 100 mls/hr IV DAILY@0030 [facility] Stop: 11/01/18 00:29 Last Infusion: 10/30/18 02:07 Dose: Infused Enalaprilat 0.625 mg/ Syringe 10 mls @ 2 mls/min IV Q6H PRN PRN Reason: Hypertension Stop: 11/24/18 16:14 Potassium Chloride/Sodium Chloride (Normal Saline W/20 Meq Kcl) 20 meq in 1, 000 mls @ 80 mls/hr IV .[id number] [facility] Stop: 11/25/18 03:29 Last Admin: 10/30/18 13:58 Dose: 80 mls/hr Ipratropium [place] (Atrovent 0.02% 0.5mg/2.5ml) 0.5 mg INH Q4H PRN PRN Reason: Shortness Of Breath Or Wheezing Stop: 11/20/18 01:14 Last Admin: 10/25/18 00:14 Dose: 0.5 mg Ipratropium [place] (Atrovent 0.02% 0.5mg/2.5ml) 0.5 mg INH Q6R [facility] Stop: 11/24/18 22:44 Last Admin: 10/30/18 14:04 Dose: 0.5 mg Levalbuterol HCl (Xopenex 1.25mg/0.5ml Neb) 1.25 mg INH Q4H PRN PRN Reason: Shortness Of Breath Or Wheezing Stop: 11/20/18 01:14 Last Admin: 10/25/18 00:14 Dose: 1.25 mg Levalbuterol HCl (Xopenex 1.25mg/0.5ml Neb) 1.25 mg INH Q6R [facility] Stop: 11/24/18 22:44 Last Admin: 10/30/18 14:04 Dose: 1.25 mg Lisinopril (Zestril) 10 mg PO DAILY [facility] Stop: 11/24/18 06:44 Last Admin: 10/30/18 08:32 Dose: 10 mg Metoprolol Tartrate (Lopressor) 25 mg PO Q12 [facility] Stop: 11/24/18 01:59 Last Admin: 10/30/18 08:32 Dose: 25 mg Miscellaneous (Carbohydrates For Hypoglycemia) 15 - 30 gm PO UD PRN PRN Reason: Hypoglycemia Treatment Stop: 11/24/18 22:34 Multivitamins/Minerals (Multivitamin W/ Minerals) 1 tab PO DAILY [facility] Stop: 11/18/18 08:59 Last Admin: 10/30/18 08:32 Dose: 1 tab Nitroglycerin (Nitrostat) 0.4 mg SL UD PRN PRN Reason: Chest Pain Stop: 11/17/18 23:36 Ondansetron HCl (Zofran) 4 mg IV Q6H PRN PRN Reason: Nausea Stop: 11/17/18 23:36 Sennosides (Senokot) 8.6 mg PO DAILY [facility] Stop: 11/18/18 08:59 Last Admin: 10/30/18 08:32 Dose: 8.6 mg Sodium Biphosphate/Sodium Phosphate (Fleet Enema) 118 ml [place] DAILY PRN PRN Reason: Constipation Stop: 11/17/18 23:36 Vitamin D (Vitamin D3) 2,000 units PO DAILY [facility] Stop: 11/18/18 08:59 Last Admin: 10/30/18 08:31 Dose: 2,000 units
[2018-10-30] MEDS: FIBERSOURCE HN 1.2 CAL 1000 ML BAG NG SCH (15:39)
[2018-10-31] MEDS: IPRATROPIUM BROMIDE NEB SOLN 0.02% 2.5 ML VIAL INH SCH ×4 (01:36→19:03)
[2018-10-31] MEDS: LEVALBUTEROL 1.25MG/0.5ML NEB INH SCH ×4 (01:36→19:07)
[2018-10-31] MEDS: ERTAPENEM SODIUM 1,000 MG in SODIUM CHLORIDE 0.9% 50 ML IV SCH (01:45)
[2018-10-31] MEDS: NSS + 20MEQ KCL 20 MEQ/1,000 ML BAG IV SCH ×2 (01:45→15:44)
[2018-10-31 08:54] LABS: Basophils # (auto) 0.03 K/uL (0-0.2); Basophils % (auto) 0.2 %; Eosinophils # (auto) 0.45 K/uL (0-0.5); Eosinophils % (auto) 3.3 %; Hematocrit (blood only) 33.3 % (37-47); Hemoglobin 10.9 g/dL (12.0-16.0); Immature Granulocytes # (auto) 0.08 K/uL (0.00-0.02); Immature Granulocytes % (auto) 0.6 %; Lymphocytes # (auto) 1.82 K/uL (1.2-3.4); Lymphocytes % (auto) 13.5 %; Mean Corpuscular Hgb Conc 32.7 g/dL (32-36); Mean Corpuscular Volume 90.7 fL (80-100); Mean Platelet Volume 9.7 fL (7.4-10.4); Monocytes # (auto) 0.63 K/uL (0.11-0.59); Monocytes % (auto) 4.7 %; Neutrophils # (auto) 10.47 K/uL (1.4-6.5); Neutrophils % (auto) 77.7 %; Platelet Count 387 K/uL (130-400); RDW Coefficient of Variation 13.3 % (11.5-14.5); RDW Standard Deviation 44.3 fL (36.4-46.3); Red Blood Count 3.67 M/uL (4.2-5.4); White Blood Count 13.48 K/uL (4.8-10.8)
[2018-10-31] MEDS: LISINOPRIL 5 MG TAB PO SCH (09:05)
[2018-10-31] MEDS: DOCUSATE SODIUM 100 MG CAP PO SCH ×2 (09:05→20:13)
[2018-10-31] MEDS: CEROVITE ADV FORMULA TAB PO SCH (09:05)
[2018-10-31] MEDS: CHOLECALCIFEROL 1,000 UNITS TAB PO SCH (09:05)
[2018-10-31] MEDS: SENNA 8.6 MG TAB PO SCH (09:05)
[2018-10-31] MEDS: ATORVASTATIN 20 MG TAB PO SCH (09:05)
[2018-10-31] MEDS: ASPIRIN 81 MG ECTAB PO SCH (09:05)
[2018-10-31] MEDS: METOPROLOL TARTRATE 25 MG TAB PO SCH ×2 (09:05→20:12)
[2018-10-31 09:23] LABS: BUN Creatinine Ratio 17.4 (10-20); Calcium 8.9 mg/dl (8.5-10.1); Creatinine Clr Calc Pharmacy 91.5 ml/min; Est GFR (African American) 117.7; Est GFR (Non-African American) 101.5; Potassium 4.1 mmol/L (3.5-5.1)
[2018-10-31 09:25] LABS: Phosphorus 4.2 mg/dl (2.5-4.9)
[2018-10-31] MEDS: FIBERSOURCE HN 1.2 CAL 1000 ML BAG NG SCH (12:28)
--- NOTE | 2018-10-31 15:21 | Palliative Care Progress Note ---
Date of Service October 31, 2018 Assessment & Plan (1) Goals of care, counseling/discussion: -68 year old female with PMH CVA 2016 left with right hemiplegia, dysphagia, and aphasia, TBI with subdural hematoma 2017, breast cancer, leukemia , and ambulatory dysfunction, presented from [facility] with altered mental status and unresponsive episode. CT a/p showed "moderate pelvic infiltration adjacent to sigmoid colon and also some gas within the endometrial cavity and left adnexa but there are no signs of obvious abscess so question of infectious process could be gynecological or gastrointestinal in etiology." Neuro and financial legal assistant consulted. Patient was started on IVF and abx. Abx were discontinued at recommendation of neuro due to possible side effects. CT head negative for any acute process but showed chronic microvascular change. Patient with recurrent episodes of aspiration-Did have a prior G-tube, per GI not a good candidate for a feeding tube -patient currently on a trial of NG tube feeds-no significant improvement in her current condition -Spoke at length with patient's daughter, by phone-regarding goals of care, daughter or excepting of patient's inability to handle her secretions given no response when NG tube was inserted into the left lower lobe, daughter plans to speak with [facility] regarding the ability of her to return there, considering hospice care (2) Altered mental status: Waxes and wanes, at times she appears to comprehend the conversation, at other times her gaze is unfocused (3) Acute UTI: Resolved (4) History of CVA with residual deficit: Likely the cause of her recurrent aspiration (5) H/O traumatic brain injury: Subjective Patient awake, gaze is unfocused, minimal response to simple questions No family at bedside, spoke with daughter by phone. Events over the past few days noted-patient now has NG tube in correct position- appears to be tolerating feeds. Spoke with daughter regarding goals of care-daughter is going to speak with [facility] to see if she can return there if she is under hospice care. Unable to perform ROS - patient minimally responsive Physical Exam 2 Vital Signs (Past 24 Hours): Last Vital Signs Temp 36.5 C 10/31/18 14:47 Pulse 84 10/31/18 14:47 Resp 16 10/31/18 14:47 BP 102/68 10/31/18 14:47 Pulse Ox 97 01/14/19 14:47 Physical Exam: PE: No acute distress, appears comfortable Neck: Hyperextended, left gaze preference Respirations: Unlabored, no rhonchi on exam CV: Regular rate Abdomen: Soft, nontender, not distended Extremities: No edema Skin: Extremities warm Neuro: Patient awake, gaze is unfocused Time Spent Attending Total time spent 35 minutes with greater than 50% of the time spent at bedside assessing patient's current status and tolerance of NG tube feeds. We will continue to support daughter with medical decision making. _ (1) Altered mental status Altered mental status type: unspecified Coma depth: Coma timing: Qualified Code(s): R41.82 - Altered mental status, unspecified
--- NOTE | 2018-10-31 16:15 | Hospitalist Progress Note ---
Date of Service October 31, 2018 Assessment & Plan (1) Respiratory failure without hypercapnia: Admitted with the acute respiratory failure likely secondary to aspiration pneumonia Condition has been stable but critical Keeps on Aspirating While in the Hospital-has been started 1 nasogastric feeding Has been on intravenous ertapenem and Solu-Medrol Appreciate input from fur operator and recommendation We will try respiratory therapy to see any change Question of bronchoscopy and subsequent probable complications were discussed with the daughter, the patient and the son-in-law Will ask for respiratory therapy for possible use of vibration vest to help expectoration Could not tolerate respiratory therapy and more likely just causing harm to the patient Therapy discontinued Remains a stable and the white count has been coming down Did not have any significant coughing or reflux symptoms when the NG tube was in left main bronchus and left lower lobe Discussed with the daughter and the son Bronchial suction is not going to be helpful at this time Otherwise condition remains stable Appreciate palliative care input again Likely to go to [facility] with hospice care (2) History of CVA with residual deficit: History of CVA with dysphagia and dysphasia Has not been showing any improvement of her general condition History of PEG tube Appreciate GI input and recommendation-no PEG tube is recommended at this time Continue current PT and OT Palliative care consulted-appreciate input We will continue with the nasogastric feeding for the next 5-7 days If the condition deteriorates, likely to change to comfort care Has had a long discussion with the daughter and son-in-law We will continue current management Overall condition has been deteriorating Prognosis remains poor (3) Abnormal endometrial ultrasound: Evaluated by AIRCRAFT ENGINEER Nothing acute going on at this time (4) H/O traumatic brain injury: With history of encephalopathy Clinically stable but critical (5) Acute metabolic encephalopathy: Admitted with acute metabolic encephalopathy likely secondary to infection Has been on intravenous ertapenem White count has been improving Overall prognosis is poor Has periodic incidence of acute delirium (6) Nutritional assessment: She cannot take anything orally due to ongoing aspiration Was seen by speech and recommended PEG tube placement Appreciate GI input-PEG tube is not an option at this time Will try nasogastric feeding for the timing GI bleed discussed with the daughter and updated her of this condition Overall prognosis remains poor Discussed in detail with the family members The feeding tube of was taken out by patient The tube was reintroduced but unfortunately ended up in left lobe of the lung The tube was taken out immediately and will be reinserted after some time Patient remained asymptomatic throughout the procedure Discussed with the family members again today They are going to talk to other family members for guidance of treatment from this point Will DC the NG tube feeding tomorrow Possible transfer to [facility] with hospice care thereafter Subjective 68 years old female with significant past medical history including CVA with residual deficit and dysphagia and dysphasia was admitted with sepsis secondary to pneumonia likely aspiration. 10/26 Patient was seen and examined the medical floor She keeps on aspirating with any food given orally She remains stable but nonverbal She was evaluated by GI for possible PEG placement Palliative care is on board as well 10/27 Patient was seen and examined in presence of daughter and son-in-law She has been a lot better today and in fact communicating well She has been bedbound secondary to stroke and also subdural hematoma in the past She continues to aspirate when she tries to take anything orally Denies any acute symptoms today 10/28 Patient was seen and examined in the presence of daughter and the son-in-law Condition is worse today and not being communicating Discussed with the family members in detail and answered all of their questions 10/29 Patient was seen and examined the medical floor She has been talking today but remains extremely weak She denies any acute pain and/or shortness of breath 10/30 Patient was seen and examined in medical floor She took off her NG feeding tube yesterday and that was reinserted Initially the feeding tube went into the left lower lobe of the lung which was taken out immediately With the second attempt the tube was in the stomach and the feeding was started Surprisingly the patient did not have any cough or reflux symptoms from the feeding tube being in bronchus 10/31 Patient was seen and examined in medical floor Her condition has been ambulating Not been communicating today Not even responding to vocal comments and/or pain Physical Exam 2 Vital Signs (Past 24 Hours): Last Vital Signs Temp 36.5 C 10/31/18 14:47 Pulse 84 10/31/18 14:47 Resp 16 10/31/18 14:47 BP 102/68 10/31/18 14:47 Pulse Ox 97 10/31/18 14:47 Physical Exam: Lying in bed comfortably Constitutional: WD/WN, vitals as above + ill appearing, + cachectic, + altered mental status, + physical limitations (general deconditioning) and + language barrier; no acute distress Eyes: PERRL, conjunctivae normal, anicteric sclerae ENMT: external ear and nose normal, oropharynx normal Ears: no hearing impairment Neck: normal visual inspection and trachea midline Respiratory: normal respiratory effort Auscultation: + diminished lung sounds (Bilaterally, more on the left side and lower part of the lung with collaterals) and + crackles Cardiovascular: RRR, no murmur, no edema Gastrointestinal (Abdomen): Inspection/Auscultation: abdomen normal to inspection, normal bowel sounds and + hypoactive bowel sounds; abdomen not distended Percussion/Palpation: abdomen soft; abdomen nontender, no guarding and abdomen not rigid Skin: no rashes, warm and dry no jaundice Neurologic: awake and + obtunded Psychiatric: Orientation: + not alert Results & Data Laboratory Results Short CBC 10/31/18 Range/Units 08:36 WBC 13.48 H (4.8-10.8) K/uL Hgb 10.9 L (12.0-16.0) g/dL Hct 33.3 L (37-47) % Plt Count 387 (130-400) K/uL BMP 10/31/18 08:36 Sodium 137 Potassium 4.1 Chloride 103 Carbon Dioxide 25 BUN 9 Creatinine 0.49 L Glucose 115 H Calcium 8.9 Medications Administered Current Inpatient Medications Acetaminophen (Tylenol) 650 mg PO Q4H PRN PRN Reason: Pain or Fever Stop: 11/17/18 23:36 Last Admin: 10/28/18 23:26 Dose: 650 mg Aspirin (Ecotrin) 81 mg PO DAILY [facility] Stop: 11/18/18 08:59 Last Admin: 10/31/18 09:05 Dose: 81 mg Atorvastatin Calcium (Lipitor) 20 mg PO DAILY [facility] Stop: 11/18/18 08:59 Last Admin: 10/31/18 09:05 Dose: 20 mg Dextrose (Dextrose 50%) 25 - 50 ml IV UD PRN; Protocol PRN Reason: Hypoglycemia Protocol Stop: 11/24/18 22:34 Docusate Sodium (Colace) 100 mg PO BID [facility] Stop: 11/18/18 08:59 Last Admin: 10/31/18 09:05 Dose: Not Given Enteral Nutritional Formula (Fibersource Hn 1.2 Fadi Liquid) 1,000 ml NG UD [facility] ; Protocol Stop: 11/26/18 12:59 Last Admin: 10/31/18 12:28 Dose: 1,000 ml Ertapenem (Consult) 1 ea N/A DAILY PRN PRN Reason: Consult Stop: 11/24/18 08:59 Glucagon (Glucagen) 1 mg SQ UD PRN; Protocol PRN Reason: Hypoglycemia Protocol Stop: 11/24/18 22:34 Glucose (Glucose 40%) 15 - 30 gm PO UD PRN; Protocol PRN Reason: Hypoglycemia Protocol Stop: 11/24/18 22:34 Glucose (Dex4 Glucose) 4 - 8 tabs PO UD PRN; Protocol PRN Reason: Hypoglycemia Protocol Stop: 11/24/18 22:34 Ertapenem 1,000 mg/ Sodium (Chloride) 60 mls @ 100 mls/hr IV DAILY@0030 [facility] Stop: 11/01/18 00:29 Last Infusion: 10/31/18 02:16 Dose: Infused Enalaprilat 0.625 mg/ Syringe 10 mls @ 2 mls/min IV Q6H PRN PRN Reason: Hypertension Stop: 11/24/18 16:14 Potassium Chloride/Sodium Chloride (Normal Saline W/20 Meq Kcl) 20 meq in 1, 000 mls @ 80 mls/hr IV .[id number] [facility] Stop: 11/25/18 03:29 Last Admin: 10/31/18 15:44 Dose: 80 mls/hr Ipratropium [place] (Atrovent 0.02% 0.5mg/2.5ml) 0.5 mg INH Q4H PRN PRN Reason: Shortness Of Breath Or Wheezing Stop: 11/20/18 01:14 Last Admin: 10/25/18 00:14 Dose: 0.5 mg Ipratropium [place] (Atrovent 0.02% 0.5mg/2.5ml) 0.5 mg INH Q6R [facility] Stop: 11/24/18 22:44 Last Admin: 10/31/18 13:47 Dose: 0.5 mg Levalbuterol HCl (Xopenex 1.25mg/0.5ml Neb) 1.25 mg INH Q4H PRN PRN Reason: Shortness Of Breath Or Wheezing Stop: 11/20/18 01:14 Last Admin: 10/25/18 00:14 Dose: 1.25 mg Levalbuterol HCl (Xopenex 1.25mg/0.5ml Neb) 1.25 mg INH Q6R [facility] Stop: 11/24/18 22:44 Last Admin: 10/31/18 13:47 Dose: 1.25 mg Lisinopril (Zestril) 10 mg PO DAILY [facility] Stop: 11/24/18 06:44 Last Admin: 10/31/18 09:05 Dose: 10 mg Metoprolol Tartrate (Lopressor) 25 mg PO Q12 [facility] Stop: 11/24/18 01:59 Last Admin: 10/31/18 09:05 Dose: 25 mg Miscellaneous (Carbohydrates For Hypoglycemia) 15 - 30 gm PO UD PRN PRN Reason: Hypoglycemia Treatment Stop: 11/24/18 22:34 Multivitamins/Minerals (Multivitamin W/ Minerals) 1 tab PO DAILY [facility] Stop: 11/18/18 08:59 Last Admin: 10/31/18 09:05 Dose: 1 tab Nitroglycerin (Nitrostat) 0.4 mg SL UD PRN PRN Reason: Chest Pain Stop: 11/17/18 23:36 Ondansetron HCl (Zofran) 4 mg IV Q6H PRN PRN Reason: Nausea Stop: 11/17/18 23:36 Sennosides (Senokot) 8.6 mg PO DAILY [facility] Stop: 11/18/18 08:59 Last Admin: 10/31/18 09:05 Dose: 8.6 mg Sodium Biphosphate/Sodium Phosphate (Fleet Enema) 118 ml [place] DAILY PRN PRN Reason: Constipation Stop: 11/17/18 23:36 Vitamin D (Vitamin D3) 2,000 units PO DAILY [facility] Stop: 11/18/18 08:59 Last Admin: 10/31/18 09:05 Dose: 2,000 units
[2018-11-01] MEDS: IPRATROPIUM BROMIDE NEB SOLN 0.02% 2.5 ML VIAL INH SCH ×4 (01:38→19:50)
[2018-11-01] MEDS: LEVALBUTEROL 1.25MG/0.5ML NEB INH SCH ×4 (01:38→19:51)
[2018-11-01] MEDS: NSS + 20MEQ KCL 20 MEQ/1,000 ML BAG IV SCH ×2 (04:20→16:39)
[2018-11-01] MEDS: CHOLECALCIFEROL 1,000 UNITS TAB PO SCH (09:08)
[2018-11-01] MEDS: ATORVASTATIN 20 MG TAB PO SCH (09:08)
[2018-11-01] MEDS: ASPIRIN 81 MG ECTAB PO SCH (09:08)
[2018-11-01] MEDS: LISINOPRIL 5 MG TAB PO SCH (09:08)
[2018-11-01] MEDS: CEROVITE ADV FORMULA TAB PO SCH (09:08)
[2018-11-01] MEDS: METOPROLOL TARTRATE 25 MG TAB PO SCH ×2 (09:08→20:26)
[2018-11-01] MEDS: SENNA 8.6 MG TAB PO SCH (09:09)
[2018-11-01] MEDS: DOCUSATE SODIUM 100 MG CAP PO SCH ×2 (10:14→20:25)
[2018-11-01] MEDS: SCOPOLAMINE 1.5 MG TDSY TD SCH (14:19)
--- NOTE | 2018-11-01 15:13 | Hospitalist Progress Note ---
Date of Service November 01, 2018 Assessment & Plan (1) Respiratory failure without hypercapnia: Admitted with the acute respiratory failure likely secondary to aspiration pneumonia Condition has been stable but critical Keeps on Aspirating While in the Hospital-has been started 1 nasogastric feeding Has been on intravenous ertapenem and Solu-Medrol Appreciate input from biofuels production manager and recommendation We will try respiratory therapy to see any change Question of bronchoscopy and subsequent probable complications were discussed with the daughter, the patient and the son-in-law Will ask for respiratory therapy for possible use of vibration vest to help expectoration Could not tolerate respiratory therapy and more likely just causing harm to the patient Therapy discontinued Remains a stable and the white count has been coming down Did not have any significant coughing or reflux symptoms when the NG tube was in left main bronchus and left lower lobe Her condition remains stable but critical Discussed with the daughter continuously for the last few days about further management option Appreciate input from palliative care Likely to continue NG feeding for the next 2 days and discontinue after that Likely to be transferred to [facility] with hospice care on or Wednesday Social service has been working on the (2) History of CVA with residual deficit: History of CVA with dysphagia and dysphasia Has not been showing any improvement of her general condition History of PEG tube Appreciate GI input and recommendation-no PEG tube is recommended at this time Continue current PT and OT Palliative care consulted-appreciate input We will continue with the nasogastric feeding for the next 5-7 days If the condition deteriorates, likely to change to comfort care Has had a long discussion with the daughter and son-in-law We will continue current management Overall condition has been deteriorating Prognosis remains poor (3) Abnormal endometrial ultrasound: Evaluated by PRODUCT INSPECTION SUPERVISOR Nothing acute going on at this time (4) H/O traumatic brain injury: With history of encephalopathy Clinically stable but critical (5) Acute metabolic encephalopathy: Admitted with acute metabolic encephalopathy likely secondary to infection Has been on intravenous ertapenem White count has been improving Overall prognosis is poor Has periodic incidence of acute delirium (6) Nutritional assessment: She cannot take anything orally due to ongoing aspiration Was seen by speech and recommended PEG tube placement Appreciate GI input-PEG tube is not an option at this time Will try nasogastric feeding for the timing GI bleed discussed with the daughter and updated her of this condition Overall prognosis remains poor Discussed in detail with the family members The feeding tube of was taken out by patient The tube was reintroduced but unfortunately ended up in left lobe of the lung The tube was taken out immediately and will be reinserted after some time Patient remained asymptomatic throughout the procedure Discussed with the family members again today They are going to talk to other family members for guidance of treatment from this point Continue NG tube feeding for the next 2 days to see if any turning point Discontinue NG tube feeding on and the patient is likely be transferred to [facility] with hospice care or converted to hospice care after going there This was discussed with the social service involved Subjective 68 years old female with significant past medical history including CVA with residual deficit and dysphagia and dysphasia was admitted with sepsis secondary to pneumonia likely aspiration. 10/26 Patient was seen and examined the medical floor She keeps on aspirating with any food given orally She remains stable but nonverbal She was evaluated by GI for possible PEG placement Palliative care is on board as well 10/27 Patient was seen and examined in presence of daughter and son-in-law She has been a lot better today and in fact communicating well She has been bedbound secondary to stroke and also subdural hematoma in the past She continues to aspirate when she tries to take anything orally Denies any acute symptoms today 10/28 Patient was seen and examined in the presence of daughter and the son-in-law Condition is worse today and not being communicating Discussed with the family members in detail and answered all of their questions 10/29 Patient was seen and examined the medical floor She has been talking today but remains extremely weak She denies any acute pain and/or shortness of breath 10/30 Patient was seen and examined in medical floor She took off her NG feeding tube yesterday and that was reinserted Initially the feeding tube went into the left lower lobe of the lung which was taken out immediately With the second attempt the tube was in the stomach and the feeding was started Surprisingly the patient did not have any cough or reflux symptoms from the feeding tube being in bronchus 10/31 Patient was seen and examined in medical floor Her condition has been ambulating Not been communicating today Not even responding to vocal comments and/or pain 11/01 Patient was seen and examined in presence of the daughter Her condition remains critical but stable Daughter complains to have a lot of transmitted sounds from excessive bronchial secretions Physical Exam 2 Vital Signs (Past 24 Hours): Last Vital Signs Temp 36.8 C 11/01/18 14:53 Pulse 84 11/01/18 14:53 Resp 20 11/01/18 14:53 BP 116/70 11/01/18 14:53 Pulse Ox 92 11/01/18 14:53 Constitutional: WD/WN, vitals as above + ill appearing, + thin, + cachectic and + physical limitations (general deconditioning) Eyes: PERRL, conjunctivae normal, anicteric sclerae ENMT: external ear and nose normal, oropharynx normal Ears: no hearing impairment Neck: normal visual inspection and trachea midline Respiratory: + respiratory distress (Minimal distress at rest) and + dullness to percussion (Left lower lung) Auscultation: + diminished lung sounds ( Bilaterally, more on the left side and lower part of the lung with collaterals) , + crackles and + rhonchi (A lot of transmitted sounds from excessive suppression) Cardiovascular: RRR, no murmur, no edema Gastrointestinal (Abdomen): Inspection/Auscultation: abdomen normal to inspection, normal bowel sounds and + hypoactive bowel sounds; abdomen not distended Percussion/Palpation: abdomen soft; abdomen nontender, no guarding and abdomen not rigid Skin: no rashes, warm and dry no jaundice Neurologic: awake and + obtunded Psychiatric: Orientation: + not alert Results & Data Medications Administered Current Inpatient Medications Acetaminophen (Tylenol) 650 mg PO Q4H PRN PRN Reason: Pain or Fever Stop: 11/17/18 23:36 Last Admin: 10/28/18 23:26 Dose: 650 mg Aspirin (Ecotrin) 81 mg PO DAILY [facility] Stop: 11/18/18 08:59 Last Admin: 11/01/18 09:08 Dose: 81 mg Atorvastatin Calcium (Lipitor) 20 mg PO DAILY [facility] Stop: 11/18/18 08:59 Last Admin: 11/01/18 09:08 Dose: 20 mg Dextrose (Dextrose 50%) 25 - 50 ml IV UD PRN; Protocol PRN Reason: Hypoglycemia Protocol Stop: 11/24/18 22:34 Docusate Sodium (Colace) 100 mg PO BID [facility] Stop: 11/18/18 08:59 Last Admin: 11/01/18 10:14 Dose: 100 mg Enteral Nutritional Formula (Fibersource Hn 1.2 Fadi Liquid) 1,000 ml NG UD [facility] ; Protocol Stop: 11/26/18 12:59 Last Admin: 10/31/18 12:28 Dose: 1,000 ml Glucagon (Glucagen) 1 mg SQ UD PRN; Protocol PRN Reason: Hypoglycemia Protocol Stop: 11/24/18 22:34 Glucose (Glucose 40%) 15 - 30 gm PO UD PRN; Protocol PRN Reason: Hypoglycemia Protocol Stop: 11/24/18 22:34 Glucose (Dex4 Glucose) 4 - 8 tabs PO UD PRN; Protocol PRN Reason: Hypoglycemia Protocol Stop: 11/24/18 22:34 Enalaprilat 0.625 mg/ Syringe 10 mls @ 2 mls/min IV Q6H PRN PRN Reason: Hypertension Stop: 11/24/18 16:14 Potassium Chloride/Sodium Chloride (Normal Saline W/20 Meq Kcl) 20 meq in 1, 000 mls @ 80 mls/hr IV .[id number] [facility] Stop: 11/25/18 03:29 Last Admin: 11/01/18 04:20 Dose: 80 mls/hr Ipratropium [place] (Atrovent 0.02% 0.5mg/2.5ml) 0.5 mg INH Q4H PRN PRN Reason: Shortness Of Breath Or Wheezing Stop: 11/20/18 01:14 Last Admin: 10/25/18 00:14 Dose: 0.5 mg Ipratropium [place] (Atrovent 0.02% 0.5mg/2.5ml) 0.5 mg INH Q6R [facility] Stop: 11/24/18 22:44 Last Admin: 11/01/18 13:33 Dose: 0.5 mg Levalbuterol HCl (Xopenex 1.25mg/0.5ml Neb) 1.25 mg INH Q4H PRN PRN Reason: Shortness Of Breath Or Wheezing Stop: 11/20/18 01:14 Last Admin: 10/25/18 00:14 Dose: 1.25 mg Levalbuterol HCl (Xopenex 1.25mg/0.5ml Neb) 1.25 mg INH Q6R [facility] Stop: 11/24/18 22:44 Last Admin: 11/01/18 13:33 Dose: 1.25 mg Lisinopril (Zestril) 10 mg PO DAILY [facility] Stop: 11/24/18 06:44 Last Admin: 11/01/18 09:08 Dose: 10 mg Metoprolol Tartrate (Lopressor) 25 mg PO Q12 [facility] Stop: 11/24/18 01:59 Last Admin: 11/01/18 09:08 Dose: 25 mg Miscellaneous (Carbohydrates For Hypoglycemia) 15 - 30 gm PO UD PRN PRN Reason: Hypoglycemia Treatment Stop: 11/24/18 22:34 Miscellaneous (Check Scopolamine Patch Placement) 1 ea N/A QS [facility] Stop: 12/01/18 15:59 Miscellaneous (Remove Transderm-Scop Patch) 1 ea N/A Q72H [facility] Stop: 12/04/18 13:58 Multivitamins/Minerals (Multivitamin W/ Minerals) 1 tab PO DAILY [facility] Stop: 11/18/18 08:59 Last Admin: 11/01/18 09:08 Dose: 1 tab Nitroglycerin (Nitrostat) 0.4 mg SL UD PRN PRN Reason: Chest Pain Stop: 11/17/18 23:36 Ondansetron HCl (Zofran) 4 mg IV Q6H PRN PRN Reason: Nausea Stop: 11/17/18 23:36 Scopolamine (Transderm-Scop) 1.5 mg TD Q72H [facility] Stop: 12/01/18 13:59 Last Admin: 11/01/18 14:19 Dose: 1.5 mg Sennosides (Senokot) 8.6 mg PO DAILY [facility] Stop: 11/18/18 08:59 Last Admin: 11/01/18 09:09 Dose: 8.6 mg Sodium Biphosphate/Sodium Phosphate (Fleet Enema) 118 ml [place] DAILY PRN PRN Reason: Constipation Stop: 11/17/18 23:36 Vitamin D (Vitamin D3) 2,000 units PO DAILY [facility] Stop: 11/18/18 08:59 Last Admin: 11/01/18 09:08 Dose: 2,000 units
[2018-11-01] MEDS: CHECK SCOPOLAMINE PATCH PLACEMENT SCH (15:54)
[2018-11-02] MEDS: NSS + 20MEQ KCL 20 MEQ/1,000 ML BAG IV SCH ×2 (05:44→18:16)
[2018-11-02] MEDS: IPRATROPIUM BROMIDE NEB SOLN 0.02% 2.5 ML VIAL INH SCH ×4 (07:14→19:04)
[2018-11-02] MEDS: LEVALBUTEROL 1.25MG/0.5ML NEB INH SCH ×4 (07:14→19:04)
[2018-11-02] MEDS: FIBERSOURCE HN 1.2 CAL 1000 ML BAG NG SCH (07:56)
[2018-11-02] MEDS: CHECK SCOPOLAMINE PATCH PLACEMENT SCH ×3 (08:53→17:18)
[2018-11-02] MEDS: METOPROLOL TARTRATE 25 MG TAB PO SCH ×2 (08:54→21:42)
[2018-11-02] MEDS: CHOLECALCIFEROL 1,000 UNITS TAB PO SCH (08:54)
[2018-11-02] MEDS: ASPIRIN 81 MG ECTAB PO SCH (08:55)
[2018-11-02] MEDS: SENNA 8.6 MG TAB PO SCH (08:55)
[2018-11-02] MEDS: CEROVITE ADV FORMULA TAB PO SCH (09:46)
[2018-11-02] MEDS: ATORVASTATIN 20 MG TAB PO SCH (09:46)
[2018-11-02] MEDS: DOCUSATE SODIUM 100 MG CAP PO SCH ×2 (09:47→21:42)
[2018-11-02] MEDS: LISINOPRIL 5 MG TAB PO SCH (09:55)
--- NOTE | 2018-11-02 10:35 | Palliative Care Progress Note ---
Date of Service November 02, 2018 Assessment & Plan (1) Goals of care, counseling/discussion: -68 year old female with PMH CVA 2016 left with right hemiplegia, dysphagia, and aphasia, TBI with subdural hematoma 2017, breast cancer, leukemia , and ambulatory dysfunction, presented from [facility] with altered mental status and unresponsive episode. She has been treated for UTI and now has recurrent aspiration events. She has been on tube feedings via core safe feeding tube for last five days. No improvement in her overall clinical condition. -Today, patient appears comfortable. She is awake and smiling. Not able to participate in meaningful conversation but can occasionally answer questions with one word. She denied pain. -Spoke with patient's daughter yesterday for period of time and planning another meeting with patient's daughter this afternoon at 1pm. Daughter had many questions about transitioning to comfort/hospice care. Will discussed further today and completed POLST form if daughter is amenable. -Update: Met with patient and daughter, Tiarra Thomas. Long discussion regarding patient's care and treatment goals. Plan is for comfort. -Will continue tube feedings and abx while patient is here. Plan to stop before discharge. -environmental health and safety manager is working with [place] to find out when bed is available. -Will change code status to DNR as discussed with Tiarra and the patient. -POLST form completed as follows: DNR, comfort measures only, no antibiotics, no artificial fluids/nutrition. -Plan is for patient to go to [facility] on hospice. Referral made to [facility]. (2) History of CVA with residual deficit: (3) H/O traumatic brain injury: (4) Recurrent aspiration events: Subjective Patient is awake and appears comfortable today. She is awake and able to answer some questions with one word answers. Meeting with daughter/POA this afternoon at 1pm. Review of Systems Unobtainable due to cognitive status Physical Exam 2 Vital Signs (Past 24 Hours): Last Vital Signs Temp 36.9 C 11/02/18 07:18 Pulse 76 11/02/18 07:22 Resp 16 11/02/18 07:18 BP 131/79 11/02/18 07:18 Pulse Ox 98 11/02/18 07:18 Constitutional: + ill appearing and + physical limitations (general deconditioning) ENMT: Ears: no hearing impairment Neck: normal visual inspection and trachea midline Respiratory: normal respiratory effort; no respiratory distress and no labored breathing Auscultation: + diminished lung sounds Cardiovascular: RRR, no murmur, no edema Gastrointestinal (Abdomen): Inspection/Auscultation: abdomen normal to inspection and normal bowel sounds; abdomen not distended Percussion/ Palpation: abdomen soft Skin: no rashes, warm and dry Neurologic: awake Psychiatric: Orientation: alert (difficult to assess orientation status. only answers with one word, limited speech at baseline) Time Spent Midlevel 65 minutes with >50% of time spent at bedside with patient and daughter discussing goals/plan of care and POLST form.
--- NOTE | 2018-11-02 18:13 | Hospitalist Progress Note ---
Date of Service November 02, 2018 Assessment & Plan (1) Respiratory failure without hypercapnia: Admitted with the acute respiratory failure likely secondary to aspiration pneumonia CXR: Left lower lobe airspace opacities consistent with pneumonia Had recurrent Aspiration while hospitalized Received IV Ertapenem Continue NG tube feeds for plan Plan is to transition to Comfort measures upon discharge Appreciate input from palliative care (2) History of CVA with residual deficit: H/O CVA with dysphagia and dysphasia H/O PEG tube Appreciate GI input and recommendation-no PEG tube is recommended at this time Continue PT/OT Palliative care following Plan to transition to comfort care eventually Family agrees with plan of Care Prognosis remains poor (3) Abnormal endometrial ultrasound: Evaluated by WARDROBE IMAGE CONSULTANT No acute issues (4) H/O traumatic brain injury: H/O Encephalopathy Stable but critical (5) Acute metabolic encephalopathy: Admitted with acute metabolic encephalopathy likely secondary to infection Has been on intravenous ertapenem White count improved Overall prognosis is poor Mental Status fluctuates (6) Nutritional assessment: Patient has Ongoing aspiration problems Evaluated by speech: recommended PEG tube placement Appreciate GI input-PEG tube is not an option at this time Plan is to continue Tube feeds for now and DC upon discharge Overall prognosis remains poor DVT Px: SCDs Code Status: DNR Subjective Patient is seen and examined at bedside She is alert, awake Mostly Non Verbal Denies any pain, dyspnea Her condition remains critical Palliative Care discussed with Patient's Daughter to address goals of Care Physical Exam 2 Vital Signs (Past 24 Hours): Last Vital Signs Temp 36.1 C L 11/02/18 15:00 Pulse 73 11/02/18 15:00 Resp 24 11/02/18 15:00 BP 108/75 11/02/18 15:00 Pulse Ox 97 11/02/18 15:00 Physical Exam: Physical Exam: Vitals signs as noted above General Appearance:Ill Appearing, no apparent distress Head: normocephalic, Atraumatic Eyes: normal inspection, EOMI Neck: supple, Trachea midline Respiratory/Chest: Decreased/Coarse breath sounds Cardiovascular: S1, S2, No murmur Abdomen/GI:Soft, mild tender, Bowel sounds present Extremities/Musculoskelatal:normal inspection, no edema Neurologic/Psych:alert, awake, Chronic hemiplegia, Non verbal Skin: normal color, warm
[2018-11-03] MEDS: CHECK SCOPOLAMINE PATCH PLACEMENT SCH ×4 (00:20→23:41)
[2018-11-03] MEDS: IPRATROPIUM BROMIDE NEB SOLN 0.02% 2.5 ML VIAL INH SCH ×4 (02:23→19:57)
[2018-11-03] MEDS: LEVALBUTEROL 1.25MG/0.5ML NEB INH SCH ×4 (02:23→19:57)
[2018-11-03] MEDS: FIBERSOURCE HN 1.2 CAL 1000 ML BAG NG SCH ×2 (02:34→22:08)
[2018-11-03] MEDS: NSS + 20MEQ KCL 20 MEQ/1,000 ML BAG IV SCH (05:42)
[2018-11-03 07:00] LABS: BUN Creatinine Ratio 26.8 (10-20); Creatinine Clr Calc Pharmacy 96.7 ml/min; Est GFR (African American) 120.1; Est GFR (Non-African American) 103.7; Potassium 3.6 mmol/L (3.5-5.1)
[2018-11-03] MEDS: CHOLECALCIFEROL 1,000 UNITS TAB PO SCH (08:33)
[2018-11-03] MEDS: LISINOPRIL 5 MG TAB PO SCH (08:33)
[2018-11-03] MEDS: METOPROLOL TARTRATE 25 MG TAB PO SCH ×2 (08:33→22:08)
[2018-11-03] MEDS: ATORVASTATIN 20 MG TAB PO SCH (08:33)
[2018-11-03] MEDS: ASPIRIN 81 MG ECTAB PO SCH (08:34)
[2018-11-03] MEDS: CEROVITE ADV FORMULA TAB PO SCH (08:34)
[2018-11-03] MEDS: DOCUSATE SODIUM 100 MG CAP PO SCH ×2 (08:34→21:58)
[2018-11-03] MEDS: SENNA 8.6 MG TAB PO SCH (08:40)
[2018-11-03] MEDS: ACETAMINOPHEN 325 MG TAB PO PRN (08:47)
--- NOTE | 2018-11-03 12:21 | Palliative Care Progress Note ---
Date of Service November 03, 2018 Assessment & Plan (1) Goals of care, counseling/discussion: -68 year old female with PMH CVA 2016 left with right hemiplegia, dysphagia, and aphasia, TBI with subdural hematoma 2017, breast cancer, leukemia , and ambulatory dysfunction, presented from [facility] with altered mental status and unresponsive episode. She has been treated for UTI and now has recurrent aspiration events. She has been on tube feedings via core safe feeding tube for last week. No improvement in her overall clinical condition. -After meeting yesterday, continue with comfort care. -Plan is for [facility] tomorrow with hospice. Referral was made to [address] [place] [address]. -Nursing reported some restlessness, but patient is pleasant and awake during my visit. -POLST form completed as follows: DNR, comfort measures only, no antibiotics, no artificial fluids/nutrition. -Continue tube feedings while here. Discontinue tomorrow and remove NG tube before transfer to SNF for hospice. (2) History of CVA with residual deficit: (3) H/O traumatic brain injury: (4) Recurrent aspiration events: Subjective Patient awake and pleasant today. She does attempt to answer questions and is able to get one or two words out occasionally. Nursing reported some restlessness, but none seen during my visit. Review of Systems Unobtainable due to cognitive status Physical Exam 2 Vital Signs (Past 24 Hours): Last Vital Signs Temp 36.6 C 11/03/18 11:33 Pulse 86 11/03/18 11:33 Resp 20 11/03/18 11:33 BP 140/80 11/03/18 11:33 Pulse Ox 90 11/03/18 11:33 Constitutional: + ill appearing and + physical limitations (general deconditioning) ENMT: Ears: no hearing impairment Neck: normal visual inspection and trachea midline Respiratory: normal respiratory effort; no respiratory distress and no labored breathing Auscultation: + diminished lung sounds Cardiovascular: RRR, no murmur, no edema Gastrointestinal (Abdomen): Inspection/Auscultation: abdomen normal to inspection and normal bowel sounds; abdomen not distended Percussion/ Palpation: abdomen soft Skin: no rashes, warm and dry Neurologic: awake Psychiatric: Orientation: alert (difficult to assess orientation status. only answers with one word, limited speech at baseline) Time Spent Midlevel 25 minutes with >50% of time spent at bedside with patient discussing condition and plan of care as well as coordinating care with supervisor case loading.
--- NOTE | 2018-11-03 17:10 | Hospitalist Progress Note ---
Date of Service November 03, 2018 Assessment & Plan (1) Respiratory failure without hypercapnia: Admitted with the acute respiratory failure likely secondary to aspiration pneumonia CXR: Left lower lobe airspace opacities consistent with pneumonia Had recurrent Aspiration while hospitalized Received IV Ertapenem Continue NG tube feeds for plan Plan is to transition to Comfort measures upon discharge Appreciate input from palliative care Waiting for placement (2) History of CVA with residual deficit: H/O CVA with dysphagia and dysphasia H/O PEG tube Appreciate GI input and recommendation-no PEG tube is recommended at this time Continue PT/OT Palliative care following Plan to transition to comfort care eventually Family agrees with plan of Care Prognosis remains poor Continue medications as able (3) Abnormal endometrial ultrasound: Evaluated by MARKETING OPERATIONS ANALYST No acute issues (4) H/O traumatic brain injury: H/O Encephalopathy Stable but critical (5) Acute metabolic encephalopathy: Admitted with acute metabolic encephalopathy likely secondary to infection Has been on intravenous ertapenem White count improved Overall prognosis is poor Mental Status fluctuates (6) Nutritional assessment: Patient has Ongoing aspiration problems Evaluated by speech: recommended PEG tube placement Appreciate GI input-PEG tube is not an option at this time Plan is to continue Tube feeds for now and DC upon discharge Overall prognosis remains poor DVT Px: SCDs Code Status: DNR Disposition: Plan to discharge to [facility] tomorrow with Hospice Services Subjective Patient is seen and examined at bedside She is alert, awake and tries to communicate today Difficult to understand Denies any pain, dyspnea Palliative Care following No family at bedside Physical Exam 2 Vital Signs (Past 24 Hours): Last Vital Signs Temp 36.3 C L 11/03/18 14:55 Pulse 75 11/03/18 14:55 Resp 16 11/03/18 14:55 BP 130/82 11/03/18 14:55 Pulse Ox 96 11/03/18 14:55 Physical Exam: Physical Exam: Vitals signs as noted above General Appearance:Ill Appearing, no apparent distress Head: normocephalic, Atraumatic Eyes: normal inspection, EOMI Neck: supple, Trachea midline Respiratory/Chest: Decreased/Coarse breath sounds Cardiovascular: S1, S2, No murmur Abdomen/GI:Soft, mild tender, Bowel sounds present Extremities/Musculoskelatal:normal inspection, no edema Neurologic/Psych:alert, awake, Chronic hemiplegia, Non verbal Skin: normal color, warm Results & Data Laboratory Results [facility] 11/03/18 06:15 Sodium 140 Potassium 3.6 Chloride 106 Carbon Dioxide 29 BUN 12 Creatinine 0.46 L Glucose 104 H Calcium 9.0
[2018-11-04] MEDS: LEVALBUTEROL 1.25MG/0.5ML NEB INH SCH ×2 (01:44→07:50)
[2018-11-04] MEDS: IPRATROPIUM BROMIDE NEB SOLN 0.02% 2.5 ML VIAL INH SCH ×2 (01:44→07:51)
[2018-11-04] MEDS: CHOLECALCIFEROL 1,000 UNITS TAB PO SCH (09:21)
[2018-11-04] MEDS: METOPROLOL TARTRATE 25 MG TAB PO SCH (09:21)
[2018-11-04] MEDS: ATORVASTATIN 20 MG TAB PO SCH (09:21)
[2018-11-04] MEDS: CEROVITE ADV FORMULA TAB PO SCH (09:21)
[2018-11-04] MEDS: ASPIRIN 81 MG ECTAB PO SCH (09:22)
[2018-11-04] MEDS: SENNA 8.6 MG TAB PO SCH (09:22)
[2018-11-04] MEDS: LISINOPRIL 5 MG TAB PO SCH (09:22)
[2018-11-04] MEDS: DOCUSATE SODIUM 100 MG CAP PO SCH (09:23)
[2018-11-04] MEDS: CHECK SCOPOLAMINE PATCH PLACEMENT SCH (09:25)
--- NOTE | 2018-11-04 12:04 | Hospitalist Progress Note ---
Date of Service November 04, 2018 Assessment & Plan (1) Respiratory failure without hypercapnia: Admitted with the acute respiratory failure likely secondary to aspiration pneumonia CXR: Left lower lobe airspace opacities consistent with pneumonia Had recurrent Aspiration while hospitalized Received IV Ertapenem Continue NG tube feeds for plan Plan is to transition to Comfort measures upon discharge Appreciate input from palliative care Plan to be discharged to [facility] with Hospice Services today (2) History of CVA with residual deficit: H/O CVA with dysphagia and dysphasia H/O PEG tube Appreciate GI input and recommendation-no PEG tube is recommended at this time Continue PT/OT Palliative care following Plan to transition to comfort care eventually Family agrees with plan of Care Prognosis remains poor Continue medications as able (3) Abnormal endometrial ultrasound: Evaluated by DRUM PRINTER No acute issues (4) H/O traumatic brain injury: H/O Encephalopathy Stable but critical (5) Acute metabolic encephalopathy: Admitted with acute metabolic encephalopathy likely secondary to infection Has been on intravenous ertapenem White count improved Overall prognosis is poor Mental Status fluctuates (6) Nutritional assessment: Patient has Ongoing aspiration problems Evaluated by speech: recommended PEG tube placement Appreciate GI input-PEG tube is not an option at this time Plan is to continue Tube feeds for now and DC upon discharge Overall prognosis remains poor DVT Px: SCDs Code Status: DNR Disposition: Plan to discharge to [facility] with Hospice Services Subjective Patient is seen and examined at bedside No apparent distress She is alert, awake and tries to communicate Discussed with Daughter today in detail Planned to be discharged to [facility] today Physical Exam 2 Vital Signs (Past 24 Hours): Last Vital Signs Temp 36.5 C 11/04/18 11:25 Pulse 71 11/04/18 11:25 Resp 16 11/04/18 11:25 BP 134/84 11/04/18 11:25 Pulse Ox 94 11/04/18 11:25 Physical Exam: Physical Exam: Vitals signs as noted above General Appearance:Ill Appearing, no apparent distress Head: normocephalic, Atraumatic Eyes: normal inspection, EOMI Neck: supple, Trachea midline Respiratory/Chest: Decreased/Coarse breath sounds Cardiovascular: S1, S2, No murmur Abdomen/GI:Soft, mild tender, Bowel sounds present Extremities/Musculoskelatal:normal inspection, no edema Neurologic/Psych:alert, awake, Chronic hemiplegia, Non verbal Skin: normal color, warm
--- NOTE | 2018-11-04 12:16 | Discharge Summary ---
Date of Service November 04, 2018 Admission HPI Per Admitting Provider DICTATED BY: Keanu Cesar MD DATE OF ADMISSION: 10/18/2018 CHIEF COMPLAINT: Unresponsive episode. HISTORY OF PRESENT ILLNESS: This is a 68-year-old female with past medical history significant for ischemic stroke in 2016, which made her a right-sided hemiplegic and dysphagia and she was in feed tube for some time, but right now she can eat mechanical soft diet. In 2017, she suffered a fall, injury and had a subdural hematoma. Since then, cognitive function has gone down. She can recognize her family, but she is mostly nonverbal. She does not ambulate. She needs 2-people assistance, mostly wheelchair bound. She is mostly incontinent. She is currently at [facility], history of hypertension, dysarthria, history of C. diff, osteoporosis, hyperlipidemia, acute myeloid leukemia in remission, was brought in today because for dinner, she was taken with the wheelchair into the dinner room and she had some food and suddenly she vomited and became unresponsive. Her blood pressure was low and she was brought into the hospital. She was given antibiotics, fluids, and CAT scan of the abdomen and pelvis showing some moderate pelvic infiltration adjacent to sigmoid colon and also some gas within the endometrial cavity and left adnexa but there are no signs of obvious abscess so question of infectious process could be gynecological or gastrointestinal in etiology. No fistula identified. The patient after receiving antibiotics and fluids, the patient is more alert and awake now. Daughter is in the room and she thinks the patient is back to her baseline. I tried to talk to the patient, asked about the belly pain, she denied it but could not get any answers from the patient and that is normal for her as per daughter. No recent fever, chills. No cough, no recent diarrhea. Apparently, she was at baseline. All the information is got from the daughter and also from the [facility] nursing staff. Admission Exam Per Admitting Provider PHYSICAL EXAMINATION: GENERAL: The patient is alert and awake, but nonverbal. VITAL SIGNS: Temperature 36.6, pulse 105, respiratory rate 18, blood pressure 150/133, oxygen 99% on 4 L. HEENT: No pallor, no icterus. NECK: No JVD, no neck masses. CARDIOVASCULAR: S1, S2 heard, regular rate and rhythm, no murmur, no gallop. RESPIRATORY SYSTEM: Normal AP diameter. No accessory muscles use. No wheezing, no crackles. ABDOMEN: Soft, bowel sounds present. Seems to be on mild discomfort on palpation. No distention, no guarding. CENTRAL NERVOUS SYSTEM: Alert and awake, not oriented, nonverbal, not obeys any commands. EXTREMITIES: No edema or erythema. Principal Diagnosis Discharge Information Discharge Diagnosis Acute Respiratory Failure Aspiration Pneumonia Metabolic Encephalopathy Discharge Goals Decrease discomfort,Improve disease control, Improve function Discharge Activity Limitations Resume your previous activity Discharge Data Allergies Allergy/AdvReac Type Severity Reaction Status Date / Time Penicillins Allergy Unknown RASH Verified 10/18/18 20:04 pollen extracts Allergy Unknown RUNNY Verified 10/18/18 20:04 NOSE/SNEEZING Consultations 10/18/18 21:46 ED Decision to Admit Stat 10/18/18 23:37 Consult Case Management - Discharge Planning Routine 10/19/18 08:00 Consult General Surgery Routine 10/20/18 08:52 Consult Gynecology Routine 10/20/18 16:09 Consult Neurology Routine 10/21/18 08:01 Consult Palliative Care Routine 10/26/18 02:05 Consult Gastroenterology Routine 10/26/18 04:00 Consult Pulmonology Routine 10/26/18 14:01 Consult Nutrition Stat Procedures Performed CT cHEST: 1. Small left pleural effusion with multifocal groundglass and consolidative opacities of the left lung base, notably within the left lower lobe suggestive of pneumonia and/or aspiration pneumonitis. 2. Moderate degree of tracheobronchial secretions with bibasilar mucous plugging. 3. Mild subsegmental groundglass and consolidative opacities of the right lower lobe suggest atelectasis with a mild pneumonitis also in the differential. 4. Enteric tube courses into the gastric lumen, distal tip outside the field-of- view. ct HEAd: No acute intracranial abnormality. pELVIC usd: 1. Limited study as above. 2. Echogenic focus about the fundal uterus likely correlates with the focus of air within the endometrial canal seen on comparison CT of unknown etiology. 3. Nonvisualization of the ovaries. CT ABD: 1. Suboptimal examination without oral and IV contrast. The examination is also degraded by streak and motion artifact. 2. There is unchanged infiltration of the pelvic fat adjacent to the sigmoid colon. There is also gas present within the endometrial canal and involving the left adnexal structures. Some of these findings have been present dating back to 07/01/2018, and although this could be of gynecologic or GI origin, a gynecologic etiology is favored. No fistula is clearly identified. Clinical correlation will be essential. 3. Moderate colonic fecal retention. 4. Trace pleural effusions. 5. Additional findings as above. Ordered Studies 10/18/18 18:59 CT abd pelvis IV con only Stat CT head/brain wo con Stat 10/20/18 07:00 CT abd pelvis wo con Routine 10/20/18 13:30 US pelvic complete Urgent 10/20/18 16:48 CT head/brain wo con Routine 10/21/18 00:43 US venous doppler UE LT Urgent 10/26/18 23:06 CT chest wo con Routine Hospital Course (1) Respiratory failure without hypercapnia: Admitted with the acute respiratory failure likely secondary to aspiration pneumonia CXR: Left lower lobe airspace opacities consistent with pneumonia Had recurrent Aspiration while hospitalized Received IV Ertapenem Continue NG tube feeds for plan Plan is to transition to Comfort measures upon discharge Appreciate input from palliative care Plan to be discharged to [facility] with Hospice Services today (2) History of CVA with residual deficit: H/O CVA with dysphagia and dysphasia H/O PEG tube Appreciate GI input and recommendation-no PEG tube is recommended at this time Continue PT/OT Palliative care following Plan to transition to comfort care eventually Family agrees with plan of Care Prognosis remains poor Continue medications as able (3) Abnormal endometrial ultrasound: Evaluated by FINGERPRINT TECHNICIAN No acute issues (4) H/O traumatic brain injury: H/O Encephalopathy Stable but critical (5) Acute metabolic encephalopathy: Admitted with acute metabolic encephalopathy likely secondary to infection Has been on intravenous ertapenem White count improved Overall prognosis is poor Mental Status fluctuates (6) Nutritional assessment: Patient has Ongoing aspiration problems Evaluated by speech: recommended PEG tube placement Appreciate GI input-PEG tube is not an option at this time Plan is to continue Tube feeds for now and DC upon discharge Overall prognosis remains poor DVT Px: SCDs Code Status: DNR Disposition: Plan to discharge to [facility] with Hospice Services Total Time Total Time Spent Total Time Spent (In Minutes): 43 minutes Total Time Includes: Examination of the Patient, Discharge Planning, Medication Reconciliation, Communication With Other Providers and Other Discharge Plan Discharge Items Patient Disposition: Hospice - Medical Facility Reason For Visit: AMS Discharge Diagnosis: Acute Respiratory Failure Aspiration Pneumonia Metabolic Encephalopathy Discharge Goals: Decrease discomfort, Improve disease control and Improve function Activity: Resume your previous activity Non-emergency contact: Primary Care Provider Call non-emergency contact if: you have any medication questions, your symptoms worsen, your pain is not controlled, your pain is worsening, your pain is unusual for you and you have a fever Diet: Regular Diet Texture: Mechanical soft (ground) Addtl Provider Instructions: Follow up with your Physician in 1 week Follow up with your Hospice Physician for further management Speech Therapy Discharge Instructions: Speech Therapy Discharge Instructions 1. Return to moist and minced (mechanical soft) diet. 2. Pt requires feeding assistance and SUPERVISION with meals. Hold PO and notify INFORMATION TECHNOLOGY INTERN if overt signs of dysphagia noted despite use of precautions. 3. Provide PO ONLY when pt is awake, alert, and fully upright. 4. Provide regular stringent oral hygiene to minimize bacteria that could be aspirated to cause infection. 5. Implement strict aspiration precautions. (Alt = Alternate ) Aspiration Precautions Alt Solids & Liquid Supervise Meals Fully Alert and Upright Give Meds in a Carrier Single Bites/Small Sips/Slow Rate Prescriptions: New scopolamine base [Transderm-Scop] 1 mg over 3 days Patch 3 Day 1.5 mg Transdermal Q72H 6 Days Qty: 2 RF: 0 Continue atorvastatin 20 mg Tablet 20 mg PO DAILY RF: 0 aspirin 81 mg Tablet,Chewable 81 mg PO DAILY RF: 0 lisinopril 2.5 mg Tablet 2.5 mg PO DAILY RF: 0 docusate sodium [Silace] 50 mg/5 mL Liquid 100 mg PO BID RF: 0 sennosides [senna] 8.6 mg Tablet 8.6 mg PO DAILY RF: 0 metoprolol tartrate 25 mg Tablet 25 mg PO Q12 RF: 0 polyethylene glycol 3350 [Miralax] 17 gram Powder In Packet 17 g PO DAILY PRN (Reason: Constipation) RF: 0 acetaminophen 500 mg Tablet 500 mg PO Q4 MDD 3gm/24hr PRN (Reason: Fever Or Pain) RF: 0 sodium phosphates [Fleet Enema] 19-7 gram/118 mL Enema 118 ml DC DAILY PRN (Reason: Constipation) RF: 0 multivitamin,[id number] [Therems-M] 27-0.4 mg Tablet 1 tab PO DAILY RF: 0 cholecalciferol (vitamin D3) [Vitamin D3] 2,000 unit Tablet 2,000 unit PO DAILY RF: 0 ondansetron HCl 4 mg tablet 4 mg PO Q4H PRN (Reason: Nausea) RF: 0 Stand-Alone Forms: [facility] Discharge Orders: Discharge Order (Routine); Ordered 11/04/18 Ordered By: Paul Prasad Admission Data Admit Date/Time: 10/18/18 22:40 Attending Provider: Paul Prasad Admit Provider: Keanu Cesar Primary Care Provider: Ranjeet Carrillo Other Providers: Keanu Cesar ; Jan Martines ; Valorie Overton ; Nereyda Calle ; Fidel Gary ; Domenic Craft ; Inessa Elena ; George Curry ; Ranjeet Carmen ; Sadaf Alberts ; Clinton Cruz ; Radha Hankins ; Rogerio Birch ; Jaya Jones Jr ; Hussein Rodriguez ; Dino Dorado ; Mayuri Gar ; Arlette Mullins ; Henrik Parra ; Maribell Perdomo ; Leida Cheek ; Jamarcus Tyler ; Brijesh Elena ; Leyda Cooper ; Anu Orr ; Russell Mistry ; Renny Curiel ; Cassie Casanova ; Stephanie Walsh ; Melba Cornell ; Kasia Chappell ; [place] ; Russell Ash ; Cain Villareal ; Dian Nash ; Jean Paul Chance ; Radha Stroud ; Domenic Cary ; Erica Obrien ; Susie Meek ; Vitaliy Santos ; Анна Brasher ; Jacob Blakely ; Markos Sorto ; Paul Prasad ; [place] Service: Medical Other Interventions: Discharge Summary Assessment (RN) Last Done: 11/04/18 15:26 Pending Studies at Discharge: No DC Date/Time DO NOT enter until pt leaves facility: 11/04/18 16:09
--- NOTE | 2018-11-04 12:58 | Palliative Care Progress Note ---
Date of Service November 04, 2018 Assessment & Plan (1) Goals of care, counseling/discussion: -Patient going to [facility] with hospice today. -She is a little more drowsy today, but appears comfortable. Now has oxymask on , but can remove and place nasal cannula as this is probably not providing much comfort. -Recommend Roxanol 5mg PO/SL Q3h PRN pain or SOB if needed. -Has scopolamine patch on. IF restlessness or agitation occurs, could remove scopolamine patch and use atropine drops PRN secretions. -POLST form was completed several days ago. (2) History of CVA with residual deficit: (3) H/O traumatic brain injury: (4) Recurrent aspiration events: Subjective Patient awake but is a little more drowsy/lethargic today. No family at bedside. Review of Systems Unobtainable due to cognitive status Physical Exam 2 Vital Signs (Past 24 Hours): Last Vital Signs Temp 36.5 C 11/04/18 11:25 Pulse 71 11/04/18 11:25 Resp 16 11/04/18 11:25 BP 134/84 11/04/18 11:25 Pulse Ox 94 11/04/18 11:25 Constitutional: + ill appearing and + physical limitations (general deconditioning) ENMT: Ears: no hearing impairment Neck: normal visual inspection and trachea midline Respiratory: normal respiratory effort; no respiratory distress and no labored breathing Auscultation: + diminished lung sounds Cardiovascular: RRR, no murmur, no edema Gastrointestinal (Abdomen): Inspection/Auscultation: abdomen normal to inspection and normal bowel sounds; abdomen not distended Percussion/ Palpation: abdomen soft Skin: no rashes, warm and dry Neurologic: awake Psychiatric: Orientation: alert (difficult to assess orientation status. only answers with one word, limited speech at baseline) Time Spent Midlevel 25 minutes with >50% of time spent at bedside with patient discussing plan of care.
[2018-11-04] MEDS: SCOPOLAMINE 1.5 MG TDSY TD SCH (14:18)
--- NOTE | 2018-12-27 06:43 | Coding Query ---
SEPSIS The medical record reflects the following clinical findings: Patient admitted after an unresponsive episode. 10/25 progress note of states Sepsis due to respiratory failure and pneumonitis. GI consult also documents Sepsis. Seeking clarification if Sepsis was treated during the course of this Inpatient stay. Please check the appropriate phrase below. Thank you! Harpreet Tiffany, RESEARCH AFFILIATE [facility] ____ ()Bacteremia (Nonspecific laboratory finding of bacteria in the blood) Specify Organism () Present on Admission (X) Not present on admission () Unable to clinically determine () Septicemia (Systemic disease associated with the presence of pathogenic microorganisms in the blood): Specify Organism () Present on Admission (x) Not present on admission () Unable to clinically determine () Sepsis Specify Organism Specify Associated Condition/Diagnosis () Present on Admission () Not present on admission () Unable to clinically determine () Severe Sepsis (Sepsis associated with acute organ dysfunction) Specify Organism Specify Associated Condition/Diagnosis () Present on Admission () Not present on admission () Unable to clinically determine () Septic Shock (Severe sepsis with acute circulatory failure, unexplained by other causes) () Present on Admission () Not present on admission () Unable to clinically determine () Other, patient has: MTDD
== END 2018-11-04 16:09 | disposition hospice, inpatient (51) | DRG 177 ==
LOC: ED 18:31 → 2S 22:40 → SUATTDRO 22:40 → 2S 23:09 → 2W 10-24 18:55